=== PATIENT | female | born 1965 | race Caucasian/White ===

== ENCOUNTER 2022-04-28 13:47 | Emergency (ER) | payer MEDICARE, MEDICAID, SELFPAY ==
[2022-04-28 13:47] VITALS: BP 135/77; PULSE 59; RESP 22; TEMP 36.7; O2SAT 98; BMI 46.6
[2022-04-28 14:09] LABS: Bacteria 0 SEEN /hpf (None Seen); Mucous, Urine 0 SEEN /hpf (<or=2+); Red Blood Cells-Urine 0 SEEN /hpf (0-5); White Blood Cells 0 SEEN /hpf (0-5)
[2022-04-28 14:11] LABS: Absolute Lymphocyte Count 1.89 X10^3/uL (0.83-4.51); Absolute Neutrophil Count 3.9 X10^3/uL (2.0-7.7); Basophil# 0.02 X10^3/uL; Basophil% 0.3 % (0-1); Eosinophil# 0.07 X10^3/uL; Eosinophils% 1.1 % (0-5); Hematocrit 46.2 % (37-47); Hemoglobin 16.1 g/dL (12.0-15.0); Lymphocyte # 1.89 X10^3/ul (0.83-4.51); Lymphocyte % 29.6 % (19-41); Mean Corp Hgb Conc 34.8 g/dL (32-36); Mean Corpuscular Hgb 33.2 pg (27.0-32.0); Mean Corpuscular Volume 95.3 fL (81-99); Mean Platelet Vol. 11.3 fl (6.2-12.0); Monocyte# 0.46 X10^3/uL; Monocyte% 7.2 % (0-10); NRBC Flagged by Analyzer 0 % (0-5); Neutrophil % 61.2 % (47-70); Platelet Count 177 K/mm3 (150-450); RBC Distribution Width CV 13.5 % (11.6-14.6); RBC Distribution Width SD 47.5 fl (35.1-43.9); Red Blood Count 4.85 M/mm3 (4.2-5.4); White Blood Count 6.4 K/mm3 (4.4-11.0)
[2022-04-28 14:25] LABS: Color, Urine Yellow (Yellow); Glucose, Dipstick Normal (Normal); Ketone-Dipstick Negative (Negative); Leukocyte Esterase-Dipstick Negative /ul (Negative); Nitrite-Dipstick Negative (Negative); Occult Blood-Urine Negative /ul (Negative); Protein-Dipstick Negative (Negative); Specific Gravity, Urine 1.025 (1.002-1.030); Urine Bilirubin Dipstick Negative (Negative); Urine Clarity Sl. Cloudy (Clear); Urine Urobilinogen Normal (Normal)
[2022-04-28 14:32] LABS: ALB/GLOB Ratio 0.9 RATIO (0.9-2.4); AST(SGOT) 14 U/L (15-37); Alanine Aminotransfer ALT/SGPT 27 U/L (13-56); Albumin, Serum 3.6 g/dL (3.2-5.0); Alkaline Phosphatase 49 U/L (45-117); Anion Gap 8 (5-15); BUN 14 mg/dL (7-18); BUN/Creat Ratio 17.3 RATIO (10-20); Calcium,Total 9.1 mg/dL (8.5-10.1); Chloride 104 mmol/L (98-107); Creatinine, Serum 0.81 mg/dL (0.55-1.02); EST Glomerular Filtration Rate 78 mL/min (>60); Est Glom Filt Rate - Afr Amer 95 mL/min (>60); Estimated Creatinine Clearance 64.92 ml/min; Globulin 4.1 g/dL (2.2-4.2); Glucose 135 mg/dL (74-106); Potassium 3.9 mmol/L (3.5-5.1); Protein, Total 7.7 g/dL (6.4-8.2); Sodium Level 141 mmol/L (136-145)
[2022-04-28 14:39] LABS: Squamous Epithelial Cells - UA 0-5 SEEN /hpf (5-10)
--- NOTE | 2022-04-28 14:44 | CT_ITS ---
STUDY: CT ABDOMEN AND PELVIS WITH CONTRAST REASON FOR EXAM: Female, 57 years old. Right sided abdominal pain RADIATION DOSAGE (If Supplied By Facility): CTDIvol = ( 21.90 ) mGy, DLP = ( 1660.38 ) mGycm TECHNIQUE: Transaxial images were obtained from the dome of the diaphragm to the symphysis pubis without oral contrast. IV 100mL Isovue-370 was administered. Sagittal and coronal images were reconstructed. Individualized dose optimization techniques were used for this CT. COMPARISON: None. FINDINGS: 4.8 mm noncalcified nodule in the left lower lobe. Increased markings in the left lower lobe suggestive of scarring. 12 month follow-up is recommended. A dual-chamber pacemaker is seen. Normal liver. There are surgical clips in the gallbladder fossa consistent with a prior cholecystectomy. There are multiple benign calcified granulomata of the spleen. Normal pancreas. Normal bilateral adrenal glands. Normal right kidney. Normal left kidney. Normal visualized stomach. Normal small intestine. There are multiple colonic diverticula consistent with diverticulosis. The appendix is visualized and appears normal. There is scattered atherosclerotic calcification of the abdominal aorta, without a demonstrated aneurysm. Normal inferior vena cava. There is borderline retroperitoneal lymphadenopathy with enlarged nodes no greater than 10mm in the short axis diameter. Normal urinary bladder. A 1.7 cm calcified nodule is seen in the umbilicus. Normal osseous structures. CT/Abdomen/Pelvis W IV Cont ONLY IMPRESSION: Sigmoid diverticulosis. 4.8 mm noncalcified nodule in the left lower lobe. A 12 month follow-up examination is recommended. Electronically Signed: Gregory Figueroa MD at 15:26 EST ,
--- NOTE | 2022-04-28 14:45 | EDS_ITS ---
HPI HPI - GI History of Present Illness Chief Complaint: Abd Pain Narrative Narrative: 57-year-old female presenting with right upper quadrant abdominal pain and pain radiating to the right flank for the last several days. She states has not had a fever. She does states has had a cough for a month, is not sure if maybe she pulled something. 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 It is worse with movement she denies nausea or vomiting. She denies dysuria or hematuria. She denies fever or chills. Patient denies constipation or diarrhea. She states she has had 4 C-sections, 2 hernia repairs and cholecystectomy. She states she has no history of bowel blockages but does have IBS PFSH PFS Medical History Depression Hypothyroid IBS (irritable bowel syndrome) Insomnia Pacemaker Pre-diabetes Sleep apnea with use of continuous positive airway pressure (CPAP) Home Medications lidocaine 5 % topical patch (Lidoderm) 1 patch topical DAILY PRN pain (scale score 7-10) #15 ea 04/28/22 [Rx Last Taken Unknown] Allergy/AdvReac Type Severity Reaction Status Date / Time Sulfa (Sulfonamide Allergy Anaphylaxis Verified 04/28/22 14:46 Antibiotics) sulfamethoxazole Allergy Anaphylaxis Verified 04/28/22 14:46 [From Bactrim] trimethoprim [From Bactrim] Allergy Anaphylaxis Verified 04/28/22 14:46 Opioids - Morphine Analogues AdvReac Other Verified 04/28/22 14:46 Social History Smoking Status: Current every day smoker tobacco type: cigarettes ROS ROS ED Constitutional Constitutional ED: Denies chills or fever(s) ENT ENT ED: Denies rhinorrhea or sore throat Cardiovascular Cardiovascular: Denies palpitations or racing heartbeat Respiratory/Chest Respiratory/Chest: Reports cough; Denies dyspnea Gastrointestinal Gastrointestinal: Reports abdominal pain; Denies constipation, diarrhea, nausea or vomiting Genitourinary Genitourinary ED: Denies dysuria or hematuria Musculoskeletal Musculoskeletal: Reports back pain; Denies arthralgias Integumentary Denies abscess or Abrasions Neurologic Neurologic: Denies headache(s) or paresthesias Psychiatric Psychiatric: Denies anxiety or depression EXAM Physical Exam Const Vital Signs: 01/09/23 13:47 Temperature 98.1 F Temperature Source Temporal Pulse Rate 59 L Respiratory Rate 22 H Blood Pressure 135/77 H Blood Pressure Mean 96 Pulse Ox 98 Oxygen Delivery Method Room Air Positive well nourished and obese General Appearance ED: NAD; Negative for pallor Nutritional Appearance: obese HEENT Reports moist mucous membranes normocephalic and atraumatic Eyes PERRL and EOMs intact bilaterally Chest Wall Chest Narrative: Equal symmetric breath sounds and chest wall rise. Resp normal respiratory effort and clear to auscultation bilaterally Auscultation: Negative for rales, rhonchi or wheezes Cardio regular rhythm Rate: bradycardia GI Palpation: tender RUQ Back/Spine Back/Spine Narrative: Thoracic paraspinal muscular tenderness and tenderness in the right lower rib cage. Extremity full ROM Neuro CN's II-XII intact bilaterally Sensorium / Orientation: alert Psych mental status grossly normal and thought process normal Skin General Skin Exam: Negative for jaundice or pallor MDM MDM MDM Narrative Medical decision making narrative: Patient presenting with right flank pain as well as right upper abdominal pain. This has been ongoing for days. No fevers, chills, nausea, vomiting. She does not report any constipation or diarrhea. No urinary or vaginal complaints. She does states he is also been coughing for about a month. Her pain is located in the right flank and she is tender focally. She also has some pain in the right upper quadrant but is status post cholecystectomy distantly. Blood work was obtained and her CBC I do not identify any infectious etiology given that her white blood count is 6.4. Hemoglobin hematocrit are stable. Platelets are normal. Her renal function and electrolytes within normal limits. Her LFTs are normal as well. Her lipase is slightly elevated at 429 but this is not consistent with acute pancreatitis urinalysis negative for infection and occult blood. Due to her complaint of cough for over a month I did get a chest x-ray which on my interpretation does not show any acute cardiopulmonary process. The radiologist presents and agrees. I did obtain a CT of the abdomen pelvis and there is no acute intra-abdominal pathology noted. There is noted to be a left lower lobe pulmonary nodule which requires follow-up in the next year. No etiology found on the right side of her abdomen. The patient did refuse any pain medication except for Toradol because she does not like pain medication. I did give her a Lidoderm patch on the right flank. Patient counseled on negative work-up. I will give her some Lidoderm patches at home. She states she would prefer to alternate Tylenol and ibuprofen at home. I did offer her muscle relaxers but she states that she does not want take it during the day and she already takes tramadol at night at bedtime so she did not want to have a muscle relaxer. I did recommend alternating ice and heat. Return precautions were discussed. Impression: 1. Cough 2. Right flank pain 3. Abdominal pain 4. 4.8 mm pulmonary Lab Data Attestation: I reviewed the patient's lab results. Labs: Laboratory Results - last 24 hr 04/28/22 04/28/22 04/28/22 14:00 14:00 14:00 WBC 6.4 RBC 4.85 Hgb 16.1 H Hct 46.2 MCV 95.3 MCH 33.2 H MCHC 34.8 RDW Std Deviation 47.5 H RDW Coeff of Alexandrea 13.5 Plt Count 177 MPV 11.3 Immature Gran % (Auto) 0.600 Neut % (Auto) 61.2 Lymph % (Auto) 29.6 [place] % (Auto) 7.2 Eos % (Auto) 1.1 Baso % (Auto) 0.3 Absolute Neuts (auto) 3.9 Absolute Lymphs (auto) 1.89 Nucleated RBC % 0 Sodium 141 Potassium 3.9 Chloride 104 Carbon Dioxide 29.0 Anion Gap 8 BUN 14 Creatinine 0.81 Estim Creat Clear Calc 64.92 Est GFR (MDRD) Af Amer 95 Est GFR (MDRD) Non-Af 78 BUN/Creatinine Ratio 17.3 Glucose 135 H Calcium 9.1 Total Bilirubin 0.50 AST 14 L ALT 27 Alkaline Phosphatase 49 Total Protein 7.7 Albumin 3.6 Globulin 4.1 Albumin/Globulin Ratio 0.9 Lipase 429 H Urine Color Urine Clarity Urine pH Ur Specific [place] Urine Protein Urine Glucose (UA) Urine Ketones Urine Occult Blood Urine Nitrite Urine Bilirubin Urine Urobilinogen Ur Leukocyte Esterase Urine RBC Urine WBC Ur Squamous Epith Cells Urine Bacteria Urine Mucus 04/28/22 14:05 WBC RBC Hgb Hct MCV MCH MCHC RDW Std Deviation RDW Coeff of Alexandrea Plt Count MPV Immature Gran % (Auto) Neut % (Auto) Lymph % (Auto) [place] % (Auto) Eos % (Auto) Baso % (Auto) Absolute Neuts (auto) Absolute Lymphs (auto) Nucleated RBC % Sodium Potassium Chloride Carbon Dioxide Anion Gap BUN Creatinine Estim Creat Clear Calc Est GFR (MDRD) Af Amer Est GFR (MDRD) Non-Af BUN/Creatinine Ratio Glucose Calcium Total Bilirubin AST ALT Alkaline Phosphatase Total Protein Albumin Globulin Albumin/Globulin Ratio Lipase Urine Color Yellow Urine Clarity Sl. Cloudy Urine pH 5.0 Ur Specific [place] 1.025 Urine Protein Negative Urine Glucose (UA) Normal Urine Ketones Negative Urine Occult Blood Negative Urine Nitrite Negative Urine Bilirubin Negative Urine Urobilinogen Normal Ur Leukocyte Esterase Negative Urine RBC 0 SEEN Urine WBC 0 SEEN Ur Squamous Epith Cells 0-5 SEEN Urine Bacteria 0 SEEN Urine Mucus 0 SEEN Radiography Diagnostic Testing: Clinical Impression(s) from Imaging Studies Abdomen/Pelvis CT 04/28/22 14:44 IMPRESSION: Sigmoid diverticulosis. 4.8 mm noncalcified nodule in the left lower lobe. A 12 month follow-up examination is recommended. Electronically Signed: Gregory Figueroa MD at 15:26 EST Reading Location ID and State: [facility] / [place] , Service support , Chest X-Ray 04/28/22 15:05 IMPRESSION: Mild increased linear markings at the lung bases suggestive of bibasilar scarring. This is worse on the left side. Electronically Signed: Gregory Figueroa MD at 15:27 EST , Discharge Plan Triage Chief Complaint: Abd Pain ED Provider: Kevin Antunez Dx/Rx/DC Orders Instructions: ED Abdominal Pain Unkn Cause Fem, ED Flank Pain, Uncertain Cause, ED Pulmonary Nodule, Solitary Prescriptions: New lidocaine [Lidoderm] 5 % adhesive patch,medicated 1 patch topical DAILY PRN (Reason: pain (scale score 7-10)) Qty: 15 0RF Rx Instructions: leave on most painful area for up to 12 hrs Primary Care Provider: Jennie King Referrals: Jennie King, [Primary Care Provider] - Disposition Disposition: Home, Self Care
[2022-04-28] MEDS: Ketorolac 15 MG/ML Vial IV (14:48)
--- NOTE | 2022-04-28 15:05 | RAD_ITS ---
STUDY: X-RAY CHEST REASON FOR EXAM: Female, 57 years old. Cough TECHNIQUE: Single AP portable view of the chest. COMPARISON: None. FINDINGS: Mild increased markings at the lung bases more prominent on the right side suggestive of bibasilar scarring. There is no demonstrated pleural abnormality. A left-sided dual-chamber pacemaker is seen. Normal mediastinum and xavier. Normal visualized pulmonary arteries. Normal visualized aortic arch and descending thoracic aorta. Normal visualized thoracic spine. There is degenerative osteoarthritis of the bilateral shoulders. Tiny calcification overlying the greater tuberosity of the right humerus suggestive of possible calcific tendinitis. There is no demonstrated abnormality of the visualized soft tissue structures of the upper abdomen. RAD/Chest 1 View (Portable) IMPRESSION: Mild increased linear markings at the lung bases suggestive of bibasilar scarring. This is worse on the left side. Electronically Signed: Gregory Figueroa MD at 15:27 EST ,
[2022-04-28 15:12] LABS: Lipase 429 U/L (73-393)
[2022-04-28] MEDS: Lidocaine 5% Patch 1 PATCH TOPICAL (16:07)
== END 2022-04-28 16:08 | disposition home or self-care (01) ==
PROVIDERS: Emergency Provider Student in an Organized Health Care Education/Training Program; PCP Family Medicine; Visit Provider Student in an Organized Health Care Education/Training Program
DX: R05.9 Cough, unspecified (principal); R10.11 Right upper quadrant pain; F17.210 Nicotine dependence, cigarettes, uncomplicated; G47.30 Sleep apnea, unspecified; E66.9 Obesity, unspecified
CPT/HCPCS: 71045; 74177; 80053; 81001; 83690; 85025; 96374; 99284; Q9967; A4216

== ENCOUNTER → 2022-05-14 | Outpatient (CLI) | payer MEDICARE, SELFPAY ==
[2022-05-14 12:16] LABS: Hematocrit 48.1 % (37-47); Hemoglobin 15.7 g/dL (12.0-15.0); Mean Corp Hgb Conc 32.6 g/dL (32-36); Mean Corpuscular Hgb 30.9 pg (27.0-32.0); Mean Corpuscular Volume 94.7 fL (81-99); Mean Platelet Vol. 11.4 fl (6.2-12.0); Platelet Count 174 K/mm3 (150-450); RBC Distribution Width SD 45.6 fl (35.1-43.9); Red Blood Count 5.08 M/mm3 (4.2-5.4); White Blood Count 5.7 K/mm3 (4.4-11.0)
[2022-05-14 13:09] LABS: ALB/GLOB Ratio 0.9 RATIO (0.9-2.4); AST(SGOT) 19 U/L (15-37); Alanine Aminotransfer ALT/SGPT 30 U/L (13-56); Albumin, Serum 3.6 g/dL (3.2-5.0); Alkaline Phosphatase 44 U/L (45-117); Anion Gap 9 (5-15); BUN 12 mg/dL (7-18); BUN/Creat Ratio 15.6 RATIO (10-20); Calcium,Total 9.3 mg/dL (8.5-10.1); Chloride 103 mmol/L (98-107); Creatinine, Serum 0.77 mg/dL (0.55-1.02); EST Glomerular Filtration Rate 83 mL/min (>60); Est Glom Filt Rate - Afr Amer 100 mL/min (>60); Free T3 2.7 pg/mL (2.18-3.98); Globulin 4.2 g/dL (2.2-4.2); Glucose 107 mg/dL (74-106); Potassium 3.9 mmol/L (3.5-5.1); Protein, Total 7.8 g/dL (6.4-8.2); Sodium Level 140 mmol/L (136-145); T4 Free Direct 1.67 ng/dL (0.76-1.46); Thyroid Stim Hormone (TSH) 0.17 uIU/mL (0.358-3.74)
== END | disposition home or self-care (01) ==
LOC: MTLAB 11:06
PROVIDERS: PCP Nurse Practitioner Primary Care; Referring Provider Nurse Practitioner Primary Care; Visit Provider Nurse Practitioner Primary Care
DX: E03.4 Atrophy of thyroid (acquired) (principal); D69.6 Thrombocytopenia, unspecified; I10 Essential (primary) hypertension
CPT/HCPCS: 36415; 80053; 84439; 84443; 84481; 85027

== ENCOUNTER → 2022-07-07 | Outpatient (CLI) | payer MEDICARE, MEDICAID, SELFPAY ==
--- NOTE | 2022-07-07 13:24 | US_ITS ---
STUDY: ULTRASOUND OF THE FEMALE PELVIS - COMPLETE REASON FOR EXAM: Female, 57 years old. POSTMEN BLEEDING LMP: Postmenopausal TECHNIQUE: Transabdominal and Transvaginal TECHNICAL QUALITY: Adequate. COMPARISON: None. FINDINGS: The uterus is anteverted and is in a midline position. The uterus measures 10.1 x 5.4 x 5.0 cm. Normal uterine cervix. The endometrium measures 8.9 mm in thickness, and is hyperechoic. The endometrial complex is not well seen on provided images. There is no demonstrated myometrial mass. I.U.D. - The patient does not have an I.U.D. The right ovary is visualized. The right ovary measures 2.9 x 3.3 x 2.0 cm. There is no right ovarian cyst or ovarian mass. There is no visualized right adnexal mass or complex lesion. There is normal arterial and normal venous vascularity. The left ovary is not seen. There is no fluid in the cul-de-sac. Urinary bladder is unremarkable. US/Pelvic w/ Transvaginal IMPRESSION: 1. Endometrial complex thickening for a postmenopausal female, particularly in the setting of postmenopausal bleeding. Limited visualization of the endometrial complex due to patient body habitus. Consider additional evaluation with sonohysterography, tissue sampling and/or MRI. Electronically Signed: Malick Coombs (Brooks), at 15:20 EDT Reading Location ID and State: [address] [place] , Service support ,
== END | disposition home or self-care (01) ==
PROVIDERS: PCP Nurse Practitioner Primary Care; Referring Provider Nurse Practitioner Primary Care; Visit Provider Nurse Practitioner Primary Care
DX: N95.0 Postmenopausal bleeding (principal)
CPT/HCPCS: 76830; 76856

== ENCOUNTER 2022-10-08 14:00 | Inpatient (IN) | payer MEDICARE, MEDICAID, SELFPAY ==
[2022-10-08 14:01] VITALS: BP 130/81; PULSE 65; RESP 16; TEMP 36.4; O2SAT 96; BMI 46.2
[2022-10-08 14:14] VITALS: BP 131/72
[2022-10-08 15:27] LABS: Mucous, Urine 0 SEEN /hpf (<or=2+)
[2022-10-08 15:31] LABS: Absolute Neutrophil Count 4.9 X10^3/uL (2.0-7.7); Basophil# 0.03 X10^3/uL; Basophil% 0.4 % (0-1); Eosinophil# 0.06 X10^3/uL; Eosinophils% 0.9 % (0-5); Hematocrit 48.1 % (37-47); Hemoglobin 15.8 g/dL (12.0-15.0); Mean Corp Hgb Conc 32.8 g/dL (32-36); Mean Corpuscular Hgb 29.8 pg (27.0-32.0); Mean Corpuscular Volume 90.8 fL (81-99); Mean Platelet Vol. 11.5 fl (6.2-12.0); Monocyte# 0.48 X10^3/uL; NRBC Flagged by Analyzer 0 % (0-5); Neutrophil # 4.94 X10^3/uL (2.7-7.7); Neutrophil % 72.3 % (47-70); Platelet Count 173 K/mm3 (150-450); RBC Distribution Width CV 13.2 % (11.6-14.6); RBC Distribution Width SD 43.7 fl (35.1-43.9); White Blood Count 6.8 K/mm3 (4.4-11.0)
--- NOTE | 2022-10-08 15:31 | CT_ITS ---
STUDY: CT Abdomen And Pelvis W/ Contrast Injection 10/08/2022 4:36 PM REASON FOR EXAM: Female, 57 years old. Abdominal pain Epigastric pain Individualized dose optimization techniques were used for this CT. COMPARISON: 04.28.22. TECHNIQUE: CT Abdomen And Pelvis W/ Contrast Injection IV 100mL Isovue-370 FINDINGS: There are atherosclerotic calcifications of visualized coronary arteries. The visualized portions of the heart are within normal limits. Normal liver. There are surgical clips in the gallbladder fossa consistent with a prior cholecystectomy. Normal spleen. Normal pancreas. Normal bilateral adrenal glands. Stable epigastric omental soft tissue inflammatory stranding. No acute findings of the right kidney. No acute findings of the left kidney. Focal wall thickening of the antrum of stomach. This can suggest a gastritis. There are dilated loops of the small intestine with a non-distended colon consistent with a small bowel obstruction. There is liquid stool in the colon. This can suggest a gastroenteritis /diarrhea. Clinical correlation is recommended. There is non-visualization of the appendix. Anterior abdominal wall hernia mesh in place. There are calcifications of the abdominal aorta. This is consistent for atherosclerotic disease. There is NO abdominal aortic aneurysm. Vascular workup can be obtained based on clinical correlation. Normal inferior vena cava. Subcentimeter mesenteric lymph nodes. Urinary bladder wall has wall thickening. This can be related to a partially contractile state. However, a cystitis is not excluded. Urinalysis should be performed in an effort to exclude cystitis. There is absence of the uterus consistent with a prior hysterectomy. Stable periumbilical calcification. There are diffuse degenerative changes of the visualized lumbar spine. CT/Abdomen/Pelvis W IV Cont ONLY IMPRESSION: (NOT LISTED IN ORDER OF SIGNIFICANCE) There is a small bowel obstruction. The transition point is noted in the abdomen along the anterior abdominal wall. This may be related to adhesion formation.. Gastritis. Urinary bladder wall has wall thickening. This can be related to a partially contractile state. However, a cystitis is not excluded. Urinalysis should be performed in an effort to exclude cystitis. There is liquid stool in the colon. This can suggest a gastroenteritis /diarrhea. Clinical correlation is recommended. Other findings as above. Electronically Signed: Gordon Alvarado MD at 16:40 EDT ,
--- NOTE | 2022-10-08 15:32 | EDS_ITS ---
HPI HPI - GI History of Present Illness Chief Complaint: Abd Pain Narrative Narrative: 57-year-old female presenting with epigastric pain. This started just before coming into the ER. She states she was straining to have a bowel movement when she noted the pain in the epigastric region. The pain is very mild and is resolving. Patient states that she has not had a bowel movement in a couple of days. She is on Linzess and she is taking it. She took 2 Dulcolax yesterday. Patient reports that she recently had a hysterectomy this last month. She is not had a fever, chills. [facility] Medical History Depression Hypothyroid IBS (irritable bowel syndrome) Insomnia Pacemaker Pre-diabetes Sleep apnea with use of continuous positive airway pressure (CPAP) Home Medications budesonide-formoterol HFA 160 mcg-4.5 mcg/actuation aerosol inhaler (Symbicort) 160 puff inhalation DAILY 10/08/22 [History Last Taken Unknown] famotidine 40 mg tablet 40 mg PO DAILY 10/08/22 [History Last Taken Unknown] ibuprofen 600 mg tablet 600 mg PO PRN PRN Pain 10/08/22 [History Last Taken Unknown] levothyroxine 200 mcg tablet 200 mcg PO DAILY 10/08/22 [History Last Taken Unknown] linaclotide 290 mcg capsule (Linzess) 290 mcg PO DAILY 10/08/22 [History Last Taken Unknown] metformin 500 mg tablet,extended release 24 hr 500 mg PO DAILY 10/08/22 [History Last Taken Unknown] pantoprazole 40 mg tablet,delayed release 40 mg PO DAILY 10/08/22 [History Last Taken Unknown] pravastatin 40 mg tablet 40 mg PO DAILY 10/08/22 [History Last Taken Unknown] prednisone 10 mg tablet 10 mg PO PRN PRN other 10/08/22 [History Last Taken Unknown] sertraline 100 mg tablet 100 mg PO DAILY 10/08/22 [History Last Taken Unknown] spironolactone 25 mg tablet 25 mg PO DAILY 10/08/22 [History Last Taken Unknown] trazodone 100 mg tablet 100 mg PO DAILY 10/08/22 [History Last Taken Unknown] Allergy/AdvReac Type Severity Reaction Status Date / Time Sulfa (Sulfonamide Allergy Anaphylaxis Verified 10/08/22 14:02 Antibiotics) sulfamethoxazole Allergy Anaphylaxis Verified 10/08/22 14:02 [From Bactrim] trimethoprim [From Bactrim] Allergy Anaphylaxis Verified 10/08/22 14:02 Opioids - Morphine Analogues AdvReac Other Verified 10/08/22 14:02 Surgical History (Updated 10/08/22 @ 14:08 by Debra Baeza) H/O: hysterectomy Social History Smoking Status: Current every day smoker tobacco type: cigarettes EXAM Physical Exam Const Vital Signs: 10/08/22 14:01 10/08/22 14:14 Temperature 97.5 F L Temperature Source Temporal Pulse Rate 65 Respiratory Rate 16 Blood Pressure 130/81 H 131/72 H Blood Pressure Mean 97 91 Pulse Ox 96 Oxygen Delivery Method Room Air MDM MDM MDM Narrative Medical decision making narrative: Presenting with epigastric pain which started just prior to arrival. She states she was straining to defecate and that with this started to hurt. She does not want anything for pain because she does not help make her more constipated. She takes Linzess that she took a couple of Dulcolax hoping to have a bowel movement. She is concerned because she had a hysterectomy a month ago and she is still straining to have bowel movements. Differential includes small bowel obstruction, constipation, bowel perforation, postop infection, diverticulitis, pancreatitis, pyelonephritis, UTI, GERD. CBC to assess white blood cell count, hemoglobin, platelets. CMP to assess liver function, renal function, e lectrolytes. Lipase to assess for pancreatitis. Urinalysis to assess for UTI. Patient treated with Reglan to help her nausea which could potentially help her bowel movement as well. CBC shows a normal white blood cell count 6.8. Hemoglobin 15.8 and somewhat hemoconcentrated. Liver function, renal function, lipase all unremarkable. Urinalysis with no evidence of infection. We will obtain a CT of the abdomen pelvis with IV contrast. CT of the abdomen pelvis shows small bowel obstruction which may be due to adhesions. Discussed the case with Harley Bearden who recommended admission to medicine, n.p.o., IV fluids and antiemetics. Discussed this with Dr. Hernandez who will accept the patient. Impression: 1. Small bowel obstruction 2. abdominal pain Lab Data Attestation: I reviewed the patient's lab results. Labs: Laboratory Results - last 24 hr 10/08/22 10/08/22 10/08/22 15:04 15:04 15:15 WBC 6.8 RBC 5.30 Hgb 15.8 H Hct 48.1 H MCV 90.8 MCH 29.8 MCHC 32.8 RDW Std Deviation 43.7 RDW Coeff of Alexandrea 13.2 Plt Count 173 MPV 11.5 Immature Gran % (Auto) 0.400 Neut % (Auto) 72.3 H Lymph % (Auto) 19.0 [place] % (Auto) 7.0 Eos % (Auto) 0.9 Baso % (Auto) 0.4 Absolute Neuts (auto) 4.9 Absolute Lymphs (auto) 1.30 Nucleated RBC % 0 Sodium 138 Potassium 3.9 Chloride 106 Carbon Dioxide 29.0 Anion Gap 3 L BUN 10 Creatinine 0.75 Estim Creat Clear Calc 70.11 Est GFR (MDRD) Af Amer 102 Est GFR (MDRD) Non-Af 85 BUN/Creatinine Ratio 13.3 Glucose 122 H Calcium 9.3 Total Bilirubin 0.50 AST 18 ALT 30 Alkaline Phosphatase 60 Total Protein 7.9 Albumin 3.7 Globulin 4.2 Albumin/Globulin Ratio 0.9 Lipase 70 Urine Color Yellow Urine Clarity Sl. Cloudy Urine pH 5.0 Ur Specific [place] 1.025 Urine Protein 30 H Urine Glucose (UA) Normal Urine Ketones Negative Urine Occult Blood 50 H Urine Nitrite Negative Urine Bilirubin Negative Urine Urobilinogen Normal Ur Leukocyte Esterase 500 H Urine RBC 0-5 SEEN Urine WBC 10-25 SEEN Ur Squamous Epith Cells 0-5 SEEN Urine Bacteria 1+ Urine Mucus 0 SEEN Radiography Diagnostic Testing: Clinical Impression(s) from Imaging Studies Abdomen/Pelvis CT 10/08/22 15:31 IMPRESSION: (NOT LISTED IN ORDER OF SIGNIFICANCE) There is a small bowel obstruction. The transition point is noted in the abdomen along the anterior abdominal wall. This may be related to adhesion formation.. Gastritis. Urinary bladder wall has wall thickening. This can be related to a partially contractile state. However, a cystitis is not excluded. Urinalysis should be performed in an effort to exclude cystitis. There is liquid stool in the colon. This can suggest a gastroenteritis /diarrhea. Clinical correlation is recommended. Other findings as above. Electronically Signed: Gordon Alvarado MD at 16:40 EDT , Discharge Plan Triage Chief Complaint: Abd Pain ED Provider: Kevin Antunez Dx/Rx/DC Orders Prescriptions: No Action prednisone 10 mg tablet 10 mg PO PRN PRN (Reason: other) Label Comments: TAKE TABLET(S) BY MOUTH EVERY MORNING FOR 8 DAYS UNTIL GONE PER TAPER DAY 1 4 TABLETS DAY 2 3 & 1/2 TABLETS DAY 3 3 TABLETS DAY 4 2 pravastatin 40 mg tablet 40 mg PO DAILY famotidine 40 mg tablet 40 mg PO DAILY Label Comments: TAKE 1 TABLET BY MOUTH EVERY NIGHT AT BEDTIME sertraline 100 mg tablet 100 mg PO DAILY Label Comments: TAKE 1 TABLET BY MOUTH DAILY spironolactone 25 mg tablet 25 mg PO DAILY Label Comments: TAKE 1 TABLET BY MOUTH DAILY NEEDED FOR SWELLING trazodone 100 mg tablet 100 mg PO DAILY Label Comments: TAKE 1 (ONE) & ONE-HALF TO 2 (TWO) TABLETS BY MOUTH DAILY AT BEDTIME pantoprazole 40 mg tablet,delayed release (DR/EC) 40 mg PO DAILY levothyroxine 200 mcg tablet 200 mcg PO DAILY Label Comments: TAKE 1 TABLET BY MOUTH DAILY EVERY MORNING ibuprofen 600 mg tablet 600 mg PO PRN PRN (Reason: Pain) Label Comments: TAKE 1 TABLET BY MOUTH EVERY 6 HOURS NEEDED FOR PAIN, take WITH FOOD or milk metformin 500 mg tablet extended release 24 hr 500 mg PO DAILY Label Comments: TAKE 1 TABLET BY MOUTH DAILY budesonide-formoterol [Symbicort] 160-4.5 mcg/actuation HFA aerosol inhaler 160 puff INHALATION DAILY Label Comments: INHALE TWO PUFFS BY MOUTH TWICE DAILY. RINSE MOUTH AND THROAT AFTER USE Linzess 290 mcg capsule 290 mcg PO DAILY Label Comments: TAKE 1 CAPSULE EVERY DAY BY MOUTH FOR 90 DAYS Primary Care Provider: Shanda Hernandez NP Referrals: Shanda Hernandez NP, NET COORDINATOR-[facility] [Primary Care Provider] -
[2022-10-08 15:33] LABS: Color, Urine Yellow (Yellow); Glucose, Dipstick Normal (Normal); Ketone-Dipstick Negative (Negative); Leukocyte Esterase-Dipstick 500 /ul (Negative); Nitrite-Dipstick Negative (Negative); Occult Blood-Urine 50 /ul (Negative); Protein-Dipstick 30 mg/dl (Negative); Specific Gravity, Urine 1.025 (1.002-1.030); Urine Bilirubin Dipstick Negative (Negative); Urine Clarity Sl. Cloudy (Clear); Urine Urobilinogen Normal (Normal)
[2022-10-08 15:43] LABS: Bacteria 1+ /hpf (None Seen); Squamous Epithelial Cells - UA 0-5 SEEN /hpf (5-10); White Blood Cells 10-25 SEEN /hpf (0-5)
[2022-10-08 15:44] LABS: Red Blood Cells-Urine 0-5 SEEN /hpf (0-5)
[2022-10-08] MEDS: Metoclopramide 10 MG/2 ML Vial IV (15:46)
[2022-10-08] MEDS: 0.9% Normal Saline 1,000 ML 999 ML IV (15:46)
[2022-10-08 15:50] LABS: ALB/GLOB Ratio 0.9 RATIO (0.9-2.4); AST(SGOT) 18 U/L (15-37); Alanine Aminotransfer ALT/SGPT 30 U/L (13-56); Albumin, Serum 3.7 g/dL (3.2-5.0); Alkaline Phosphatase 60 U/L (45-117); Anion Gap 3 (5-15); BUN 10 mg/dL (7-18); BUN/Creat Ratio 13.3 RATIO (10-20); Calcium,Total 9.3 mg/dL (8.5-10.1); Chloride 106 mmol/L (98-107); Creatinine, Serum 0.75 mg/dL (0.55-1.02); EST Glomerular Filtration Rate 85 mL/min (>60); Est Glom Filt Rate - Afr Amer 102 mL/min (>60); Estimated Creatinine Clearance 70.11 ml/min; Globulin 4.2 g/dL (2.2-4.2); Glucose 122 mg/dL (74-106); Lipase 70 U/L (13-75); Potassium 3.9 mmol/L (3.5-5.1); Protein, Total 7.9 g/dL (6.4-8.2); Sodium Level 138 mmol/L (136-145)
[2022-10-08 17:33] VITALS: BP 124/64; PULSE 60; RESP 16; TEMP 36.6
[2022-10-08 17:55] VITALS: BMI 45.9
[2022-10-08 18:02] VITALS: BP 139/81; PULSE 78; RESP 18; TEMP 37.2; O2SAT 97
--- NOTE | 2022-10-08 18:48 | PCM.HP.STD ---
[facility] - General General Date of Admission: 10/08/22 Date of Service: 10/08/22 Chief Complaint: Abdominal pain and constipation HPI Narrative JANE DAVEY, is a 57 F with a history of morbid obesity, irritable bowel syndrome for which she is on Linzess, type 2 diabetes, ventral hernia with multiple surgeries with mesh and who also recently had a hysterectomy. Patient presents to the hospital with 3 days history of constipation and 1 day history of severe periumbilical abdominal pain. Patient states that when she arrived to the emergency department pain was extremely severe however currently it is much improved. Denies any nausea or vomiting or abdominal distention. CT of the abdomen pelvis shows small bowel obstruction with transition point adjacent to anterior-abdominal wall mesh. General surgery has been notified. Patient denies any fever or chills. [facility] Medical History (Updated 10/08/22 @ 18:[address] Kamila Hernandez MD) Depression Hypothyroid IBS (irritable bowel syndrome) Insomnia Pacemaker Pre-diabetes Sleep apnea with use of continuous positive airway pressure (CPAP) Home Medications budesonide-formoterol HFA 160 mcg-4.5 mcg/actuation aerosol inhaler (Symbicort) 160 puff inhalation DAILY 10/08/22 [History Last Taken Unknown] famotidine 40 mg tablet 40 mg PO DAILY 10/08/22 [History Last Taken Unknown] ibuprofen 600 mg tablet 600 mg PO PRN PRN Pain 10/08/22 [History Last Taken Unknown] levothyroxine 200 mcg tablet 200 mcg PO DAILY 10/08/22 [History Last Taken Unknown] linaclotide 290 mcg capsule (Linzess) 290 mcg PO DAILY 10/08/22 [History Last Taken Unknown] metformin 500 mg tablet,extended release 24 hr 500 mg PO DAILY 10/08/22 [History Last Taken Unknown] pantoprazole 40 mg tablet,delayed release 40 mg PO DAILY 10/08/22 [History Last Taken Unknown] pravastatin 40 mg tablet 40 mg PO DAILY 10/08/22 [History Last Taken Unknown] prednisone 10 mg tablet 10 mg PO PRN PRN other 10/08/22 [History Last Taken Unknown] sertraline 100 mg tablet 100 mg PO DAILY 10/08/22 [History Last Taken Unknown] spironolactone 25 mg tablet 25 mg PO DAILY 10/08/22 [History Last Taken Unknown] trazodone 100 mg tablet 100 mg PO DAILY 10/08/22 [History Last Taken Unknown] Allergy/AdvReac Type Severity Reaction Status Date / Time Sulfa (Sulfonamide Allergy Anaphylaxis Verified 10/08/22 14:02 Antibiotics) sulfamethoxazole Allergy Anaphylaxis Verified 10/08/22 14:02 [From Bactrim] trimethoprim [From Bactrim] Allergy Anaphylaxis Verified 10/08/22 14:02 Opioids - Morphine Analogues AdvReac Other Verified 10/08/22 14:02 Surgical History (Updated 10/08/22 @ 14:08 by Debra Baeza) H/O: hysterectomy Social History (Updated 10/08/22 @ 18:[address] 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 All other systems reviewed and essentially negative as above in the body of the history. Vital Signs Vital Signs Vital Signs: 10/08/22 14:01 10/08/22 14:14 10/08/22 17:33 Temperature 36.4 C L 36.6 C Temperature Source Temporal Temporal Pulse Rate 65 60 Respiratory Rate 16 16 Blood Pressure 130/81 H 131/72 H 124/64 H Blood Pressure Mean 97 91 84 Blood Pressure Source Blood Pressure Position Blood Pressure Location Pulse Ox 96 Oxygen Delivery Method Room Air 10/08/22 18:02 Temperature 37.2 C Temperature Source Oral Pulse Rate 78 Respiratory Rate 18 Blood Pressure 139/81 H Blood Pressure Mean 100 Blood Pressure Source Monitor Blood Pressure Position Semi-Fowlers Blood Pressure Location Right Arm Pulse Ox 97 Oxygen Delivery Method Room Air Weight Weight: 117.571 kg Body Mass Index (BMI) 45.9 Physical Exam Narrative General exam. Middle-aged lady appears older than stated age, morbidly obese, in some painful distress HEENT. Conjunctival injection, oral mucosa slightly dry, no cyanosis or jaundice. Neck. Neck is supple Heart. First and second heart sounds heard no murmurs. Lungs. Clear to auscultation but with prolonged expiratory phase Abdomen. Obese. Ventral scar. No visible peristalsis, bowel sounds hyperactive, tenderness in the periumbilical/lower epigastric region. Visible and distended and encouraged superficial veins. Extremities. No pedal edema [employer]. Conscious alert and oriented x3. Cranial 2-12 grossly intact. Results Lab / Micro Data Result Diagrams: 10/08/22 15:15 10/08/22 15:04 Labs: Laboratory Results - last 24 hr 10/08/22 15:04: Sodium 138, Potassium 3.9, Chloride 106, Carbon Dioxide 29.0, Anion Gap 3 L, BUN 10, Creatinine 0.75, Estim Creat Clear Calc 70.11, Est GFR (MDRD) Af Amer 102, Est GFR (MDRD) Non-Af 85, BUN/Creatinine Ratio 13.3, Glucose 122 H, Calcium 9.3, Total Bilirubin 0.50, AST 18, ALT 30, Alkaline Phosphatase 60, Total Protein 7.9, Albumin 3.7, Globulin 4.2, Albumin/Globulin Ratio 0.9, Lipase 70 10/08/22 15:04: Urine Color Yellow, Urine Clarity Sl. Cloudy, Urine pH 5.0, Ur Specific [place] 1.025, Urine Protein 30 H, Urine Glucose (UA) Normal, Urine Ketones Negative, Urine Occult Blood 50 H, Urine Nitrite Negative, Urine Bilirubin Negative, Urine Urobilinogen Normal, Ur Leukocyte Esterase 500 H, Urine RBC 0-5 SEEN, Urine WBC 10-25 SEEN, Ur Squamous Epith Cells 0-5 SEEN, Urine Bacteria 1+, Urine Mucus 0 SEEN 10/08/22 15:15: WBC 6.8, RBC 5.30, Hgb 15.8 H, Hct 48.1 H, MCV 90.8, MCH 29.8, MCHC 32.8, RDW Std Deviation 43.7, RDW Coeff of [place] 13.2, Plt Count 173, MPV 11.5, Immature Gran % (Auto) 0.400, Neut % (Auto) 72.3 H, Lymph % (Auto) 19.0, [place] % (Auto) 7.0, Eos % (Auto) 0.9, Baso % (Auto) 0.4, Absolute Neuts (auto) 4.9, Absolute Lymphs (auto) 1.30, Nucleated RBC % 0 Radiology Impression Abdomen/Pelvis CT 10/08/22 15:31 IMPRESSION: (NOT LISTED IN ORDER OF SIGNIFICANCE) There is a small bowel obstruction. The transition point is noted in the abdomen along the anterior abdominal wall. This may be related to adhesion formation.. Gastritis. Urinary bladder wall has wall thickening. This can be related to a partially contractile state. However, a cystitis is not excluded. Urinalysis should be performed in an effort to exclude cystitis. There is liquid stool in the colon. This can suggest a gastroenteritis /diarrhea. Clinical correlation is recommended. Other findings as above. Electronically Signed: Gordon Alvarado MD at 16:40 EDT , Assessment & Plan Assessment/Plan (1) Small bowel obstruction: PLAN: Plan Assessment and plan 1. Small bowel obstruction. Most likely secondary to adhesions. Consult general surgery. Keep patient NPO. Analgesics. Supportive care. IV fluids. 2. Morbid obesity. Lifestyle modifications as able. 3. Type 2 diabetes. Hold metformin. Insulin sliding scale. Charges/Coding Visit Charges Inpatient E&M: 89013 Init Hosp L3
[2022-10-08] MEDS: KCL 20MEQ in D5.45NS 20 MEQ/1,000 ML IV.SOLN. 100 MEQ IV (18:55)
[2022-10-08 19:01] LABS: Bedside Glucose 99 mg/dL (74-106)
[2022-10-08 19:34] VITALS: PULSE 64; RESP 16
[2022-10-08] MEDS: Budesonide Respules 0.5 MG/2 ML AMPUL.NEB. INHALATION (19:34)
[2022-10-08 22:27] VITALS: BP 120/77; PULSE 62; RESP 18; TEMP 37.1; O2SAT 96
[2022-10-08 22:49] LABS: Bedside Glucose 116 mg/dL (74-106)
[2022-10-09 04:03] VITALS: BP 117/73; PULSE 62; RESP 18; TEMP 37.1; O2SAT 91
[2022-10-09 04:56] VITALS: BP 115/76; PULSE 64; RESP 18; TEMP 37.1; O2SAT 92
[2022-10-09] MEDS: KCL 20MEQ in D5.45NS 20 MEQ/1,000 ML IV.SOLN. 100 MEQ IV (04:59)
[2022-10-09 05:22] LABS: Bedside Glucose 130 mg/dL (74-106)
[2022-10-09 06:22] LABS: Absolute Lymphocyte Count 1.13 X10^3/uL (0.83-4.51); Absolute Neutrophil Count 3.1 X10^3/uL (2.0-7.7); Basophil# 0.03 X10^3/uL; Basophil% 0.6 % (0-1); Eosinophil# 0.07 X10^3/uL; Eosinophils% 1.5 % (0-5); Hematocrit 45.3 % (37-47); Hemoglobin 14.5 g/dL (12.0-15.0); Lymphocyte # 1.13 X10^3/ul (0.83-4.51); Lymphocyte % 23.6 % (19-41); Mean Corpuscular Hgb 29.4 pg (27.0-32.0); Mean Corpuscular Volume 91.7 fL (81-99); Mean Platelet Vol. 11.2 fl (6.2-12.0); Monocyte# 0.44 X10^3/uL; Monocyte% 9.2 % (0-10); NRBC Flagged by Analyzer 0 % (0-5); Neutrophil # 3.09 X10^3/uL (2.7-7.7); Neutrophil % 64.5 % (47-70); Platelet Count 147 K/mm3 (150-450); RBC Distribution Width CV 13.1 % (11.6-14.6); RBC Distribution Width SD 44.4 fl (35.1-43.9); Red Blood Count 4.94 M/mm3 (4.2-5.4); White Blood Count 4.8 K/mm3 (4.4-11.0)
[2022-10-09 07:07] VITALS: PULSE 68; RESP 16
[2022-10-09 07:07] LABS: ALB/GLOB Ratio 0.9 RATIO (0.9-2.4); AST(SGOT) 21 U/L (15-37); Alanine Aminotransfer ALT/SGPT 29 U/L (13-56); Albumin, Serum 3.2 g/dL (3.2-5.0); Alkaline Phosphatase 53 U/L (45-117); Anion Gap 5 (5-15); BUN 7 mg/dL (7-18); BUN/Creat Ratio 12.5 RATIO (10-20); Calcium,Total 8.7 mg/dL (8.5-10.1); Chloride 111 mmol/L (98-107); Creatinine, Serum 0.56 mg/dL (0.55-1.02); EST Glomerular Filtration Rate 119 mL/min (>60); Est Glom Filt Rate - Afr Amer 145 mL/min (>60); Globulin 3.6 g/dL (2.2-4.2); Glucose 118 mg/dL (74-106); Potassium 3.9 mmol/L (3.5-5.1); Protein, Total 6.8 g/dL (6.4-8.2); Sodium Level 142 mmol/L (136-145)
[2022-10-09] MEDS: Budesonide Respules 0.5 MG/2 ML AMPUL.NEB. INHALATION (07:07)
--- NOTE | 2022-10-09 07:42 | EX.PCM.CON.S ---
Assessment & Plan Assessment/Plan (1) Small bowel obstruction: PLAN: The patient was admitted with abdominal pain last night. CT scan showed possible small bowel obstruction due to adhesions to the mesh. This morning the patient reports she has had several bowel movements and she is having no abdominal pain. I will try her on a diet. She would like to go home if possible today since she is feeling better. If she tolerates a diet she can be discharged home. Florin Naik MD Pager: [facility] [address] [place] [address], [address] [place] [address] Office: HPI Consult Data Date of Consult: 10/09/22 HPI Narrative HPI Narrative: JANE DAVEY, is a 57 F who presented with abdominal pain. Patient was having left upper quadrant abdominal pain yesterday. He says the that it was severe and did not go away. She denied nausea or vomiting. She said she was not having bowel movements. Patient reports this morning that she is not having any abdominal pain or nausea. She reports she had several bowel movements overnight. [facility] Medical History (Updated 10/08/22 @ 18:[address] Kamila Hernandez MD) Depression Hypothyroid IBS (irritable bowel syndrome) Insomnia Pacemaker Pre-diabetes Sleep apnea with use of continuous positive airway pressure (CPAP) Home Medications budesonide-formoterol HFA 160 mcg-4.5 mcg/actuation aerosol inhaler (Symbicort) 160 puff inhalation DAILY 10/08/22 [History Last Taken Unknown] famotidine 40 mg tablet 40 mg PO DAILY 10/08/22 [History Last Taken Unknown] ibuprofen 600 mg tablet 600 mg PO PRN PRN Pain 10/08/22 [History Last Taken Unknown] levothyroxine 200 mcg tablet 200 mcg PO DAILY 10/08/22 [History Last Taken Unknown] linaclotide 290 mcg capsule (Linzess) 290 mcg PO DAILY 10/08/22 [History Last Taken Unknown] metformin 500 mg tablet,extended release 24 hr 500 mg PO DAILY 10/08/22 [History Last Taken Unknown] pantoprazole 40 mg tablet,delayed release 40 mg PO DAILY 10/08/22 [History Last Taken Unknown] pravastatin 40 mg tablet 40 mg PO DAILY 10/08/22 [History Last Taken Unknown] prednisone 10 mg tablet 10 mg PO PRN PRN other 10/08/22 [History Last Taken Unknown] sertraline 100 mg tablet 100 mg PO DAILY 10/08/22 [History Last Taken Unknown] spironolactone 25 mg tablet 25 mg PO DAILY 10/08/22 [History Last Taken Unknown] trazodone 100 mg tablet 100 mg PO DAILY 10/08/22 [History Last Taken Unknown] Allergy/AdvReac Type Severity Reaction Status Date / Time Sulfa (Sulfonamide Allergy Anaphylaxis Verified 10/08/22 14:02 Antibiotics) sulfamethoxazole Allergy Anaphylaxis Verified 10/08/22 14:02 [From Bactrim] trimethoprim [From Bactrim] Allergy Anaphylaxis Verified 10/08/22 14:02 Opioids - Morphine Analogues AdvReac Other Verified 10/08/22 14:02 Surgical History (Updated 10/08/22 @ 14:08 by Debra Baeza) H/O: hysterectomy Social History (Updated 10/08/22 @ 18:[address] 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 Smoking Status: Current every day smoker tobacco type: cigarettes ROS Constitutional Constitutional: Denies anorexia, chills or fatigue Eyes Eyes: Denies blurry vision ENT HEENT: Denies abnormal hearing Cardiovascular Cardiovascular: Denies chest pain Respiratory/Chest Respiratory/Chest: Denies cough or dyspnea Gastrointestinal Gastrointestinal: Reports abdominal pain, constipation and nausea; Denies diarrhea or vomiting Musculoskeletal Musculoskeletal: Denies abnormal gait Integumentary Integumentary: Denies jaundice Neurologic Neurologic: Denies abnormal gait Psychiatric Psychiatric: Denies anxiety Endocrine Endocrinology: Denies heat intolerance Physical Exam Const alert and oriented x3 HEENT normocephalic Eyes PERRL Resp normal respiratory effort and normal air movement Cardio regular rate and regular rhythm GI soft to palpation, non-tender and non-distended Extremity normal to inspection Neuro CN's II-XII intact bilaterally Lab / Micro Data Result Diagrams: 10/09/22 06:03 10/09/22 06:03 Labs: Laboratory Results - last 24 hr 10/08/22 15:04: Sodium 138, Potassium 3.9, Chloride 106, Carbon Dioxide 29.0, Anion Gap 3 L, BUN 10, Creatinine 0.75, Estim Creat Clear Calc 70.11, Est GFR (MDRD) Af Amer 102, Est GFR (MDRD) Non-Af 85, BUN/Creatinine Ratio 13.3, Glucose 122 H, Calcium 9.3, Total Bilirubin 0.50, AST 18, ALT 30, Alkaline Phosphatase 60, Total Protein 7.9, Albumin 3.7, Globulin 4.2, Albumin/Globulin Ratio 0.9, Lipase 70 10/08/22 15:04: Urine Color Yellow, Urine Clarity Sl. Cloudy, Urine pH 5.0, Ur Specific [place] 1.025, Urine Protein 30 H, Urine Glucose (UA) Normal, Urine Ketones Negative, Urine Occult Blood 50 H, Urine Nitrite Negative, Urine Bilirubin Negative, Urine Urobilinogen Normal, Ur Leukocyte Esterase 500 H, Urine RBC 0-5 SEEN, Urine WBC 10-25 SEEN, Ur Squamous Epith Cells 0-5 SEEN, Urine Bacteria 1+, Urine Mucus 0 SEEN 10/08/22 15:15: WBC 6.8, RBC 5.30, Hgb 15.8 H, Hct 48.1 H, MCV 90.8, MCH 29.8, MCHC 32.8, RDW Std Deviation 43.7, RDW Coeff of [place] 13.2, Plt Count 173, MPV 11.5, Immature Gran % (Auto) 0.400, Neut % (Auto) 72.3 H, Lymph % (Auto) 19.0, [place] % (Auto) 7.0, Eos % (Auto) 0.9, Baso % (Auto) 0.4, Absolute Neuts (auto) 4.9, Absolute Lymphs (auto) 1.30, Nucleated RBC % 0 10/08/22 18:41: POC Glucose 99 10/08/22 22:29: POC Glucose 116 H 10/09/22 05:01: POC Glucose 130 H 10/09/22 06:03: WBC 4.8, RBC 4.94, Hgb 14.5, Hct 45.3, MCV 91.7, MCH 29.4, MCHC 32.0, RDW Std Deviation 44.4 H, RDW Coeff of [place] 13.1, Plt Count 147 L, MPV 11.2, Immature Gran % (Auto) 0.600, Neut % (Auto) 64.5, Lymph % (Auto) 23.6, [place] % (Auto) 9.2, Eos % (Auto) 1.5, Baso % (Auto) 0.6, Absolute Neuts (auto) 3.1, Absolute Lymphs (auto) 1.13, Nucleated RBC % 0 10/09/22 06:03: Sodium 142, Potassium 3.9, Chloride 111 H, Carbon Dioxide 26.0, Anion Gap 5, BUN 7, Creatinine 0.56, Estim Creat Clear Calc 93.90, Est GFR (MDRD) Af Amer 145, Est GFR (MDRD) Non-Af 119, BUN/Creatinine Ratio 12.5, Glucose 118 H, Calcium 8.7, Total Bilirubin 0.50, AST 21, ALT 29, Alkaline Phosphatase 53, Total Protein 6.8, Albumin 3.2, Globulin 3.6, Albumin/Globulin Ratio 0.9 Radiology Impression Abdomen/Pelvis CT 10/08/22 15:31 IMPRESSION: (NOT LISTED IN ORDER OF SIGNIFICANCE) There is a small bowel obstruction. The transition point is noted in the abdomen along the anterior abdominal wall. This may be related to adhesion formation.. Gastritis. Urinary bladder wall has wall thickening. This can be related to a partially contractile state. However, a cystitis is not excluded. Urinalysis should be performed in an effort to exclude cystitis. There is liquid stool in the colon. This can suggest a gastroenteritis /diarrhea. Clinical correlation is recommended. Other findings as above. Electronically Signed: Gordon Alvarado MD at 16:40 EDT ,
[2022-10-09 08:07] VITALS: BP 122/78; PULSE 68; RESP 18; TEMP 36.5; O2SAT 93
--- NOTE | 2022-10-09 08:15 | PCM.PN.HOSP ---
Reason for Visit Reason for Visit: Abdominal pain/constipation Subjective Subjective Mrs. Reed is a 57-year-old morbidly obese white female who presented to the emergency department at [facility] on 10/08/2022 complaining of abdominal pain and constipation. Patient has a history of irritable bowel syndrome for which she takes Linzess and multiple abdominal surgeries with mesh and previous hysterectomy. Upon presentation she had been having about 3 days of constipation and a 1 day history of severe periumbilical abdominal pain. When she arrived to the emergency department she reported the pain was extremely severe however it was much improved by the time of admission. She denied any nausea vomiting or abdominal distention. CT of the abdomen pelvis was performed and showed small bowel obstruction with transition point adjacent to the anterior abdominal wall mesh. This morning the patient has had several bowel movements through the night and no abdominal pain general surgery has evaluated the patient. General surgery evaluated the patient and with her improvement they feel that she can trial diet and go home later today as long as she remains improved and tolerates p.o. without any difficulty. Objective Data Objective Data Vital Signs: Vital Signs Temp Pulse Resp BP Pulse Ox O2 Del Method 97.7 F L 68 18 122/78 H 93 Room Air 10/09/22 08:07 10/09/22 08:07 10/09/22 08:07 10/09/22 08:07 10/09/22 08:07 10/09/22 08:07 Oxygen Delivery Method Room Air Weight: 117.571 kg Body Mass Index (BMI) 45.9 Intake & Output: Intake and Output for Last 24 Hours 10/07/22 10/08/22 10/09/22 23:59 23:59 23:59 Intake Total 1000 / 1000 1000 / 1000 Balance 1000 / 1000 1000 / 1000 Lab / Micro Data Result Diagrams: 10/09/22 06:03 10/09/22 06:03 Labs: Laboratory Results - last 24 hr 10/08/22 15:04: Sodium 138, Potassium 3.9, Chloride 106, Carbon Dioxide 29.0, Anion Gap 3 L, BUN 10, Creatinine 0.75, Estim Creat Clear Calc 70.11, Est GFR (MDRD) Af Amer 102, Est GFR (MDRD) Non-Af 85, BUN/Creatinine Ratio 13.3, Glucose 122 H, Calcium 9.3, Total Bilirubin 0.50, AST 18, ALT 30, Alkaline Phosphatase 60, Total Protein 7.9, Albumin 3.7, Globulin 4.2, Albumin/Globulin Ratio 0.9, Lipase 70 10/08/22 15:04: Urine Color Yellow, Urine Clarity Sl. Cloudy, Urine pH 5.0, Ur Specific [place] 1.025, Urine Protein 30 H, Urine Glucose (UA) Normal, Urine Ketones Negative, Urine Occult Blood 50 H, Urine Nitrite Negative, Urine Bilirubin Negative, Urine Urobilinogen Normal, Ur Leukocyte Esterase 500 H, Urine RBC 0-5 SEEN, Urine WBC 10-25 SEEN, Ur Squamous Epith Cells 0-5 SEEN, Urine Bacteria 1+, Urine Mucus 0 SEEN 10/08/22 15:15: WBC 6.8, RBC 5.30, Hgb 15.8 H, Hct 48.1 H, MCV 90.8, MCH 29.8, MCHC 32.8, RDW Std Deviation 43.7, RDW Coeff of [place] 13.2, Plt Count 173, MPV 11.5, Immature Gran % (Auto) 0.400, Neut % (Auto) 72.3 H, Lymph % (Auto) 19.0, [place] % (Auto) 7.0, Eos % (Auto) 0.9, Baso % (Auto) 0.4, Absolute Neuts (auto) 4.9, Absolute Lymphs (auto) 1.30, Nucleated RBC % 0 10/08/22 18:41: POC Glucose 99 10/08/22 22:29: POC Glucose 116 H 10/09/22 05:01: POC Glucose 130 H 10/09/22 06:03: WBC 4.8, RBC 4.94, Hgb 14.5, Hct 45.3, MCV 91.7, MCH 29.4, MCHC 32.0, RDW Std Deviation 44.4 H, RDW Coeff of [place] 13.1, Plt Count 147 L, MPV 11.2, Immature Gran % (Auto) 0.600, Neut % (Auto) 64.5, Lymph % (Auto) 23.6, [place] % (Auto) 9.2, Eos % (Auto) 1.5, Baso % (Auto) 0.6, Absolute Neuts (auto) 3.1, Absolute Lymphs (auto) 1.13, Nucleated RBC % 0 06/22/23 06:03: Sodium 142, Potassium 3.9, Chloride 111 H, Carbon Dioxide 26.0, Anion Gap 5, BUN 7, Creatinine 0.56, Estim Creat Clear Calc 93.90, Est GFR (MDRD) Af Amer 145, Est GFR (MDRD) Non-Af 119, BUN/Creatinine Ratio 12.5, Glucose 118 H, Calcium 8.7, Total Bilirubin 0.50, AST 21, ALT 29, Alkaline Phosphatase 53, Total Protein 6.8, Albumin 3.2, Globulin 3.6, Albumin/Globulin Ratio 0.9 Radiography Diagnostic Testing: Radiology Impression Abdomen/Pelvis CT 10/08/22 15:31 IMPRESSION: (NOT LISTED IN ORDER OF SIGNIFICANCE) There is a small bowel obstruction. The transition point is noted in the abdomen along the anterior abdominal wall. This may be related to adhesion formation.. Gastritis. Urinary bladder wall has wall thickening. This can be related to a partially contractile state. However, a cystitis is not excluded. Urinalysis should be performed in an effort to exclude cystitis. There is liquid stool in the colon. This can suggest a gastroenteritis /diarrhea. Clinical correlation is recommended. Other findings as above. Electronically Signed: Gordon Alvarado MD at 16:40 EDT ,
[2022-10-09] MEDS: Enoxaparin 40 MG/0.4 ML Syringe SC (09:59)
--- NOTE | 2022-10-09 11:13 | DS.PCM_ITS ---
Providers Date of Admission: 10/08/22 Date of Discharge: 10/09/22 Primary Care Physician: Shanda Hrenandez NP Consultations 10/08/22 17:15 Consult: General Surgery Routine Consulting Provider: Florin Naik Reason for Consult: SBO EMERGENT Consult: No MD Notified: Yes Date Notified: 10/08/22 Time Notified: 21:32 Method of Notification: Text Reason For Visit: SMALL BOWEL OBSTRUCTION Diagnosis Discharge Diagnosis (1) Small bowel obstruction: Status: Acute Code(s): K56.609 - Unspecified intestinal obstruction, unspecified as to partial versus complete obstruction Medications at Discharge Home Medications budesonide-formoterol HFA 160 mcg-4.5 mcg/actuation aerosol inhaler (Symbicort) 160 puff inhalation DAILY 10/08/22 famotidine 40 mg tablet 40 mg PO DAILY 10/08/22 ibuprofen 600 mg tablet 600 mg PO PRN PRN Pain 10/08/22 levothyroxine 200 mcg tablet 200 mcg PO DAILY 10/08/22 linaclotide 290 mcg capsule (Linzess) 290 mcg PO DAILY 10/08/22 metformin 500 mg tablet,extended release 24 hr 500 mg PO DAILY 10/08/22 pantoprazole 40 mg tablet,delayed release 40 mg PO DAILY 10/08/22 pravastatin 40 mg tablet 40 mg PO DAILY 10/08/22 prednisone 10 mg tablet 10 mg PO PRN PRN other 10/08/22 sertraline 100 mg tablet 100 mg PO DAILY 10/08/22 spironolactone 25 mg tablet 25 mg PO DAILY 10/08/22 trazodone 100 mg tablet 100 mg PO DAILY 10/08/22 Hospital Course Operations None Procedures - (CT abdomen and pelvis) Summary of Care Provided Minutes Spent on Discharge: 25 Hospital Course: Mrs. Reed is a 57-year-old morbidly obese white female who presented to the emergency department at [facility] on 10/08/2022 complaining of abdominal pain and constipation. Patient has a history of irritable bowel syndrome for which she takes Linzess and multiple abdominal surgeries with mesh and previous hysterectomy. Upon presentation, she had been having about 3 days of constipation and a 1 day history of severe periumbilical abdominal pain. When she arrived to the emergency department she reported the pain was extremely severe however it was much improved by the time of admission. She denied any nausea/vomiting or abdominal distention. CT of the abdomen pelvis was performed and showed small bowel obstruction with transition point adjacent to the anterior abdominal wall mesh. This morning it was noted that the patient had several bowel movements through the night and no abdominal pain. General surgery evaluated the patient and with her improvement they feel that she can trial diet and go home later today as long as she remains improved and tolerates p.o. without any difficulty. The patient ate a regular diet for breakfast and tolera ewa well with no worsening abdominal pain, nausea, or vomiting. I did discuss with the patient with her extensive history of abdominal surgery that she was increased risk for bowel obstructions recurrently she voiced understanding. She was anxious to go home and was able to be discharged home in stable condition on 10/09/2022. Discharge diagnoses: Small bowel obstruction-resolved IBS Ventral hernia Insomnia Obstructive sleep apnea DM-2 Hypothyroidism GERD History of pacemaker Hyperlipidemia Tobacco abuse Morbid obesity History of ventral hernia Physical Exam Const alert, oriented x3, no apparent distress, no limitations and well nourished; Negative for average body habitus Constitutional Narrative: Morbidly obese, middle-aged, white female, appears older than stated age, sitting up in a chair at the bedside watching television and on her phone, appears comfortable and nontoxic General Appearance: cooperative, comfortable, well kempt and well developed Orientation / Consciousness: awake, oriented to person, oriented to place and oriented to time Exam Limitations: no limitations Nutritional Appearance: morbidly obese HEENT normocephalic, head/scalp atraumatic, hearing grossly normal bilaterally and moist oral mucous membranes HEENT Narrative: Mallampati is 3, no thrush Resp normal respiratory effort, no retractions, no use of accessory muscles and No clear to auscultation bilaterally Resp Narrative: Diffusely diminished with few scattered end expiratory wheeze Auscultation: wheezes; Negative for rales or rhonchi Cardio regular rate, regular rhythm, S1 normal heart sound, S2 normal heart sound, no murmurs, no rub, no gallops and no clicks GI normal to inspection, nondistended, normoactive bowel sounds, soft to palpation and non-tender GI Narrative: Multiple old surgical incisions that are well-healed noted on anterior abdomen- predominantly midline Extremity no clubbing, cyanosis or edema Extremity Narrative: 2+ pedal pulses Neuro oriented x3, moves all extremities and no focal motor deficits Speech: speech normal Psych affect normal Psych Narrative: Pleasant, appropriately interactive Weight / BMI Weight Weight: 117.571 kg Body Mass Index (BMI) 45.9 ABG / Lab / Microbiology Data Result Diagrams: 10/09/22 06:03 10/09/22 06:03 Laboratory: Laboratory Results - last 24 hr 10/08/22 15:04: Sodium 138, Potassium 3.9, Chloride 106, Carbon Dioxide 29.0, Anion Gap 3 L, BUN 10, Creatinine 0.75, Estim Creat Clear Calc 70.11, Est GFR (MDRD) Af Amer 102, Est GFR (MDRD) Non-Af 85, BUN/Creatinine Ratio 13.3, Glucose 122 H, Calcium 9.3, Total Bilirubin 0.50, AST 18, ALT 30, Alkaline Phosphatase 60, Total Protein 7.9, Albumin 3.7, Globulin 4.2, Albumin/Globulin Ratio 0.9, Lipase 70 10/08/22 15:04: Urine Color Yellow, Urine Clarity Sl. Cloudy, Urine pH 5.0, Ur Specific [place] 1.025, Urine Protein 30 H, Urine Glucose (UA) Normal, Urine Ketones Negative, Urine Occult Blood 50 H, Urine Nitrite Negative, Urine Bilirubin Negative, Urine Urobilinogen Normal, Ur Leukocyte Esterase 500 H, Urine RBC 0-5 SEEN, Urine WBC 10-25 SEEN, Ur Squamous Epith Cells 0-5 SEEN, Urine Bacteria 1+, Urine Mucus 0 SEEN 10/08/22 15:15: WBC 6.8, RBC 5.30, Hgb 15.8 H, Hct 48.1 H, MCV 90.8, MCH 29.8, MCHC 32.8, RDW Std Deviation 43.7, RDW Coeff of Alexandrea 13.2, Plt Count 173, MPV 11.5, Immature Gran % (Auto) 0.400, Neut % (Auto) 72.3 H, Lymph % (Auto) 19.0, [place] % (Auto) 7.0, Eos % (Auto) 0.9, Baso % (Auto) 0.4, Absolute Neuts (auto) 4.9, Absolute Lymphs (auto) 1.30, Nucleated RBC % 0 10/08/22 18:41: POC Glucose 99 10/08/22 22:29: POC Glucose 116 H 10/09/22 05:01: POC Glucose 130 H 10/09/22 06:03: WBC 4.8, RBC 4.94, Hgb 14.5, Hct 45.3, MCV 91.7, MCH 29.4, MCHC 32.0, RDW Std Deviation 44.4 H, RDW Coeff of Alexandrea 13.1, Plt Count 147 L, MPV 11.2, Immature Gran % (Auto) 0.600, Neut % (Auto) 64.5, Lymph % (Auto) 23.6, [place] % (Auto) 9.2, Eos % (Auto) 1.5, Baso % (Auto) 0.6, Absolute Neuts (auto) 3.1, Absolute Lymphs (auto) 1.13, Nucleated RBC % 0 10/09/22 06:03: Sodium 142, Potassium 3.9, Chloride 111 H, Carbon Dioxide 26.0, Anion Gap 5, BUN 7, Creatinine 0.56, Estim Creat Clear Calc 93.90, Est GFR (MDRD) Af Amer 145, Est GFR (MDRD) Non-Af 119, BUN/Creatinine Ratio 12.5, Glucose 118 H, Calcium 8.7, Total Bilirubin 0.50, AST 21, ALT 29, Alkaline Phosphatase 53, Total Protein 6.8, Albumin 3.2, Globulin 3.6, Albumin/Globulin Ratio 0.9 Radiography Diagnostic Testing: Radiology Impression Abdomen/Pelvis CT 10/08/22 15:31 IMPRESSION: (NOT LISTED IN ORDER OF SIGNIFICANCE) There is a small bowel obstruction. The transition point is noted in the abdomen along the anterior abdominal wall. This may be related to adhesion formation.. Gastritis. Urinary bladder wall has wall thickening. This can be related to a partially contractile state. However, a cystitis is not excluded. Urinalysis should be performed in an effort to exclude cystitis. There is liquid stool in the colon. This can suggest a gastroenteritis /diarrhea. Clinical correlation is recommended. Other findings as above. Electronically Signed: Gordon Alvarado MD at 16:40 EDT , D/C Instructions Discharge Diet: Low fat / Low cholesterol and 1800 Calorie Control Diet Discharge Activity: Return to Normal Activity Meaningful Use Info Meaningful Use Diagnoses (Choose all that apply): None applicable Discharge Plan Admission Admit Date/Time: 10/08/22 17:17 Primary Reason for Your Visit: Abdominal pain Attending Provider: Esha Nava Primary Care Provider: Shanda Hernandez NP Consulting Providers: Florin Naik ; Kamila Hernandez Discharge Orders/Prescriptions Prescriptions: Continued prednisone 10 mg tablet 10 mg PO PRN PRN (Reason: other) Label Comments: TAKE TABLET(S) BY MOUTH EVERY MORNING FOR 8 DAYS UNTIL GONE PER TAPER DAY 1 4 TABLETS DAY 2 3 & 1/2 TABLETS DAY 3 3 TABLETS DAY 4 2 pravastatin 40 mg tablet 40 mg PO DAILY famotidine 40 mg tablet 40 mg PO DAILY Label Comments: TAKE 1 TABLET BY MOUTH EVERY NIGHT AT BEDTIME sertraline 100 mg tablet 100 mg PO DAILY Label Comments: TAKE 1 TABLET BY MOUTH DAILY spironolactone 25 mg tablet 25 mg PO DAILY Label Comments: TAKE 1 TABLET BY MOUTH DAILY NEEDED FOR SWELLING trazodone 100 mg tablet 100 mg PO DAILY Label Comments: TAKE 1 (ONE) & ONE-HALF TO 2 (TWO) TABLETS BY MOUTH DAILY AT BEDTIME pantoprazole 40 mg tablet,delayed release (DR/EC) 40 mg PO DAILY levothyroxine 200 mcg tablet 200 mcg PO DAILY Label Comments: TAKE 1 TABLET BY MOUTH DAILY EVERY MORNING ibuprofen 600 mg tablet 600 mg PO PRN PRN (Reason: Pain) Label Comments: TAKE 1 TABLET BY MOUTH EVERY 6 HOURS NEEDED FOR PAIN, take WITH FOOD or milk metformin 500 mg tablet extended release 24 hr 500 mg PO DAILY Label Comments: TAKE 1 TABLET BY MOUTH DAILY budesonide-formoterol [Symbicort] 160-4.5 mcg/actuation HFA aerosol inhaler 160 puff INHALATION DAILY Label Comments: INHALE TWO PUFFS BY MOUTH TWICE DAILY. RINSE MOUTH AND THROAT AFTER USE Linzess 290 mcg capsule 290 mcg PO DAILY Label Comments: TAKE 1 CAPSULE EVERY DAY BY MOUTH FOR 90 DAYS Referrals / Follow Up: Shanda Hernandez NP, BUSINESS PERFORMANCE ANALYST-C [Primary Care Provider] - Within 2 Weeks Disposition Disposition (needs filled in before D/C Order can be placed): Home, Self Care Charges/Coding Visit Charges Inpatient E&M: 53519 Disch Hosp
--- NOTE | 2022-10-09 11:35 | CASEMGMT ---
REYNALDO MA Discharge Planning Assessment: Face to Face with patient for initial transition planning/care coordination assessment.?REYNALDO MA introduced self and role at [facility], pt alert, sitting on edge of bed, voices understanding and is agreeable to participating in assessment.? Care providers, pharmacy,?and demographics verified. ? Admitting dx: SBO PCP: JAQUAN Hernandez Specialists: Morris ELECTRICAL ENGINEERING DESIGNER ONC Preferred Pharmacy: [facility] Insurance: [facility] Dual, [facility] Prescription Benefit:?yes Living Will/HPOA: yes, HPOA S.O. Jorge Living Arrangements: Pt lives with her significant other Jorge in a single story home with 2 steps to enter. Pt states she is independent with ADLs and IADLs. 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 Transportation: Pt drives and denies any concerns with transportation DME: grab bars, hand held shower, glucometer and supplies, CPAP with O2 bled in at 3l/min from [facility] SNF/HHC: none ? Plan: return home with the support of her S.O. Pt denies any discharge needs. Pt states she has an appointment with her PCP next Thursday and her [employer] PUNCHER surgeon on 10/17. Terrence Castro RN CM
--- NOTE | 2022-10-09 11:41 | PHA.DC.MR ---
Pharmacy Service has performed discharge medication reconciliation for this patient. The patient's discharge medication list was reviewed for discrepancies and discrepancies were resolved. Home Medications budesonide-formoterol HFA 160 mcg-4.5 mcg/actuation aerosol inhaler (Symbicort) 160 puff inhalation DAILY 10/08/22 famotidine 40 mg tablet 40 mg PO DAILY 10/08/22 ibuprofen 600 mg tablet 600 mg PO PRN PRN Pain 10/08/22 levothyroxine 200 mcg tablet 200 mcg PO DAILY 10/08/22 linaclotide 290 mcg capsule (Linzess) 290 mcg PO DAILY 10/08/22 metformin 500 mg tablet,extended release 24 hr 500 mg PO DAILY 10/08/22 pantoprazole 40 mg tablet,delayed release 40 mg PO DAILY 10/08/22 pravastatin 40 mg tablet 40 mg PO DAILY 10/08/22 prednisone 10 mg tablet 10 mg PO PRN PRN other 10/08/22 sertraline 100 mg tablet 100 mg PO DAILY 10/08/22 spironolactone 25 mg tablet 25 mg PO DAILY 10/08/22 trazodone 100 mg tablet 100 mg PO DAILY 10/08/22
[2022-10-09 12:15] VITALS: BP 134/60; PULSE 70; RESP 18; TEMP 36.9; O2SAT 94
== END 2022-10-09 12:12 | disposition home or self-care (01) | DRG 389 ==
LOC: ED 15:29 → MS3 10-09 06:51
PROVIDERS: Admitting Provider Internal Medicine; Emergency Provider Student in an Organized Health Care Education/Training Program; PCP Nurse Practitioner Primary Care; Visit Provider Internal Medicine
DX: K56.50 Intestinal adhesions [bands], unspecified as to partial versus complete obstruction (principal); Z68.42 Body mass index [BMI] 45.0-49.9, adult; E03.9 Hypothyroidism, unspecified; E11.9 Type 2 diabetes mellitus without complications; E66.01 Morbid (severe) obesity due to excess calories; F17.210 Nicotine dependence, cigarettes, uncomplicated; G47.33 Obstructive sleep apnea (adult) (pediatric); E78.5 Hyperlipidemia, unspecified; K58.1 Irritable bowel syndrome with constipation; K21.9 Gastro-esophageal reflux disease without esophagitis; G47.00 Insomnia, unspecified; Z95.0 Presence of cardiac pacemaker; Z79.84 Long term (current) use of oral hypoglycemic drugs; Z79.899 Other long term (current) drug therapy; Z87.19 Personal history of other diseases of the digestive system
CPT/HCPCS: 36415; 74177; 80053; 81001; 82962; 83690; 85025; 94640; 99284; J7030; Q9967; A4216

== ENCOUNTER → 2022-11-28 | Outpatient (CLI) | payer MEDICARE, MEDICAID, SELFPAY ==
[2022-11-28 15:54] LABS: Hemoglobin A1c 5.5 % (3.8-5.6)
[2022-11-28 16:08] LABS: Cholesterol 126 mg/dL (200); High Density Lipoprotein 27 mg/dL; T4 Free Direct 1.69 ng/dL (0.76-1.46); Thyroid Stim Hormone (TSH) 0.04 uIU/mL (0.358-3.74); Triglycerides 355 mg/dL; Very Low Density Lipoprotein 71 mg/dL (5-40)
== END | disposition home or self-care (01) ==
LOC: MTLAB 11:39
PROVIDERS: PCP Nurse Practitioner Primary Care; Visit Provider Nurse Practitioner Primary Care
DX: E03.4 Atrophy of thyroid (acquired) (principal); E11.65 Type 2 diabetes mellitus with hyperglycemia; E66.01 Morbid (severe) obesity due to excess calories; G47.33 Obstructive sleep apnea (adult) (pediatric)
CPT/HCPCS: 36415; 80061; 83036; 84439; 84443

== ENCOUNTER → 2023-05-06 | Outpatient (CLI) | payer MEDICARE, MEDICAID, SELFPAY | END | disposition home or self-care (01) | LOC: LAB 14:10 | PROVIDERS: PCP Nurse Practitioner Primary Care; Referring Provider Nurse Practitioner Family; Visit Provider Nurse Practitioner Family | DX: R35.0 Frequency of micturition (principal) | CPT/HCPCS: 87086 ==

== ENCOUNTER → 2023-10-26 | Outpatient (CLI) | payer MEDICARE, MEDICAID, SELFPAY ==
[2023-10-26 17:50] LABS: Hemoglobin 15.3 g/dL (12.0-15.0); Mean Corp Hgb Conc 32.6 g/dL (32-36); Mean Corpuscular Hgb 30.2 pg (27.0-32.0); Mean Corpuscular Volume 92.7 fL (81-99); Platelet Count 158 K/mm3 (150-450); RBC Distribution Width CV 13.3 % (11.6-14.6); RBC Distribution Width SD 45.1 fl (35.1-43.9); Red Blood Count 5.07 M/mm3 (4.2-5.4); White Blood Count 5.1 K/mm3 (4.4-11.0)
[2023-10-26 18:38] LABS: AST(SGOT) 30 U/L (15-37); Alanine Aminotransfer ALT/SGPT 32 U/L (13-56); Albumin, Serum 3.8 g/dL (3.2-5.0); Alkaline Phosphatase 47 U/L (45-117); Anion Gap 7 (5-15); BUN 10 mg/dL (7-18); BUN/Creat Ratio 12.6 RATIO (10-20); Calcium,Total 9.3 mg/dL (8.5-10.1); Chloride 103 mmol/L (98-107); EST Glomerular Filtration Rate 79 mL/min (>60); Est Glom Filt Rate - Afr Amer 96 mL/min (>60); Globulin 3.7 g/dL (2.2-4.2); Glucose 146 mg/dL (74-106); Potassium 3.6 mmol/L (3.5-5.1); Protein, Total 7.5 g/dL (6.4-8.2); Sodium Level 138 mmol/L (136-145)
== END | disposition home or self-care (01) ==
LOC: MTLAB 14:32
PROVIDERS: PCP Registered Nurse; Referring Provider Nurse Practitioner Family; Visit Provider Nurse Practitioner Family
DX: R10.32 Left lower quadrant pain (principal); R10.12 Left upper quadrant pain
CPT/HCPCS: 36415; 80053; 85027

== ENCOUNTER → 2023-11-23 | Outpatient (CLI) | payer MEDICARE, MEDICAID, SELFPAY ==
--- NOTE | 2023-11-23 14:41 | CT_ITS ---
STUDY: CT ABDOMEN AND PELVIS WITH CONTRAST REASON FOR EXAM: Female, 58 years old. PAIN OF LUQ AND LLQ OF ABD R/O DIVERTICULITUS RADIATION DOSAGE (If Supplied By Facility): CTDIvol = ( 17.07 ) mGy, DLP = ( 1414.04 ) mGycm TECHNIQUE: Transaxial images were obtained from the dome of the diaphragm to the symphysis pubis with oral contrast. Oral and amp;amp; IV Gastrografin and amp;amp; 100mL Isovue-300 was administered. Sagittal and coronal images were reconstructed. Individualized dose optimization techniques were used for this CT. COMPARISON: Comparison is made with prior study dated October 08, 2022. FINDINGS: Increased linear markings are seen in the anterior lateral aspect of the right lower lobe suggestive of scarring. A dual-chamber pacemaker is seen. Normal liver. There are surgical clips in the gallbladder fossa consistent with a prior cholecystectomy. There is a benign calcified granuloma of the spleen. Normal pancreas. Normal bilateral adrenal glands. Normal right kidney. Normal left kidney. There is a small hiatal hernia. Normal small intestine. Normal colon. There is non-visualization of the appendix. There is scattered atherosclerotic calcification of the abdominal aorta, without a demonstrated aneurysm. Normal inferior vena cava. There is a small retroperitoneal lymphadenopathy with enlarged nodes no greater than 10mm in the short axis diameter. Normal urinary bladder. There is absence of the uterus consistent with a prior hysterectomy. There is a 1.6 cm calcified nodule in the subcutaneous tissues just caudad to the umbilicus. There are degenerative changes of the visualized lumbar spine. CT/Abdomen/Pelvis WITH Contrast IMPRESSION: Findings suggestive of scarring in the anterior aspect of the right lower lobe. Status post cholecystectomy. Status post hysterectomy. Electronically Signed: Gregory Figueroa MD at 11:39 EDT ,
== END | disposition home or self-care (01) ==
LOC: CT 14:39
PROVIDERS: PCP Registered Nurse; Referring Provider Nurse Practitioner Family; Visit Provider Nurse Practitioner Family
DX: R10.32 Left lower quadrant pain (principal); R10.12 Left upper quadrant pain; K57.92 Diverticulitis of intestine, part unspecified, without perforation or abscess without bleeding
CPT/HCPCS: 74177; Q9967; A4216

== ENCOUNTER 2024-05-09 15:24 | Emergency (ER) | payer MEDICAID, MEDICARE, SELFPAY ==
[2024-05-09 15:25] VITALS: BP 105/86; PULSE 61; RESP 20; TEMP 36.3; O2SAT 92
--- NOTE | 2024-05-09 15:58 | ED.VIS.FEGU ---
HPI HPI - Female History of Present Illness Chief Complaint: Female C/O Informant: patient Narrative Narrative: 59-year-old female presenting to the emergency department with a chief complaint of abscesses of the pelvis. Patient states that she had a hysterectomy little over a year ago. She states that for about the past year she has developed multiple pustules and abscesses in her perineum and vaginal area. States they typically break open and drain and get better but leave her with a scar. She states that about 2 weeks ago she saw her cold water machine operator and was given some type of roll-on medication as well as doxycycline. She states she has not noticed a difference in the recurrence of them. She stated that she noticed some more today. She notes that the pelvis falcon. She states that she has had surgical I&D of an abscess in the past and was admitted into the hospital at [place] but does not know if she was diagnosed with Royal's but notes that there were cardiac complications with the procedure. Patient states that she is supposed to see gynecology again within the next 2 weeks. She notes that she has also had an abscess in her axilla in the past. [facility] Medical History Sleep apnea with use of continuous positive airway pressure (CPAP) Insomnia Pre-diabetes Depression Hypothyroid IBS (irritable bowel syndrome) Pacemaker Home Medications ?Medication ?Instructions ?Recorded ?Last Taken ?Type budesonide-formoterol HFA 160 160 puff inhalation DAILY 10/08/22 Unknown History mcg-4.5 mcg/actuation aerosol inhaler (Symbicort) famotidine 40 mg tablet 40 mg PO DAILY 10/08/22 Unknown History ibuprofen 600 mg tablet 600 mg PO PRN PRN Pain 10/08/22 Unknown History levothyroxine 200 mcg tablet 200 mcg PO DAILY 10/08/22 Unknown History linaclotide 290 mcg capsule 290 mcg PO DAILY 10/08/22 Unknown History (Linzess) metformin 500 mg tablet,extended 500 mg PO DAILY 10/08/22 Unknown History release 24 hr pantoprazole 40 mg tablet,delayed 40 mg PO DAILY 10/08/22 Unknown History release pravastatin 40 mg tablet 40 mg PO DAILY 10/08/22 Unknown History prednisone 10 mg tablet 10 mg PO PRN PRN other 10/08/22 Unknown History sertraline 100 mg tablet 100 mg PO DAILY 10/08/22 Unknown History spironolactone 25 mg tablet 25 mg PO DAILY 10/08/22 Unknown History trazodone 100 mg tablet 100 mg PO DAILY 10/08/22 Unknown History Allergy/AdvReac Type Severity Reaction Status Date / Time Sulfa (Sulfonamide Allergy Anaphylaxis Verified 10/08/22 14:02 Antibiotics) sulfamethoxazole (From Allergy Anaphylaxis Verified 10/08/22 14:02 Bactrim) trimethoprim (From Bactrim) Allergy Anaphylaxis Verified 10/08/22 14:02 Opioids - Morphine Analogues AdvReac Other Verified 10/08/22 14:02 Surgical History H/O: hysterectomy Social History 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 Smoking Status: Current every day smoker tobacco type: cigarettes ROS ROS ED Constitutional Constitutional ED: Denies chills, fever(s) or weight loss Eyes Eyes: Denies change in vision or diplopia ENT ENT ED: Denies ear pain, rhinorrhea or sore throat Cardiovascular Cardiovascular: Denies chest pain, orthopnea, palpitations or racing heartbeat Respiratory/Chest Respiratory/Chest: Denies cough, dyspnea or orthopnea Gastrointestinal Gastrointestinal: Denies abdominal pain, diarrhea, nausea or vomiting Genitourinary Genitourinary ED: Denies dysuria, hematuria or urinary frequency Musculoskeletal Musculoskeletal: Denies arthralgias or myalgias Integumentary Reports abscess and other Details: See history of present illness ; Denies rash Neurologic Neurologic: Denies headache(s) or weakness Psychiatric Psychiatric: Denies anxiety, depression, suicidal ideation or suicidal thoughts Endocrine Endocrinology: Denies polydipsia, polyphagia or polyuria Allergic/Immunologic Allergic/Immunologic ED: Denies mouth swelling, tongue swelling or urticaria EXAM Physical Exam Const Vital Signs: 05/09/24 15:25 Temperature 97.4 F L Temperature Source Temporal Pulse Rate 61 Respiratory Rate 20 H Blood Pressure 105/86 H Blood Pressure Mean 92 Pulse Ox 92 Oxygen Delivery Method Room Air Positive well nourished, well developed and obese General Appearance ED: well developed and NAD Nutritional Appearance: obese HEENT Reports normocephalic, head/scalp atraumatic and moist mucous membranes Eyes PERRL and EOMs intact bilaterally Neck no lymphadenopathy, supple and no JVD Resp normal respiratory effort and clear to auscultation bilaterally Cardio regular rate, regular rhythm and no murmurs GI normal to inspection, nondistended, normoactive bowel sounds and non-tender Palpation: soft Narrative: Pelvic examination was performed in the presence of female nurse no well. There are several small draining cutaneous abscesses. These are measuring about 3 to 4 mm round. There is 1 in the right cephalad vaginal introitus region that I was able to get a sample for culture. I do not appreciate any significant erythema or swelling. No evidence of Royal's. No evidence of cellulitis. Back/Spine no CVA tenderness and normal ROM Extremity normal to inspection General Extremety ED: Negative for edema General Extremity: Negative for edema Neuro oriented x3 and CN's II-XII intact bilaterally Sensorium / Orientation: alert Motor Exam: strength 5/5 throughout Psych mental status grossly normal Mood & Affect: Negative for depressed or tearful Skin no rashes or lesions noted and no wounds MDM MDM MDM Narrative Medical decision making narrative: Differential diagnosis includes but not limited to cutaneous abscess, Royal's gangrene cellulitis Bartholin cyst A sample of the drainage was sent for culture. She is already been on doxycycline and states she did not experience any change with it. She has an allergy to Bactrim. We can do a course of clindamycin. I will also write for some lidocaine ointment for comfort as she notes that it is painful. We can refer her to infectious disease and I would encourage her to follow-up with her cold water machine operator. I do not see an acute emergency that would necessitate admission at this point. History & Record Review Discussion w/independent historian: Patient Discharge Plan Triage Chief Complaint: Female C/O ED Provider: Andrew Barnes Dx/Rx/DC Orders Prescriptions: No Action prednisone 10 mg tablet 10 mg PO PRN PRN (Reason: other) Patient Comments: TAKE TABLET(S) BY MOUTH EVERY MORNING FOR 8 DAYS UNTIL GONE PER TAPER DAY 1 4 TABLETS DAY 2 3 & 1/2 TABLETS DAY 3 3 TABLETS DAY 4 2 pravastatin 40 mg tablet 40 mg PO DAILY famotidine 40 mg tablet 40 mg PO DAILY Patient Comments: TAKE 1 TABLET BY MOUTH EVERY NIGHT AT BEDTIME sertraline 100 mg tablet 100 mg PO DAILY Patient Comments: TAKE 1 TABLET BY MOUTH DAILY spironolactone 25 mg tablet 25 mg PO DAILY Patient Comments: TAKE 1 TABLET BY MOUTH DAILY NEEDED FOR SWELLING trazodone 100 mg tablet 100 mg PO DAILY Patient Comments: TAKE 1 (ONE) & ONE-HALF TO 2 (TWO) TABLETS BY MOUTH DAILY AT BEDTIME pantoprazole 40 mg tablet,delayed release (DR/EC) 40 mg PO DAILY levothyroxine 200 mcg tablet 200 mcg PO DAILY Patient Comments: TAKE 1 TABLET BY MOUTH DAILY EVERY MORNING ibuprofen 600 mg tablet 600 mg PO PRN PRN (Reason: Pain) Patient Comments: TAKE 1 TABLET BY MOUTH EVERY 6 HOURS NEEDED FOR PAIN, take WITH FOOD or milk metformin 500 mg tablet extended release 24 hr 500 mg PO DAILY Patient Comments: TAKE 1 TABLET BY MOUTH DAILY budesonide-formoterol [Symbicort] 160-4.5 mcg/actuation HFA aerosol inhaler 160 puff INHALATION DAILY Patient Comments: INHALE TWO PUFFS BY MOUTH TWICE DAILY. RINSE MOUTH AND THROAT AFTER USE Linzess 290 mcg capsule 290 mcg PO DAILY Patient Comments: TAKE 1 CAPSULE EVERY DAY BY MOUTH FOR 90 DAYS Primary Care Provider: Rima Fam NP Referrals: Rima Fam NP, CLEAN RICE GRADER AND REEL TENDER-C [Primary Care Provider] - Print Language: Tajik
== END 2024-05-09 16:25 | disposition home or self-care (01) ==
LOC: ED 16:25
PROVIDERS: Emergency Provider Emergency Medicine; PCP Registered Nurse; Visit Provider Emergency Medicine
DX: L02.818 Cutaneous abscess of other sites (principal); F17.210 Nicotine dependence, cigarettes, uncomplicated; E66.9 Obesity, unspecified
CPT/HCPCS: 87070; 87077; 87205; 99282

== ENCOUNTER → 2024-07-13 | Outpatient (CLI) | payer MEDICARE, MEDICAID, SELFPAY ==
[2024-07-13 08:23] LABS: Hematocrit 50.1 % (37-47); Hemoglobin 16.6 g/dL (12.0-15.0); Mean Corp Hgb Conc 33.1 g/dL (32-36); Mean Corpuscular Hgb 30.6 pg (27.0-32.0); Mean Corpuscular Volume 92.4 fL (81-99); Mean Platelet Vol. 11.2 fl (6.2-12.0); Platelet Count 149 K/mm3 (150-450); RBC Distribution Width CV 13.2 % (11.6-14.6); RBC Distribution Width SD 44.7 fl (35.1-43.9); Red Blood Count 5.42 M/mm3 (4.2-5.4); White Blood Count 5.2 K/mm3 (4.4-11.0)
[2024-07-13 09:10] LABS: Hemoglobin A1c 5.1 % (<=5.6)
[2024-07-13 09:35] LABS: ALB/GLOB Ratio 1.4 RATIO (0.9-2.4); AST(SGOT) 30 U/L (<=31); Alanine Aminotransfer ALT/SGPT 52 U/L (<=34); Albumin, Serum 4.3 g/dL (3.5-5.0); Alkaline Phosphatase 86 U/L (35-104); Anion Gap 11 (5-15); BUN 7 mg/dL (4-19); BUN/Creat Ratio 9.3 RATIO (10-20); Calcium,Total 6.8 mg/dL (7.6-11.0); Carbon Dioxide 26.8 mmol/L (21.0-32.0); Chloride 101 mmol/L (98-108); Cholesterol 128 mg/dL (<=200); Creatinine, Serum 0.73 mg/dL (0.70-1.20); EST Glomerular Filtration Rate 95 (>60); Globulin 3.2 g/dL (2.2-4.2); Glucose 101 mg/dL (70-99); High Density Lipoprotein 29 mg/dL; Low Density Lipoprotein Calc. 49 mg/dL; Potassium 4.7 mmol/L (3.3-5.1); Protein, Total 7.5 g/dL (5.9-8.4); Sodium Level 139 mmol/L (133-145); Thyroid Stim Hormone (TSH) 0.056 uIU/mL (0.300-4.200); Total Bilirubin 0.46 mg/dL (0.00-1.30); Triglycerides 249 mg/dL; Very Low Density Lipoprotein 50 mg/dL (5-40); Vitamin D,25 Hydroxy 37.7 ng/mL (30-100); cholesterol:hdl ratio screen 4.38
== END | disposition home or self-care (01) ==
PROVIDERS: PCP Registered Nurse; Referring Provider Registered Nurse; Visit Provider Registered Nurse
DX: Z00.00 Encounter for general adult medical examination without abnormal findings (principal); E11.9 Type 2 diabetes mellitus without complications; E03.4 Atrophy of thyroid (acquired)
CPT/HCPCS: 36415; 80053; 80061; 82306; 83036; 84439; 84443; 85027

== ENCOUNTER → 2024-09-14 | Outpatient (CLI) | payer MEDICARE, MEDICAID, SELFPAY ==
--- NOTE | 2024-09-14 15:01 | RAD_ITS ---
PROCEDURE: CHEST PA AND LATERAL 09/14/2024 REASON FOR EXAM: COUGH TECHNIQUE: Frontal and lateral views of the chest. COMPARISON: None FINDINGS: Hardware: Left-sided dual-chamber pacemaker is seen. Heart: Left-sided dual-chamber pacemaker is present. Mediastinum: The mediastinal contour is unremarkable. Lungs: Hyperinflation. Mild increased markings at the lung bases suggestive of scarring. Bones: Degenerative changes are identified within the thoracic spine. Calcific tendinitis of the right shoulder. RAD/Chest PA and Lateral IMPRESSION: Hyperinflation. Findings suggestive of bibasilar scarring. Reading Location: [facility]
== END | disposition home or self-care (01) ==
LOC: MTRAD 15:01
PROVIDERS: PCP Registered Nurse; Referring Provider Physician Assistant; Visit Provider Physician Assistant
DX: R05.9 Cough, unspecified (principal)
CPT/HCPCS: 71046

== ENCOUNTER → 2024-12-31 | Outpatient (CLI) | payer MEDICARE, MEDICAID, SELFPAY ==
--- OUTSIDE RECORDS SUMMARY | 2024-12-31 13:04 | XMS RPT_ITS | CCD ---
Author Organization [facility] Care Team Providers Care Painter Mirror Name Role Phone Olga Lidia Miner Unavailable Unavailable Olga Lidia Miner Unavailable Unavailable Sabino Netltes Primary Care Provider Shannon Vu Primary Care Provider [phone] Von Branham Emergency Provider [phone] Shannon Vu Attending Unavailable Dong Sheldon Attending Unavailable Pavsal, Shannon Aiken Primary Care Unavailable PavShannon huang Primary Care Unavailable Ubaldo Hidalgo Attending Unavailable Pavsal, Shanonn Aiken Primary Care Unavailable Von Branham Attending Unavailable Maria Del CarmenafVon ramirez Attending Unavailable Loraine Blair Attending Unavailable Mirella, Shannon Aiken Primary Care Unavailable Shannon Vu Attending Unavailable FRANKIE LEÓN Primary Care Physician David PARTIDA, STAMP REDEMPTION CLERK-C Frankie Primary Care Provider Dr. Kevin Antunez Emergency Provider [phone] Dr. Kamila Hernandez Admit Provider Dr. Kamila Hernandez Attending Provider Dr. Kamila Hernandez Other Provider Dr. Florin Naik Attending Provider Dr. Florin Naik Other Provider Dr. Esha Nava Other Provider Dr. Esha Nava Attending Provider Dr. Esha Nvaa Referring Provider LALITA INTERNET SALES REPRESENTATIVE-SERVICE STATION ATTENDANT, RIMA A Primary Care Physi xochitl LALITA INTERNET SALES REPRESENTATIVE-SERVICE STATION ATTENDANT, RIMA A Attending Un available LALITA INTERNET SALES REPRESENTATIVE-SERVICE STATION ATTENDANT, RIMA A Primary Care Un available LALITA INTERNET SALES REPRESENTATIVE-SERVICE STATION ATTENDANT, RIMA A Attending Un available LALITA INTERNET SALES REPRESENTATIVE-SERVICE STATION ATTENDANT, RIMA A Primary Care Un available BASIL DE LOS [place]ANT[place], RAMESH Attending Unavaila ble LALITA INTERNET SALES REPRESENTATIVE-SERVICE STATION ATTENDANT, RIMA A Primary Care Un available BASIL DE LOS SANTOS, RAMESH Attending Unavaila ble LALITA INTERNET SALES REPRESENTATIVE-SERVICE STATION ATTENDANT, RIMA A Primary Care Un available BASIL DE [place]ANT[place], RAMESH Attending Unavaila ble LALITA INTERNET SALES REPRESENTATIVE-SERVICE STATION ATTENDANT, RIMA A Primary Care Un available ZENIA INTERNET SALES REPRESENTATIVE - SERVICE STATION ATTENDANT, DELFINO Miller Attending U navailable LALITA INTERNET SALES REPRESENTATIVE-SERVICE STATION ATTENDANT, RIAM A Primary Care Un available ZENIA INTERNET SALES REPRESENTATIVE - SERVICE STATION ATTENDANT, DELFINO Miller Attending U navailable LALITA INTERNET SALES REPRESENTATIVE-SERVICE STATION ATTENDANT, RIMA A Primary Care Un available ELAINE HOGAN DO Attending Unavailable LALITA INTERNET SALES REPRESENTATIVE-SERVICE STATION ATTENDANT, RIMA A Primary Care Un available LALITA INTERNET SALES REPRESENTATIVE-SERVICE STATION ATTENDANT, RIMA A Attending Un available LALITA INTERNET SALES REPRESENTATIVE-SERVICE STATION ATTENDANT, RIMA A Primary Care Un available CANDICE DE LOS [place]ANTOS, DR AXEL Espinoza Attending Unavai lable LALITA INTERNET SALES REPRESENTATIVE-SERVICE STATION ATTENDANT, RIMA A Primary Care Un available Lalita STAMP REDEMPTION CLERK-C, Rima Primary Care Provider [phone] Dr. Andrew Barnes DO Attending Provider Dr. Andrew Barnes DO Emergency Provider Lalita STAMP REDEMPTION CLERK-C, Rima Attending Provider Lalita STAMP REDEMPTION CLERK-C, Rima Referring Provider Lalita STAMP REDEMPTION CLERK-C, Rima Primary Care Provider [phone] Axel Dan Attending Provider [phone] Axel Dan Referring Provider Delfion Knutson Attending Unavail able Delfino Knutson Referring Unavail able Lalita STAMP REDEMPTION CLERK, Rima Primary Care Unavailabl e Zenia, Delfino Wayne Attending Unavail able Delfino Knutson Referring Unavail able Lalita STAMP REDEMPTION CLERK, Lindsay Primary Care Unavailabl e Lalita STAMP REDEMPTION CLERK, Lindsay Primary Care Unavailabl e Madina COLBY, Axel Fields Attending Unavailable Lalita STAMP REDEMPTION CLERK, Lindsay Primary Care Unavailabl e Madina COLBY, Axel Fields Attending Unavailable Lalita STAMP REDEMPTION CLERK, Lindsay Referring Unavailabl e Lalita STAMP REDEMPTION CLERK, Lindsay Primary Care Unavailabl e Lalita STAMP REDEMPTION CLERK, Rima Attending Unavailabl e Lalita STAMP REDEMPTION CLERK, Rima Referring Unavailabl e Lalita STAMP REDEMPTION CLERK, [facility] Care Unavailabl e Madina COLBY, Axel Fields Attending Unavailable Madina COLBY, Axel Fields Referring Unavailable Andrew Barnes Attending Unavailable Lalita STAMP REDEMPTION CLERK, [facility] Care Unavailabl e Lalita STAMP REDEMPTION CLERK, Lindsay Primary Care Unavailabl e Lalita STAMP REDEMPTION CLERK, Rima Attending Unavailabl e ROMAR DO, DR TUTTLE Attending Unavailable LALITA INTERNET SALES REPRESENTATIVE-SERVICE STATION ATTENDANT, [place] Primary Care Un available RAMESH GRACIA MD Attending Unavaila ble LALITA INTERNET SALES REPRESENTATIVE-SERVICE STATION ATTENDANT, [place] Primary Care Un available ROMAR DO, DR TUTTLE Attending Unavailable LALITA INTERNET SALES REPRESENTATIVE-SERVICE STATION ATTENDANT, [place] Primary Care Un available JESSICA INTERNET SALES REPRESENTATIVE-SERVICE STATION ATTENDANT, ELOISA Attending Unavailab le LALITA INTERNET SALES REPRESENTATIVE-SERVICE STATION ATTENDANT, [place] Primary Care Un available CANDICE DE LOS SANTOS, DR AXEL Espinoza Attending Unavai lable LALITA INTERNET SALES REPRESENTATIVE-SERVICE STATION ATTENDANT, [place] Primary Care Un available SYLVIA INTERNET SALES REPRESENTATIVE-SERVICE STATION ATTENDANT, ARELY Nguyen Attending Unava ilable LALITA INTERNET SALES REPRESENTATIVE-SERVICE STATION ATTENDANT, [place] Primary Care Un available LALITA INTERNET SALES REPRESENTATIVE-SERVICE STATION ATTENDANT, [place] Primary Care Un available LALITA INTERNET SALES REPRESENTATIVE-SERVICE STATION ATTENDANT, RIMA Bee Attending Un available MAST INTERNET SALES REPRESENTATIVE-SERVICE STATION ATTENDANT, RAINE Attending Unavailabl e LALITA INTERNET SALES REPRESENTATIVE-SERVICE STATION ATTENDANT, RIMA A Primary Care Un available MAST INTERNET SALES REPRESENTATIVE-SERVICE STATION ATTENDANT, RAINE Attending Unavailabl e LALITA INTERNET SALES REPRESENTATIVE-SERVICE STATION ATTENDANT, RIMA A Primary Care Un available MAST INTERNET SALES REPRESENTATIVE-SERVICE STATION ATTENDANT, RAINE Attending Unavailabl e LALITA INTERNET SALES REPRESENTATIVE-SERVICE STATION ATTENDANT, RIMA A Primary Care Un available Allergies Allergy Classification Reported Allergen(s) Allergy Type Date of Onset Reaction(s) Facility (20 sources) HYDROmorphone; Translations: [hydromorphone] Drug Allergy 11-27-19 Headache (finding) [facility] (20 sources) Latex Allergy to Substance 11-27-19 Eruption of skin (disorder) [facility] (20 sources) Morphine; Translations: [morphine] Drug Allergy 11-27-19 Headache (finding) [facility] (20 sources) Sulfamethoxazole / Trimethoprim; Translations: [sulfamethoxazole-t rimethoprim] Drug Allergy 11-27-19 Anaphylaxis (disorder) [facility] Sulfonamides (Antibiotic); Translations: [Sulfa Antibiotics] Allergy to Substance 11-27-19 Anaphylaxis [facility] (1 source) HYDROmorphone Drug Allergy 11-27-19 [facility] (1 source) Latex Drug allergy (disorder) 11-27-19 [facility] (1 source) Morphine Drug Allergy 11-27-19 [facility] (1 source) Sulfamethoxazole Drug Allergy 11-27-19 [facility] (10 sources) Sulfamethoxazole Drug Allergy 04-28-19 Anaphylaxis [facility] (10 sources) Sulfonamides (Antibiotic) Allergy to substance 04-28-19 Anaphylaxis [facility] (10 sources) Trimethoprim Drug Allergy 04-28-19 23 Anaphylaxis [facility] (10 sources) Opioids - Morphine Analogues Propensity to adverse reactions 04-28-19 Other [facility] (20 sources) Pramipexole; Translations: [pramipexole] Drug Allergy Eruption of skin (disorder) [facility] (8 sources) Sulfonamides (Antibiotic); Translations: [sulfa drugs] Drug allergy Anaphylaxis (disorder) [facility] (20 sources) Anoro Ellipta; Translations: [umeclidinium-moody] Drug allergy Headache (finding) [facility] (16 sources) Sulfonamide; Translations: [sulfa drugs] Drug allergy Anaphylaxis (disorder) [facility] (7 sources) Clindamycin; Translations: [clindamycin] Drug Allergy Burning (qualifier value) [facility] (1 source) Sulfamethoxazole Drug Allergy 09-15-19 [facility] (1 source) Sulfonamides (Antibiotic) Drug allergy (disorder) 09-15-19 [facility] (1 source) Trimethoprim Drug Allergy 09-15-19 [facility] (1 source) Opioids - Morphine Analogues Drug allergy (disorder) 09-15-19 [facility] Medications Current Medications Medication Drug Class(es) Dates Sig (Normalized) Sig (Original) 0.5 ML tirzepatide 15 MG/ML Auto-Injector [Mounjaro] (1 source) Start: 01-20-2024 inject 1 dose by subcutaneous injection every week Mounjaro 7.5 mg/0.5 mL subcutaneous solution Dose : 7.5 mg =, Subcutaneous, qWeek, rotate injection sites, # 4 EA, 0 Refill(s), Pharmacy: [facility], 155.2, cm, 01/11/24 14:35:00 EDT, Height, kg, 01/11/24 14:35:00 EDT, Dosing Weight Start Date: 01/20/24 Status: Ordered 0.5 ML tirzepatide 20 MG/ML Auto-Injector [Mounjaro] (1 source) Start: 03-02-2024 End: 05-31-2024 inject 1 dose by subcutaneous injection every week Mounjaro 10 mg/0.5 mL subcutaneous solution Dose : 10 mg =, Subcutaneous, qWeek, rotate injection sites, # 4 EA, 2 Refill(s), Pharmacy: [facility], DMII (diabetes mellitus, type 2) Obesity, morbid, 156, cm, 03/02/24 14:50:00 EST, Height, kg, 03/02/24 14:50:00 EST, Dosing Weight Start Date: 03/02/24 Stop Date: 05/31/24 Status: Ordered 0.5 ML tirzepatide 25 MG/ML Auto-Injector [Mounjaro] (2 sources) Start: 05-04-2024 End: 08-02-2024 inject 1 dose by subcutaneous injection every week Mounjaro 12.5 mg/0.5 mL subcutaneous solution Dose : 12.5 mg =, Subcutaneous, qWeek, rotate injection sites, # 4 EA, 2 Refill(s), Pharmacy: [facility], 156, cm, 05/04/24 8:10:00 EST, Height, kg, 05/04/24 8:10:00 EST, Dosing Weight Start Date: 05/04/24 Stop Date: 08/02/24 Status: Ordered Quantity: 4.0 Unit: EA Repeat number: 3 albuterol 0.83 mg/ml inhalation solution (20 sources) beta2-Adrenergic Agonist Start: 06-17-2024 take 1 dose by inhalation every four hours as needed albuterol 2.5 mg/3 mL (0.083%) inhalation solution Dose : 2.5 mg = 3 mL, Inhalation, q4h, PRN for wheezing, # 60 EA, 0 Refill(s), Pharmacy: [facility], COPD exacerbation, 156, cm, 06/17/24 9:13:00 EST, Height, kg, 06/17/24 9:13:00 EST, Dosing Weight Start Date: 06/17/24 Status: Ordered Medication Dispense Status: Completed Quantity: 60.0 Unit: EA Total Allowed Fills: 1 Fills Dispensed: 0 Indications: Chronic obstructive pulmonary disease with (acute) exacerbation; Start: 02-16-2024 take 1 dose by inhal ation every four hours as needed albuterol 2.5 mg/3 mL (0.083%) inhalation solution Dose : 2.5 mg = 3 mL, Inhalation, q4h, PRN for wheezing, # 60 EA, 0 Refill(s), Pharmacy: [facility], COPD exacerbation, 155.2, cm, 02/12/24 10:17:00 EDT, Height, kg, 02/12/24 10:07:00 EDT, Dosing Weight Start Date: 02/16/24 Status: Ordered Start: 01-23-2023 take 1 dose by inhal ation every four hours as needed albuterol 2.5 mg/3 mL (0.083%) inhalation solution Dose : 2.5 mg = 3 mL, Inhalation, q4h, PRN for wheezing, # 60 EA, 0 Refill(s), Pharmacy: [facility], COPD exacerbation, 157.5, cm, 01/23/23 16:05:00 EDT, Height, kg, 01/23/23 16:05:00 EDT, Dosing Weight Start Date: 01/23/23 Status: Ordered Start: 09-02-2021 take 1 puff(s) by in halation every four to six hours as needed Albuterol [Ventolin Hfa 18 Gm] 2 PUFFS INH EVERY 4 TO 6 HOURS NEEDED PRN 1 September 02, 2021 Active Start: 01-26-2020 End: 11-26-2020 Albuterol Sulfate [Albuterol Sulfate Hfa] 108 MCG IN EVERY 4 TO 6 HOURS NEEDED PRN January 26, 2020 November 26, 2020 Discontinued Start: 01-09-2018 End: 02-21-2019 take 1 puff(s) by inhalation every four to six hours as needed Albuterol [Ventolin Hfa 18 Gm] 2 PUFFS INH EVERY 4 TO 6 HOURS NEEDED PRN 1 January 09, 2018 February 21, 2019 Discontinued Start: 04-05-2017 End: 02-21-2019 Albuterol [Ventolin] 2.5 MG AERO EVERY 4 TO 6 HOURS NEEDED PRN 1 April 05, 2017 February 21, 2019 Discontinued Start: 11-12-2016 End: 04-05-2017 take 1 mL by inhalation every four hours as needed Albuterol [Ventolin] 3 ML INH EVERY 4 HOURS PRN For Shortness Of Breath November 12, 2016 April 05, 2017 Discontinued Start: 05-28-2015 End: 11-12-2016 take 1 puff(s) by inhalation every four hours as needed Albuterol Sulfate [Proventil Hfa Inhaler] 2 PUFFS IN Q4H PRN May 28, 2015 November 12, 2016 Discontinued Start: 09-16-2014 End: 05-16-2015 take 1 puff(s) by inhalation every four hours Albuterol Sulfate [Proair Hfa] 2 PUFFS INH Q4H September 16, 2014 May 16, 2015 Discontinued Start: 09-08-2014 End: 09-16-2014 Albuterol Sulfate [Proair Hf a] 2 PUFFS INH DIRECTED September 08, 2014 September 16, 2014 Discontinued Albuterol (Eqv-ProAir HFA) 90 mcg/inh inhalation aerosol (20 sources) Start: 06-17-2024 End: 06-12-2025 take 1 dose by inhalation every six hours as needed for wheezing Albuterol (Eqv-ProAir HFA) 90 mcg/inh inhalation aerosol Dose = 2 puff(s), Inhalation, q6hr, PRN as needed for wheezing, # 18 gram(s), 3 Refill(s), Pharmacy: [facility], Advanced COPD, 156, cm, 06/17/24 9:13:00 EST, Height, kg, 06/17/24 9:13:00 EST, Dosing Weight Start Date: 06/17/24 Stop Date: 06/12/25 Status: Ordered Medication Dispense Status: Completed Quantity: 18.0 Unit: g Total Allowed Fills: 4 Fills Dispensed: 0 Indications: Chronic obstructive pulmonary disease, unspecified; Start: 06-17-2024 End: 06-12-2025 take 1 dose by inhalation every six hours as needed for wheezing Albuterol (Eqv-ProAir HFA) 90 mcg/inh inhalation aerosol Dose = 2 puff(s), Inhalation, q6hr, PRN as needed for wheezing, # 18 gram(s), 3 Refill(s), Pharmacy: [facility], Advanced COPD, 156, cm, 06/17/24 9:13:00 EST, Height, kg, 06/17/24 9:13:00 EST, Dosing Weight Start Date: 06/17/24 Stop Date: 06/12/25 Status: Ordered Quantity: 18.0 Unit: g Repeat number: 4 Indications: Chronic obstructive pulmonary disease, unspecified; Start: 06-17-2024 End: 06-12-2025 take 1 dose by inhalation every six hours as needed for wheezing Albuterol (Eqv-ProAir HFA) 90 mcg/inh inhalation aerosol Dose = 2 puff(s), Inhalation, q6hr, PRN as needed for wheezing, # 18 gram(s), 3 Refill(s), Pharmacy: [facility], Advanced COPD, 156, cm, 06/17/24 9:13:00 EST, Height, kg, 06/17/24 9:13:00 EST, Dosing Weight Start Date: 2/28/25 Stop Date: 06/12/25 Status: Ordered Quantity: 18.0 Unit: g Repeat number: 4 Indication: Chronic obstructive pulmonary disease, unspecified Start: 10-29-2022 End: 10-24-2023 take 1 dose by inhalation every six hours as needed for wheezing Albuterol (Eqv-ProAir HFA) 90 mcg/inh inhalation aerosol Dose = 2 puff(s), Inhalation, q6hr, PRN as needed for wheezing, # 18 gram(s), 3 Refill(s), Pharmacy: [facility], Advanced COPD, 157.5, cm, 10/29/22 16:31:00 EDT, Height, kg, 10/29/22 16:31:00 EDT, Dosing Weight Start Date: 10/29/22 Stop Date: 10/24/23 Status: Ordered Start: 02-21-2022 take 1 dose by inhal ation every six hours as needed for wheezing Albuterol (Eqv-ProAir HFA) 90 mcg/inh inhalation aerosol Dose = 2 puff(s), Inhalation, q6hr, PRN as needed for wheezing, # 6.7 gram(s), 2 Refill(s), Pharmacy: [facility], 160, cm, 02/21/22 13:12:00 EDT, Height Start Date: 02/21/22 Status: Ordered Start: 02-21-2022 take 1 dose by inhal ation every six hours Albuterol (Eqv-ProAir HFA) 90 mcg/inh inhalation aerosol Dose = 2 puff(s), Inhalation, q6hr, # 8 gram(s), 2 Refill(s), Pharmacy: [facility], 160, cm, 02/21/22 13:12:00 EDT, Height Start Date: 02/21/22 Status: Ordered amoxicillin 875 mg / clavulanate 125 mg oral tablet (5 sources) Penicillin-class Antibacterial Start: 09-14-2024 Amoxicillin-Pot Clavulanate 875-125 mg tablet Active 1 {tbl} PO TWICE A DAY September 14, 2024 12:00am Start: 08-17-2023 End: 08-27-2023 take 1 tablet by mouth every twelve hours amoxicillin-clavulanate 875 mg-125 mg or al tablet 1 tab(s), Oral, q12h, X 10 day(s), # 20 tab(s), 0 Refill(s), 08/27/23 3:25:00 PM EDT, Pharmacy: [facility], COPD exacerbation Productive cough, 156.6, cm, 08/17/23 14:46:00 EDT, Height, 126.4, kg, 08/17/23 14:46:00 EDT, Dosing Weight Start Date: 08/17/23 Stop Date: 08/27/23 Status: Ordered Start: 10-09-2017 End: 01-14-2018 take 875 mg by mouth every twelve hours Amoxicillin/Clavulanate [Augmentin] 875 MG PO EVERY 12 HOURS October 09, 2017 January 14, 2018 Discontinued aspirin 81 mg delayed release oral tablet (20 sources) Platelet Aggregation Inhibitor, Nonsteroidal Anti-inflammatory Drug Start: 05-27-2018 End: 11-27-2020 aspirin 81 mg oral delayed release tablet Dose : 81 mg = 1 tab(s), Oral, qAM, pt checking with surgeon to see if stop date for this med, # 30 tab(s), 0 Refill(s) Start Date: 06/15/19 Status: Ordered Medication Dispense Status: Completed Quantity: 30.0 Unit: tab(s) Total Allowed Fills: 1 Fills Dispensed: 0 Start: 05-28-2015 End: 08-16-2016 take 81 mg by mouth once daily Aspirin [Low Dose Aspir in *] 81 MG PO DAILY May 28, 2015 August 16, 2016 Discontinued Start: 08-22-2013 End: 03-30-2015 take 81 mg by mouth once daily Aspirin [Low Dose Aspir in *] 81 MG PO DAILY August 22, 2013 March 30, 2015 Discontinued benzonatate 200 mg oral capsule (5 sources) Non-narcotic Antitussive Start: 09-14-2024 take 1 capsule by mouth three times daily as needed for cough Benzonatate 200 mg capsule Active 200 mg PO THREE TIMES A DAY as needed for cough September 14, 2024 12:00am Start: 02-21-2022 benzonatate 20 0 mg oral capsule Dose : 200 mg = 1 cap(s), Oral, TID, PRN as needed for cough, # 30 cap(s), 1 Refill(s), Pharmacy: [facility], 160, cm, 02/21/22 13:12:00 EDT, Height, kg, 02/21/22 13:12:00 EDT, Dosing Weight Start Date: 02/21/22 Status: Ordered Start: 01-26-2020 End: 11-26-2020 take 100 mg by mouth three times daily Benzonatate [Tessalon] 100 MG PO THREE TIMES A DAY January 26, 2020 November 26, 2020 Discontinued budesonide 0.25 mg/ml inhalation suspension (4 sources) Corticosteroid Start: 08-28-2022 take 1 dose by inhalation once daily at bedtime budesonide 0.5 mg/2 mL inhalation suspension Dose : 0.5 mg = 2 mL, Inhalation, qHS, # 120 mL, 0 Refill(s) Start Date: 08/28/22 Status: Ordered Start: 09-09-2018 End: 02-21-2019 take 1 mL by inhalation twice daily Budesonide [Pulmicort Inh *] 2 ML INH TWICE A DAY September 09, 2018 February 21, 2019 Discontinued Budesonide-Formoterol (7 sources) Corticosteroid, beta2-Adrenergic Agonist Start: 10-08-2022 Budesonide-Formoterol (Symbicort) 160-4.5 mcg/actuation HFA aerosol inhaler Active 160 NMA INHALATION DAILY October 08, 2022 12:00am Start: 10-08-2022 take 1 puff(s) by in halation once daily Budesonide-Formoterol (Symbicort) 160-4.5 mcg/actuation HFA aerosol inhaler Active 160 PUFF INHALATION DAILY October 07, 2022 11:00pm Start: 10-08-2022 take 1 puff(s) by in halation once daily Budesonide-Formoterol (Symbicort) 160-4.5 mcg/actuation HFA aerosol inhaler Active 160 PUFF INHALATION DAILY October 08, 2022 12:00am cephalexin 500 mg oral capsule (1 source) Cephalosporin Antibacterial Start: 02-12-2024 End: 02-19-2024 cephalexin 500 mg oral capsule Dose : 500 mg = 1 cap(s), Oral, q12h, X 7 day(s), # 14 cap(s), 0 Refill(s), 02/19/24 10:41:00 AM EDT, Pharmacy: [facility], UTI (urinary tract infection), 155.2, cm, 02/12/24 10:17:00 EDT, Height, 117.4, kg, 02/12/24 10:07:00 EDT, Dosing Weight Start Date: 02/12/24 Stop Date: 02/19/24 Status: Ordered ciclopirox 80 mg/ml topical solution (6 sources) Start: 09-03-2023 ciclopirox 8% topical solution Apply to fungal toenails Once daily for 7 days, remove with rubbing alcohol and then reapply once daily for 7 days. Repeat weekly cycle. Start Date: 09/03/23 Status: Ordered ciprofloxacin 500 mg oral tablet (2 sources) Quinolone Antimicrobial Start: 11-06-2023 End: 11-11-2023 Cipro 500 mg oral tablet Dose : 500 mg = 1 tab(s), Oral, q12h, X 5 day(s), # 10 tab(s), 0 Refill(s), 11/11/23 11:25:00 AM EDT, Pharmacy: [facility], Dysuria Recurrent UTI (urinary tract infection), 155, cm, 11/06/23 10:10:00 EDT, Height, 126.4, kg, 11/06/23 10:10:00 EDT, Dosing Weight Start Date: 11/06/23 Stop Date: 11/11/23 Status: Ordered Start: 10-26-2023 End: 11-02-2023 Cipro 500 mg oral tablet Dos e : 500 mg = 1 tab(s), Oral, q12h, X 7 day(s), # 14 tab(s), 0 Refill(s), 11/02/23 11:48:00 AM EDT, Pharmacy: [facility], Diverticulitis, 155, cm, 10/26/23 10:43:00 EDT, Height, 125.6, kg, 10/26/23 10:43:00 EDT, Dosing Weight Start Date: 10/26/23 Stop Date: 11/02/23 Status: Ordered Clobetasol (1 source) Corticosteroid Start: 11-06-2023 End: 12-04-2023 clobetasol 0.05% topical cream Apply 1 marleny, Topical, BID, X 14 day(s), # 15 gram(s), 1 Refill(s), Pharmacy: [facility], Cream, 155, cm, 11/06/23 10:10:00 EDT, Height, 126.4, kg, 11/06/23 10:10:00 EDT, Dosing Weight Start Date: 11/06/23 Stop Date: 12/04/23 Status: Ordered clotrimazole 10 mg/ml topical cream (8 sources) Azole Antifungal Start: 03-02-2024 clotrimazole 1% topical cream Apply 1 appl, Topical, BID, # 100 gram(s), 2 Refill(s), Pharmacy: [facility], Cream, 156, cm, 03/02/24 14:50:00 EST, Height, 116.5, kg, 03/02/24 14:50:00 EST, Dosing Weight Start Date: 03/02/24 Status: Ordered Start: 02-16-2024 clotrimazole 1 % topical cream Apply 1 appl, Topical, BID, # 100 gram(s), 2 Refill(s), Pharmacy: [facility], Cream, 155.2, cm, 02/12/24 10:17:00 EDT, Height, 117.4, kg, 02/12/24 10:07:00 EDT, Dosing Weight Start Date: 02/16/24 Status: Ordered Start: 05-04-2023 clotrimazole 1 % topical cream Apply 1 appl, Topical, BID, # 100 gram(s), 2 Refill(s), Pharmacy: [facility], Cream, 157.5, cm, 05/04/23 13:37:00 EST, Height, 123.1, kg, 05/04/23 13:37:00 EST, Dosing Weight Start Date: 05/04/23 Status: Ordered diclofenac sodium 75 mg delayed release oral tablet (4 sources) Nonsteroidal Anti-inflammatory Drug Start: 06-17-2024 End: 07-01-2024 diclofenac sodium 75 mg oral delayed release tablet Dose : 75 mg = 1 tab(s), Oral, BID, # 28 tab(s), 0 Refill(s), Pharmacy: [facility], 156, cm, 06/17/24 9:13:00 EST, Height, kg, 06/17/24 9:13:00 EST, Dosing Weight Start Date: 06/17/24 Stop Date: 07/01/24 Status: Ordered Quantity: 28.0 Unit: tab(s) Repeat number: 1 Start: 02-02-2015 End: 03-30-2015 take 75 mg by mouth twice daily Diclofenac Sodium [Diclofenac Sodium Dr] 75 MG PO TWICE A DAY February 02, 2015 March 30, 2015 Discontinued DME MISCellaneous (20 sources) Start: 08-24-2023 DME MISCellane ous See Instructions, Please provide Acapella pickle breathing device for COPD with hypoxia. ., # 1 EA, 0 Refill(s), COPD with hypoxia, 125.4 Start Date: 08/24/23 Status: Ordered Medication Dispense Status: Completed Quantity: 1.0 Unit: EA Total Allowed Fills: 1 Fills Dispensed: 0 Indications: Chronic obstructive pulmonary disease, unspecified; Start: 08-24-2023 DME MISCellane ous See Instructions, Please provide Acapella pickle breathing device for COPD with hypoxia. ., # 1 EA, 0 Refill(s), COPD with hypoxia, 125.4 Start Date: 08/24/23 Status: Ordered Quantity: 1.0 Unit: EA Repeat number: 1 Indications: Chronic obstructive pulmonary disease, unspecified; Start: 08-24-2023 DME MISCellane ous See Instructions, Please provide Acapella pickle breathing device for COPD with hypoxia. ., # 1 EA, 0 Refill(s), COPD with hypoxia, 125.4 Start Date: 08/24/23 Status: Ordered Quantity: 1.0 Unit: EA Repeat number: 1 Indication: Chronic obstructive pulmonary disease, unspecified Start: 08-24-2023 DME MISCellane ous See Instructions, Please provide Acapella pickle breathing device for COPD with hypoxia. ., # 1 EA, 0 Refill(s), COPD with hypoxia, 125.4 Start Date: 08/24/23 Status: Ordered Start: 04-01-2022 DME MISCellane ous See Instructions, Dispense one automatic BP cuff. Monitor bp 2x per day. Bring numbers to next visit., # 1 EA, 0 Refill(s), Hypertension, 117.7 Start Date: 04/01/22 Status: Ordered Medication Dispense Status: Completed Quantity: 1.0 Unit: EA Total Allowed Fills: 1 Fills Dispensed: 0 Indications: Essential (primary) hypertension; Start: 04-01-2022 DME MISCellane ous See Instructions, Dispense one automatic BP cuff. Monitor bp 2x per day. Bring numbers to next visit., # 1 EA, 0 Refill(s), Hypertension, 117.7 Start Date: 04/01/22 Status: Ordered Quantity: 1.0 Unit: EA Repeat number: 1 Indications: Essential (primary) hypertension; Start: 04-01-2022 DME MISCellane ous See Instructions, Dispense one automatic BP cuff. Monitor bp 2x per day. Bring numbers to next visit., # 1 EA, 0 Refill(s), Hypertension, 117.7 Start Date: 04/01/22 Status: Ordered Quantity: 1.0 Unit: EA Repeat number: 1 Indication: Essential (primary) hypertension Start: 04-01-2022 DME MISCellane ous See Instructions, Dispense one automatic BP cuff. Monitor bp 2x per day. Bring numbers to next visit., # 1 EA, 0 Refill(s), Hypertension, 117.7 Start Date: 04/01/22 Status: Ordered doxycycline hyclate 100 mg oral capsule (11 sources) Tetracycline-class Drug Start: 07-31-2022 End: 09-29-2022 doxycycline hyclate 100 mg oral capsule Dose : 100 mg = 1 cap(s), Oral, qDay, # 30 cap(s), 1 Refill(s), Pharmacy: [facility], 158, cm, 07/31/22 9:10:00 EDT, Height, 120 Start Date: 07/31/22 Stop Date: 09/29/22 Status: Ordered Start: 04-05-2017 End: 05-27-2018 take 100 mg by mouth twice daily Doxycycline 100 MG PO TWICE A DAY January 09, 2018 Discontinued Start: 05-15-2016 End: 08-16-2016 take 1 tablet by mouth twice daily Doxycycline [Vibramycin] 1 TAB PO TWICE A DAY May 15, 2016 August 16, 2016 Discontinued Start: 03-30-2015 End: 04-28-2015 take 100 mg by mouth twice daily Doxycycline [Vibramycin] 100 MG PO TWICE A DAY March 30, 2015 April 28, 2015 Discontinued famotidine 40 mg oral tablet (20 sources) Histamine-2 Receptor Antagonist Start: 08-12-2024 End: 12-10-2024 famotidine 40 mg oral tablet Dose : 40 mg = 1 tab(s), Oral, qHS, # 30 tab(s), 3 Refill(s), Pharmacy: [facility], 156, cm, 07/06/24 13:39:00 EDT, Height, kg, 07/06/24 13:39:00 EDT, Dosing Weight Start Date: 08/12/24 Stop Date: 12/10/24 Status: Ordered Medication Dispense Status: Completed Quantity: 30.0 Unit: tab(s) Total Allowed Fills: 4 Fills Dispensed: 0 Start: 10-08-2022 End: 07-17-2024 take 1 tablet by mouth once daily Famotidine 40 mg tablet Active 40 mg PO DAILY October 08, 2022 12:00am Start: 09-09-2022 famotidine 40 mg oral tablet Dose : 40 mg = 1 tab(s), Oral, qHS, one time refill in lieu of PCP, # 30 tab(s), 0 Refill(s), Pharmacy: [facility], 157.5, cm, 09/02/22 20:03:00 EDT, Height, kg, 09/02/22 20:03:00 EDT, Dosing Weight Start Date: 09/09/22 Status: Ordered Start: 02-21-2022 famotidine 40 mg oral tablet Dose : 40 mg = 1 tab(s), Oral, qHS, # 30 tab(s), 5 Refill(s), Pharmacy: [facility], 160, cm, 02/21/22 13:12:00 EDT, Height Start Date: 02/21/22 Status: Ordered Start: 11-27-2020 take 40 mg by mouth once daily Famotidine 40 MG PO DAILY November 27, 2020 Active Start: 02-21-2019 End: 11-27-2020 take 20 mg by mouth twice daily Famotidine 20 MG PO TW ICE A DAY February 21, 2019 November 27, 2020 Discontinued ibuprofen 600 mg oral tablet (20 sources) Nonsteroidal Anti-inflammatory Drug Start: 10-19-2024 ibuprofen 600 mg oral tablet Dose : 600 mg = 1 tab(s), Oral, q6h, PRN as needed for pain, Take with food or milk., # 40 tab(s), 1 Refill(s), Pharmacy: [facility], 156, cm, 07/06/24 13:39:00 EDT, Height, kg, 07/06/24 13:39:00 EDT, Dosing Weight Start Date: 10/19/24 Status: Ordered Medication Dispense Status: Completed Quantity: 40.0 Unit: tab(s) Total Allowed Fills: 2 Fills Dispensed: 0 Start: 09-03-2022 Ibuprofen 600 mg tablet Active 600 mg PO NEEDED as needed for Pain October 08, 2022 12:00am Start: 06-24-2021 take 800 mg by mouth every eight hours as needed for pain Ibuprofen [Motrin] 800 MG PO Q8H PRN For Pain June 24, 2021 Active Start: 08-01-2014 End: 09-12-2014 take 800 mg by mouth three times daily Ibuprofen [Motrin] 800 MG PO THREE TIMES A DAY August 01, 2014 September 12, 2014 Discontinued levothyroxine sodium 0.025 mg oral tablet (20 sources) l-Thyroxine Start: 07-20-2024 take 1 tablet by mouth once daily levothyroxine 25 mcg (0.025 mg) oral tablet Dose : 25 mcg = 1 tab(s), Oral, qDay, Take with 200 mg for a total of 225 mcg daily. Decreased dose, # 90 tab(s), 0 Refill(s), Pharmacy: [facility], 156, cm, 07/06/24 13:39:00 EDT, Height, kg, 07/06/24 13:39:00 EDT, Dosing Weight Start Date: 07/20/24 Status: Ordered Medication Dispense Status: Completed Quantity: 90.0 Unit: tab(s) Total Allowed Fills: 1 Fills Dispensed: 0 Start: 07-20-2024 End: 08-19-2024 take 1 tablet by mouth once daily levothyroxine 200 mcg (0.2 mg) oral tablet Dose : 200 mcg = 1 tab(s), Oral, qAM, take with a 25 mcg tab for total of 225 mcg daily, # 90 tab(s), 0 Refill(s), Pharmacy: [facility], 156, cm, 07/06/24 13:39:00 EDT, Height, kg, 07/06/24 13:39:00 EDT, Dosing Weight Start Date: 07/20/24 Stop Date: 08/19/24 Status: Ordered Medication Dispense Status: Completed Quantity: 90.0 Unit: tab(s) Total Allowed Fills: 1 Fills Dispensed: 0 Start: 06-17-2024 End: 07-17-2024 take 1 tablet by mouth once daily levothyroxine 200 mcg (0.2 mg) oral tablet Dose : 200 mcg = 1 tab(s), Oral, qAM, take with a 50 mcg tab for total of 250 mcg daily, # 30 tab(s), 0 Refill(s), Pharmacy: [facility], 156, cm, 06/17/24 9:13:00 EST, Height, kg, 06/17/24 9:13:00 EST, Dosing Weight Start Date: 06/17/24 Stop Date: 07/17/24 Status: Ordered Quantity: 30.0 Unit: tab(s) Repeat number: 1 Start: 06-17-2024 End: 07-17-2024 take 1 tablet by mouth once daily levothyroxine 50 mcg (0.05 mg) oral tablet Dose : 50 mcg = 1 tab(s), Oral, qDay, take with a 200 mcg tab for total of 250 mcg daily, # 30 tab(s), 0 Refill(s), Pharmacy: [facility], 156, cm, 06/17/24 9:13:00 EST, Height, kg, 06/17/24 9:13:00 EST, Dosing Weight Start Date: 06/17/24 Stop Date: 07/17/24 Status: Ordered Quantity: 30.0 Unit: tab(s) Repeat number: 1 Start: 12-18-2023 End: 05-31-2024 take 1 tablet by mouth once daily levothyroxine 200 mcg (0.2 mg) oral tablet Dose : 200 mcg = 1 tab(s), Oral, qAM, take with a 50 mcg tab for total of 250 mcg daily, # 90 tab(s), 0 Refill(s), Pharmacy: [facility], 156, cm, 03/02/24 14:50:00 EST, Height, kg, 03/02/24 14:50:00 EST, Dosing Weight Start Date: 03/02/24 Stop Date: 05/31/24 Status: Ordered Start: 12-18-2023 End: 05-31-2024 take 1 tablet by mouth once daily levothyroxine 50 mcg (0.05 mg) oral tablet Dose : 50 mcg = 1 tab(s), Oral, qDay, take with a 200 mcg tab for total of 250 mcg daily, # 90 tab(s), 0 Refill(s), Pharmacy: [facility], 156, cm, 03/02/24 14:50:00 EST, Height, kg, 03/02/24 14:50:00 EST, Dosing Weight Start Date: 03/02/24 Stop Date: 05/31/24 Status: Ordered Start: 05-08-2023 End: 12-12-2023 take 1 tablet by mouth once daily levothyroxine 200 mcg (0.2 mg) oral tablet Dose : 200 mcg = 1 tab(s), Oral, qAM, take with a 50 mcg tab for total of 250 mcg daily, # 90 tab(s), 1 Refill(s), Pharmacy: [facility], 156.5, cm, 06/15/23 15:49:00 EST, Height, kg, 06/15/23 15:49:00 EST, Dosing Weight Start Date: 06/15/23 Stop Date: 12/12/23 Status: Ordered Start: 02-09-2023 End: 12-12-2023 take 1 tablet by mouth once daily levothyroxine 50 mcg (0.05 mg) oral tablet Dose : 50 mcg = 1 tab(s), Oral, qDay, take with a 200 mcg tab for total of 250 mcg daily, # 90 tab(s), 1 Refill(s), Pharmacy: [facility], 156.5, cm, 06/15/23 15:49:00 EST, Height, kg, 06/15/23 15:49:00 EST, Dosing Weight Start Date: 06/15/23 Stop Date: 12/12/23 Status: Ordered Start: 12-05-2022 End: 02-03-2023 levothyroxine 50 mcg (0.05 m g) oral tablet Dose : 50 mcg = 1 tab(s), Oral, qDay, # 60 tab(s), 0 Refill(s), Pharmacy: [facility], 160, cm, 12/03/22 15:23:00 EDT, Height, kg, 12/03/22 15:23:00 EDT, Dosing Weight Start Date: 12/05/22 Stop Date: 02/03/23 Status: Ordered Start: 10-29-2022 End: 04-27-2023 take 1 tablet by mouth once daily levothyroxine 200 mcg (0.2 mg) oral tablet Dose : 200 mcg = 1 tab(s), Oral, qAM, take with a 75 mcg tab for total of 275mcg daily, # 90 tab(s), 1 Refill(s), Pharmacy: [facility], 157.5, cm, 10/29/22 16:31:00 EDT, Height, kg, 10/29/22 16:31:00 EDT, Dosing Weight Start Date: 10/29/22 Stop Date: 04/27/23 Status: Ordered Start: 10-29-2022 End: 04-27-2023 take 1 tablet by mouth once daily levothyroxine 75 mcg (0.075 mg) oral tablet Dose : 75 mcg = 1 tab(s), Oral, qAM, take with 200mcg tab for total of 275mcg daily, # 90 tab(s), 1 Refill(s), Pharmacy: [facility], 157.5, cm, 10/29/22 16:31:00 EDT, Height, kg, 10/29/22 16:31:00 EDT, Dosing Weight Start Date: 10/29/22 Stop Date: 04/27/23 Status: Ordered Start: 10-08-2022 take 1 tablet by adelina th once daily Levothyroxine 200 mcg tablet Active 200 ug PO DAILY October 08, 2022 12:00am Start: 09-09-2022 End: 10-09-2022 levothyroxine 200 mcg (0.2 m g) oral tablet Dose : 200 mcg = 1 tab(s), Oral, qAM, take with a 75 mcg tab for total of 275mcg daily one time refill in lieu of PCP, # 30 tab(s), 0 Refill(s), Pharmacy: [facility], 157.5, cm, 09/02/22 20:03:00 EDT, Height, kg, 09/02/22 20:03:00 E... Start Date: 09/09/22 Stop Date: 10/09/22 Status: Ordered Start: 09-09-2022 End: 10-09-2022 levothyroxine 75 mcg (0.075 mg) oral tablet Dose : 75 mcg = 1 tab(s), Oral, qAM, take with 200mcg tab for total of 275mcg daily one time refill in lieu of PCP, # 30 tab(s), 0 Refill(s), Pharmacy: [facility], 157.5, cm, 09/02/22 20:03:00 EDT, Height, kg, 09/02/22 20:03:00 EDT,... Start Date: 09/09/22 Stop Date: 10/09/22 Status: Ordered Start: 05-19-2022 End: 08-17-2022 take 1 tablet by mouth once daily levothyroxine 200 mcg (0.2 mg) oral tablet Dose : 200 mcg = 1 tab(s), Oral, qAM, take with a 75 mcg tab for total of 275mcg daily, # 30 tab(s), 2 Refill(s), Pharmacy: [facility], 157.7, cm, 05/19/22 8:50:00 EST, Height Start Date: 05/19/22 Stop Date: 08/17/22 Status: Ordered Start: 05-19-2022 End: 08-17-2022 take 1 tablet by mouth once daily levothyroxine 75 mcg (0.075 mg) oral tablet Dose : 75 mcg = 1 tab(s), Oral, qAM, take with 200mcg tab for total of 275mcg daily, # 30 tab(s), 2 Refill(s), Pharmacy: [facility], 157.7, cm, 05/19/22 8:50:00 EST, Height Start Date: 05/19/22 Stop Date: 08/17/22 Status: Ordered Start: 02-21-2019 take 250 ug by mouth once daily Levothyroxine Sodium 250 MCG PO DAILY February 21, 2019 Active Start: 11-12-2016 End: 02-19-2017 Levothyroxine Sodium 225 MCG PO November 12, 2016 February 19, 2017 Discontinued Start: 05-28-2015 End: 02-21-2019 take 150 ug by mouth twice daily Levothyroxine Sodium [Synthroid] 150 MCG PO TWICE A DAY May 28, 2015 February 21, 2019 Discontinued Start: 09-16-2014 End: 09-16-2014 take 150 mg by mouth once daily Levothyroxine Sodium [Synthroid] 150 MG PO DAILY 60 September 16, 2014 September 16, 2014 Discontinued Start: 09-16-2014 End: 02-02-2015 take 150 ug by mouth once daily Levothyroxine Sodium [Synthroid] 150 MCG PO DAILY 60 September 16, 2014 February 02, 2015 Discontinued Start: 08-01-2014 End: 08-23-2014 take 250 ug by mouth once daily Levothyroxine Sodium [Synthroid] 250 MCG PO DAILY August 01, 2014 August 23, 2014 Discontinued lidocaine 0.05 mg/mg medicated patch (3 sources) Antiarrhythmic, Amide Local Anesthetic Start: 04-28-2022 apply 1 dose topically once daily Lidocaine (Lidoderm) 5 % adhesive patch,medicated Active 1 PATCH TOPICAL DAILY April 28, 2022 4:52pm leave on most painful area for up to 12 hrs linaclotide 0.29 mg oral capsule (18 sources) Guanylate Cyclase-C Agonist Start: 10-08-2022 take 1 capsule by mouth once daily Linaclotide (Linzess) 290 mcg capsule Active 290 ug PO DAILY October 08, 2022 12:00am Start: 06-15-2019 Linzess 290 mc g oral capsule Dose : 290 mcg = 1 cap(s), Oral, qAM, # 30 cap(s), 0 Refill(s) Start Date: 06/15/19 Status: Ordered Start: 11-12-2016 take 290 ug by mouth once daily Linaclotide [Linzess] 290 MCG PO DAILY November 12, 2016 Active Start: 05-28-2015 End: 11-12-2016 Linaclotide [Linzess] 145 MC G PO EVERY 48 HOURS May 28, 2015 November 12, 2016 Discontinued Start: 09-14-2014 End: 05-18-2015 Linaclotide [Linzess] 290 MC G PO Sun/Tue/Thur/Sat September 14, 2014 May 18, 2015 Discontinued lubiprostone 0.008 mg oral capsule (2 sources) Chloride Channel Activator Start: 03-30-2023 End: 06-28-2023 lubiprostone 8 mcg oral capsule Dose : 16 mcg = 2 cap(s), Oral, BID, giving 1/2 dose d/t elevated liver enzymes., # 120 cap(s), 2 Refill(s), Pharmacy: [facility], Chronic constipation, 157.5, cm, 03/30/23 16:09:00 EST, Height, kg, 03/30/23 16:09:00 EST, Dosing Weight Start Date: 03/30/23 Stop Date: 06/28/23 Status: Ordered metFORMIN hydrochloride 500 mg oral tablet (17 sources) Biguanide Start: 10-29-2022 End: 10-24-2023 MetFORMIN (Eqv-Glucophage XR) 500 mg oral tablet, EXTENDED RELEASE Dose : 500 mg = 1 tab(s), Oral, qAM, # 90 tab(s), 3 Refill(s), Pharmacy: [facility], 157.5, cm, 10/29/22 16:31:00 EDT, Height, kg, 10/29/22 16:31:00 EDT, Dosing Weight Start Date: 10/29/22 Stop Date: 10/24/23 Status: Ordered Start: 10-08-2022 take 1 tablet by adelina once daily Metformin 500 mg tablet extended release 24 hr Active 500 mg PO DAILY October 08, 2022 12:00am Start: 02-21-2022 MetFORMIN (Eqv -Glucophage XR) 500 mg oral tablet, EXTENDED RELEASE Dose : 500 mg = 1 tab(s), Oral, qAM, # 30 tab(s), 5 Refill(s), Pharmacy: [facility], 160, cm, 02/21/22 13:12:00 EDT, Height, kg, 02/21/22 13:12:00 EDT, Dosing Weight Start Date: 02/21/22 Status: Ordered Start: 02-21-2019 take 500 mg by mouth once ivelisse y Metformin Hcl [Metformin Hcl Er] 500 MG PO DAILY February 21, 2019 Active methylPREDNISolone 4 mg oral tablet (4 sources) Corticosteroid Start: 09-14-2024 take 1 tablet by mouth once Methylprednisolone (Medrol (Slim)) 4 mg tablets,dose pack Active 0 PO per package directions September 14, 2024 12:00am PO PER PKG DIR metroNIDAZOLE 500 mg oral tablet (3 sources) Nitroimidazole Antimicrobial Start: 10-26-2023 End: 11-02-2023 metroNIDAZOLE 500 mg oral tablet Dose : 500 mg = 1 tab(s), Oral, q8hr, X 7 day(s), # 21 tab(s), 0 Refill(s), 11/02/23 11:48:00 AM EDT, Pharmacy: [facility], Diverticulitis, 155, cm, 10/26/23 10:43:00 EDT, Height, 125.6, kg, 10/26/23 10:43:00 EDT, Dosing Weight Start Date: 10/26/23 Stop Date: 11/02/23 Status: Ordered Start: 08-14-2022 End: 08-19-2022 metroNIDAZOLE 500 mg oral ta blet Dose : 500 mg = 1 tab(s), Oral, q12h, # 10 tab(s), 0 Refill(s), Pharmacy: [facility], 160, cm, 08/14/22 13:37:00 EDT, Height, 116.7 Start Date: 08/14/22 Stop Date: 08/19/22 Status: Ordered Start: 07-04-2022 End: 07-11-2022 metroNIDAZOLE 500 mg oral ta blet Dose : 500 mg = 1 tab(s), Oral, q12h, do not drink alcohol, X 7 day(s), # 14 tab(s), 0 Refill(s), 07/11/22 14:02:00 EDT, Pharmacy: [facility], 157.7, cm, 07/02/22 9:03:00 EDT, Height, 118.5 Start Date: 07/04/22 Stop Date: 07/11/22 Status: Ordered Multivitamin preparation (20 sources) Start: 04-01-2022 take 1 tablet by mouth once daily in the morning Multivitamin Dose = 1 tab(s), Oral, qAM, 0 Refill(s) Start Date: 04/01/22 Status: Ordered Medication Dispense Status: Completed Total Allowed Fills: 1 Fills Dispensed: 0 Start: 04-01-2022 take 1 tablet by adelina th once daily in the morning Multivitamin Dose = 1 tab(s), Oral, qAM, 0 Refill(s) Start Date: 04/01/22 Status: Ordered Repeat number: 1 Start: 04-01-2022 take 1 tablet by adelina th once daily in the morning Multivitamin Dose = 1 tab(s), Oral, qAM, 0 Refill(s) Start Date: 04/01/22 Status: Ordered Start: 04-01-2022 take 1 tablet by adelina th once daily Multivitamin Dose = 1 tab(s), Oral, Daily, 0 Refill(s) Start Date: 04/01/22 Status: Ordered Start: 11-26-2020 take 1 capsule by mo uth once daily Multivitamin [Multivitamin *] 1 CAP PO DAILY November 26, 2020 Active Start: 11-26-2020 take 1 capsule by mo uth once daily Multivitamin 1 CAP PO DAILY November 26, 2020 Active Start: 09-09-2018 End: 06-05-2019 take 1 capsule by mouth once daily Multivitamin [Multivitamin *] 1 CAP PO DAILY September 09, 2018 June 04, 2019 Discontinued Start: 09-09-2018 End: 06-05-2019 take 1 capsule by mouth once daily Multivitamin 1 CAP PO DAILY September 09, 2018 Discontinued mupirocin 0.02 mg/mg topical ointment (1 source) RNA Synthetase Inhibitor Antibacterial Start: 08-28-2022 mupirocin 2% topical ointment Apply 1 marleny, Topical, BID, Bilateral intranasal application twice daily x 5 days pre-surgery., Apply to: nostril, each, # 22 gram(s), 0 Refill(s), Pharmacy: [facility], Ointment, 157.45, cm, 08/28/22 8:55:00 EDT, Height, 121.5 Start Date: 08/28/22 Status: Ordered nystatin 166142 unt/ml topical cream (5 sources) Polyene Antifungal Start: 05-04-2024 apply 1 dose topically twice daily nystatin 100,000 units/g topical cream Apply 1 marleny, Topical, BID, # 30 gram(s), 1 Refill(s), Pharmacy: [facility], Cream, 156, cm, 05/04/24 8:10:00 EST, Height, 112.2, kg, 05/04/24 8:10:00 EST, Dosing Weight Start Date: 05/04/24 Status: Ordered Medication Dispense Status: Completed Quantity: 30.0 Unit: g Total Allowed Fills: 2 Fills Dispensed: 0 Indications: Tinea corporis; pantoprazole 40 mg delayed release oral tablet (20 sources) Proton Pump Inhibitor Start: 07-20-2024 pantoprazole 40 mg oral enteric coated tablet Dose : 40 mg = 1 tab(s), Oral, qAM, # 90 tab(s), 3 Refill(s), Pharmacy: [facility], 156, cm, 07/06/24 13:39:00 EDT, Height, kg, 07/06/24 13:39:00 EDT, Dosing Weight Start Date: 07/20/24 Status: Ordered Medication Dispense Status: Completed Quantity: 90.0 Unit: tab(s) Total Allowed Fills: 4 Fills Dispensed: 0 Start: 10-08-2022 End: 07-17-2024 take 1 tablet by mouth once daily Pantoprazole 40 mg tablet,delayed release (DR/EC) Active 40 mg PO DAILY October 08, 2022 12:00am Start: 02-21-2022 pantoprazole 4 0 mg oral enteric coated tablet Dose : 40 mg = 1 tab(s), Oral, qAM, # 30 tab(s), 5 Refill(s), Pharmacy: [facility], 160, cm, 02/21/22 13:12:00 EDT, Height Start Date: 02/21/22 Status: Ordered Start: 11-27-2020 take 40 mg by mouth once daily Pantoprazole [Protonix *] 40 MG PO DAILY November 27, 2020 Active Start: 05-27-2018 End: 02-22-2019 take 40 mg by mouth twice daily Pantoprazole Sodium [Protonix] 40 MG PO TWICE A DAY May 27, 2018 February 22, 2019 Discontinued Start: 05-28-2015 End: 11-12-2016 take 40 mg by mouth at bedtime Pantoprazole [Protonix *] 40 MG PO AT BEDTIME May 28, 2015 November 12, 2016 Discontinued plecanatide 3 mg oral tablet (17 sources) Start: 09-07-2024 End: 12-06-2024 Trulance 3 mg oral tablet Do se : 3 mg = 1 tab(s), Oral, qDay, # 30 tab(s), 2 Refill(s), Pharmacy: [facility], Chronic constipation, 156, cm, 07/06/24 13:39:00 EDT, Height, kg, 07/06/24 13:39:00 EDT, Dosing Weight Start Date: 09/07/24 Stop Date: 12/06/24 Status: Ordered Medication Dispense Status: Completed Quantity: 30.0 Unit: tab(s) Total Allowed Fills: 3 Fills Dispensed: 0 Indications: Other constipation; Start: 06-17-2024 End: 07-17-2024 Trulance 3 mg oral tablet Do se : 3 mg = 1 tab(s), Oral, qDay, # 30 tab(s), 0 Refill(s), Pharmacy: [facility], Chronic constipation, 156, cm, 06/17/24 9:13:00 EST, Height, kg, 06/17/24 9:13:00 EST, Dosing Weight Start Date: 06/17/24 Stop Date: 07/17/24 Status: Ordered Quantity: 30.0 Unit: tab(s) Repeat number: 1 Indication: Other constipation Start: 02-16-2024 End: 05-16-2024 Trulance 3 mg oral tablet Do se : 3 mg = 1 tab(s), Oral, qDay, # 30 tab(s), 2 Refill(s), Pharmacy: [facility], Chronic constipation, 155.2, cm, 02/12/24 10:17:00 EDT, Height, kg, 02/12/24 10:07:00 EDT, Dosing Weight Start Date: 02/16/24 Stop Date: 1/27/25 Status: Ordered Start: 06-15-2023 End: 11-22-2023 Trulance 3 mg oral tablet Do se : 3 mg = 1 tab(s), Oral, qDay, # 30 tab(s), 2 Refill(s), Pharmacy: [facility], Chronic constipation, 156.5, cm, 08/24/23 15:16:00 EDT, Height, kg, 08/24/23 15:16:00 EDT, Dosing Weight Start Date: 08/24/23 Stop Date: 11/22/23 Status: Ordered Start: 02-09-2023 End: 05-10-2023 Trulance 3 mg oral tablet Do se : 3 mg = 1 tab(s), Oral, qDay, # 30 tab(s), 2 Refill(s), Pharmacy: [facility], Chronic constipation, 157.5, cm, 01/23/23 16:05:00 EDT, Height, kg, 01/23/23 16:05:00 EDT, Dosing Weight Start Date: 02/09/23 Stop Date: 05/10/23 Status: Ordered Start: 10-29-2022 End: 01-27-2023 Trulance 3 mg oral tablet Do se : 3 mg = 1 tab(s), Oral, qDay, # 30 tab(s), 2 Refill(s), Pharmacy: [facility], Chronic constipation, 157.5, cm, 10/29/22 16:31:00 EDT, Height Start Date: 10/29/22 Stop Date: 01/27/23 Status: Ordered polyethylene glycol 3350 with electrolytes oral powder for reconstitution (4 sources) Start: 12-03-2022 polyethylene glycol 3350 with electrolytes oral powder for reconstitution See Instructions, As directed by provider at [facility]., # 1 EA, 0 Refill(s), Pharmacy: [facility], Colon cancer screening, 160, cm, 12/03/22 15:23:00 EDT, Height, kg, 12/03/22 15:23:00 EDT, Dosing Weight Start Date: 12/03/22 Status: Ordered pravastatin sodium 40 mg oral tablet (20 sources) HMG-CoA Reductase Inhibitor Start: 10-08-2022 End: 04-29-2025 take 1 tablet by mouth once daily at bedtime pravastatin 40 mg oral tablet 1 tab(s), Oral, qHS, # 90 tab(s), 3 Refill(s), Pharmacy: [facility], 156, cm, 05/04/24 8:10:00 EST, Height, kg, 05/04/24 8:10:00 EST, Dosing Weight Start Date: 05/04/24 Stop Date: 04/29/25 Status: Ordered Medication Dispense Status: Completed Quantity: 90.0 Unit: tab(s) Total Allowed Fills: 4 Fills Dispensed: 0 Start: 02-21-2022 take 1 tablet by adelina th once daily at bedtime pravastatin 40 mg oral tablet 1 tab(s), Oral, qHS, # 30 tab(s), 5 Refill(s), Pharmacy: [facility], 160, cm, 02/21/22 13:12:00 EDT, Height, kg, 02/21/22 13:12:00 EDT, Dosing Weight Start Date: 02/21/22 Status: Ordered Start: 09-16-2014 take 40 mg by mouth at bedtime Pravastatin Sodium [Pravachol] 40 MG PO AT BEDTIME September 16, 2014 Active predniSONE 20 mg oral tablet (20 sources) Start: 09-03-2023 Deltasone 20mg tab (TAPER) Dose : 20 mg = 1 tab(s), Oral, BID, # 20 tab(s), 0 Refill(s) Start Date: 09/03/23 Status: Ordered Start: 08-17-2023 End: 08-22-2023 prednisone 20mg tab (TAPER) Dose : 40 mg = 2 tab(s), Oral, qDay, X 5 day(s), # 10 tab(s), 0 Refill(s), 08/22/23 3:24:00 PM EDT, Pharmacy: [facility], COPD exacerbation Productive cough, 156.6, cm, 08/17/23 14:46:00 EDT, Height, kg, 08/17/23 14:46:00 EDT, Dosing Weight Start Date: 08/17/23 Stop Date: 08/22/23 Status: Ordered Start: 10-08-2022 Prednisone 10 mg tablet Active 10 mg PO NEEDED as needed for other October 08, 2022 12:00am Start: 09-02-2021 Prednisone 10 MG PO DIRECTED September 02, 2021 Active Please take 6 tablets daily days 1-2, then take 5 tablets daily days 3-4, then take 4 tablets daily days 5-6, then take 3 tablets daily days 7-8, then taken 2 tablets daily days 9-10, then take 1 tablet daily days 11-12. Start: 08-20-2018 End: 09-09-2018 take 40 mg by mouth once daily Prednisone 40 MG PO CHHAYA LY August 20, 2018 September 09, 2018 Discontinued Start: 06-01-2018 End: 06-05-2018 take 3 tablets by mouth once daily Prednisone 3 TAB PO DAILY June 01, 2018 June 05, 2018 Discontinued Start: 10-09-2017 End: 01-14-2018 Prednisone 0 TAB PO DIREC ZOHAIB 18 October 09, 2017 January 14, 2018 Discontinued Start: 04-05-2017 End: 01-18-2018 Prednisone 10 MG PO DIREC ZOHAIB 42 January 09, 2018 Discontinued Please take 6 tablets daily days 1-2, then take 5 tablets daily days 3-4, then take 4 tablets daily days 5-6, then take 3 tablets daily days 7-8, then take 2 tablets daily days 9-10, then take 1 tablet daily days 11-12. Start: 11-14-2016 End: 02-18-2017 Prednisone 0 MG PO DIRECT ED November 14, 2016 February 18, 2017 Discontinued Start: 05-15-2016 End: 08-16-2016 take 20 mg by mouth twice daily Prednisone 20 MG PO TW ICE A DAY May 15, 2016 August 16, 2016 Discontinued Start: 06-12-2015 End: 05-15-2016 Prednisone 0 MG PO DIRECT ED June 12, 2015 May 15, 2016 Discontinued Start: 03-30-2015 End: 04-28-2015 take 3 tablets by mouth once daily Prednisone 60 MG PO DAILY March 30, 2015 April 28, 2015 Discontinued 3 tablets (60 mg) PO daily for 5 days. Start: 09-16-2014 End: 02-02-2015 Prednisone 0 MG PO DIRECT ED September 16, 2014 February 02, 2015 Discontinued Probiotic Formula (Bacillus Coagulans) oral capsule (3 sources) Start: 10-17-2022 take 1 capsule by mouth once daily Probiotic Formula (Bacillus Coagulans) oral capsule Dose = 1 cap(s), Oral, qDay, # 30 cap(s), 11 Refill(s), Pharmacy: [facility], 157.5, cm, 10/17/22 9:17:00 EDT, Height Start Date: 10/17/22 Status: Ordered sertraline 100 mg oral tablet (20 sources) Serotonin Reuptake Inhibitor Start: 10-08-2022 End: 04-29-2025 take 1 tablet by mouth once daily at bedtime sertraline 100 mg oral tablet 1 tab(s), Oral, qHS, # 90 tab(s), 3 Refill(s), Pharmacy: [facility], 156, cm, 05/04/24 8:10:00 EST, Height, kg, 05/04/24 8:10:00 EST, Dosing Weight Start Date: 05/04/24 Stop Date: 04/29/25 Status: Ordered Medication Dispense Status: Completed Quantity: 90.0 Unit: tab(s) Total Allowed Fills: 4 Fills Dispensed: 0 Start: 02-21-2022 take 1 tablet by adelina once daily at bedtime sertraline 100 mg oral tablet 1 tab(s), Oral, qHS, # 30 tab(s), 5 Refill(s), Pharmacy: [facility], 160, cm, 02/21/22 13:12:00 EDT, Height, kg, 02/21/22 13:12:00 EDT, Dosing Weight Start Date: 02/21/22 Status: Ordered Start: 09-09-2018 take 100 mg by mouth once ivelisse y Sertraline [Zoloft] 100 MG PO DAILY September 09, 2018 Active Start: 04-05-2017 End: 09-09-2018 take 100 mg by mouth once daily Sertraline [Zoloft] 10 0 MG PO DAILY April 05, 2017 September 09, 2018 Discontinued tamsulosin hydrochloride 0.4 mg oral capsule (2 sources) alpha-Adrenergic Bhupinder Start: 06-17-2024 End: 06-27-2024 Flomax 0.4 mg oral capsule Dose : 0.4 mg = 1 cap(s), Oral, qDay, # 10 cap(s), 0 Refill(s), Pharmacy: [facility], 156, cm, 06/17/24 9:13:00 EST, Height, kg, 06/17/24 9:13:00 EST, Dosing Weight Start Date: 06/17/24 Stop Date: 06/27/24 Status: Ordered Quantity: 10.0 Unit: cap(s) Repeat number: 1 tirzepatide 15 mg/0.5 mL subcutaneous solution (3 sources) Start: 11-14-2024 inject 1 dose by subcutaneous injection every week tirzepatide 15 mg/0.5 mL subcutaneous solution Dose : 15 mg =, Subcutaneous, qWeek, rotate injection sites, # 2 mL, 0 Refill(s), Pharmacy: [facility], 156, cm, 11/02/24 14:43:00 EDT, Height, kg, 11/02/24 14:43:00 EDT, Dosing Weight Start Date: 11/14/24 Status: Ordered Medication Dispense Status: Completed Quantity: 2.0 Unit: mL Total Allowed Fills: 1 Fills Dispensed: 0 Start: 11-14-2024 inject 1 dose by sub cutaneous injection every week tirzepatide 15 mg/0.5 mL subcutaneous solution Dose : 15 mg =, Subcutaneous, qWeek, rotate injection sites, # 2 mL, 0 Refill(s), Pharmacy: [facility], 156, cm, 11/02/24 14:43:00 EDT, Height, kg, 11/02/24 14:43:00 EDT, Dosing Weight Start Date: 11/14/24 Status: Ordered Quantity: 2.0 Unit: mL Repeat number: 1 traZODone hydrochloride 100 mg oral tablet (20 sources) Serotonin Reuptake Inhibitor Start: 10-08-2022 End: 04-29-2025 take 1-0.5 tablets by mouth once daily at bedtime traZODone 100 mg oral tablet 1 & 1/2 TO 2 TABLETS, Oral, qHS, # 180 tab(s), 3 Refill(s), Pharmacy: [facility], 156, cm, 05/04/24 8:10:00 EST, Height, kg, 05/04/24 8:10:00 EST, Dosing Weight Start Date: 05/04/24 Stop Date: 04/29/25 Status: Ordered Medication Dispense Status: Completed Quantity: 180.0 Unit: tab(s) Total Allowed Fills: 4 Fills Dispensed: 0 Start: 02-21-2022 take 1-0.5 tablets b y mouth once daily at bedtime traZODone 100 mg oral tablet 1 & 1/2 TO 2 TABLETS, Oral, qHS, # 60 tab(s), 5 Refill(s), Pharmacy: [facility], 160, cm, 02/21/22 13:12:00 EDT, Height, kg, 02/21/22 13:12:00 EDT, Dosing Weight Start Date: 02/21/22 Status: Ordered Start: 11-27-2020 take 150-200 mg by m outh at bedtime Trazodone Hcl [Desyrel] 150 - 200 MG PO AT BEDTIME November 27, 2020 Active Start: 11-27-2020 take 150-200 mg by m outh at bedtime Trazodone Hcl 150 - 200 MG PO AT BEDTIME November 27, 2020 Active Start: 09-09-2018 End: 11-26-2020 take 100-200 mg by mouth at bedtime Trazodone Hcl [Desyrel] 100 - 200 MG PO AT BEDTIME September 09, 2018 November 26, 2020 Discontinued Start: 02-18-2017 End: 09-09-2018 take 150 mg by mouth once daily Trazodone [Desyrel *] 150 MG PO DAILY February 18, 2017 September 09, 2018 Discontinued Completed/Discontinued Medications Medication Drug Class(es) Dates Sig (Normalized) Sig (Original) acetaminophen 300 mg / codeine phosphate 30 mg oral tablet (2 sources) Opioid Agonist Start: 07-10-2021 take 1 tablet by mouth four times daily as needed Acetaminophen W/ Codeine [Acetaminophen/Code ine #3 300-30 Mg] 1 TAB PO FOUR TIMES A DAY NEEDED PRN July 10, 2021 Active acetaminophen 325 mg / oxyCODONE hydrochloride 5 mg oral tablet (6 sources) Opioid Agonist Start: 07-30-2019 End: 11-26-2020 take 5-325 mg by mouth every six hours as needed Oxycodone W/ Apap 5-325 Mg [Percocet 5 Mg/325 Mg Ud] 1 TAB PO EVERY 6 HOURS NEEDED PRN For Pain July 30, 2019 November 26, 2020 Discontinued Start: 06-12-2015 End: 05-15-2016 take 5-325 mg by mouth every four hours as needed Oxycodone W/ Apap 5-325 Mg [Percocet 5 Mg/325 Mg Ud] 1 - 2 TAB PO EVERY 4 HOURS NEEDED PRN 40 June 12, 2015 May 15, 2016 Discontinued Start: 03-30-2015 End: 04-28-2015 take 5-325 mg by mouth every four to six hours as needed Oxycodone W/ Acetaminophen [Percocet 5-325 Mg] 1 TAB PO EVERY 4 TO 6 HOURS NEEDED PRN 14 March 30, 2015 April 28, 2015 Discontinued aluminum hydroxide 80 mg / magnesium trisilicate 14.2 mg chewable tablet (4 sources) Start: 06-04-2019 End: 11-26-2020 Aluminum Hydrox/Magnesium Ca r [Gaviscon *] June 04, 2019 November 26, 2020 Discontinued Start: 09-09-2018 End: 02-21-2019 take 2 tablets by mouth four times daily as needed Aluminum Hydrox/Magnesium Car [Gaviscon *] 2 TAB PO FOUR TIMES A DAY NEEDED PRN September 09, 2018 February 21, 2019 Discontinued azithromycin 250 mg oral tablet (6 sources) Macrolide Antimicrobial Start: 01-26-2020 End: 11-26-2020 Azithromycin [Z-Slim] 1 PACK PO DIRECTED January 26, 2020 November 26, 2020 Discontinued TAKE DIRECTED ON PACKAGE. Start: 06-01-2018 End: 09-09-2018 take 250 mg by mouth once daily Azithromycin [Zithromax] 250 MG PO DAILY 4 June 01, 2018 September 09, 2018 Discontinued Start: 11-14-2016 End: 02-18-2017 take 250 mg by mouth once daily Azithromycin [Zithromax] 250 MG PO DAILY 5 November 14, 2016 February 18, 2017 Discontinued baclofen 10 mg oral tablet (2 sources) gamma-Aminobutyric Acid-ergic Agonist Start: 06-04-2019 End: 11-26-2020 Baclofen June 04, 2019 November 26, 2020 Discontinued betamethasone 0.5 mg/ml / clotrimazole 10 mg/ml topical cream (2 sources) Azole Antifungal, Corticosteroid Start: 11-27-2020 Clotrimazole/Betam ethasone [Lotrisone Cream] 1 APPLICATON T DAILY November 27, 2020 Active 24 hr buPROPion hydrochloride 150 mg extended release oral tablet (2 sources) Aminoketone Start: 11-12-2016 End: 02-19-2017 take 150 mg by mouth once daily Bupropion Hcl [Bupropion Hydrochloride E] 150 MG PO DAILY November 12, 2016 February 19, 2017 Discontinued busPIRone hydrochloride 10 mg oral tablet (2 sources) Start: 11-27-2020 End: 06-24-2021 take 10 mg by mouth twice daily Buspirone [Buspar] 10 MG PO TWICE A DAY November 27, 2020 June 24, 2021 Discontinued Chf/Swelling Med Starts Withs (2 sources) Start: 06-01-2018 End: 09-09-2018 Chf/Swelling Med Starts Withs June 01, 2018 September 09, 2018 Discontinued Start: 06-01-2018 End: 09-09-2018 Chf/Swelling Med Starts Wit hs June 01, 2018 Discontinued citalopram 10 mg oral tablet (2 sources) Serotonin Reuptake Inhibitor Start: 08-01-2014 End: 11-12-2016 take 30 mg by mouth at bedtime Citalopram [Celexa] 30 MG PO AT BEDTIME August 01, 2014 November 12, 2016 Discontinued Clindamycin (20 sources) Lincosamide Antibacterial Start: 06-17-2024 End: 07-17-2024 Clindamycin (Eqv-Cleocin T) 1% topical gel Dose = 1 marleny, Topical, BID, prn, # 30 gram(s), 0 Refill(s), Pharmacy: [facility], 156, cm, 06/17/24 9:13:00 EST, Height, kg, 06/17/24 9:13:00 EST, Dosing Weight Start Date: 06/17/24 Stop Date: 07/17/24 Status: Ordered Medication Dispense Status: Completed Quantity: 30.0 Unit: g Total Allowed Fills: 1 Fills Dispensed: 0 Start: 06-17-2024 End: 07-17-2024 Clindamycin (Eqv-Cleocin T) 1% topical gel Dose = 1 marleny, Topical, BID, prn, # 30 gram(s), 0 Refill(s), Pharmacy: [facility], 156, cm, 06/17/24 9:13:00 EST, Height, kg, 06/17/24 9:13:00 EST, Dosing Weight Start Date: 06/17/24 Stop Date: 07/17/24 Status: Ordered Quantity: 30.0 Unit: g Repeat number: 1 Start: 05-09-2024 Clindamycin Ph osphate 1 % gel, once daily Active 1 NMA TOPICAL DAILY 75 May 09, 2024 1:00am Start: 05-09-2024 End: 09-14-2024 take 1 capsule by mouth every six hours Clindamycin Hcl (Cleocin Hcl) 300 mg capsule Discontinued 300 mg PO EVERY 6 HOURS May 09, 2024 1:00am September 14, 2024 2:54pm Start: 07-17-2022 End: 03-24-2024 clindamycin 1% topical solut ion Apply 1 marleny, Topical, BID, PRN Skin irritation, # 30 mL, 3 Refill(s), Pharmacy: [facility], 157.5, cm, 03/30/23 16:09:00 EST, Height, 119.9, kg, 03/30/23 16:09:00 EST, Dosing Weight Start Date: 03/30/23 Stop Date: 03/24/24 Status: Ordered Start: 11-26-2020 End: 11-27-2020 take 300 mg by mouth four times daily Clindamycin Hcl [Cleocin] 300 MG PO FOUR TIMES A DAY 80 November 26, 2020 November 27, 2020 Discontinued Start: 11-15-2018 End: 02-21-2019 take 1 capsule by mouth every six hours Clindamycin Hcl 1 CAP PO Q6H November 15, 2018 February 21, 2019 Discontinued cyclobenzaprine hydrochloride 10 mg oral tablet (6 sources) Muscle Relaxant Start: 11-12-2016 End: 05-27-2018 take 10 mg by mouth twice daily Cyclobenzaprine [Flexeril] 10 MG PO TWICE A DAY November 12, 2016 May 27, 2018 Discontinued Start: 04-11-2016 End: 11-12-2016 take 10 mg by mouth three times daily Cyclobenzaprine [Flexeril] 10 MG PO THREE TIMES A DAY April 11, 2016 November 12, 2016 Discontinued Start: 08-22-2013 End: 09-12-2014 take 5 mg by mouth at bedtime as needed for pain Cyclobenzaprine Hcl [Flexeril] 5 MG PO AT BEDTIME NEEDED PRN For SCIATIC NERVE PAIN August 22, 2013 September 12, 2014 Discontinued dexlansoprazole 30 mg delayed release oral capsule (4 sources) Proton Pump Inhibitor Start: 09-09-2018 End: 09-09-2018 take 30 mg by mouth once daily Dexlansoprazole [Dexilant] 30 MG PO DAILY September 09, 2018 September 09, 2018 Discontinued Start: 09-09-2018 End: 02-21-2019 take 60 mg by mouth once daily Dexlansoprazole [Dexilant] 60 MG PO DAILY September 09, 2018 February 21, 2019 Discontinued dicyclomine hydrochloride 10 mg oral capsule (3 sources) Anticholinergic Start: 09-02-2022 End: 09-09-2022 dicyclomine 10 mg oral capsule Dose : 10 mg = 1 cap(s), Oral, QID, PRN abdominal discomfort, 0 Refill(s) Start Date: 09/02/22 Stop Date: 09/09/22 Status: Ordered Start: 05-04-2019 End: 11-26-2020 take 20 mg by mouth every four to six hours as needed for pain Dicyclomine [Bentyl] 20 MG PO EVERY 4-6 HOURS PRN For Abdominal Pain May 04, 2019 November 26, 2020 Discontinued docusate sodium 100 mg oral capsule (9 sources) Start: 09-03-2022 End: 11-02-2022 Colace 100 mg oral capsule D ose : 100 mg = 1 cap(s), Oral, BID, PRN as needed for constipation, # 60 cap(s), 1 Refill(s), Pharmacy: [facility], 157.5, cm, 09/02/22 20:03:00 EDT, Height Start Date: 09/03/22 Stop Date: 11/02/22 Status: Ordered Start: 03-30-2015 End: 04-28-2015 take 100 mg by mouth once daily Docusate Sodium [Colac e] 100 MG PO DAILY March 30, 2015 April 28, 2015 Discontinued Start: 09-16-2014 End: 02-02-2015 take 100 mg by mouth twice daily as needed for constipation Docusate Sodium [Colace] 100 MG PO TWICE A DAY PRN For Constipation September 16, 2014 February 02, 2015 Discontinued esomeprazole 40 mg delayed release oral capsule (2 sources) Proton Pump Inhibitor Start: 11-26-2020 take 40 mg by mouth once daily Esomeprazole Magnesium [Nexium] 40 MG PO DAILY November 26, 2020 Active estradiol 0.1 mg/ml vaginal cream (2 sources) Estrogen Start: 06-16-2024 End: 10-19-2025 Estrace Vaginal 0.1 mg/g vaginal cream 2 gram(s), Vaginal, qDay, nighty for 4 weeks then twice weekly, # 1 EA, 4 Refill(s), Pharmacy: [facility], 156, cm, 06/16/24 11:04:00 EST, Height, kg, 06/16/24 11:04:00 EST, Dosing Weight Start Date: 06/16/24 Stop Date: 10/19/25 Status: Ordered Quantity: 1.0 Unit: EA Repeat number: 5 gabapentin 300 mg oral capsule (2 sources) Anti-epileptic Agent Start: 09-12-2014 End: 05-15-2016 take 300 mg by mouth three times daily Gabapentin 300 MG PO THREE TIMES A DAY September 12, 2014 May 15, 2016 Discontinued levoFLOXacin 750 mg oral tablet (4 sources) Quinolone Antimicrobial Start: 08-20-2018 End: 08-25-2018 take 750 mg by mouth once daily Levofloxacin [Levaquin] 750 MG PO DAILY August 20, 2018 August 25, 2018 Discontinued Start: 06-12-2015 End: 05-15-2016 take 500 mg by mouth once daily Levofloxacin [Levaquin] 500 MG PO DAILY June 12, 2015 May 15, 2016 Discontinued LORazepam 0.5 mg oral tablet (2 sources) Benzodiazepine Start: 02-21-2019 End: 02-22-2019 take 0.5 mg by mouth twice daily Lorazepam [Ativan] 0.5 MG PO TWICE A DAY February 21, 2019 February 22, 2019 Discontinued meloxicam 7.5 mg oral tablet (2 sources) Nonsteroidal Anti-inflammatory Drug Start: 11-12-2016 End: 04-05-2017 take 7.5 mg by mouth once daily Meloxicam 7.5 MG PO DAILY November 12, 2016 April 05, 2017 Discontinued MiscMED Miscellaneous Medication (20 sources) Start: 04-01-2022 MiscMED Miscellaneous Medication See Instructions, On 3 L of oxygen through CPAP, 0 Refill(s), 120 Start Date: 04/01/22 Status: Ordered Medication Dispense Status: Completed Total Allowed Fills: 1 Fills Dispensed: 0 Start: 04-01-2022 MiscMED Miscel laneous Medication See Instructions, On 3 L of oxygen through CPAP, 0 Refill(s), 120 Start Date: 04/01/22 Status: Ordered Repeat number: 1 Start: 04-01-2022 MiscMED Miscel laneous Medication See Instructions, On 3 L of oxygen through CPAP, 0 Refill(s), 120 Start Date: 04/01/22 Status: Ordered naproxen 500 mg oral tablet (2 sources) Nonsteroidal Anti-inflammatory Drug Start: 04-11-2016 End: 05-15-2016 take 500 mg by mouth twice daily Naproxen [Naprosyn] 500 MG PO TWICE A DAY April 11, 2016 May 15, 2016 Discontinued 24 hr nicotine 0.875 mg/hr transdermal system (4 sources) Cholinergic Nicotinic Agonist Start: 06-12-2015 End: 05-15-2016 Nicotine [Nicoderm *] 21 MG TD DAILY June 12, 2015 May 15, 2016 Discontinued Start: 09-16-2014 End: 02-02-2015 Nicotine [Nicoderm *] 14 MG TD DAILY September 16, 2014 February 02, 2015 Discontinued omeprazole 40 mg delayed release oral capsule (4 sources) Proton Pump Inhibitor Start: 01-14-2018 End: 05-27-2018 take 40 mg by mouth once daily Omeprazole 40 MG PO DAILY January 14, 2018 May 27, 2018 Discontinued Start: 08-22-2013 End: 05-16-2015 take 40 mg by mouth once daily Omeprazole [Prilosec] 4 0 MG PO DAILY August 22, 2013 May 16, 2015 Discontinued ondansetron 4 mg disintegrating oral tablet (2 sources) Serotonin-3 Receptor Antagonist Start: 02-23-2019 End: 06-05-2019 take 4 mg by mouth every six hours as needed for nausea and vomiting Ondansetron [Zofran Odt] 4 MG PO Q6H PRN For Nausea And Vomiting February 23, 2019 June 04, 2019 Discontinued Psyllium (2 sources) Start: 05-28-2015 End: 05-15-2016 Psyllium [Metamucil [facility] Fib] 1 TBSP PO DAILY May 28, 2015 May 15, 2016 Discontinued Start: 05-28-2015 End: 05-15-2016 Psyllium 1 TBSP PO DAILY May Discontinued raNITIdine 150 mg oral tablet (2 sources) Histamine-2 Receptor Antagonist Start: 11-12-2016 End: 01-14-2018 take 150 mg by mouth twice daily Ranitidine Hcl [Ranitidine Maximum Streng] 150 MG PO TWICE A DAY November 12, 2016 January 14, 2018 Discontinued sennosides, retirement 8.6 mg oral tablet (2 sources) Start: 05-28-2015 End: 05-15-2016 take 2 capsules by mouth twice daily Sennosides [Senna-Tabs] 2 CAP PO TWICE A DAY May 28, 2015 May 15, 2016 Discontinued Start: 05-28-2015 End: 05-15-2016 take 2 capsules by mouth twice daily Sennosides 2 CAP PO TWICE A DAY May 28, 2015 Discontinued spironolactone 25 mg oral tablet (20 sources) Aldosterone Antagonist Start: 10-08-2022 End: 10-31-2024 spironolactone 25 mg oral tablet Dose : 25 mg = 1 tab(s), Oral, qDay, PRN Swelling, TAKE 1 TABLET BY MOUTH DAILY NEEDED FOR SWELLING, # 90 tab(s), 1 Refill(s), Pharmacy: [facility], 156, cm, 05/04/24 8:10:00 EST, Height, kg, 05/04/24 8:10:00 EST, Dosing Weight Start Date: 05/04/24 Stop Date: 10/31/24 Status: Ordered Medication Dispense Status: Completed Quantity: 90.0 Unit: tab(s) Total Allowed Fills: 2 Fills Dispensed: 0 Start: 05-19-2022 spironolactone 100 mg oral tablet Dose : 100 mg = 1 tab(s), Oral, qAM, Take one tablet by mouth once nightly after eating Start Date: 05/19/22 Status: Ordered Start: 09-09-2018 End: 11-26-2020 take 25 mg by mouth once daily as needed Spironolactone 25 MG PO DAILY PRN For Swelling November 27, 2020 Active Start: 08-01-2014 End: 03-30-2015 take 25 mg by mouth once daily Spironolactone [Aldacto ne] 25 MG PO DAILY August 01, 2014 March 30, 2015 Discontinued 60 actuat tiotropium 0.0025 mg/actuat inhalation spray (20 sources) Anticholinergic Start: 10-29-2022 End: 06-09-2024 take 2 puff(s) by inhalation once daily in the morning Spiriva Respimat 60 ACT 2.5 mcg/inh inhalation aerosol 2 puff(s), Inhalation, qAM, # 3 EA, 3 Refill(s), Pharmacy: [facility], 156.5, cm, 06/15/23 15:49:00 EST, Height, kg, 06/15/23 15:49:00 EST, Dosing Weight Start Date: 06/15/23 Stop Date: 06/09/24 Status: Ordered Medication Dispense Status: Completed Quantity: 3.0 Unit: EA Total Allowed Fills: 4 Fills Dispensed: 0 Start: 02-21-2022 take 2 puff(s) by in halation once daily in the morning Spiriva Respimat 60 ACT 2.5 mcg/inh inhalation aerosol 2 puff(s), Inhalation, qAM, # 1 EA, 5 Refill(s), Pharmacy: [facility], 160, cm, 02/21/22 13:12:00 EDT, Height Start Date: 02/21/22 Status: Ordered Start: 02-21-2019 End: 11-26-2020 take 1.25 ug by inhalation once daily as needed Tiotropium [place] Monohydrate [Spiriva Respimat] 1.25 MCG INH DAILY PRN February 21, 2019 November 26, 2020 Discontinued Start: 09-09-2018 End: 02-21-2019 take 1 puff(s) by inhalation once daily Tiotropium [place] Monohydrate [Spiriva Respimat] 2 PUFF INH DAILY September 09, 2018 February 21, 2019 Discontinued Start: 04-05-2017 End: 09-09-2018 Tiotropium [place] Monohydra te [Spiriva Respimat] 1.25 MCG IN NEEDED PRN April 05, 2017 September 09, 2018 Discontinued Start: 02-18-2017 End: 04-05-2017 take 1 puff(s) by inhalation once daily Tiotropium [place] Monohydrate [Spiriva Respimat] 2 PUFF INH DAILY February 18, 2017 April 05, 2017 Discontinued traMADol hydrochloride 50 mg oral tablet (6 sources) Opioid Agonist Start: 05-28-2015 End: 11-12-2016 take 50 mg by mouth three times daily Tramadol 50 MG PO THREE TIMES A DAY November 12, 2016 Discontinued Start: 09-16-2014 End: 05-18-2015 Tramadol [Ultram *] 50 MG PO EVERY SIX [id number] PRN For Pain September 16, 2014 May 18, 2015 Discontinued triamcinolone acetonide 0.001 mg/mg topical ointment (2 sources) Corticosteroid Start: 11-08-2013 End: 09-08-2014 Triamcinolone Acetonide 0.1% [Kenalog 0.1% Ointment *] 0.1 % EX TWICE A DAY November 08, 2013 September 08, 2014 Discontinued 24 hr venlafaxine 150 mg extended release oral capsule (2 sources) Serotonin and Norepinephrine Reuptake Inhibitor Start: 02-18-2017 End: 04-05-2017 take 150 mg by mouth once daily Venlafaxine Hcl [Venlafaxine Hcl Er] 150 MG PO DAILY February 18, 2017 April 05, 2017 Discontinued Problems Active Problems Problem Classification Problem Date Documented Da te Episodic/Chronic Abdominal hernia (3 sources) Hernia of anterior abdominal wall; Translations: [Ventral hernia without obstruction or gangrene] Episodic Abdominal pain (20 sources) Abdominal pain; Translations: [Epigastric pain] Onset: 4 03-30-2023 Episodic Acute bronchitis (1 source) Acute bronchitis Episodic Anal and rectal conditions (1 source) Perirectal abscess; Translations: [Rectal abscess] Episodic Anxiety disorders (20 sources) Anxiety; Translations: [Anxiety disorder, unspecified] 02-21-2022 Chronic Calculus of urinary tract (1 source) Renal colic; Translations: [Unspecified renal colic] Episodic Cardiac dysrhythmias (20 sources) Bradycardia; Translations: [Bradycardia, unspecified] 06-13-2019 Episodic Chronic obstructive pulmonary disease and bronchiectasis (16 sources) Chronic obstructive lung disease; Translations: [Acute exacerbation of chronic bronchitis] 08-24-2023 Chronic Conduction disorders (20 sources) Cardiac pacemaker in situ 05-13-2021 Chronic Coronary atherosclerosis and other heart disease (16 sources) Atypical angina 06-12-2020 Chronic Deficiency and other anemia (1 source) Acquired hemolytic anemia, unspecified; Translations: [Acquired hemolytic anemia, unspecified] Onset: Chronic Diabetes mellitus with complications (20 sources) Type 2 diabetes mellitus with hyperglycemia; Translations: [Hyperglycemia due to type 2 diabetes mellitus] Onset: 2 07-02-2021 Chronic Diabetes mellitus without complication (11 sources) Diabetes mellitus 05-19-2022 Chronic Diabetes mellitus without complication (13 sources) Prediabetes 09-03-2023 Episodic Disorders of lipid metabolism (20 sources) Hyperlipidemia 12-10-2020 Chronic Diverticulosis and diverticulitis (11 sources) Diverticulitis 10-26-2023 Chronic Esophageal disorders (20 sources) Gastroesophageal reflux disease 06-13-2019 Chronic Fracture of upper limb (1 source) Closed fracture of humerus; Translations: [Displaced comminuted fracture of shaft of humerus, left arm, initial encounter for closed fracture] Episodic Genitourinary symptoms and ill-defined conditions (9 sources) Urinary incontinence 12-02-2023 Chronic Headache; including migraine (12 sources) Headache; Translations: [Headache] 10-01-2023 Episodic Inflammatory diseases of female pelvic organs (1 source) Abscess of labia; Translations: [Abscess of vulva] Episodic Intestinal obstruction without hernia (9 sources) Small bowel obstruction; Translations: [Unspecified intestinal obstruction, unspecified as to partial versus complete obstruction] 10-08-2022 Episodic Malaise and fatigue (1 source) Asthenia; Translations: [Weakness] Episodic Menopausal disorders (15 sources) Postmenopausal bleeding; Translations: [Atrophic vaginitis] 07-17-2022 Chronic Mood disorders (20 sources) Depressive disorder 06-14-2019 Chronic Nonspecific chest pain (3 sources) Atypical chest pain; Translations: [Other chest pain] Episodic Open wounds of extremities (1 source) Laceration of hand; Translations: [Laceration without foreign body of unspecified hand, initial encounter] Episodic Open wounds of head; neck; and trunk (1 source) Tear of skin; Translations: [Open wound(s) (multiple) of unspecified site(s), without mention of complication] Episodic Osteoarthritis (20 sources) Osteoarthritis 06-14-2019 Chronic Other aftercare (1 source) Patient encounter status; Translations: [Encounter for palliative care] Episodic Other circulatory disease (20 sources) History of transient ischemic attack 08-26-2021 Episodic Other connective tissue disease (1 source) Musculoskeletal finding; Translations: [Unspecified symptoms and signs involving the musculoskeletal system] Episodic Other female genital disorders (16 sources) Vaginal lesion 07-02-2022 Episodic Other gastrointestinal disorders (1 source) Irritable bowel syndrome Chronic Other gastrointestinal disorders (1 source) History of irritable bowel syndrome; Translations: [Personal history of other diseases of the digestive system] Episodic Other gastrointestinal disorders (19 sources) Chronic constipation 10-29-2022 Episodic Other hematologic conditions (20 sources) Hyperglobulinemia 08-26-2021 Episodic Other inflammatory condition of skin (20 sources) Lupus erythematosus 06-14-2019 Chronic Other inflammatory condition of skin (20 sources) Psoriasis 06-14-2019 Chronic Other inflammatory condition of skin (15 sources) Intertrigo 05-04-2023 Episodic Other inflammatory condition of skin (2 sources) Pruritus of vagina 11-06-2023 Episodic Other injuries and conditions due to external causes (1 source) Abrasion and/or friction burn of skin; Translations: [Other injury of unspecified body region, initial encounter] Episodic Other liver diseases (16 sources) Elevated liver enzymes level 03-30-2023 Episodic Other liver diseases (1 source) High lipase level in serum 11-23-2024 Episodic Other lower respiratory disease (1 source) History of chronic obstructive airway disease; Translations: [Personal history of other diseases of the respiratory system] Episodic Other lower respiratory disease (1 source) Dyspnea; Translations: [Shortness of breath] Episodic Other lower respiratory disease (1 source) Cough; Translations: [Cough] Episodic Other lower respiratory disease (1 source) Wheezing; Translations: [Wheezing] Episodic Other lower respiratory disease (1 source) Hypoxia; Translations: [Hypoxemia] Episodic Other lower respiratory disease (11 sources) Nodule of lung 10-26-2023 Episodic Other nervous system disorders (20 sources) Neuropathy 06-13-2019 Chronic Other nutritional; endocrine; and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 Anaphylaxis sulfamethoxazole (From Bactrim) Allergy (Verified 09/14/24 14:54) Anaphylaxis trimethoprim (From Bactrim) Allergy (Verified 09/14/24 14:54) Anaphylaxis Opioids - Morphine Analogues Adverse Reaction (Verified 09/14/24 14:54) Other Is last menstrual period known: No Post menopausal: Yes Patient : No Have you fallen in the past year?: No Nurse's Note: ST, cough, congest, ear pain x 4 days. hx COPD, uses O2 prn. continues to smoke, concerned cough will turn into pneumonia. 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 No c/o fever, chills, [place]AY[place], myalgias, fatigue, nausea, and diarrhea. Patient notes no complaints of chest pain or shortness of breath or dyspnea on exertion. Several close contacts recently dx???d w/ similar URI complaints. No vilf-koo-hjpkygh taken to assist. Tobacco smoker. No other associated symptoms and no other alleviating/aggravating factors. PMH: COPD on O2 nasal cannula ROS Const Constitutional: No other (As above) Exam Const General: cooperative, healthy appearing and no acute distress Orientation: alert, awake and oriented x3 HENMT Head: normal to inspection Ears: hearing grossly normal bilaterally, external ears normal, TM's normal bilaterally and EAC's normal Nose: external nose normal, nares normal, septum normal and clear nasal discharge Face and sinus: normal facial exam, sinuses nontender and face symmetric Mouth: oral mucosae normal, lip normal, tongue normal and oropharynx normal Throat: posterior oropharynx normal, tonsils normal, uvula midline and no postnasal drainage Eyes General: appearance normal, both eyes and all related structures Neck Neck: normal visual inspection, full ROM, no lymphadenopathy, no meningeal signs and supple Neck mass: No Thyroid: thyroid normal Lymphatic: no lymphadenopathy noted Chest Chest palpation inspection: normal inspection of the chest Resp Effort Inspection: normal respiratory effort, able to speak in complete sentences and cough Quality of cough: wet (nonproductive in office today) Auscultation: Bilateral: Clear to Auscultation w/ scant wheezing and rhonchi throughout - partially clearing with cough Cardio Palpation: normal PMI Rate: tachycardic Rhythm: regular rhythm Heart Sounds: S1 normal, S2 normal, no gallops, no murmurs and no rubs Pulses: radial pulses present Skin General: no rashes or lesions noted Neuro General: patient alert, patient awake and patient oriented x3 Cognition: normal cognition Speech: speech normal Psych Appearance: grossly normal Mental Status: mental status grossly normal Mood: congruent mood Affect: normal affect Speech and Movement: speech and movement normal Attitude: cooperative Diagnoses Contact with or exposure to other viral diseases Z20.828 COPD with acute bronchitis J44.0 Assessment and Plan Assessment and Plan (1) Contact with or exposure to other viral diseases: Status: Acute (2) COPD w/ acute bronchitis: Status: Acute Plan: PA and lateral chest x-ray reveals no acute cardiopulmonary pathology per my review, with radiologist interpretation concurring. See POC results. Medrol and Au (more content not included)... Normal [facility] Anion gap in Serum or Plasma Ordered By: Rima Celis on 07-13-2024 Anion gap [Moles/Vol] 11 mmol/L 5-15 [facility] BUN/creatinine ratioOrdered By: Rima Celis on 07-13-2024 Urea nitrogen/Creatinine [Mass ratio] 9.3 mg/mg Low 10-20 [facility] Bilirubin, totalOrdered By: Rima Celis on 07-13-2024 Bilirubin [Mass/Vol] 0.46 mg/dL 0.00-1.30 [facility] CBC-Complete Blood Cnt No Di ffon 07-13-2024 Erythrocyte distribution width (RBC) [Ratio] 13.2 % Normal 11.6-14.6 [facility] Comment on above: Performed By: #### L 500.4050, L506.1001, L501.9985, L500.4100, L501.9520, L100.0500, L506.0400 #### [facility] [address] [place], [address] Hematocrit (Bld) [Volume fraction] 50.1 % High 37-47 [facility] Comment on above: Performed By: #### L 500.4050, L506.1001, L501.9985, L500.4100, L501.9520, L100.0500, L506.0400 #### [facility] [address] [place], [address] Hemoglobin (Bld) [Mass/Vol] 16.6 g/dL High 12.0-15.0 [facility] Comment on above: Performed By: #### L 500.4050, L506.1001, L501.9985, L500.4100, L501.9520, L100.0500, L506.0400 #### [facility] [address] [place], [address] MCH (RBC) [Entitic mass] 30.6 pg Normal 27.0-32.0 [facility] Comment on above: Performed By: #### L 500.4050, L506.1001, L501.9985, L500.4100, L501.9520, L100.0500, L506.0400 #### [facility] [address] [place], [address] MCHC (RBC) [Mass/Vol] 33.1 g/dL Normal 32-36 [facility] Comment on above: Performed By: #### L 500.4050, L506.1001, L501.9985, L500.4100, L501.9520, L100.0500, L506.0400 #### [facility] [address] [place], [address] MCV (RBC) [Entitic vol] 92.4 fL Normal 81-99 [facility] Comment on above: Performed By: #### L 500.4050, L506.1001, L501.9985, L500.4100, L501.9520, L100.0500, L506.0400 #### [facility] [address] [place], [address] Platelet mean volume (Bld) [Entitic vol] 11.2 fL Normal 6.2-12.0 [facility] Comment on above: Performed By: #### L 500.4050, L506.1001, L501.9985, L500.4100, L501.9520, L100.0500, L506.0400 #### [facility] [address] [place], [address] Platelets (Bld) [#/Vol] 149 10*3/uL Low 150-450 [facility] Comment on above: Performed By: #### L 500.4050, L506.1001, L501.9985, L500.4100, L501.9520, L100.0500, L506.0400 #### [facility] [address] [place], [address] RBC (Bld) [#/Vol] 5.42 10*6/uL High 4.2-5.4 [facility] Comment on above: Performed By: #### L 500.4050, L506.1001, L501.9985, L500.4100, L501.9520, L100.0500, L506.0400 #### [facility] [address] [place], [address] RDW SD 44.7 fl High 35.1-43.9 [facility] Comment on above: Performed By: #### L 500.4050, L506.1001, L501.9985, L500.4100, L501.9520, L100.0500, L506.0400 #### [facility] [address] [place], [address] WBC (Bld) [#/Vol] 5.2 10*3/uL Normal 4.4-11.0 [facility] Comment on above: Performed By: #### L 500.4050, L506.1001, L501.9985, L500.4100, L501.9520, L100.0500, L506.0400 #### [facility] [address] [place], [address] Calculated very low density lipoprotein (VLDL) cholesterol measurementOrdered By: Rima Celis on 07-13-2024 Calculated very low density lipoprotein (VLDL) cholesterol measurement 50 mg/dL High 5-40 [facility] VLDL Cholesterol 50 mg/dL High 5-40 [facility] Carbon dioxide, total [Moles /volume] in Central venous bloodOrdered By: Rima Celis on 07-13-2024 CO2 [Moles/Vol] 26.8 mmol/L 21.0-32.0 [facility] Chloride assayOrdered By: Krishna Celis on 07-13-2024 Chloride [Moles/Vol] 101 mmol/L 98-108 [facility] Comprehensive Metabolic Prof ilon 07-13-2024 Albumin [Mass/Vol] 4.3 g/dL Normal 3.5-5.0 [facility] Comment on above: Performed By: #### L 500.4050, L100.0500 #### [facility] [address] [place], [address] Albumin/Globulin [Mass ratio] 1.4 {ratio} Normal 0.9-2.4 [facility] Comment on above: Performed By: #### L 500.4050, L100.0500 #### [facility] [address] [place], [address] ALK PHOS 86 U/L Normal 35-104 [facility] Comment on above: Performed By: #### L 500.4050, L100.0500 #### [facility] [address] [place], [address] ALT [Catalytic activity/Vol] 52 U/L High <=34 [facility] Comment on above: Performed By: #### L 500.4050, L100.0500 #### [facility] [address] [place], [address] AST [Catalytic activity/Vol] 30 U/L Normal <=31 [facility] Comment on above: Performed By: #### L 500.4050, L100.0500 #### [facility] [address] [place], [address] Bilirubin [Mass/Vol] 0.46 mg/dL Normal 0.00-1.30 [facility] Comment on above: Performed By: #### L 500.4050, L100.0500 #### [facility] [address] [place], [address] BUN/CRE 9.3 RATIO Low 10-20 [facility] Comment on above: Performed By: #### L 500.4050, L100.0500 #### [facility] [address] [place], [address] Calcium [Mass/Vol] 6.8 mg/dL Low 7.6-11.0 [facility] Comment on above: Performed By: #### L 500.4050, L100.0500 #### [facility] [address] [place], [address] Chloride [Moles/Vol] 101 mmol/L Normal 98-108 [facility] Comment on above: Performed By: #### L 500.4050, L100.0500 #### [facility] [address] [place], [address] CO2 [Moles/Vol] 26.8 mmol/L Normal 21.0-32.0 [facility] Comment on above: Performed By: #### L 500.4050, L100.0500 #### [facility] [address] [place], [address] Creatinine [Mass/Vol] 0.73 mg/dL Normal 0.70-1.20 [facility] Comment on above: Performed By: #### L 500.4050, L100.0500 #### [facility] [address] [place], [address] GAP 11 Normal 5-15 [facility] Comment on above: Performed By: #### L 500.4050, L100.0500 #### [facility] [address] [place], [address] GFR/1.73 sq M.predicted among non-blacks MDRD (S/P/Bld) [Vol rate/Area] 95 mL/min/{1.73_m2} Normal >60 [facility] Comment on above: Result Comment: mL/m in/1.73m2 CKD-EPI Creatinine Equation (2020) Performed By: #### L 500.4050, L100.0500 #### [facility] [address] [place], [address] Globulin (S) [Mass/Vol] 3.2 g/dL Normal 2.2-4.2 [facility] Comment on above: Performed By: #### L 500.4050, L100.0500 #### [facility] [address] [place], [address] Glucose [Mass/Vol] 101 mg/dL High 70-99 [facility] Comment on above: Performed By: #### L 500.4050, L100.0500 #### [facility] [address] [place], [address] Potassium [Moles/Vol] 4.7 mmol/L Normal 3.3-5.1 [facility] Comment on above: Performed By: #### L 500.4050, L100.0500 #### [facility] [address] [place], [address] Sodium [Moles/Vol] 139 mmol/L Normal 133-145 [facility] Comment on above: Performed By: #### L 500.4050, L100.0500 #### [facility] [address] [place], [address] T PROT 7.5 g/dL Normal 5.9-8.4 [facility] Comment on above: Performed By: #### L 500.4050, L100.0500 #### [facility] [address] [place], [place], [address] Urea nitrogen [Mass/Vol] 7 mg/dL Normal 4-19 [facility] Comment on above: Performed By: #### L 500.4050, L100.0500 #### [facility] [address] [place], [place], [id number] Erythrocyte distribution wid th ratioOrdered By: Rima Celis on 07-13-2024 Erythrocyte distribution width (RBC) [Ratio] 13.2 % 11.6-14.6 [facility] Erythrocyte distribution wid th standard deviationOrdered By: Rima Celis on 07-13-2024 Erythrocyte distribution width (RBC) [Entitic vol] 44.7 fL High 35.1-43.9 [facility] Erythrocyte distribution width (RBC) [Ratio] 44.7 fl High 35.1-43.9 [facility] GFR/1.73 sq M.predicted ansley g non-blacks MDRD (S/P/Bld) [Vol rate/Area]Ordered By: Rima Celis on 07-13-2024 Estimated GFR (MDRD) Non-Af Amer 95 >60 [facility] Comment on above: mL/min/1.73m2 CKD-EP I Creatinine Equation (2020) Glomerular filtration rate ( GFR) estimation/1.73 sq m using serum, plasma, or whole bOrdered By: Rima Celis on 07-13-2024 GFR/1.73 sq M.predicted among non-blacks MDRD (S/P/Bld) [Vol rate/Area] 95 mL/min/{1.73_m2} >60 [facility] Comment on above: mL/min/1.73m2 CKD-EP I Creatinine Equation (2020) Hematocrit Auto (Bld) [Volum e fraction]Ordered By: Rima Celis on 07-13-2024 Hematocrit (Bld) [Volume fraction] 50.1 % High 37-47 [facility] Hemoglobin A1con 07-13-2024 HbA1c (Bld) [Mass fraction] 5.1 % Low <=5.6 [facility] Comment on above: Performed By: #### L 500.4050, L506.1001, L501.9985, L500.4100, L501.9520, L100.0500, L506.0400 #### [facility] [address] [place], [place], [address] Hemoglobin A1c percentageOrd ered By: Rima Celis on 07-13-2024 HbA1c (Bld) [Mass fraction] 5.1 % Low >5.7 [facility] Hemoglobin measurementOrdere d By: Rima Celis on 07-13-2024 Hemoglobin (Bld) [Mass/Vol] 16.6 g/dL High 12.0-15.0 [facility] L506.1001on 07-13-2024 Vitamin D 25-OH 37.7 ng/mL Normal 30-100 [facility] Comment on above: Result Comment: Padmini min D Status Deficiency: <20 ng/mL (50nmol/L) Insufficiency: 20-30 ng/mL (50-75 nmol/L) Sufficiency: 30-100 ng/mL (75-250 nmol/L) Toxicity: >100 ng/mL (>250 nmol/L) Performed By: #### L 500.4050, L100.0500 #### [facility] [address] [place], [address] LDL calc ser/plasOrdered By: Rima Celis on 07-13-2024 Cholesterol in LDL [Mass/Vol] 49 mg/dL [facility] Comment on above: Zkiknxcboa=001-887 m g/dL & Higher Gubg=809 mg/dL or greater LDL Cholesterol, Calculated 49 mg/dL [facility] Comment on above: Vnntftpmbb=164-484 m g/dL & Higher Guwb=681 mg/dL or greater Laboratory - Chemistry and C hemistry - challengeOrdered By: Rima Celis on 07-13-2024 AST [Catalytic activity/Vol] 30 U/L <32 [facility] Lipid Profileon 07-13-2024 CHOL:HDL 4.38 Normal [facility] Comment on above: Performed By: #### L 500.4050, L100.0500 #### [facility] [address] [place], [address] Cholesterol [Mass/Vol] 128 mg/dL Normal <=200 [facility] Comment on above: Result Comment: Chol esterol level, Desirable <200 mg/dL Borderline high cholesterol 200-239 mg/dL High cholesterol >=240 mg/dL Recommendations of the NCEP Adult Treatment Panel for the following risk-cutoff thresholds for the [place] population. Performed By: #### L 500.4050, L100.0500 #### [facility] [address] [place], [address] Cholesterol in HDL [Mass/Vol] 29 mg/dL Low [facility] Comment on above: Result Comment: Martha onal Cholesterol Education Program (NCEP) guidelines: <40 mg/dL: Low HDL-cholesterol (major risk factor for CHD) >= 60 mg/dL: High HDL-cholesterol (negative risk factor for CHD) HDL-cholesterol is affected by a number of factors, e.g. smoking, exercise, hormones, sex and age. Performed By: #### L 500.4050, L100.0500 #### [facility] [address] [place], [address] Cholesterol in LDL [Mass/Vol] 49 mg/dL Normal [facility] Comment on above: Result Comment: Bord lzugtk=952-140 mg/dL Higher Epqi=638 mg/dL or greater Performed By: #### L 500.4050, L100.0500 #### [facility] [address] [place], [address] Cholesterol in VLDL [Mass/Vol] 50 mg/dL High 5-40 [facility] Comment on above: Performed By: #### L 500.4050, L100.0500 #### [facility] [address] [place], [address] Triglyceride [Mass/Vol] 249 mg/dL High [facility] Comment on above: Result Comment: The drugs N-Acetylcysteine and Metamizole may falsely depress this assay. Normal range: <150 mg/dL Borderline High: 150-199 mg/dL High: 200-499 mg/dL Very High: >500 mg/dL Performed By: #### L 500.4050, L100.0500 #### [facility] [address] [place], [address] MCV (mean corpuscular volume ) determinationOrdered By: Rima Celis on 07-13-2024 MCV (RBC) [Entitic vol] 92.4 fL 81-99 [facility] Mean corpuscular hemoglobin (MCH) determinationOrdered By: Rima Celis on 07-13-2024 MCH (RBC) [Entitic mass] 30.6 pg 27.0-32.0 [facility] Mean corpuscular hemoglobin concentration (MCHC) determinationOrdered By: Rima Celis on 07-13-2024 MCHC (RBC) [Mass/Vol] 33.1 g/dL 32-36 [facility] Mean platelet volume determi nationOrdered By: Rima Celis on 07-13-2024 Platelet mean volume (Bld) [Entitic vol] 11.2 fL 6.2-12.0 [facility] Platelet countOrdered By: Krishna Celis on 07-13-2024 Platelets (Bld) [#/Vol] 149 10*3/uL Low 150-450 [facility] Potassium (Unsp spec) [Mass/ Vol]Ordered By: Rima Celis on 07-13-2024 Potassium [Moles/Vol] 4.7 mmol/L 3.3-5.1 [facility] Potassium measurement (mass/ volume)Ordered By: Rima Celis on 07-13-2024 Potassium (Unsp spec) [Mass/Vol] 4.7 mmol/L 3.3-5.1 [facility] RBC Auto (Bld) [#/Vol]Ordere d By: Rima Celis on 07-13-2024 RBC (Bld) [#/Vol] 5.42 10*6/uL High 4.2-5.4 [facility] Screening total cholesterol/ high density lipoprotein (HDL) cholesterol ratioOrdered By: Rima Celis on 07-13-2024 Cholesterol.total/Cora sterol in HDL [Mass ratio] 4.38 {ratio} [facility] Serum creatinine measurement (mass/volume)Ordered By: Rima Celis on 07-13-2024 Creatinine [Mass/Vol] 0.73 mg/dL 0.70-1.20 [facility] Serum globulin measurementOr dered By: Rima Celis on 07-13-2024 Globulin (S) [Mass/Vol] 3.2 g/dL 2.2-4.2 [facility] Serum glucose measurement (m ass/volume)Ordered By: Rima Celis on 07-13-2024 Glucose [Mass/Vol] 101 mg/dL High 70-99 [facility] Serum or plasma alanine restrepo otransferase (ALT) measurementOrdered By: Rima Celis on 07-13-2024 ALT [Catalytic activity/Vol] 52 U/L High <35 [facility] Serum or plasma albumin donna urement (mass/volume)Ordered By: Rima Celis on 07-13-2024 Albumin [Mass/Vol] 4.3 g/dL 3.5-5.0 [facility] Serum or plasma albumin/glob ulin mass ratioOrdered By: Rima Celis on 07-13-2024 Albumin/Globulin [Mass ratio] 1.4 {ratio} 0.9-2.4 [facility] Serum or plasma alkaline kartik sphatase measurementOrdered By: Rima Celis on 07-13-2024 ALP [Catalytic activity/Vol] 86 U/L 35-104 [facility] Serum or plasma calcium donna urement (mass/volume)Ordered By: Rima Celis on 07-13-2024 Calcium [Mass/Vol] 6.8 mg/dL Low 7.6-11.0 [facility] Serum or plasma cholesterol in HDL measurement (mass/volume)Ordered By: Rima Celis on 07-13-2024 Cholesterol in HDL [Mass/Vol] 29 mg/dL Low >40 [facility] Comment on above: National Cholesterol Education Program (NCEP) guidelines:<40 mg/dL: Low HDL-cholesterol (major risk factor for CHD)>= 60 mg/dL: High HDL-cholesterol (negative risk factor for CHD)HDL-cholesterol is affected by a number of factors, e.g. smoking, exercise, hormones, sex and age. Serum or plasma cholesterol measurement (mass/volume)Ordered By: Rima Celis on 07-13-2024 Cholesterol [Mass/Vol] 128 mg/dL <201 [facility] Comment on above: Cholesterol level, D esirable <200 mg/dLBorderline high cholesterol 200-239 mg/dLHigh cholesterol >=240 mg/dLRecommendations of the NCEP Adult Treatment Panel for the following risk-cutoff thresholds for the [place] population. Serum or plasma urea nitroge n measurement (mass/volume)Ordered By: Rima Celis on 07-13-2024 Urea nitrogen [Mass/Vol] 7 mg/dL 4-19 [facility] Sodium levelOrdered By: Gail Celis on 07-13-2024 Sodium [Moles/Vol] 139 mmol/L 133-145 [facility] T4 Free Directon 07-13-2024 T4 FREE DIRECT 2.10 ng/dL High 0.76-1.46 [facility] Comment on above: Performed By: #### L 500.4050, L100.0500 #### [facility] [address] [place], [place] [address] [place], [place], [address] T4 freeOrdered By: Rima Celis on 07-13-2024 Free T4 [Mass/Vol] 2.10 ng/dL High 0.76-1.46 [facility] TSH DL <= 0.005 mIU/L QnOrde red By: Rima Celis on 07-13-2024 Thyroid Stimulating Hormone (TSH) 0.056 uIU/mL Low 0.300-4.200 [facility] TSH Qn 0.056 uIU/mL Low 0.300-4.200 [facility] Thyroid Stim Hormone (TSH)on 07-13-2024 TSH 0.056 uIU/mL Low 0.300-4.200 [facility] Comment on above: Performed By: #### L 500.4050, L100.0500 #### [facility] [place] [address] [place], [address] Total proteinOrdered By: Felicita Celis on 07-13-2024 Protein [Mass/Vol] 7.5 g/dL 5.9-8.4 [facility] Triglycerides measurementOrd ered By: Rima Celis on 07-13-2024 Triglyceride [Mass/Vol] 249 mg/dL High <199 [facility] Comment on above: The drugs N-Acetylcy steine and Metamizole may falsely depress this assay. Normal range: <150 mg/dLBorderline High: 150-199 mg/dLHigh: 200-499 mg/dLVery High: >500 mg/dL Vitamin D, 25-hydroxyOrdered By: Rima Celis on 07-13-2024 Vitamin D 25-Hydroxy 37.7 ng/mL 30-100 [facility] Comment on above: Vitamin D StatusDefi ciency: <20 ng/mL (50nmol/L)Insufficiency: 20-30 ng/mL (50-75 nmol/L)Sufficiency: 30-100 ng/mL (75-250 nmol/L)Toxicity: >100 ng/mL (>250 nmol/L) White blood cell (WBC) count Ordered By: Rima Celis on 07-13-2024 WBC (Bld) [#/Vol] 5.2 10*3/uL 4.4-11.0 [facility] US RENALon 06-29-2024 US RENAL ORIGINAL EXAMINATION: ULTRASOUND OF THE KIDNEYS 06/29/2024 8:31 am COMPARISON: 06/17/2024 HISTORY: ORDERING SYSTEM PROVIDED HISTORY: Reason for Exam: right flank pain; increased urination; RO stone FINDINGS: Bladder wall is thickened up to 4.5 mm. Bladder volume of 148.7 mL, postvoid bladder volume of 11.9 mL. The right kidney is orthotopic in location with normal renal corticomedullary differentiation and size measuring 12.9 cm. There are no hydronephrosis calculi or masses. Incidentally noted diffusely increased echogenicity of the hepatic parenchyma. The left kidney measures 12.7 cm with normal renal corticomedullary differentiation, no hydronephrosis, masses or calculi. IMPRESSION: 1. Normal renal ultrasound. 2. Borderline bladder wall thickening up to 4.5 mm, correlate with urinalysis. 3. Incidentally noted diffusely increased echogenicity of the hepatic parenchyma which may be related to hepatic steatosis versus hepatocellular disease. Interpreted by: Dari Sandoval Preliminary Report By: Dari Sandoval Electronically signed By Dari Sandoval Dictated Date: 06/29/2024 11:45:05 AM Prelim Date: 06/29/2024 11:47:10 AM Sign Date: 06/29/2024 11:47:10 AM Ordering Provider: RAINE Garza [facility] US RENALon 06-18-2024 US RENAL ORIGINAL EXAMINATION: ULTRASOUND OF THE KIDNEYS 06/17/2024 4:52 pm COMPARISON: None. HISTORY: ORDERING SYSTEM PROVIDED HISTORY: Reason for Exam: R/O stone All images are recorded and archived. FINDINGS: Right and left kidneys measure 12.2 x 4.3 x 6.6 cm, and 11.8 x 5.9 x 6.6 cm respectively. Appropriate renal cortical thickness and echotexture observed. No hydronephrosis or intrarenal stones. No focal lesions. Urinary bladder contains 351 mL of urine and is smooth in contour. No bladder mass or stone is present. Postvoid residual volume is 15 mL. IMPRESSION: Unremarkable ultrasound of the kidneys. Interpreted by: Bob Haas DO Preliminary Report By: Bob Haas DO Electronically signed By Bob Haas DO Dictated Date: 06/18/2024 8:20:38 AM Prelim Date: 06/18/2024 8:22:07 AM Sign Date: 06/18/2024 8:22:07 AM Ordering Provider: RAINE Garza [facility] No Panel Informationon 06-17 Culture Urine 10,000 - 50,000 cfu/ ml Mixed growth consistent with normal urogenital kimo. [facility] Work Phone: CT THORAX SCREENING W/O CONT RASTon 06-15-2024 CT THORAX SCREENING W/O CONTRAST ORIGINAL EXAMINATION: LOW DOSE SCREENING CT OF THE CHEST WITHOUT CONTRAST06/13/2024 4:41 pm TECHNIQUE: Low dose lung cancer screening CT of the chest was performed without the administration of intravenous contrast. Multiplanar reformatted images are provided for review. Automated exposure control, iterative reconstruction, and/or weight based adjustment of the mA/kV was utilized to reduce the radiation dose to as low as reasonably achievable. COMPARISON: CTA chest 08/17/2023, CT lung screening 11/19/2022. HISTORY: ORDERING SYSTEM PROVIDED HISTORY: Reason for Exam: Lung Cancer Screening 78 pack year hx. Current smoker. COPD. FINDINGS: The heart is normal in size. Pacer leads are noted within the right atrium and right ventricle. Minimal atherosclerosis seen of the coronary arteries and aorta. The great vessels appear normal in caliber. No lymphadenopathy is visible on this unenhanced exam. No suspicious findings seen in the visualized portion of the abdomen. The abdomen is not evaluated in detail. Trachea and mainstem bronchi are patent. There is mild bilateral bronchial wall thickening. Mild emphysema with scattered bilateral pleural and parenchymal scarring. There are mild scattered bilateral ground-glass opacities. There is a stable 7 mm left lower lobe pulmonary nodule (series 4, image 79). There is a new 7 mm lingular nodule (series 4, image 60). There is a new 4 mm right lower lobe pulmonary nodule (series 4, image 58). There is a new 5 mm right upper lobe pulmonary nodule (series 4, image 40) No aggressive osseous lesions visible. Degenerative changes seen in the spine. IMPRESSION: Few new bilateral pulmonary nodules measuring up to 7 mm within the lingula. Recommend low-dose CT follow-up in 3 months. Mild bilateral bronchial wall thickening and scattered ground-glass opacities is likely infectious/inflammatory in etiology. Minimal coronary artery calcifications. Information below is for Lung nodule tracking purposes: Nodule: S4 Other Findings: P-CAC Change: Change Recall : 3m fu Recall Type: LDCT LungRads: 4As Interpreted by: Andrew Gray Preliminary Report By: Andrew Gray Electronically signed By Andrew Gray Dictated Date: 06/15/2024 10:36:35 AM Prelim Date: 06/15/2024 10:54:04 AM Sign Date: 06/15/2024 10:54:04 AM Ordering Provider: RIMA CELIS [facility] .GFRon 05-20-2024 GFR Non- 75 ml/min/1.73sqm Normal [facility] Comment on above: Result Comment: GFR Population mean for , Non- Americans Ages 20-29 = 116 mL/min/1.73 sq.m. Ages 30-39 = 107 mL/min/1.73 sq.m. Ages 40-49 = 99 mL/min/1.73 sq.m. Ages 50-59 = 93 mL/min/1.73 sq.m. Ages 60-69 = 85 mL/min/1.73 sq.m. Ages 70+ = 75 mL/min/1.73 sq.m. Chronic Kidney Disease: Less than 60 mL/min/1.73 square meters End Stage Renal Disease: Less than 15 mL/min/1.73 square meters Performed By: #### G , CMP #### [address] [address] GFR 91 ml/min/1.73sqm Normal [facility] Comment on above: Result Comment: GFR Population mean for , Non- Americans Ages 20-29 = 116 mL/min/1.73 sq.m. Ages 30-39 = 107 mL/min/1.73 sq.m. Ages 40-49 = 99 mL/min/1.73 sq.m. Ages 50-59 = 93 mL/min/1.73 sq.m. Ages 60-69 = 85 mL/min/1.73 sq.m. Ages 70+ = 75 mL/min/1.73 sq.m. Chronic Kidney Disease: Less than 60 mL/min/1.73 square meters End Stage Renal Disease: Less than 15 mL/min/1.73 square meters Performed By: #### G FR, CMP #### [address] [address] CMPon 05-20-2024 Albumin Level 3.9 G/dL Normal 3.5-5.0 [facility] Comment on above: Performed By: #### G FR, CMP #### [address] [address] Albumin/Globulin [Mass ratio] 1.1 {ratio} Normal 1.1-2.5 [facility] Comment on above: Performed By: #### G FR, CMP #### [address] [address] ALP [Catalytic activity/Vol] 64 U/L Normal 40-135 [facility] Comment on above: Performed By: #### G FR, CMP #### [address] [address] ALT [Catalytic activity/Vol] 44 U/L Normal 14-59 [facility] Comment on above: Performed By: #### G FR, CMP #### [address] [address] AST [Catalytic activity/Vol] 27 U/L Normal 10-40 [facility] Comment on above: Performed By: #### G , CMP #### [address] [address] Bili Total 0.5 mg/dL Normal 0.2-1.0 [facility] Comment on above: Result Comment: Use of this assay is not recommended for patients undergoing treatment with eltrombopag due to the potential for falsely elevated results. Performed By: #### G , CMP #### [address] [address] BUN/Creatinine Ratio 11 ratio Normal 7-27 [facility] Comment on above: Performed By: #### G FR, CMP #### [address] [address] Calcium [Mass/Vol] 9.2 mg/dL Normal 8.4-10.2 [facility] Comment on above: Performed By: #### G FR, CMP #### [address] [address] Chloride [Moles/Vol] 103 mmol/L Normal 98-107 [facility] Comment on above: Performed By: #### G FR, CMP #### [address] [address] CO2 [Moles/Vol] 31 mmol/L High 22-29 [facility] Comment on above: Performed By: #### G FR, CMP #### [address] [address] Creatinine [Mass/Vol] 0.79 mg/dL Normal 0.55-1.02 [facility] Comment on above: Result Comment: Test ing performed on Siemens Dimension EXL analyzer using a modified kinetic Kasey technique. Performed By: #### G FR, CMP #### [address] [address] Electrolyte Balance 7.0 mEq/L Normal 4.0-15.0 [facility] Comment on above: Performed By: #### G FR, CMP #### [address] [address] Globulin 3.7 G/dL Normal [facility] Comment on above: Performed By: #### G FR, CMP #### [address] [address] Glucose [Mass/Vol] 94 mg/dL Normal 70-105 [facility] Comment on above: Performed By: #### G FR, CMP #### [address] [address] Potassium [Moles/Vol] 4.2 mmol/L Normal 3.5-5.1 [facility] Comment on above: Performed By: #### G FR, CMP #### [address] [address] Sodium [Moles/Vol] 141 mmol/L Normal 136-145 [facility] Comment on above: Performed By: #### G FR, CMP #### [address] [address] Total Protein 7.6 G/dL Normal 6.4-8.2 [facility] Comment on above: Performed By: #### G FR, CMP #### [address] [address] Urea nitrogen [Mass/Vol] 9 mg/dL Normal 7-18 [facility] Comment on above: Performed By: #### G FR, CMP #### [address] [place], [place] [address] LABORATORYOrdered By: SYSTEM SYSTEM on 05-20-2024 Albumin BCP dye [Mass/Vol] 3.9 G/dL Normal 3.5 - 5.0 G/dL AO ADM SS Albumin/Globulin [Mass ratio] 1.1 {ratio} Normal 1.1 - 2.5 ratio AO ADM SS ALP [Catalytic activity/Vol] 64 U/L Normal 40 - 135 U/L AO ADM SS ALT With P-5'-P [Catalytic activity/Vol] 44 U/L Normal 14 - 59 U/L AO ADM SS AST With P-5'-P [Catalytic activity/Vol] 27 U/L Normal 10 - 40 U/L AO ADM SS Bilirubin [Mass/Vol] 0.5 mg/dL Normal 0.2 - 1 .0 mg/dL AO ADM SS Comment on above: Interpretive Data: U se of this assay is not recommended for patients undergoing treatment with eltrombopag due to the potential for falsely elevated results. Calcium [Mass/Vol] 9.2 mg/dL Normal 8.4 - 10. 2 mg/dL AO ADM SS Chloride [Moles/Vol] 103 mmol/L Normal 98 - 10 7 mmol/L AO ADM SS CO2 [Moles/Vol] 31 mmol/L High 22 - 29 mmol/L AO ADM SS Creatinine [Mass/Vol] 0.79 mg/dL Normal 0.55 - 1.02 mg/dL AO ADM SS Comment on above: Interpretive Data: T esting performed on Siemens Dimension EXL analyzer using a modified kinetic Kasey technique. Electrolyte Balance 7.0 mEq/L Normal 4.0 - 15 .0 mEq/L AO ADM SS GFR/1.73 sq M.predicted among blacks MDRD (S/P/Bld) [Vol rate/Area] 91 ml/min/1.73sqm Invalid Interpretation Code AO Chemistry S Comment on above: Interpretive Data: GFR Population mean for , Non- Americans Ages 20-29 = 116 mL/min/1.73 sq.m. Ages 30-39 = 107 mL/min/1.73 sq.m. Ages 40-49 = 99 mL/min/1.73 sq.m. Ages 50-59 = 93 mL/min/1.73 sq.m. Ages 60-69 = 85 mL/min/1.73 sq.m. Ages 70+ = 75 mL/min/1.73 sq.m. Chronic Kidney Disease: Less than 60 mL/min/1.73 square meters End Stage Renal Disease: Less than 15 mL/min/1.73 square meters GFR/1.73 sq M.predicted among non-blacks MDRD (S/P/Bld) [Vol rate/Area] 75 ml/min/1.73sqm Invalid Interpretation Code AO Chemistry S Comment on above: Interpretive Data: GFR Population mean for , Non- Americans Ages 20-29 = 116 mL/min/1.73 sq.m. Ages 30-39 = 107 mL/min/1.73 sq.m. Ages 40-49 = 99 mL/min/1.73 sq.m. Ages 50-59 = 93 mL/min/1.73 sq.m. Ages 60-69 = 85 mL/min/1.73 sq.m. Ages 70+ = 75 mL/min/1.73 sq.m. Chronic Kidney Disease: Less than 60 mL/min/1.73 square meters End Stage Renal Disease: Less than 15 mL/min/1.73 square meters Globulin 3.7 G/dL Invalid Interpretation Code AO ADM SS Glucose [Mass/Vol] 94 mg/dL Normal 70 - 105 mg/dL AO ADM SS Potassium [Moles/Vol] 4.2 mmol/L Normal 3.5 - 5.1 mmol/L AO ADM SS Protein [Mass/Vol] 7.6 G/dL Normal 6.4 - 8.2 G/dL AO ADM SS Sodium [Moles/Vol] 141 mmol/L Normal 136 - 145 mmol/L AO ADM SS Urea nitrogen [Mass/Vol] 9 mg/dL Normal 7 - 18 mg/dL AO ADM SS Urea nitrogen/Creatinine [Mass ratio] 11 ratio Normal 7 - 27 ratio AO ADM SS Wound Cultureon 05-13-2024 WC #1 PASTURELLA AEROGENES. Organism is too fastidious for routine susceptibility studies. #2 Organism is too fastidious for routine susceptibility studies. #3 Gram positive jose suggestive of a diphtheroid. Susceptibility not normally performed on this organism #4 Possible skin contamination, further Identification and sensitivity will be performed only by physician's request. Wound Culture Wound Culture Wound Culture Wound Culture Wound Culture Pasturella species Amount Growth Rare Globicatella sanguinis Globicatella sanguinis GPR Amount Growth 3+ Gram positive jose Amount Growth Rare Normal [facility] Comment on above: Performed By: #### M 100.3000, M100.1999 #### [facility] [address] [place], [address] Gram Stainon 05-10-2024 GS Gram Stain 1+ Gram positive cocci 1+ Red Blood Cells 1+ White Blood Cells No Epithelial cells Normal [facility] Comment on above: Performed By: #### M 100.3000, M100.1999 #### [facility] [address] [place], [address] Emergency Department Summary on 05-09-2024 Emergency Department Summary [facility] Medical Records Department [address] [place] [address] Emergency Department Summary 05/09/24 MR#: [id number] Acct: [id number] Name: JANE REED Rep #: [id number] : 1965 59 From: Andrew Barnes DO PCP: KAHLIL RosarioC Status:DEP ER Location: ED HPI HPI - Female History of Present Illness Chief Complaint: Female C/O Informant: patient Narrative Narrative: 59-year-old female presenting to the emergency department with a chief complaint of abscesses of the pelvis. Patient states that she had a hysterectomy little over a year ago. She states that for about the past year she has developed multiple pustules and abscesses in her perineum and vaginal area. States they typically break open and drain and get better but leave her with a scar. 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 She states she has not noticed a difference in the recurrence of them. She stated that she noticed some more today. She notes that the pelvis falcon. She states that she has had surgical I D of an abscess in the past and was admitted into the hospital at [place] but does not know if she was diagnosed with Royal's but notes that there were cardiac complications with the procedure. Patient states that she is supposed to see gynecology again within the next 2 weeks. She notes that she has also had an abscess in her axilla in the past. [facility] Medical History Sleep apnea with use of continuous positive airway pressure (CPAP) Insomnia Pre-diabetes Depression Hypothyroid IBS (irritable bowel syndrome) Pacemaker Home Medications ???Medication ???Instructions ???Recorded ???Last Taken ???Type budesonide-formoterol HFA 160 160 puff inhalation DAILY 10/08/22 Unknown History mcg-4.5 mcg/actuation aerosol inhaler (Symbicort) famotidine 40 mg tablet 40 mg PO DAILY 10/08/22 Unknown History ibuprofen 600 mg tablet 600 mg PO PRN PRN Pain 10/08/22 Unknown History levothyroxine 200 mcg tablet 200 mcg PO DAILY 10/08/22 Unknown History linaclotide 290 mcg capsule 290 mcg PO DAILY 10/08/22 Unknown History (Linzess) metformin 500 mg tablet,extended 500 mg PO DAILY 10/08/22 Unknown History release 24 hr pantoprazole 40 mg tablet,delayed 40 mg PO DAILY 10/08/22 Unknown History release pravastatin 40 mg tablet 40 mg PO DAILY 10/08/22 Unknown History prednisone 10 mg tablet 10 mg PO PRN PRN other 10/08/22 Unknown History sertraline 100 mg tablet 100 mg PO DAILY 10/08/22 Unknown History spironolactone 25 mg tablet 25 mg PO DAILY 10/08/22 Unknown History trazodone 100 mg tablet 100 mg PO DAILY 10/08/22 Unknown History Allergy/AdvReac Type Severity Reaction Status Date / Time Sulfa (Sulfonamide Allergy Anaphylaxis Verified 10/08/22 14:02 Antibiotics) sulfamethoxazole (From Allergy Anaphylaxis Verified 10/08/22 14:02 Bactrim) trimethoprim (From Bactrim) Allergy Anaphylaxis Verified 10/08/22 14:02 Opioids - Morphine Analogues AdvReac Other Verified 10/08/22 14:02 Surgical History H/O: hysterectomy Social History 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 Smoking Status: Current every day smoker tobacco type: cigarettes ROS ROS ED Constitutional Constitutional ED: Denies chills, fever(s) or weight loss Eyes Eyes: Denies change in vision or diplopia ENT ENT ED: Denies ear pain, rhinorrhea or sore throat Cardiovascular Cardiovascular: Denies chest pain, orthopnea, palpitations or racing heartbeat Respiratory/Chest Respiratory/Chest: Denies cough, dyspnea or orthopnea Gastrointestinal Gastrointestinal: Denies abdominal pain, diarrhea, nausea or vomiting Genitourinary Genitourinary ED: Denies dysuria, hematuria or urinary frequency Musculoskeletal Musculoskeletal: Denies arthralgias or myalgias Integumentary Reports abscess and other Details: See history of present illness ; Denies rash Neurologic Neurologic: Denies headache(s) or weakness Psychiatric Psychiatric: Denies anxiety, depression, suicidal ideation or suicidal thoughts Endocrine Endocrinology: Denies polydipsia, polyphagia or polyuria Allergic/Immunologic Allergic/Immunologic ED: Denies mouth swelling, tongue swelling or urticaria EXAM Physical Exam Const Vital Signs: 05/09/24 15:25 Temperature 97.4 F L Temperature Source Temporal Pulse Rate 61 Respiratory Rate 20 H Blood Pressure 105/86 H Blood Pressure Mean 92 Pulse Ox 92 Oxygen Delivery Method Room Air Positive well nourished, well developed and obese General Appearance ED: well developed a (more content not included)... Normal [facility] Gram stainOrdered By: Andrew Barnes on 05-09-2024 Microscopic observation Gram stain Nom (Unsp spec) [facility] Routine wound cultureOrdered By: Andrew Barnes on 05-09-2024 Wound Culture Pasturella species Abnormal [facility] Wound Culture Globicatella sanguinis Abnormal [facility] Wound Culture Positive Abnormal [facility] Wound Culture Negative Abnormal [facility] NM MYOCARDIAL SPECT STRESS/R ESTon 03-04-2024 NM MYOCARDIAL SPECT STRESS/REST ORIGINAL NM MYOCARDIAL SPECT STRESS/REST CLINICAL STATEMENT: chest pain TECHNIQUE: Lexiscan dose:0.4 mg Radiopharmaceutical (stress): Tc-99m Sestamibi Dose: mCi Radiopharmaceutical (rest): Tc-99m Sestamibi Dose: mCi SPECT acquisition and processing Reconstruction and reorientation of SPECT images into short axis, vertical and horizontal long axis planes Quantitative LVEF assessment COMPARISON:01/21/21 Rest only study REPORT:After accounting for diaphragmatic attenuation, no fixed or reversible defect. Normal wall motion and wall thickening. TID ratio 1.2. EDV 102 ml. EF 67% IMPRESSION: 1. No ischemia or scar. 2. Diaphragmatic attenuation artifact. 3. Normal systolic function. EF 67%. Interpreted By: Chanel Galo MD Preliminary Report By: Chanel Galo MD Electronically Signed By: Chanel Galo MD Dictated Date: 03/04/2024 12:41:14 PM Prelim Date: 03/04/2024 12:41:14 PM Sign Date: 03/04/2024 12:43:36 PM Ordering Provider:Axel Garza [facility] No Panel Informationon 02-11 Culture Urine <10,000 cfu/ml. No Significant growth. Sensitivity not indicated. [facility] Work Phone: Abdomen/Pelvis WITH Contrast on 11-23-2023 Abdomen/Pelvis WITH Contrast [facility] Imaging Services [address] [place] [address] Abdomen/Pelvis WITH Contrast MR#: [id number] Acct: [id number] Name: JANE REED Rep #: [id number] : 1965 F 58 From: Gregory llanos MD PCP: JOHN Rosario Status: REG CLI Study: Abdomen/Pelvis WITH Contrast Date of Exam: 09/10 Exam# [id number] Ordering Dr: Delfino Knutson STAMP REDEMPTION CLERK STAMP REDEMPTION CLERK-C [id number] STUDY: CT ABDOMEN AND PELVIS WITH CONTRAST REASON FOR EXAM: Female, 58 years old. PAIN OF LUQ AND LLQ OF ABD R/O DIVERTICULITUS RADIATION DOSAGE (If Supplied By Facility): CTDIvol = ( 17.07 ) mGy, DLP = ( 1414.04 ) mGycm TECHNIQUE: Transaxial images were obtained from the dome of the diaphragm to the symphysis pubis with oral contrast. Oral and amp;amp; IV Gastrografin and amp;amp; 100mL Isovue-300 was administered. Sagittal and coronal images were reconstructed. Individualized dose optimization techniques were used for this CT. COMPARISON: Comparison is made with prior study dated October 08, 2022. FINDINGS: Increased linear markings are seen in the anterior lateral aspect of the right lower lobe suggestive of scarring. A dual-chamber pacemaker is seen. Normal liver. There are surgical clips in the gallbladder fossa consistent with a prior cholecystectomy. There is a benign calcified granuloma of the spleen. Normal pancreas. Normal bilateral adrenal glands. Normal right kidney. Normal left kidney. There is a small hiatal hernia. Normal small intestine. Normal colon. There is non-visualization of the appendix. There is scattered atherosclerotic calcification of the abdominal aorta, without a demonstrated aneurysm. Normal inferior vena cava. There is a small retroperitoneal lymphadenopathy with enlarged nodes no greater than 10mm in the short axis diameter. Normal urinary bladder. There is absence of the uterus consistent with a prior hysterectomy. There is a 1.6 cm calcified nodule in the subcutaneous tissues just caudad to the umbilicus. There are degenerative changes of the visualized lumbar spine. CT/Abdomen/Pelvis WITH Contrast IMPRESSION: Findings suggestive of scarring in the anterior aspect of the right lower lobe. Status post cholecystectomy. Status post hysterectomy. Electronically Signed: Gregory Figueroa MD at 11:39 EDT , CC: JOHN Celis; JOHN Knutson Pc Technician: Signed Normal [facility] LEVOFLOXACIN:SUSC:PT:ISOLATE :ORDQN:MICon 11-06-2023 levoFLOXacin VALENTÍN [Susc] 10,000 - 50,000 cfu/ml Escherichia coli [facility] Work Phone: levoFLOXacin VALENTÍN [Susc]on Escherichia coli Escherichia coli [facility] Work Phone: AMOXICILLIN+CLAVULANATE:SUSC :PT:ISOLATE:ORDQN:MICon 10-26-2023 Amoxicillin+Clavulanate VALENTÍN [Susc] 10,000 - 50,000 cfu/ml Klebsiella pneumoniae [facility] Work Phone: Amoxicillin+Clavulanate VALENTÍN [Susc]on 10-26-2023 Klebsiella pneumoniae Klebsiella pneumoniae [facility] Work Phone: CBC-Complete Blood Cnt No Di ffon 10-26-2023 Erythrocyte distribution width (RBC) [Ratio] 13.3 % Normal 11.6-14.6 [facility] Comment on above: Performed By: #### L 500.4050, L100.0500 #### [facility] [address] [place], [address] Hematocrit (Bld) [Volume fraction] 47.0 % Normal 37-47 [facility] Comment on above: Performed By: #### L 500.4050, L100.0500 #### [facility] [address] [place], [address] Hemoglobin (Bld) [Mass/Vol] 15.3 g/dL High 12.0-15.0 [facility] Comment on above: Performed By: #### L 500.4050, L100.0500 #### [facility] [address] [place], [address] MCH (RBC) [Entitic mass] 30.2 pg Normal 27.0-32.0 [facility] Comment on above: Performed By: #### L 500.4050, L100.0500 #### [facility] [address] [place], [address] MCHC (RBC) [Mass/Vol] 32.6 g/dL Normal 32-36 [facility] Comment on above: Performed By: #### L 500.4050, L100.0500 #### [facility] [address] [place], [address] MCV (RBC) [Entitic vol] 92.7 fL Normal 81-99 [facility] Comment on above: Performed By: #### L 500.4050, L100.0500 #### [facility] [address] [place], [address] Platelet mean volume (Bld) [Entitic vol] 12.0 fL Normal 6.2-12.0 [facility] Comment on above: Performed By: #### L 500.4050, L100.0500 #### [facility] [address] [place], [address] Platelets (Bld) [#/Vol] 158 10*3/uL Normal 150-450 [facility] Comment on above: Performed By: #### L 500.4050, L100.0500 #### [facility] [address] [place], [address] RBC (Bld) [#/Vol] 5.07 10*6/uL Normal 4.2-5.4 [facility] Comment on above: Performed By: #### L 500.4050, L100.0500 #### [facility] [address] [place], [address] RDW SD 45.1 fl High 35.1-43.9 [facility] Comment on above: Performed By: #### L 500.4050, L100.0500 #### [facility] [address] [place], [address] WBC (Bld) [#/Vol] 5.1 10*3/uL Normal 4.4-11.0 [facility] Comment on above: Performed By: #### L 500.4050, L100.0500 #### [facility] [address] [place], [address] Comprehensive Metabolic Prof ilon 10-26-2023 Albumin [Mass/Vol] 3.8 g/dL Normal 3.2-5.0 [facility] Comment on above: Performed By: #### L 500.4050, L100.0500 #### [facility] [address] [place], [address] Albumin/Globulin [Mass ratio] 1.0 {ratio} Normal 0.9-2.4 [facility] Comment on above: Performed By: #### L 500.4050, L100.0500 #### [facility] [address] [place], [address] ALK P 47 U/L Normal 45-117 [facility] Comment on above: Performed By: #### L 500.4050, L100.0500 #### [facility] [address] [place], [address] ALT [Catalytic activity/Vol] 32 U/L Normal 13-56 [facility] Comment on above: Performed By: #### L 500.4050, L100.0500 #### [facility] [address] [place], [address] AST [Catalytic activity/Vol] 30 U/L Normal 15-37 [facility] Comment on above: Performed By: #### L 500.4050, L100.0500 #### [facility] [address] [place], [address] Bilirubin [Mass/Vol] 0.40 mg/dL Normal 0.20-1.00 [facility] Comment on above: Result Comment: For patients on eltrombopag therapy, use of Dimension [place] TBIL is not recommended. Performed By: #### L 500.4050, L100.0500 #### [facility] [address] [place], [address] BUN/CRE 12.6 RATIO Normal 10-20 [facility] Comment on above: Performed By: #### L 500.4050, L100.0500 #### [facility] [address] [place], [address] CA,Total 9.3 mg/dL Normal 8.5-10.1 [facility] Comment on above: Performed By: #### L 500.4050, L100.0500 #### [facility] [address] [place], [address] Chloride [Moles/Vol] 103 mmol/L Normal 98-107 [facility] Comment on above: Performed By: #### L 500.4050, L100.0500 #### [facility] [address] [place], [address] CO2 [Moles/Vol] 28.0 mmol/L Normal 21.0-32.0 [facility] Comment on above: Performed By: #### L 500.4050, L100.0500 #### [facility] [address] [place], [address] Creatinine [Mass/Vol] 0.80 mg/dL Normal 0.55-1.02 [facility] Comment on above: Result Comment: The validity of the calculated GFR GFRAA in patients over 70 years has not been determined. Clinical correlation is essential. Performed By: #### L 500.4050, L100.0500 #### [facility] [address] [place], [address] EST GFR - AA 96 mL/min Normal >60 [facility] Comment on above: Result Comment: Afri can Moldovan GFR Calc Performed By: #### L 500.4050, L100.0500 #### [facility] [address] [place], [address] GAP 7 Normal 5-15 [facility] Comment on above: Performed By: #### L 500.4050, L100.0500 #### [facility] [address] [place], [address] GFR/1.73 sq M.predicted among non-blacks MDRD (S/P/Bld) [Vol rate/Area] 79 mL/min/{1.73_m2} Normal >60 [facility] Comment on above: Result Comment: Non- GFR Calc Performed By: #### L 500.4050, L100.0500 #### [facility] [address] [place], [address] Globulin (S) [Mass/Vol] 3.7 g/dL Normal 2.2-4.2 [facility] Comment on above: Performed By: #### L 500.4050, L100.0500 #### [facility] [address] [place], [address] Glucose [Mass/Vol] 146 mg/dL High 74-106 [facility] Comment on above: Result Comment: Fast ing Glucose result greater than or equal to 126 mg/dL suggests DIABETES MELLITUS per A.D.A. criteria. Performed By: #### L 500.4050, L100.0500 #### [facility] [address] [place], [address] Potassium [Moles/Vol] 3.6 mmol/L Normal 3.5-5.1 [facility] Comment on above: Performed By: #### L 500.4050, L100.0500 #### [facility] [address] [place], [address] Sodium [Moles/Vol] 138 mmol/L Normal 136-145 [facility] Comment on above: Performed By: #### L 500.4050, L100.0500 #### [facility] [address] [place], [address] T PROT 7.5 g/dL Normal 6.4-8.2 [facility] Comment on above: Performed By: #### L 500.4050, L100.0500 #### [facility] [address] [place], [address] Urea nitrogen [Mass/Vol] 10 mg/dL Normal 7-18 [facility] Comment on above: Performed By: #### L 500.4050, L100.0500 #### [facility] [address] [place], [address] SALCTon 09-21-2023 Cortisol Saliva 0.043 UG/DL Normal [facility] ([place]) Comment on above: Result Comment: This test was developed and its performance characteristics determined by [employer]. It has not been cleared or approved by the Food and Drug Administration. Reference Range: Children and Adults: 8:00a.m.: 0.025 - 0.600 Noon: <0.010 - 0.330 4:00p.m.: 0.010 - 0.200 Bedtime (9:00p.m.-Midnight): <0.010 - 0.090 Performed At: [facility] [address] [place], [place] [id number] Leonor Cortes MD Ph:[phone] Performed By: #### 5 [id number] ####[address] [place] [address] SALCTon 09-11-2023 Cortisol Saliva Not performed Normal [facility] ([place]) Comment on above: Result Comment: Test not performed. Insufficient specimen to perform or complete analysis. CONTACTED HALIMA Cortes AT YOUR FACILITY ON 09-10-2023 Performed At: [facility] [address] [place], [place] [id number] Leonor Cortes MD Ph:[phone] Performed By: #### 5 [id number] ####[address] [place], [place] [address] .GFRon 09-07-2023 GFR 90 ml/min/1.73sqm Normal [facility] ([place]) Comment on above: Result Comment: GFR Population mean for , Non- Americans Ages 20-29 = 116 mL/min/1.73 sq.m. Ages 30-39 = 107 mL/min/1.73 sq.m. Ages 40-49 = 99 mL/min/1.73 sq.m. Ages 50-59 = 93 mL/min/1.73 sq.m. Ages 60-69 = 85 mL/min/1.73 sq.m. Ages 70+ = 75 mL/min/1.73 sq.m. Chronic Kidney Disease: Less than 60 mL/min/1.73 square meters End Stage Renal Disease: Less than 15 mL/min/1.73 square meters Performed By: #### C MP, A1C, GFR, FT3, VIDH, TSH, FT4, LIPID #### [address] [address] #### INSCHUCK, [facility] #### [address] [address] GFR Non- 74 ml/min/1.73sqm Normal [facility] ([place]) Comment on above: Result Comment: GFR Population mean for , Non- Americans Ages 20-29 = 116 mL/min/1.73 sq.m. Ages 30-39 = 107 mL/min/1.73 sq.m. Ages 40-49 = 99 mL/min/1.73 sq.m. Ages 50-59 = 93 mL/min/1.73 sq.m. Ages 60-69 = 85 mL/min/1.73 sq.m. Ages 70+ = 75 mL/min/1.73 sq.m. Chronic Kidney Disease: Less than 60 mL/min/1.73 square meters End Stage Renal Disease: Less than 15 mL/min/1.73 square meters Performed By: #### C MP, A1C, GFR, FT3, VIDH, TSH, FT4, LIPID #### [address] [address] #### INSLN, MCR #### [address] [address] A1Con 09-07-2023 HbA1c (Bld) [Mass fraction] 5.8 % Normal 4.3-6.4 [facility] ([place]) Comment on above: Performed By: #### C MP, A1C, GFR, FT3, VIDH, TSH, FT4, LIPID #### [address] [address] #### INSLN, MCRSO #### [address] [address] CMPon 09-07-2023 Albumin Level 4.0 G/dL Normal 3.5-5.0 [facility] ([place]) Comment on above: Performed By: #### C MP, A1C, GFR, FT3, VIDH, TSH, FT4, LIPID #### [address] [address] #### INSLN, MCRSO #### [address] [address] Albumin/Globulin [Mass ratio] 1.1 {ratio} Normal 1.1-2.5 [facility] ([place] Comment on above: Performed By: #### C MP, A1C, GFR, FT3, VIDH, TSH, FT4, LIPID #### [address] [address] #### INSLN, MCRSO #### [address] [address] ALP [Catalytic activity/Vol] 51 U/L Normal 40-135 [facility] ([place] Comment on above: Performed By: #### C MP, A1C, GFR, FT3, VIDH, TSH, FT4, LIPID #### [address] [address] #### IN[facility], MCRSO #### [address] [address] ALT [Catalytic activity/Vol] 38 U/L Normal 14-59 [facility] ([place] Comment on above: Performed By: #### C MP, A1C, GFR, FT3, VIDH, TSH, FT4, LIPID #### [address] [address] #### IN[facility]N, MCRSO #### [address] [address] AST [Catalytic activity/Vol] 18 U/L Normal 10-40 [facility] ([place] Comment on above: Performed By: #### C MP, A1C, GFR, FT3, VIDH, TSH, FT4, LIPID #### [address] [address] #### INSLN, MCRSO #### [address] [address] Bili Total 0.7 mg/dL Normal 0.2-1.0 [facility] ([place]) Comment on above: Result Comment: Use of this assay is not recommended for patients undergoing treatment with eltrombopag due to the potential for falsely elevated results. Performed By: #### C MP, A1C, GFR, FT3, VIDH, TSH, FT4, LIPID #### [place] [address] #### INSLN, MCRSO #### [place] [id number] BUN/Creatinine Ratio 18 ratio Normal 7-27 [facility] ([place]) Comment on above: Performed By: #### C MP, A1C, GFR, FT3, VIDH, TSH, FT4, LIPID #### [place] [address] #### INSLN, MCRSO #### [address] [address] Calcium [Mass/Vol] 9.3 mg/dL Normal 8.4-10.2 [facility] ([place] Comment on above: Performed By: #### C MP, A1C, GFR, FT3, VIDH, TSH, FT4, LIPID #### [address] [address] #### INSLN, MCRSO #### [address] [address] Chloride [Moles/Vol] 99 mmol/L Normal 98-107 [facility] ([place]) Comment on above: Performed By: #### C MP, A1C, GFR, FT3, VIDH, TSH, FT4, LIPID #### [place] [address] #### INSLN, MCRSO #### [address] [address] CO2 [Moles/Vol] 28 mmol/L Normal 22-29 [facility] ([place] Comment on above: Performed By: #### C MP, A1C, GFR, FT3, VIDH, TSH, FT4, LIPID #### [place] [address] #### INSLN, MCRSO #### [place] [address] Creatinine [Mass/Vol] 0.80 mg/dL Normal 0.55-1.02 [facility] ([place]) Comment on above: Performed By: #### C MP, A1C, GFR, FT3, VIDH, TSH, FT4, LIPID #### [place] [address] #### INSLN, MCRSO #### [place] [address] Electrolyte Balance 12.0 mEq/L Normal 4.0-15.0 [facility] ([place] Comment on above: Performed By: #### C MP, A1C, GFR, FT3, VIDH, TSH, FT4, LIPID #### [place] [address] #### INSLN, MCRSO #### [place] [address] Globulin 3.8 G/dL Normal [facility] ([place] Comment on above: Performed By: #### C MP, A1C, GFR, FT3, VIDH, TSH, FT4, LIPID #### [place] [address] #### INSLN, MCRSO #### [place] [address] Glucose [Mass/Vol] 125 mg/dL High 70-105 [facility] ([place]) Comment on above: Performed By: #### C MP, A1C, GFR, FT3, VIDH, TSH, FT4, LIPID #### [address] [address] #### INSLN, MCRSO #### [address] [address] Potassium [Moles/Vol] 4.5 mmol/L Normal 3.5-5.1 [facility] ([place]) Comment on above: Performed By: #### C MP, A1C, GFR, FT3, VIDH, TSH, FT4, LIPID #### [place] [address] #### INSLN, MCRSO #### [address] [address] Sodium [Moles/Vol] 139 mmol/L Normal 136-145 [facility] ([place] Comment on above: Performed By: #### C MP, A1C, GFR, FT3, VIDH, TSH, FT4, LIPID #### [place] [address] #### INSLN, MCRSO #### [address] [address] Total Protein 7.8 G/dL Normal 6.4-8.2 [facility] ([place] Comment on above: Performed By: #### C MP, A1C, GFR, FT3, VIDH, TSH, FT4, LIPID #### [place] [address] #### [facility]SLN, MCRSO #### [address] [address] Urea nitrogen [Mass/Vol] 14 mg/dL Normal 7-18 [facility] ([place] Comment on above: Performed By: #### C MP, A1C, GFR, FT3, VIDH, TSH, FT4, LIPID #### [place] [address] #### INSLN, MCRSO #### [address] [address] FT3on 09-07-2023 Free T3 [Mass/Vol] 2.17 pg/mL Low 2.30-4.00 [facility] ([place] Comment on above: Performed By: #### C MP, A1C, GFR, FT3, VIDH, TSH, FT4, LIPID #### [address] [address] #### INSLN, MCRSO #### [address] [address] FT4on 09-07-2023 Free T4 [Mass/Vol] 1.26 ng/dL Normal 0.76-1.46 [facility] ([place] Comment on above: Performed By: #### C MP, A1C, GFR, FT3, VIDH, TSH, FT4, LIPID #### [address] [address] #### INSLN, MCRSO #### [address] [address] INSLNon 09-07-2023 Insulin 18.95 munit/L Normal 2.60-37.60 [facility] ([place] Comment on above: Performed By: #### C MP, A1C, GFR, FT3, VIDH, TSH, FT4, LIPID ####[address] [address]#### INSLN, MCRSO ####[address] [address] LABORATORYOrdered By: Linn Maciel on 09-07-2023 Albumin DL <= 20 mg/L (U) [Mass/Vol] 216 mcg/dL Invalid Interpretation Code AO ADM SS Albumin/Creatinine DL <= 20 mg/L (U) [Mass ratio] Unable to calc Invalid Interpretation Code 0 - 30 AO Chemistry S Creatinine (U) [Mass/Vol] mg/dL Low 28.0 - 117.0 mg/dL AO ADM SS Cholesterol [Mass/Vol] 181 mg/dL Normal 0 - 2 00 mg/dL AO ADM SS Comment on above: Interpretive Data: C holesterol Reference Interval: Less than 200 Desirable 200-239 Borderline high risk 240 and above High risk Cholesterol in HDL [Mass/Vol] 45 mg/dL Normal 40 - 60 mg/dL AO ADM SS Cholesterol in LDL [Mass/Vol] 87 mg/dL Normal 0 - 130 mg/dL AO ADM SS Triglyceride [Mass/Vol] 244 mg/dL High 0 - 150 mg/dL AO ADM SS Comment on above: Interpretive Data: T riglyceride Reference Interval: Less than 150 Normal 150-199 Borderline high risk 200-499 High risk 500 or higher Very high risk LABORATORYOrdered By: SYSTEM SYSTEM on 09-07-2023 25-hydroxyvitamin D3 [Mass/Vol] 42.6 ng/mL Invalid Interpretation Code AO ADM SS Comment on above: Interpretive Data: I nterpretive Values Based on Total 25(OH) Vitamin D: Deficient <20 ng/mL Insufficient 20 - <30 ng/mL Sufficient 30-100 ng/mL Albumin BCP dye [Mass/Vol] 4.0 G/dL Normal 3.5 - 5.0 G/dL AO ADM SS Albumin/Globulin [Mass ratio] 1.1 {ratio} Normal 1.1 - 2.5 ratio AO ADM SS ALP [Catalytic activity/Vol] 51 U/L Normal 40 - 135 U/L AO ADM SS ALT With P-5'-P [Catalytic activity/Vol] 38 U/L Normal 14 - 59 U/L AO ADM SS AST With P-5'-P [Catalytic activity/Vol] 18 U/L Normal 10 - 40 U/L AO ADM SS Bilirubin [Mass/Vol] 0.7 mg/dL Normal 0.2 - 1 .0 mg/dL AO ADM SS Comment on above: Interpretive Data: U se of this assay is not recommended for patients undergoing treatment with eltrombopag due to the potential for falsely elevated results. Calcium [Mass/Vol] 9.3 mg/dL Normal 8.4 - 10. 2 mg/dL AO ADM SS Chloride [Moles/Vol] 99 mmol/L Normal 98 - 10 7 mmol/L AO ADM SS CO2 [Moles/Vol] 28 mmol/L Normal 22 - 29 mmol/L AO ADM SS Creatinine [Mass/Vol] 0.80 mg/dL Normal 0.55 - 1.02 mg/dL AO ADM SS Electrolyte Balance 12.0 mEq/L Normal 4.0 - 15 .0 mEq/L AO ADM SS Free T3 [Mass/Vol] 2.17 pg/mL Low 2.30 - 4. 00 pg/mL AO ADM SS Free T4 [Mass/Vol] 1.26 ng/dL Normal 0.76 - 1. 46 ng/dL AO ADM SS GFR/1.73 sq M.predicted among blacks MDRD (S/P/Bld) [Vol rate/Area] 90 ml/min/1.73sqm Invalid Interpretation Code AO Chemistry S Comment on above: Interpretive Data: GFR Population mean for , Non- Americans Ages 20-29 = 116 mL/min/1.73 sq.m. Ages 30-39 = 107 mL/min/1.73 sq.m. Ages 40-49 = 99 mL/min/1.73 sq.m. Ages 50-59 = 93 mL/min/1.73 sq.m. Ages 60-69 = 85 mL/min/1.73 sq.m. Ages 70+ = 75 mL/min/1.73 sq.m. Chronic Kidney Disease: Less than 60 mL/min/1.73 square meters End Stage Renal Disease: Less than 15 mL/min/1.73 square meters GFR/1.73 sq M.predicted among non-blacks MDRD (S/P/Bld) [Vol rate/Area] 74 ml/min/1.73sqm Invalid Interpretation Code AO Chemistry S Comment on above: Interpretive Data: GFR Population mean for , Non- Americans Ages 20-29 = 116 mL/min/1.73 sq.m. Ages 30-39 = 107 mL/min/1.73 sq.m. Ages 40-49 = 99 mL/min/1.73 sq.m. Ages 50-59 = 93 mL/min/1.73 sq.m. Ages 60-69 = 85 mL/min/1.73 sq.m. Ages 70+ = 75 mL/min/1.73 sq.m. Chronic Kidney Disease: Less than 60 mL/min/1.73 square meters End Stage Renal Disease: Less than 15 mL/min/1.73 square meters Globulin 3.8 G/dL Invalid Interpretation Code AO ADM SS Glucose [Mass/Vol] 125 mg/dL High 70 - 105 mg/dL AO ADM SS HbA1c (Bld) [Mass fraction] 5.8 % Normal 4.3 - 6.4 % AO ADM SS Insulin Qn 18.95 munit/L Normal 2.60 - 37.60 mU/L AH ADM SS Potassium [Moles/Vol] 4.5 mmol/L Normal 3.5 - 5.1 mmol/L AO ADM SS Protein [Mass/Vol] 7.8 G/dL Normal 6.4 - 8.2 G/dL AO ADM SS Sodium [Moles/Vol] 139 mmol/L Normal 136 - 145 mmol/L AO ADM SS TPO Ab IA Qn 370 unit/mL High 0 - 60 unit/mL AH ADM SS Comment on above: Interpretive Data: * *Note - New Reference Range in effect 19 TSH Qn 1.33 m[IU]/L Normal 0.36 - 3.74 mcIU/mL AO ADM SS Urea nitrogen [Mass/Vol] 14 mg/dL Normal 7 - 18 mg/dL AO ADM SS Urea nitrogen/Creatinine [Mass ratio] 18 ratio Normal 7 - 27 ratio AO ADM SS LIPIDon 09-07-2023 Cholesterol [Mass/Vol] 181 mg/dL Normal 0-200 [facility] ([place]) Comment on above: Result Comment: Chol esterol Reference Interval: Less than 200 Desirable 200-239 Borderline high risk 240 and above High risk Performed By: #### C MP, A1C, GFR, FT3, VIDH, TSH, FT4, LIPID #### [address] [address] #### INSLN, MCRSO #### [address] [address] Cholesterol in HDL [Mass/Vol] 45 mg/dL Normal 40-60 [facility] ([place]) Comment on above: Performed By: #### C MP, A1C, GFR, FT3, VIDH, TSH, FT4, LIPID #### [address] [address] #### INSLN, MCRSO #### [address] [address] Cholesterol in LDL [Mass/Vol] 87 mg/dL Normal 0-130 [facility] ([place] Comment on above: Performed By: #### C MP, A1C, GFR, FT3, VIDH, TSH, FT4, LIPID #### [address] [address] #### INSLN, MCRSO #### [address] [address] Triglyceride [Mass/Vol] 244 mg/dL High 0-[address] [facility] ([place]) Comment on above: Result Comment: Trig lyceride Reference Interval: Less than 150 Normal 150-199 Borderline high risk 200-499 High risk 500 or higher Very high risk Performed By: #### C MP, A1C, GFR, FT3, VIDH, TSH, FT4, LIPID #### [address] [address] #### INSCHUCK, MCRSO #### [address] [address] MALBRon 09-07-2023 U Creatinine <13.0 Low 28.0-117.0 [facility] ([place]) Comment on above: Performed By: #### M ALBR ####[address] [address] U Microalb 216 mcg/dL Normal [facility] ([place] Comment on above: Performed By: #### M ALBR ####[address] [place], [place] [address] U Ratio Alb/Cre Unable to calc Normal 0-30 [facility] ([place] Comment on above: Performed By: #### M ALBR ####[address] [place], [place] [address] TSHon 09-07-2023 TSH Qn 1.33 m[IU]/L Normal 0.36-3.74 [facility] ([place]) Comment on above: Performed By: #### C MP, A1C, GFR, FT3, VIDH, TSH, FT4, LIPID #### [address] [address] #### INSLN, MCRSO #### [address] [address] VIDHon 09-07-2023 Vit. D 25-Hydroxy 42.6 ng/mL Normal [facility] ([place] Comment on above: Result Comment: Inte rpretive Values Based on Total 25(OH) Vitamin D: Deficient <20 ng/mL Insufficient 20 - <30 ng/mL Sufficient 30-100 ng/mL Performed By: #### C MP, A1C, GFR, FT3, VIDH, TSH, FT4, LIPID #### [address] [place], [place] [address] #### INSLN, MCRSO #### [facility] [address] [place] [address] aTPOon 09-07-2023 anti-Thyroid Peroxidase 370 units/ml High 0-60 [facility] ([place]) Comment on above: Result Comment: No te - New Reference Range in effect 19 Performed By: #### C MP, A1C, GFR, FT3, VIDH, TSH, FT4, LIPID ####[address] [place], [place] [address]#### INSLN, [facility] ####[facility] [place] [address] ANGIOGRAPHY CHEST W/CONTR Hazel 08-17-2023 CT ANGIOGRAPHY CHEST W/CONTRAST ORIGINAL EXAMINATION: CTA OF THE CHEST08/17/2023 4:56 pm CTA CHEST WITH CONTRAST TECHNIQUE: CTA of the chest was performed after the administration of intravenous contrast. Multiplanar reformatted images are provided for review. MIP images are provided for review. Automated exposure control, iterative reconstruction, and/or weight based adjustment of the mA/kV was utilized to reduce the radiation dose to as low as reasonably achievable. 3-D reformats were obtained on a separate workstation. COMPARISON: CT thorax, November 19, 2022 HISTORY: ORDERING SYSTEM PROVIDED HISTORY: Reason for Exam: hypoxia, severe shortness of breath. FINDINGS: Thoracic inlet structures are unremarkable in appearance. No pathologically enlarged hilar or mediastinal lymph nodes. The great vessels, heart and pericardium are unremarkable in size and appearance. Bilateral lower lobe atelectasis. No focal infiltrate. 7 mm nodule left lower lobe image 46. No pleural effusion or pneumothorax. The incidentally included portions of the upper abdomen are within normal limits. The CT angiogram portion of the examination shows adequate contrast enhancement of the pulmonary arteries. The main and segmental pulmonary arteries are of normal size. No intraluminal filling defects are seen through the level of the segmental pulmonary arteries and opacified subsegmental pulmonary arteries. IMPRESSION: 1. No evidence of pulmonary embolus. 2. Left solid pulmonary nodule measuring 7 mm. Per Fleischner Society Guidelines, recommend a non-contrast Chest CT at 6-12 months. If patient is high risk for malignancy, consider an additional non-contrast Chest CT at 18-24 months. If patient is low risk for malignancy, non-contrast Chest CT at 18-24 months is optional. These guidelines do not apply to immunocompromised patients and patients with cancer. Follow up in patients with significant comorbidities as clinically warranted. For lung cancer screening, adhere to Lung-RADS guidelines. Reference: Radiology. 2017; 284(1):228-43. . Interpreted by: Lalo Castelan MD Preliminary Report By: Lalo Castelan MD Electronically signed By Lalo Castelan MD Dictated Date: 08/17/2023 5:01:40 PM Prelim Date: 08/17/2023 5:11:36 PM Sign Date: 08/17/2023 5:11:36 PM Ordering Provider: RIMA CELIS Normal [facility] ([place]) Culture, urineOrdered By: BRIDGET BLANTON on 05-06-2023 Bacteria identified Cx Nom (U) Culture exhibits no growth. [facility] .Auto Diffon 04-01-2023 Basophil, Absolute 0.0 10 3/mcL Normal 0.0-0.2 [facility] ([place]) Comment on above: Performed By: #### C BC, A1C, CMP, ADIFF, ANEU, GFR ####[address] [place], [place] [address] Basophils/100 WBC (Bld) 0.7 % Normal 0.0-2.[address] [facility] ([place]) Comment on above: Performed By: #### C BC, A1C, CMP, ADIFF, ANEU, GFR ####[address] [place], [place] [address] Eosinophil, Absolute 0.1 10 3/mcL Normal 0.0-0.4 [facility] ([place]) Comment on above: Performed By: #### C BC, A1C, CMP, ADIFF, ANEU, GFR ####[address] [place], [place] [address] Eosinophils/100 WBC (Bld) 1.1 % Normal 0.0-7.0 [facility] ([place] Comment on above: Performed By: #### C BC, A1C, CMP, ADIFF, ANEU, GFR ####[address] [place], [place] [address] Lymphocyte, Absolute 1.4 10 3/mcL Normal 0.8-3.9 [facility] ([place]) Comment on above: Performed By: #### C BC, A1C, CMP, ADIFF, ANEU, GFR ####[address] [place], [place] [address] Lymphocytes/100 WBC (Bld) 24.3 % Normal 10.0-50.0 [facility] ([place] Comment on above: Performed By: #### C BC, A1C, CMP, ADIFF, ANEU, GFR ####[address] [place], [place] [address] Monocyte, Absolute 0.4 10 3/mcL Normal 0.2-1.0 [facility] ([place]) Comment on above: Performed By: #### C BC, A1C, CMP, ADIFF, ANEU, GFR ####[address] [place], [place] [address] Monocytes/100 WBC (Bld) 7.3 % Normal 1.7-13.[address] [facility] ([place]) Comment on above: Performed By: #### C BC, A1C, CMP, ADIFF, ANEU, GFR ####[address] [place], [place] [address] Neutrophils/100 WBC (Bld) 66.6 % Normal 37.0-80.0 [facility] ([place] Comment on above: Performed By: #### C BC, A1C, CMP, ADIFF, ANEU, GFR ####[address] [place], [place] [address] .GFRon 04-01-2023 GFR Non- 72 ml/min/1.73sqm Normal [facility] ([place]) Comment on above: Result Comment: GFR Population mean for , Non- Americans Ages 20-29 = 116 mL/min/1.73 sq.m. Ages 30-39 = 107 mL/min/1.73 sq.m. Ages 40-49 = 99 mL/min/1.73 sq.m. Ages 50-59 = 93 mL/min/1.73 sq.m. Ages 60-69 = 85 mL/min/1.73 sq.m. Ages 70+ = 75 mL/min/1.73 sq.m. Chronic Kidney Disease: Less than 60 mL/min/1.73 square meters End Stage Renal Disease: Less than 15 mL/min/1.73 square meters Performed By: #### C BC, A1C, CMP, ADIFF, ANEU, GFR ####[address] [place], [place] [address] GFR 87 ml/min/1.73sqm Normal [facility] ([place]) Comment on above: Result Comment: GFR Population mean for , Non- Americans Ages 20-29 = 116 mL/min/1.73 sq.m. Ages 30-39 = 107 mL/min/1.73 sq.m. Ages 40-49 = 99 mL/min/1.73 sq.m. Ages 50-59 = 93 mL/min/1.73 sq.m. Ages 60-69 = 85 mL/min/1.73 sq.m. Ages 70+ = 75 mL/min/1.73 sq.m. Chronic Kidney Disease: Less than 60 mL/min/1.73 square meters End Stage Renal Disease: Less than 15 mL/min/1.73 square meters Performed By: #### C BC, A1C, CMP, ADIFF, ANEU, GFR ####[address] [place], [place] [address] .NEUABSon 04-01-2023 Neutrophil, Absolute 3.9 10 3/mcL Normal 2.9-6.2 [facility] ([place]) Comment on above: Performed By: #### C BC, A1C, CMP, ADIFF, ANEU, GFR ####[address] [place], [place] [address] A1Con 04-01-2023 HbA1c (Bld) [Mass fraction] 5.6 % Normal 4.3-6.4 [facility] ([place]) Comment on above: Performed By: #### C BC, A1C, CMP, ADIFF, ANEU, GFR ####[facility] [place] [id number] CBCon 04-01-2023 Erythrocyte distribution width (RBC) [Ratio] 13.9 % Normal 11.5-14.5 [facility] ([place]) Comment on above: Performed By: #### C BC, A1C, CMP, ADIFF, ANEU, GFR ####[address] [place], [place] [address] Hematocrit (Bld) [Volume fraction] 45.7 % Normal 37.0-47.0 [facility] ([place]) Comment on above: Performed By: #### C BC, A1C, CMP, ADIFF, ANEU, GFR ####[address] [place], [place] [address] Hgb 15.6 G/dL Normal 12.0-16.0 [facility] ([place] Comment on above: Performed By: #### C BC, A1C, CMP, ADIFF, ANEU, GFR ####[address] [place], [place] [address] MCH (RBC) [Entitic mass] 30.6 pg Normal 27.0-31.2 [facility] ([place] Comment on above: Performed By: #### C BC, A1C, CMP, ADIFF, ANEU, GFR ####[address] [place], [place] [address] MCHC 34.1 G/dL Normal 33.0-37.0 [facility] ([place] Comment on above: Performed By: #### C BC, A1C, CMP, ADIFF, ANEU, GFR ####[address] [place], [place] [address] MCV (RBC) [Entitic vol] 89.6 fL Normal 80.0-94.[address] [facility] ([place]) Comment on above: Performed By: #### C BC, A1C, CMP, ADIFF, ANEU, GFR ####[address] [place], [place] [address] Platelet 167 10 3/mcL Normal 130-400 [facility] ([place]) Comment on above: Performed By: #### C BC, A1C, CMP, ADIFF, ANEU, GFR ####[address] [place], [place] [address] Platelet mean volume (Bld) [Entitic vol] 9.5 fL Normal 7.4-10.4 [facility] ([place] Comment on above: Performed By: #### C BC, A1C, CMP, ADIFF, ANEU, GFR ####[address] [place], [place] [address] RBC 5.10 10 6/mcL Normal 4.20-5.40 [facility] ([place] Comment on above: Performed By: #### C BC, A1C, CMP, ADIFF, ANEU, GFR ####[address] [place], [place] [address] WBC 5.8 10 3/mcL Normal 4.6-10.8 [facility] ([place] Comment on above: Performed By: #### C BC, A1C, CMP, ADIFF, ANEU, GFR ####[address] [place], [place] [address] CMPon 04-01-2023 Albumin Level 3.6 G/dL Normal 3.5-5.0 [facility] ([place] Comment on above: Performed By: #### C MP, A1C, GFR, FT3, VIDH, TSH, FT4, LIPID #### [address] [address] #### INSLN, MCRSO #### [address] [address] Albumin/Globulin [Mass ratio] 1.0 {ratio} Low 1.1-2.5 [facility] ([place] Comment on above: Performed By: #### C MP, A1C, GFR, FT3, VIDH, TSH, FT4, LIPID #### [address] [address] #### INSLN, MCRSO #### [address] [address] ALP [Catalytic activity/Vol] 64 U/L Normal 40-135 [facility] ([place] Comment on above: Performed By: #### C MP, A1C, GFR, FT3, VIDH, TSH, FT4, LIPID #### [address] [address] #### INSLN, MCRSO #### [address] [address] ALT [Catalytic activity/Vol] 31 U/L Normal 14-59 [facility] ([place] Comment on above: Performed By: #### C MP, A1C, GFR, FT3, VIDH, TSH, FT4, LIPID #### [place] [address] #### INSLN, MCRSO #### [address] [address] AST [Catalytic activity/Vol] 27 U/L Normal 10-40 [facility] ([place] Comment on above: Performed By: #### C MP, A1C, GFR, FT3, VIDH, TSH, FT4, LIPID #### [place] [address] #### INSLN, MCRSO #### [address] [address] Bili Total 0.4 mg/dL Normal 0.2-1.0 [facility] ([place]) Comment on above: Result Comment: Use of this assay is not recommended for patients undergoing treatment with eltrombopag due to the potential for falsely elevated results. Performed By: #### C MP, A1C, GFR, FT3, VIDH, TSH, FT4, LIPID #### [place] [address] #### INSLN, MCRSO #### [address] [address] BUN/Creatinine Ratio 12 ratio Normal 7-27 [facility] ([place]) Comment on above: Performed By: #### C MP, A1C, GFR, FT3, VIDH, TSH, FT4, LIPID #### [place] [address] #### INSLN, MCRSO #### [address] [address] Calcium [Mass/Vol] 8.6 mg/dL Normal 8.4-10.2 [facility] ([place]) Comment on above: Performed By: #### C MP, A1C, GFR, FT3, VIDH, TSH, FT4, LIPID #### [address] [address] #### INSLN, MCRSO #### [address] [address] Chloride [Moles/Vol] 103 mmol/L Normal 98-107 [facility] ([place]) Comment on above: Performed By: #### C MP, A1C, GFR, FT3, VIDH, TSH, FT4, LIPID #### [address] [address] #### INSLN, MCRSO #### [address] [address] CO2 [Moles/Vol] 32 mmol/L High 22-29 [facility] ([place] Comment on above: Performed By: #### C MP, A1C, GFR, FT3, VIDH, TSH, FT4, LIPID #### [address] [address] #### INSLN, MCRSO #### [address] [address] Electrolyte Balance 6.0 mEq/L Normal 4.0-15.0 [facility] ([place] Comment on above: Performed By: #### C MP, A1C, GFR, FT3, VIDH, TSH, FT4, LIPID #### [address] [address] #### INSLN, MCRSO #### [address] [address] Globulin 3.7 G/dL Normal [facility] ([place]) Comment on above: Performed By: #### C MP, A1C, GFR, FT3, VIDH, TSH, FT4, LIPID #### [address] [address] #### INSLN, MCRSO #### [address] [address] Glucose [Mass/Vol] 138 mg/dL High 70-105 [facility] ([place]) Comment on above: Performed By: #### C MP, A1C, GFR, FT3, VIDH, TSH, FT4, LIPID #### [address] [address] #### INSLN, MCRSO #### [address] [address] Potassium [Moles/Vol] 4.1 mmol/L Normal 3.5-5.1 [facility] ([place]) Comment on above: Performed By: #### C MP, A1C, GFR, FT3, VIDH, TSH, FT4, LIPID #### [place] [address] #### INSLN, MCRSO #### [address] [address] Sodium [Moles/Vol] 141 mmol/L Normal 136-145 [facility] ([place]) Comment on above: Performed By: #### C MP, A1C, GFR, FT3, VIDH, TSH, FT4, LIPID #### [place] [address] #### INSLN, MCRSO #### [address] [address] Total Protein 7.3 G/dL Normal 6.4-8.2 [facility] ([place] Comment on above: Performed By: #### C MP, A1C, GFR, FT3, VIDH, TSH, FT4, LIPID #### [place] [address] #### INSLN, MCRSO #### [address] [address] Urea nitrogen [Mass/Vol] 10 mg/dL Normal 7-18 [facility] ([place] Comment on above: Performed By: #### C MP, A1C, GFR, FT3, VIDH, TSH, FT4, LIPID #### [place] [address] #### INSLN, MCRSO #### [place] [id number] [place] [address] Creatinine [Mass/Vol] 0.82 mg/dL Normal 0.55-1.02 [facility] ([place]) Comment on above: Performed By: #### C MP, A1C, GFR, FT3, VIDH, TSH, FT4, LIPID #### [place] [id number] [place], [place] [address] #### INSLN, MCRSO #### [address] [address] [address] ABDOMEN/PELVIS W/CONTRAST on 04-01-2023 CT ABDOMEN/PELVIS W/CONTRAST ORIGINAL EXAMINATION: CT OF THE ABDOMEN AND PELVIS WITH UCDPJSSH28/13/2023 3:40 pm TECHNIQUE: CT of the abdomen and pelvis was performed with the administration of intravenous contrast. Multiplanar reformatted images are provided for review. Automated exposure control, iterative reconstruction, and/or weight based adjustment of the mA/kV was utilized to reduce the radiation dose to as low as reasonably achievable. COMPARISON: Abdomen pelvis CT 11/30/2020 HISTORY: ORDERING SYSTEM PROVIDED HISTORY: Reason for Exam: abdominal pain, small bowel obst 09/2022 FINDINGS: There has been prior cholecystectomy. The liver, kidneys, adrenals, and pancreas are unremarkable. Punctate splenic calcified granulomas are noted. There is no abdominal aortic aneurysm. There are no enlarged lymph nodes. Prior ventral hernia repair is noted. There is no bowel obstruction or evidence of wall thickening. There is no free air or free fluid. The uterus is absent. The urinary bladder is unremarkable. There is no adnexal mass. There is no acute bony abnormality. The lung bases are unremarkable. There is a stable small sliding hiatal hernia. IMPRESSION: No acute abnormality. Interpreted by: Sachin Brownlee Preliminary Report By: Sachin Brownlee Electronically signed By Sachin Brownlee Dictated Date: 04/01/2023 5:01:01 PM Prelim Date: 04/01/2023 5:06:22 PM Sign Date: 04/01/2023 5:06:22 PM Ordering Provider: RIMA Garza [facility] ([place]) LABORATORYOrdered By: SYSTEM SYSTEM on 04-01-2023 Albumin BCP dye [Mass/Vol] 3.6 G/dL Normal 3.5 - 5.0 G/dL AO ADM SS Albumin/Globulin [Mass ratio] 1.0 {ratio} Low 1.1 - 2.5 ratio AO ADM SS ALP [Catalytic activity/Vol] 64 U/L Normal 40 - 135 U/L AO ADM SS ALT With P-5'-P [Catalytic activity/Vol] 31 U/L Normal 14 - 59 U/L AO ADM SS AST With P-5'-P [Catalytic activity/Vol] 27 U/L Normal 10 - 40 U/L AO ADM SS Basophil, Absolute 0.0 103/mcL Normal 0.0 - 0.2 10^3/mcL AO Workflow SS Basophils/100 WBC (Bld) 0.7 % Normal 0.0 - 2.5 % AO Workflow SS Bilirubin [Mass/Vol] 0.4 mg/dL Normal 0.2 - 1 .0 mg/dL AO ADM SS Comment on above: Interpretive Data: U se of this assay is not recommended for patients undergoing treatment with eltrombopag due to the potential for falsely elevated results. Calcium [Mass/Vol] 8.6 mg/dL Normal 8.4 - 10. 2 mg/dL AO ADM SS Chloride [Moles/Vol] 103 mmol/L Normal 98 - 10 7 mmol/L AO ADM SS CO2 [Moles/Vol] 32 mmol/L High 22 - 29 mmol/L AO ADM SS Creatinine [Mass/Vol] 0.82 mg/dL Normal 0.55 - 1.02 mg/dL AO ADM SS Electrolyte Balance 6.0 mEq/L Normal 4.0 - 15 .0 mEq/L AO ADM SS Eosinophil, Absolute 0.1 103/mcL Normal 0.0 - 0 .4 10^3/mcL AO Workflow SS Eosinophils/100 WBC (Bld) 1.1 % Normal 0.0 - 7.0 % AO Workflow SS Erythrocyte distribution width (RBC) [Ratio] 13.9 % Normal 11.5 - 14.5 % AO Workflow SS GFR/1.73 sq M.predicted among blacks MDRD (S/P/Bld) [Vol rate/Area] 87 ml/min/1.73sqm Invalid Interpretation Code AO Chemistry S Comment on above: Interpretive Data: GFR Population mean for , Non- Americans Ages 20-29 = 116 mL/min/1.73 sq.m. Ages 30-39 = 107 mL/min/1.73 sq.m. Ages 40-49 = 99 mL/min/1.73 sq.m. Ages 50-59 = 93 mL/min/1.73 sq.m. Ages 60-69 = 85 mL/min/1.73 sq.m. Ages 70+ = 75 mL/min/1.73 sq.m. Chronic Kidney Disease: Less than 60 mL/min/1.73 square meters End Stage Renal Disease: Less than 15 mL/min/1.73 square meters GFR/1.73 sq M.predicted among non-blacks MDRD (S/P/Bld) [Vol rate/Area] 72 ml/min/1.73sqm Invalid Interpretation Code AO Chemistry S Comment on above: Interpretive Data: GFR Population mean for , Non- Americans Ages 20-29 = 116 mL/min/1.73 sq.m. Ages 30-39 = 107 mL/min/1.73 sq.m. Ages 40-49 = 99 mL/min/1.73 sq.m. Ages 50-59 = 93 mL/min/1.73 sq.m. Ages 60-69 = 85 mL/min/1.73 sq.m. Ages 70+ = 75 mL/min/1.73 sq.m. Chronic Kidney Disease: Less than 60 mL/min/1.73 square meters End Stage Renal Disease: Less than 15 mL/min/1.73 square meters Globulin 3.7 G/dL Invalid Interpretation Code AO ADM SS Glucose [Mass/Vol] 138 mg/dL High 70 - 105 mg/dL AO ADM SS HbA1c (Bld) [Mass fraction] 5.6 % Normal 4.3 - 6.4 % AO ADM SS Hematocrit (Bld) [Volume fraction] 45.7 % Normal 37.0 - 47.0 % AO Workflow SS Hemoglobin (Bld) [Mass/Vol] 15.6 G/dL Normal 12.0 - 16.0 G/dL AO Workflow SS Lymphocyte, Absolute 1.4 103/mcL Normal 0.8 - 3 .9 10^3/mcL AO Workflow SS Lymphocytes/100 WBC (Bld) 24.3 % Normal 10.0 - 50.0 % AO Workflow SS MCH (RBC) [Entitic mass] 30.6 pg Normal 27.0 - 31.2 pg AO Workflow SS MCHC 34.1 G/dL Normal 33.0 - 37.0 G/dL AO Workflow SS MCV (RBC) [Entitic vol] 89.6 fL Normal 80.0 - 94.0 fL AO Workflow SS Monocyte, Absolute 0.4 103/mcL Normal 0.2 - 1.0 10^3/mcL AO Workflow SS Monocytes/100 WBC (Bld) 7.3 % Normal 1.7 - 13.0 % AO Workflow SS Neutrophil, Absolute 3.9 103/mcL Normal 2.9 - 6 .2 10^3/mcL AO Workflow SS Neutrophils/100 WBC (Bld) 66.6 % Normal 37.0 - 80.0 % AO Workflow SS Platelet mean volume (Bld) [Entitic vol] 9.5 fL Normal 7.4 - 10.4 fL AO Workflow SS Platelets (Bld) [#/Vol] 167 103/mcL Normal 130 - 400 10^3/mcL AO Workflow SS Potassium [Moles/Vol] 4.1 mmol/L Normal 3.5 - 5.1 mmol/L AO ADM SS Protein [Mass/Vol] 7.3 G/dL Normal 6.4 - 8.2 G/dL AO ADM SS RBC (Bld) [#/Vol] 5.10 106/mcL Normal 4.20 - 5.4 0 10^6/mcL AO Workflow SS Sodium [Moles/Vol] 141 mmol/L Normal 136 - 145 mmol/L AO ADM SS Urea nitrogen [Mass/Vol] 10 mg/dL Normal 7 - 18 mg/dL AO ADM SS Urea nitrogen/Creatinine [Mass ratio] 12 ratio Normal 7 - 27 ratio AO ADM SS WBC (Bld) [#/Vol] 5.8 103/mcL Normal 4.6 - 10.8 10^3/mcL AO Workflow SS LABORATORYOrdered By: Amalia Torres on 12-17-2022 Glucose [Mass/Vol] 118 mg/dL Invalid Interpretation Code 70 - 110 mg/dL [facility] Work Phone: Basophil percentageOrdered B y: JAQUAN Segovia on 11-28-2022 Cholesterol [Mass/Vol] 126 mg/dL <200 [facility] Comment on above: <200 mg/dL Desirable 200-240 mg/dL Borderline >240 mg/dL High Risk Triglyceride [Mass/Vol] 355 mg/dL <199 [facility] Comment on above: The drugs N-Acetylcy steine and Metamizole may falsely depress this assay.Serum Triglycerides Reference Interval Normal <150 mg/dL Borderline high 150 - 199 mg/dL High 200 - 499 mg/dL Very High > or = 500 mg/dL Laboratory - Chemistry and C hemistry - challengeOrdered By: JAQUAN Segovia on 11-28-2022 Free T4 [Mass/Vol] 1.69 ng/dL 0.76-1.46 [facility] No Panel InformationOrdered By: JAQUAN Segovia on 11-28-2022 Thyroid Stimulating Hormone (TSH) 0.04 uIU/mL 0.358-3.74 [facility] Serum or plasma cholesterol in HDL measurement (mass/volume)Ordered By: JAQUAN Segovia on 11-28-2022 Cholesterol in HDL [Mass/Vol] 27 mg/dL >40 [facility] Comment on above: The drugs N-Acetylcy steine and Metamizole may falsely depress this assay. Reference Range HDL <40 mg/dL Low HDL Cholesterol HDL >or= 60 mg/dL High HDL Cholesterol Serum or plasma cholesterol in VLDL measurement (mass/volume)Ordered By: JAQUAN Segovia on 11-28-2022 Cholesterol in VLDL [Mass/Vol] 71 mg/dL 5-40 [facility] Serum or plasma low density lipoprotein (LDL) cholesterol measurement (mass/volume)Ordered By: JAQUAN Segovia on 11-28-2022 Cholesterol in LDL [Mass/Vol] 28 mg/dL 0-130 [facility] Whole blood hemoglobin A1c/t otal hemoglobin ratio (mass fraction)Ordered By: JAQUAN Segovia on 11-28-2022 HbA1c (Bld) [Mass fraction] 5.5 % 3.8-5.6 [facility] Comment on above: Normal < 5.7 % Predi abetic 5.7 - 6.4 % Diabetic >or= 6.5 % Please note range changes. Absolute lymphocyte countOrd ered By: Dr. Hernandez on 10-09-2022 Lymphocytes Auto (Unsp spec) [#/Vol] 1.13 10*3/uL 0.83-4.51 [facility] Basophil percentageOrdered B y: Dr. Hernandez on 10-09-2022 Basophils/100 WBC (Bld) 0.6 % 0-1 [facility] Bilirubin [Mass/Vol] 0.50 mg/dL 0.20-1.00 [facility] Comment on above: For patients on eltr ombopag therapy, use of Dimension [place] TBIL is not recommended. Chloride [Moles/Vol] 111 mmol/L 98-107 [facility] Eosinophils/100 WBC (Bld) 1.5 % 0-5 [facility] Glucose [Mass/Vol] 118 mg/dL 74-106 [facility] Comment on above: Fasting Glucose resu lt from 100 to 125 mg/dL suggests IMPAIRED HOMEOSTASIS per A.D.A. criteria. Neutrophils (Bld) [#/Vol] 3.1 10*3/uL 2.0-7.7 [facility] Neutrophils/100 WBC (Bld) 64.5 % 47-70 [facility] Potassium [Moles/Vol] 3.9 mmol/L 3.5-5.1 [facility] Protein [Mass/Vol] 6.8 g/dL 6.4-8.2 [facility] Sodium [Moles/Vol] 142 mmol/L 136-145 [facility] WBC (Bld) [#/Vol] 4.8 10*3/uL 4.4-11.0 [facility] Blood erythrocytes count (nu mber/volume)Ordered By: Dr. Hernandez on 10-09-2022 RBC (Bld) [#/Vol] 4.94 10*6/uL 4.2-5.4 [facility] Blood hemoglobin measurement (mass/volume)Ordered By: Dr. Hernandez on 10-09-2022 Hemoglobin (Bld) [Mass/Vol] 14.5 g/dL 12.0-15.0 [facility] Blood lymphocytes/100 leukoc ytesOrdered By: Dr. Hernandez on 10-09-2022 Lymphocytes/100 WBC (Bld) 23.6 % 19-41 [facility] Blood monocytes/100 leukocyt esOrdered By: Dr. Hernandez on 10-09-2022 Monocytes/100 WBC (Bld) 9.2 % 0-10 [facility] Blood platelet mean volumeOr dered By: Dr. Hernandez on 10-09-2022 Platelet mean volume (Bld) [Entitic vol] 11.2 fL 6.2-12.0 [facility] Determination of erythrocyte mean corpuscular volume (MCV)Ordered By: Dr. Hernandez on 10-09-2022 MCV (RBC) [Entitic vol] 91.7 fL 81-99 [facility] Glucose Glucometer (BldC) [M ass/Vol]Ordered By: Dr. Hernandez on 10-09-2022 Glucose [Mass/Vol] 130 mg/dL 74-106 [facility] Comment on above: MANAGEMENT OF PATIEN T CARE PER NURSING PROTOCOL Hematocrit Auto (Bld) [Volum e fraction]Ordered By: Dr. Hernandez on 10-09-2022 Hematocrit (Bld) [Volume fraction] 45.3 % 37-47 [facility] Laboratory - Chemistry and C hemistry - challengeOrdered By: Dr. Hernandez on 10-09-2022 ALP [Catalytic activity/Vol] 53 U/L 45-117 [facility] ALT [Catalytic activity/Vol] 29 U/L 13-56 [facility] CO2 [Moles/Vol] 26.0 mmol/L 21.0-32.0 [facility] Globulin (S) [Mass/Vol] 3.6 g/dL 2.2-4.2 [facility] Urea nitrogen/Creatinine [Mass ratio] 12.5 mg/mg 10-20 [facility] Laboratory - Hematology and Cell countsOrdered By: Dr. Hernandez on 10-09-2022 Erythrocyte distribution width (RBC) [Entitic vol] 44.4 fL 35.1-43.9 [facility] Erythrocyte distribution width (RBC) [Ratio] 13.1 % 11.6-14.6 [facility] Immature granulocytes/100 WBC (Bld) 0.600 % 0.0-0.9 [facility] Comment on above: IG% - Immature Granu locytes (promyelocytes, myelocytes and metamyelocytes) > 1% indicates that a LEFT SHIFT is Present. MCH (RBC) [Entitic mass] 29.4 pg 27.0-32.0 [facility] Nucleated RBC/100 WBC (Bld) [Ratio] 0 % 0[facility]5 [facility] [Mass/Vol]Or dered By: Dr. Hernandez on 10-09-2022 MCHC (RBC) [Mass/Vol] 32.0 g/dL 32-36 [facility] No Panel InformationOrdered By: Dr. Hernandez on 10-09-2022 Estimated Creatinine Clearance Calc 93.90 ml/min [facility] Estimated GFR (MDRD) Amer 145 mL/min >60 [facility] Comment on above: GFR Calc Estimated GFR (MDRD) Non-Af Amer 119 mL/min >60 [facility] Comment on above: Non- GFR Calc Platelets bldOrdered By: Dr. Hernandez on 10-09-2022 Platelets (Bld) [#/Vol] 147 10*3/uL 150-450 [facility] Serum or plasma albumin donna urement (mass/volume)Ordered By: Dr. Hernandez on 10-09-2022 Albumin [Mass/Vol] 3.2 g/dL 3.2-5.0 [facility] Serum or plasma albumin/glob ulin mass ratioOrdered By: Dr. Hernandez on 10-09-2022 Albumin/Globulin [Mass ratio] 0.9 {ratio} 0.9-2.4 [facility] Serum or plasma calcium donna urement (mass/volume)Ordered By: Dr. Hernandez on 10-09-2022 Calcium [Mass/Vol] 8.7 mg/dL 8.5-10.1 [facility] Serum or plasma creatinine m easurement (mass/volume)Ordered By: Dr. Hernandez on 10-09-2022 Creatinine [Mass/Vol] 0.56 mg/dL 0.55-1.02 [facility] Comment on above: The validity of the calculated GFR & GFRAA in patients over 70 years has not been determined. Clinical correlation is essential. Serum or plasma urea nitroge n measurement (mass/volume)Ordered By: Dr. Hernandez on 10-09-2022 Urea nitrogen [Mass/Vol] 7 mg/dL 7-18 [facility] Thin prep Papanicolaou smear with manual screeningOrdered By: Dr. Hernandez on 10-09-2022 Thin prep Papanicolaou smear with manual screening 21 U/L 15-37 [facility] Thin prep Papanicolaou smear with manual screening 5 5-15 [facility] Absolute lymphocyte countOrd ered By: Dr. Antunez on 10-08-2022 Lymphocytes Auto (Unsp spec) [#/Vol] 1.30 10*3/uL 0.83-4.51 [facility] Basophil percentageOrdered B y: Dr. Antunez on 10-08-2022 Basophils/100 WBC (Bld) 0.4 % 0-1 [facility] Eosinophils/100 WBC (Bld) 0.9 % 0-5 [facility] Neutrophils (Bld) [#/Vol] 4.9 10*3/uL 2.0-7.7 [facility] Neutrophils/100 WBC (Bld) 72.3 % 47-70 [facility] WBC (Bld) [#/Vol] 6.8 10*3/uL 4.4-11.0 [facility] Basophil percentage 10-25 SEEN /hpf 0-5 [facility] Bilirubin [Mass/Vol] 0.50 mg/dL 0.20-1.00 [facility] Comment on above: For patients on eltr ombopag therapy, use of Dimension [place] TBIL is not recommended. Chloride [Moles/Vol] 106 mmol/L 98-107 [facility] Glucose [Mass/Vol] 122 mg/dL 74-106 [facility] Comment on above: Fasting Glucose resu lt from 100 to 125 mg/dL suggests IMPAIRED HOMEOSTASIS per A.D.A. criteria. Potassium [Moles/Vol] 3.9 mmol/L 3.5-5.1 [facility] Protein [Mass/Vol] 7.9 g/dL 6.4-8.2 [facility] Sodium [Moles/Vol] 138 mmol/L 136-145 [facility] Bilirubin Test strip Ql (U)O rdered By: Dr. Antunez on 10-08-2022 Bilirubin Ql (U) Negative Negative [facility] Blood erythrocytes count (nu mber/volume)Ordered By: Dr. Antunez on 10-08-2022 RBC (Bld) [#/Vol] 5.30 10*6/uL 4.2-5.4 [facility] Blood hemoglobin measurement (mass/volume)Ordered By: Dr. Antunez on 10-08-2022 Hemoglobin (Bld) [Mass/Vol] 15.8 g/dL 12.0-15.0 [facility] Blood lymphocytes/100 leukoc ytesOrdered By: Dr. Antunez on 10-08-2022 Lymphocytes/100 WBC (Bld) 19.0 % 19-41 [facility] Blood monocytes/100 leukocyt esOrdered By: Dr. Antunez on 10-08-2022 Monocytes/100 WBC (Bld) 7.0 % 0-10 [facility] Blood platelet mean volumeOr dered By: Dr. Antunez on 10-08-2022 Platelet mean volume (Bld) [Entitic vol] 11.5 fL 6.2-12.0 [facility] Determination of erythrocyte mean corpuscular volume (MCV)Ordered By: Dr. Antunez on 10-08-2022 MCV (RBC) [Entitic vol] 90.8 fL 81-99 [facility] Hematocrit Auto (Bld) [Volum e fraction]Ordered By: Dr. Antunez on 10-08-2022 Hematocrit (Bld) [Volume fraction] 48.1 % 37-47 [facility] Ketones Test strip Ql (U)Ord ered By: Dr. Antunez on 10-08-2022 Ketones Ql (U) Negative Negative [facility] Laboratory - Chemistry and C hemistry - challengeOrdered By: Dr. Antunez on 10-08-2022 ALP [Catalytic activity/Vol] 60 U/L 45-117 [facility] ALT [Catalytic activity/Vol] 30 U/L 13-56 [facility] CO2 [Moles/Vol] 29.0 mmol/L 21.0-32.0 [facility] Globulin (S) [Mass/Vol] 4.2 g/dL 2.2-4.2 [facility] Lipase [Catalytic activity/Vol] 70 U/L 13-75 [facility] Comment on above: Please note:LIPASE r evised reference range effective 22. New Lipase methodology. Expected to produce lower values than the previous assay method. NEW Reference Range: 13 - 75 U/L Urea nitrogen/Creatinine [Mass ratio] 13.3 mg/mg 10-20 [facility] - Hematology and Cell countsOrdered By: Dr. Antunez on 10-08-2022 Erythrocyte distribution width (RBC) [Entitic vol] 43.7 fL 35.1-43.9 [facility] Erythrocyte distribution width (RBC) [Ratio] 13.2 % 11.6-14.6 [facility] Immature granulocytes/100 WBC (Bld) 0.400 % 0.0-0.9 [facility] Comment on above: IG% - Immature Granu locytes (promyelocytes, myelocytes and metamyelocytes) > 1% indicates that a LEFT SHIFT is Present. MCH (RBC) [Entitic mass] 29.8 pg 27.0-32.0 [facility] Nucleated RBC/100 WBC (Bld) [Ratio] 0 % 0-5 [facility] MCHC Auto (RBC) [Mass/Vol]Or dered By: Dr. Antunez on 10-08-2022 MCHC (RBC) [Mass/Vol] 32.8 g/dL 32-36 [facility] Mucus LM Ql (Urine sed)Order ed By: Dr. Antunez on 10-08-2022 Mucus Ql (Urine sed) 0 SEEN /hpf [facility] Nitrite Test strip Ql (U)Ord ered By: Dr. Antunez on 10-08-2022 Nitrite Ql (U) Negative Negative [facility] No Panel InformationOrdered By: Dr. Antunez on 10-08-2022 Estimated Creatinine Clearance Calc 70.11 ml/min [facility] Estimated GFR (MDRD) Amer 102 mL/min >60 [facility] Comment on above: GFR Calc Estimated GFR (MDRD) Non-Af Amer 85 mL/min >60 [facility] Comment on above: Non- GFR Calc Platelets bldOrdered By: Dr. Antunez on 10-08-2022 Platelets (Bld) [#/Vol] 173 10*3/uL 150-450 [facility] Protein Test strip Ql (U)Ord ered By: Dr. Antunez on 10-08-2022 Protein Ql (U) 30 mg/dl Negative [facility] Serum or plasma albumin donna urement (mass/volume)Ordered By: Dr. Antunez on 10-08-2022 Albumin [Mass/Vol] 3.7 g/dL 3.2-5.0 [facility] Serum or plasma albumin/glob ulin mass ratioOrdered By: Dr. Antunez on 10-08-2022 Albumin/Globulin [Mass ratio] 0.9 {ratio} 0.9-2.4 [facility] Serum or plasma calcium donna urement (mass/volume)Ordered By: Dr. Antunez on 10-08-2022 Calcium [Mass/Vol] 9.3 mg/dL 8.5-10.1 [facility] Serum or plasma creatinine m easurement (mass/volume)Ordered By: Dr. Antunez on 10-08-2022 Creatinine [Mass/Vol] 0.75 mg/dL 0.55-1.02 [facility] Comment on above: The validity of the calculated GFR & GFRAA in patients over 70 years has not been determined. Clinical correlation is essential. Serum or plasma urea nitroge n measurement (mass/volume)Ordered By: Dr. Antunez on 10-08-2022 Urea nitrogen [Mass/Vol] 10 mg/dL 7-18 [facility] Squamous epithelial cells de tection in urine sediment by light microscopyOrdered By: Dr. Antunez on 10-08-2022 Epithelial cells.squamous LM Ql (Urine sed) 0-5 SEEN /hpf 5-10 [facility] Thin prep Papanicolaou smear with manual screeningOrdered By: Dr. Antunez on 10-08-2022 Thin prep Papanicolaou smear with manual screening 18 U/L 15-37 [facility] Thin prep Papanicolaou smear with manual screening 3 5-15 [facility] Urine blood detectionOrdered By: Dr. Antunez on 10-08-2022 RBC Ql (U) 50 /ul Negative [facility] RBC Ql (U) 0-5 SEEN /hpf 0-5 [facility] Urine clarityOrdered By: Dr. Antunez on 10-08-2022 Clarity (U) Sl. Cloudy Clear [facility] Urine color determinationOrd ered By: Dr. Antunez on 10-08-2022 Color (U) Yellow Yellow [facility] Urine glucose detectionOrder ed By: Dr. Antunez on 10-08-2022 Glucose Ql (U) Normal mg/dl Normal [facility] Urine leukocyte esterase det ection by dipstickOrdered By: Dr. Antunez on 10-08-2022 Leukocyte esterase Test strip Ql (U) 500 /ul Negative [facility] Urine pHOrdered By: Dr. Mal arechiga on 10-08-2022 pH (U) 5.0 [pH] 5.0 - 8.0 [facility] Urine sediment bacteria coun t by microscopy (number/high power field)Ordered By: Dr. Antunez on 10-08-2022 Bacteria LM.HPF (Urine sed) [#/Area] 1 /[HPF] None Seen [facility] Urine specific gravity measu rementOrdered By: Dr. Antunez on 10-08-2022 Specific gravity (U) [Rel density] 1.025 1.002-1.030 [facility] Urobilinogen Auto test strip Ql (U)Ordered By: Dr. Antunez on 10-08-2022 Urobilinogen Ql (U) Normal mg/dl Normal [facility] LABORATORYOrdered By: SYSTEM SYSTEM on 08-28-2022 Albumin BCP dye [Mass/Vol] 3.9 G/dL Invalid Interpretation Code 3.2 - 4.8 G/dL ADM SS Albumin/Globulin [Mass ratio] 1.2 {ratio} Invalid Interpretation Code 0.9 - 1.6 ratio ADM SS ALP [Catalytic activity/Vol] 49 U/L Invalid Interpretation Code 38 - 126 U/L ADM SS ALT No additional P-5'-P [Catalytic activity/Vol] 21 U/L Invalid Interpretation Code 10 - 49 U/L ADM SS AST [Catalytic activity/Vol] 21 U/L Invalid Interpretation Code 8 - 34 U/L ADM SS Basophils (Bld) [#/Vol] 0.0 103/mcL Invalid Interpretation Code 0.0 - 0.3 10^3/mcL Workflow SS Basophils/100 WBC (Bld) 0.4 % Invalid Interpretation Code 0.0 - 2.5 % Workflow SS Bilirubin [Mass/Vol] 0.60 mg/dL Invalid Interpretation Code 0.20 - 1.20 mg/dL ADM SS Calcium [Mass/Vol] 9.8 mg/dL Invalid Interpretation Code 8.7 - 10.4 mg/dL ADM SS Chloride [Moles/Vol] 103 mmol/L Invalid Interpretation Code 98 - 110 mEq/L ADM SS CO2 [Moles/Vol] 33 mmol/L Invalid Interpretation Code 22 - 32 mEq/L ADM SS Creatinine [Mass/Vol] 0.70 mg/dL Invalid Interpretation Code 0.50 - 1.20 mg/dL ADM SS Electrolyte Balance 4.0 mEq/L Invalid Interpretation Code 4.0 - 15.0 mEq/L ADM SS Eosinophils (Bld) [#/Vol] 0.1 103/mcL Invalid Interpretation Code 0.0 - 0.7 10^3/mcL AH Workflow SS Eosinophils/100 WBC (Bld) 0.9 % Invalid Interpretation Code 0.0 - 6.0 % Workflow SS Erythrocyte distribution width (RBC) [Ratio] 13.7 % Invalid Interpretation Code 11.5 - 15.5 % Workflow SS GFR/1.73 sq M.predicted among blacks MDRD (S/P/Bld) [Vol rate/Area] ml/min/1.73sqm Invalid Interpretation Code Chemistry S GFR/1.73 sq M.predicted among non-blacks MDRD (S/P/Bld) [Vol rate/Area] ml/min/1.73sqm Invalid Interpretation Code Chemistry S Globulin 3.3 G/dL Invalid Interpretation Code 1.5 - 3.8 G/dL ADM SS Glucose [Mass/Vol] 113 mg/dL Invalid Interpretation Code 70 - 110 mg/dL ADM SS Hematocrit (Bld) [Volume fraction] 45.6 % Invalid Interpretation Code 34.0 - 46.0 % Workflow SS Hemoglobin (Bld) [Mass/Vol] 15.5 G/dL Invalid Interpretation Code 12.0 - 16.0 G/dL Workflow SS Lymphocytes (Bld) [#/Vol] 1.2 103/mcL Invalid Interpretation Code 0.9 - 4.3 10^3/mcL Workflow SS Lymphocytes/100 WBC (Bld) 19.7 % Invalid Interpretation Code 20.0 - 40.0 % Workflow SS MCH (RBC) [Entitic mass] 30.7 pg Invalid Interpretation Code 27.0 - 33.0 pg Workflow SS MCHC 33.9 G/dL Invalid Interpretation Code 32.0 - 36.0 G/dL Workflow SS MCV (RBC) [Entitic vol] 90.6 fL Invalid Interpretation Code 80.0 - 99.0 fL Workflow SS Monocytes (Bld) [#/Vol] 0.5 103/mcL Invalid Interpretation Code 0.1 - 1.4 10^3/mcL Workflow SS Monocytes/100 WBC (Bld) 8.1 % Invalid Interpretation Code 2.0 - 13.0 % AH Workflow SS Neutrophils (Bld) [#/Vol] 4.2 103/mcL Invalid Interpretation Code 2.3 - 8.1 10^3/mcL AH Workflow SS Neutrophils/100 WBC (Bld) 70.9 % Invalid Interpretation Code 50.0 - 75.0 % AH Workflow SS Platelet mean volume (Bld) [Entitic vol] 9.7 fL Invalid Interpretation Code 6.6 - 10.5 fL Workflow SS Platelets (Bld) [#/Vol] 147 103/mcL Invalid Interpretation Code 150 - 450 10^3/mcL AH Workflow SS Potassium [Moles/Vol] 4.5 mmol/L Invalid Interpretation Code 3.5 - 5.0 mEq/L ADM SS Protein [Mass/Vol] 7.2 G/dL Invalid Interpretation Code 5.7 - 8.2 G/dL ADM SS RBC (Bld) [#/Vol] 5.04 106/mcL Invalid Interpretation Code 4.10 - 5.30 10^6/mcL Workflow SS Sodium [Moles/Vol] 140 mmol/L Invalid Interpretation Code 136 - 145 mEq/L ADM SS Urea nitrogen [Mass/Vol] 11.0 mg/dL Invalid Interpretation Code 8.0 - 22.0 mg/dL ADM SS Urea nitrogen/Creatinine [Mass ratio] 15.7 ratio Invalid Interpretation Code 10.0 - 22.0 ratio ADM SS WBC (Bld) [#/Vol] 5.9 103/mcL Invalid Interpretation Code 4.5 - 10.8 10^3/mcL Workflow SS LABORATORYOrdered By: Vani Chavez on 07-02-2022 C. trachomatis DNA KATELYN+probe Ql (Unsp spec) Negative 4 (07/02/22 9:50 AM) Invalid Interpretation Code Negative Auto [facility] Comment on above: Result Comment: Teague sport tube received with two swabs. Review collection procedure. Inappropriate collection may cause aberrant results. C. trachomatis DNA KAETLYN+probe Ql (Unsp spec) C. trachomatis DNA not detected. Specimen is presumptive negative forC. trachomatis.A negative result does not preclude C. trachomatis infection becauseresults depend on adequate specimen collection, absence of inhibitors,and sufficient DNA to be detected. Invalid Interpretation Code See CT Interp N Auto Viro/Sero SS N. gonorrhoeae DNA KATELYN+probe Ql (Unsp spec) Negative 3 (07/02/22 9:50 AM) Invalid Interpretation Code Negative AH Auto Viro/Sero SS Comment on above: Result Comment: Teague sport tube received with two swabs. Review collection procedure. Inappropriate collection may cause aberrant results. N. gonorrhoeae DNA KATELYN+probe Ql (Unsp spec) N. gonorrhoeae DNA not detected. Specimen is presumptive negative forN. gonorrhoeae. A negative result does not preclude Neisseria gonorrhoeaeinfection because results depend on adequate specimen collection, absenceof inhibitors, and sufficient DNA to be detected. Invalid Interpretation Code See NG Interp N AH Auto Viro/Sero SS LABORATORYOrdered By: KJ LO CONTRIBUTOR_SYSTEM on 07-02-2022 HSV 1 Subtype by PCR Not detected Invalid Interpretation Code AO [facility] Comment on above: Result Comment: No v isible tissue observed in sample submitted. An aliquot of the media submitted was extracted for testing. HSV 2 Subtype by PCR Not detected Invalid Interpretation Code [facility] Comment on above: Result Comment: No v isible tissue observed in sample submitted. An aliquot of the media submitted was extracted for testing. INTERPRETIVE INFORMATION: HSV-1 and HSV-2 Subtype by PCR A negative result does not rule out the presence of PCR inhibitors in the patient specimen or test-specific nucleic acid in concentrations below the level of detection by this test. This test was developed and its performance characteristics determined by [email or web address]. It has not been cleared or approved by the [place] Food and Drug Administration. This test was performed in a CLIA certified laboratory and is intended for clinical purposes. Performed by [email or web address], [address] [place] [id number] [email or web address], Aleksandr Ross MD, PHD, Lab. Director HSV Source Tissue Invalid Interpretation Code AO [facility] - Specimen inform ationOrdered By: Vani Chavez on 07-02-2022 Specimen source Nom (Unsp spec) Cervix (07/02/22 9:50 AM) Invalid Interpretation Code Auto Viro/Sero SS No Panel InformationOrdered By: Guadalupe Pollock on 07-02-2022 Affirm Pathogens DNA Direct Probe Gardnerella vaginalis DNA Probe Positive Trichomonas vaginalis DNA Probe Negative Kati species DNA Probe Negative [facility] Basophil percentageOrdered B y: JAQUAN Segovia on 05-14-2022 Bilirubin [Mass/Vol] 0.40 mg/dL 0.20-1.00 [facility] Comment on above: For patients on eltr ombopag therapy, use of Dimension [place] TBIL is not recommended. Chloride [Moles/Vol] 103 mmol/L 98-107 [facility] Glucose [Mass/Vol] 107 mg/dL 74-106 [facility] Comment on above: Fasting Glucose resu lt from 100 to 125 mg/dL suggests IMPAIRED HOMEOSTASIS per A.D.A. criteria. Potassium [Moles/Vol] 3.9 mmol/L 3.5-5.1 [facility] Protein [Mass/Vol] 7.8 g/dL 6.4-8.2 [facility] Sodium [Moles/Vol] 140 mmol/L 136-145 [facility] WBC (Bld) [#/Vol] 5.7 10*3/uL 4.4-11.0 [facility] Blood erythrocytes count (nu mber/volume)Ordered By: JAQUAN Segovia on 05-14-2022 RBC (Bld) [#/Vol] 5.08 10*6/uL 4.2-5.4 [facility] Blood hemoglobin measurement (mass/volume)Ordered By: JAQUAN Segovia on 05-14-2022 Hemoglobin (Bld) [Mass/Vol] 15.7 g/dL 12.0-15.0 [facility] Blood platelet mean volumeOr dered By: JAQUAN Segovia on 05-14-2022 Platelet mean volume (Bld) [Entitic vol] 11.4 fL 6.2-12.0 [facility] Determination of erythrocyte mean corpuscular volume (MCV)Ordered By: JAQUAN Segovia on 05-14-2022 MCV (RBC) [Entitic vol] 94.7 fL 81-99 [facility] Hematocrit Auto (Bld) [Volum e fraction]Ordered By: JAQUAN Segovia on 05-14-2022 Hematocrit (Bld) [Volume fraction] 48.1 % 37-47 [facility] Laboratory - Chemistry and C hemistry - challengeOrdered By: JAQUAN Segovia on 05-14-2022 ALP [Catalytic activity/Vol] 44 U/L 45-117 [facility] ALT [Catalytic activity/Vol] 30 U/L 13-56 [facility] CO2 [Moles/Vol] 28.0 mmol/L 21.0-32.0 [facility] Free T4 [Mass/Vol] 1.67 ng/dL 0.76-1.46 [facility] Globulin (S) [Mass/Vol] 4.2 g/dL 2.2-4.2 [facility] Urea nitrogen/Creatinine [Mass ratio] 15.6 mg/mg 10-20 [facility] Laboratory - Hematology and Cell countsOrdered By: JAQUAN Segovia on 05-14-2022 Erythrocyte distribution width (RBC) [Entitic vol] 45.6 fL 35.1-43.9 [facility] Erythrocyte distribution width (RBC) [Ratio] 13.0 % 11.6-14.6 [facility] MCH (RBC) [Entitic mass] 30.9 pg 27.0-32.0 [facility] MCHC Auto (RBC) [Mass/Vol]Or dered By: JAQUAN Segovia on 05-14-2022 MCHC (RBC) [Mass/Vol] 32.6 g/dL 32-36 [facility] No Panel InformationOrdered By: JAQUAN Segovia on 05-14-2022 Estimated GFR (MDRD) Amer 100 mL/min >60 [facility] Comment on above: GFR Calc Estimated GFR (MDRD) Non-Af Amer 83 mL/min >60 [facility] Comment on above: Non- GFR Calc Free Triiodothyronine (T3) pg/dL 2.7 pg/mL 2.18-3.98 [facility] Thyroid Stimulating Hormone (TSH) 0.17 uIU/mL 0.358-3.74 [facility] Platelets bldOrdered By: JAQUAN Segovia on 05-14-2022 Platelets (Bld) [#/Vol] 174 10*3/uL 150-450 [facility] Serum or plasma albumin donna urement (mass/volume)Ordered By: JAQUAN Segovia on 05-14-2022 Albumin [Mass/Vol] 3.6 g/dL 3.2-5.0 [facility] Serum or plasma albumin/glob ulin mass ratioOrdered By: JAQUAN Segovia on 05-14-2022 Albumin/Globulin [Mass ratio] 0.9 {ratio} 0.9-2.4 [facility] Serum or plasma calcium donna urement (mass/volume)Ordered By: JAQUAN Segovia on 05-14-2022 Calcium [Mass/Vol] 9.3 mg/dL 8.5-10.1 [facility] Serum or plasma creatinine m easurement (mass/volume)Ordered By: JAQUAN Segovia on 05-14-2022 Creatinine [Mass/Vol] 0.77 mg/dL 0.55-1.02 [facility] Comment on above: The validity of the calculated GFR & GFRAA in patients over 70 years has not been determined. Clinical correlation is essential. Serum or plasma urea nitroge n measurement (mass/volume)Ordered By: JAQUAN Segovia on 05-14-2022 Urea nitrogen [Mass/Vol] 12 mg/dL 7-18 [facility] Thin prep Papanicolaou smear with manual screeningOrdered By: JAQUAN Segovia on 05-14-2022 Thin prep Papanicolaou smear with manual screening 19 U/L 15-37 [facility] Thin prep Papanicolaou smear with manual screening 9 5-15 [facility] Absolute lymphocyte countOrd ered By: ED PROVIDER on 04-28-2022 Lymphocytes Auto (Unsp spec) [#/Vol] 1.89 10*3/uL 0.83-4.51 [facility] Basophil percentageOrdered B y: ED PROVIDER on 04-28-2022 Basophil percentage 0 SEEN /hpf 0-5 [facility] Basophils/100 WBC (Bld) 0.3 % 0-1 [facility] Bilirubin [Mass/Vol] 0.50 mg/dL 0.20-1.00 [facility] Comment on above: For patients on eltr ombopag therapy, use of Dimension [place] TBIL is not recommended. Chloride [Moles/Vol] 104 mmol/L 98-107 [facility] Eosinophils/100 WBC (Bld) 1.1 % 0-5 [facility] Glucose [Mass/Vol] 135 mg/dL 74-106 [facility] Comment on above: Fasting Glucose resu lt greater than or equal to 126 mg/dL suggests DIABETES MELLITUS per A.D.A. criteria. Neutrophils (Bld) [#/Vol] 3.9 10*3/uL 2.0-7.7 [facility] Neutrophils/100 WBC (Bld) 61.2 % 47-70 [facility] Potassium [Moles/Vol] 3.9 mmol/L 3.5-5.1 [facility] Protein [Mass/Vol] 7.7 g/dL 6.4-8.2 [facility] Sodium [Moles/Vol] 141 mmol/L 136-145 [facility] WBC (Bld) [#/Vol] 6.4 10*3/uL 4.4-11.0 [facility] Bilirubin Test strip Ql (U)O rdered By: ED PROVIDER on 04-28-2022 Bilirubin Ql (U) Negative Negative [facility] Blood erythrocytes count (nu mber/volume)Ordered By: ED PROVIDER on 04-28-2022 RBC (Bld) [#/Vol] 4.85 10*6/uL 4.2-5.4 [facility] Blood hemoglobin measurement (mass/volume)Ordered By: ED PROVIDER on 04-28-2022 Hemoglobin (Bld) [Mass/Vol] 16.1 g/dL 12.0-15.0 [facility] Blood lymphocytes/100 leukoc ytesOrdered By: ED PROVIDER on 04-28-2022 Lymphocytes/100 WBC (Bld) 29.6 % 19-41 [facility] Blood monocytes/100 leukocyt esOrdered By: ED PROVIDER on 04-28-2022 Monocytes/100 WBC (Bld) 7.2 % 0-10 [facility] Blood platelet mean volumeOr dered By: ED PROVIDER on 04-28-2022 Platelet mean volume (Bld) [Entitic vol] 11.3 fL 6.2-12.0 [facility] Determination of erythrocyte mean corpuscular volume (MCV)Ordered By: ED PROVIDER on 04-28-2022 MCV (RBC) [Entitic vol] 95.3 fL 81-99 [facility] Hematocrit Auto (Bld) [Volum e fraction]Ordered By: ED PROVIDER on 04-28-2022 Hematocrit (Bld) [Volume fraction] 46.2 % 37-47 [facility] Ketones Test strip Ql (U)Ord ered By: ED PROVIDER on 04-28-2022 Ketones Ql (U) Negative Negative [facility] Laboratory - Chemistry and C hemistry - challengeOrdered By: ED PROVIDER on 04-28-2022 ALP [Catalytic activity/Vol] 49 U/L 45-117 [facility] ALT [Catalytic activity/Vol] 27 U/L 13-56 [facility] CO2 [Moles/Vol] 29.0 mmol/L 21.0-32.0 [facility] Globulin (S) [Mass/Vol] 4.1 g/dL 2.2-4.2 [facility] Urea nitrogen/Creatinine [Mass ratio] 17.3 mg/mg 10-20 [facility] Laboratory - Chemistry and C hemistry - challengeOrdered By: Dr. Antunez on 04-28-2022 Lipase [Catalytic activity/Vol] 429 U/L 73-393 [facility] Laboratory - Hematology and Cell countsOrdered By: ED PROVIDER on 04-28-2022 Erythrocyte distribution width (RBC) [Entitic vol] 47.5 fL 35.1-43.9 [facility] Erythrocyte distribution width (RBC) [Ratio] 13.5 % 11.6-14.6 [facility] Immature granulocytes/100 WBC (Bld) 0.600 % 0.0-0.9 [facility] Comment on above: IG% - Immature Granu locytes (promyelocytes, myelocytes and metamyelocytes) > 1% indicates that a LEFT SHIFT is Present. MCH (RBC) [Entitic mass] 33.2 pg 27.0-32.0 [facility] Nucleated RBC/100 WBC (Bld) [Ratio] 0 % 0-5 [facility] MCHC Auto (RBC) [Mass/Vol]Or dered By: ED PROVIDER on 04-28-2022 MCHC (RBC) [Mass/Vol] 34.8 g/dL 32-36 [facility] Mucus LM Ql (Urine sed)Order ed By: ED PROVIDER on 04-28-2022 Mucus Ql (Urine sed) 0 SEEN /hpf [facility] Nitrite Test strip Ql (U)Ord ered By: ED PROVIDER on 04-28-2022 Nitrite Ql (U) Negative Negative [facility] No Panel InformationOrdered By: ED PROVIDER on 04-28-2022 Estimated Creatinine Clearance Calc 64.92 ml/min [facility] Estimated GFR (MDRD) Amer 95 mL/min >60 [facility] Comment on above: GFR Calc Estimated GFR (MDRD) Non-Af Amer 78 mL/min >60 [facility] Comment on above: Non- GFR Calc Platelets bldOrdered By: ED PROVIDER on 04-28-2022 Platelets (Bld) [#/Vol] 177 10*3/uL 150-450 [facility] Protein Test strip Ql (U)Ord ered By: ED PROVIDER on 04-28-2022 Protein Ql (U) Negative Negative [facility] Serum or plasma albumin donna urement (mass/volume)Ordered By: ED PROVIDER on 04-28-2022 Albumin [Mass/Vol] 3.6 g/dL 3.2-5.0 [facility] Serum or plasma albumin/glob ulin mass ratioOrdered By: ED PROVIDER on 04-28-2022 Albumin/Globulin [Mass ratio] 0.9 {ratio} 0.9-2.4 [facility] Serum or plasma calcium donna urement (mass/volume)Ordered By: ED PROVIDER on 04-28-2022 Calcium [Mass/Vol] 9.1 mg/dL 8.5-10.1 [facility] Serum or plasma creatinine m easurement (mass/volume)Ordered By: ED PROVIDER on 04-28-2022 Creatinine [Mass/Vol] 0.81 mg/dL 0.55-1.02 [facility] Comment on above: The validity of the calculated GFR & GFRAA in patients over 70 years has not been determined. Clinical correlation is essential. Serum or plasma urea nitroge n measurement (mass/volume)Ordered By: ED PROVIDER on 04-28-2022 Urea nitrogen [Mass/Vol] 14 mg/dL 7-18 [facility] Squamous epithelial cells de tection in urine sediment by light microscopyOrdered By: ED PROVIDER on 04-28-2022 Epithelial cells.squamous LM Ql (Urine sed) 0-5 SEEN /hpf 5-10 [facility] Thin prep Papanicolaou smear with manual screeningOrdered By: ED PROVIDER on 04-28-2022 Thin prep Papanicolaou smear with manual screening 14 U/L 15-37 [facility] Thin prep Papanicolaou smear with manual screening 8 5-15 [facility] Urine blood detectionOrdered By: ED PROVIDER on 04-28-2022 RBC Ql (U) Negative Negative [facility] RBC Ql (U) 0 SEEN /hpf 0-5 [facility] Urine clarityOrdered By: ED PROVIDER on 04-28-2022 Clarity (U) Sl. Cloudy Clear [facility] Urine color determinationOrd ered By: ED PROVIDER on 04-28-2022 Color (U) Yellow Yellow [facility] Urine glucose detectionOrder ed By: ED PROVIDER on 04-28-2022 Glucose Ql (U) Normal mg/dl Normal [facility] Urine leukocyte esterase det ection by dipstickOrdered By: ED PROVIDER on 04-28-2022 Leukocyte esterase Test strip Ql (U) Negative Negative [facility] Urine pHOrdered By: ED PROVI ИВАН on 04-28-2022 pH (U) 5.0 [pH] 5.0 - 8.0 [facility] Urine sediment bacteria coun t by microscopy (number/high power field)Ordered By: ED PROVIDER on 04-28-2022 Bacteria LM.HPF (Urine sed) [#/Area] 0 /[HPF] None Seen [facility] Urine specific gravity measu rementOrdered By: ED PROVIDER on 04-28-2022 Specific gravity (U) [Rel density] 1.025 1.002-1.030 [facility] Urobilinogen Auto test strip Ql (U)Ordered By: ED PROVIDER on 04-28-2022 Urobilinogen Ql (U) Normal mg/dl Normal [facility] CBC with AUTO DIFFon 022 BAS0 % 0.90 % Normal 0-2 [facility] Comment on above: Performed By: #### C BC, DIFF (MANUAL) #### [facility] [address] [place] [address] Basophils (Bld) [#/Vol] 0.1 10*3/uL Normal 0-0.1 [facility] Comment on above: Performed By: #### C BC, DIFF (MANUAL) #### [address] [place] [address] Eosinophils (Bld) [#/Vol] 0.1 10*3/uL Normal 0.0-1.80 [facility] Comment on above: Performed By: #### C BC, DIFF (MANUAL) #### [address] [place] [address] Eosinophils/100 WBC (Bld) 1.0 % Normal 0-8 [facility] Comment on above: Performed By: #### C BC, DIFF (MANUAL) #### [address] [place] [address] GRAN # 4.0 K/uL Normal 2.2-9.1 [facility] Comment on above: Performed By: #### C BC, DIFF (MANUAL) #### [address] [place] [address] GRAN % 63.0 % Normal 42-80 [facility] Comment on above: Performed By: #### C BC, DIFF (MANUAL) #### [address] [place] [address] Hematocrit (Bld) [Volume fraction] 47.8 % High 37.0-47.0 [facility] Comment on above: Performed By: #### C BC, DIFF (MANUAL) #### [address] [place] [address] Hemoglobin (Bld) [Mass/Vol] 16.1 g/dL High 12.0-16.0 [facility] Comment on above: Performed By: #### C BC, DIFF (MANUAL) #### [address] [place] [address] Lymphocytes (Bld) [#/Vol] 1.9 10*3/uL Normal 1.0-4.0 [facility] Comment on above: Performed By: #### C BC, DIFF (MANUAL) #### [address] [place] [address] Lymphocytes/100 WBC (Bld) 29.6 % Normal 16-48 [facility] Comment on above: Performed By: #### C BC, DIFF (MANUAL) #### [address] [place] [address] MCV (RBC) [Entitic vol] 91.2 fL Normal 80-97 A [facility] Comment on above: Performed By: #### C BC, DIFF (MANUAL) #### [facility] [address] [place] [address] MEAN CORPUSCULAR HGB 30.8 pg Normal 26.0-32.0 [facility] Comment on above: Performed By: #### C BC, DIFF (MANUAL) #### [facility] [address] [place] [address] MEAN CORPUSCULAR HGB CONC 33.8 g/dL Normal 31.0-36.0 [facility] Comment on above: Performed By: #### C BC, DIFF (MANUAL) #### [address] [place] [address] MONO DISTRIB WIDTH Not performed Normal 0-20 [facility] Comment on above: Performed By: #### C BC, DIFF (MANUAL) #### [address] [place] [address] Monocytes (Bld) [#/Vol] 0.3 10*3/uL Normal 0.1-1.7 [facility] Comment on above: Performed By: #### C BC, DIFF (MANUAL) #### [address] [address] Monocytes/100 WBC (Bld) 5.5 % Normal 3-9 [facility] Comment on above: Performed By: #### C BC, DIFF (MANUAL) #### [address] [place] [address] Platelet mean volume (Bld) [Entitic vol] 10.6 fL High 6.6-10.5 [facility] Comment on above: Performed By: #### C BC, DIFF (MANUAL) #### [address] [place] [address] Platelets (Bld) [#/Vol] 124 10*3/uL Low 140-450 [facility] Comment on above: Performed By: #### C BC, DIFF (MANUAL) #### [address] [place] [address] RBC (Bld) [#/Vol] 5.24 10*6/uL Normal 4.20-5.50 [facility] Comment on above: Performed By: #### C BC, DIFF (MANUAL) #### [facility] [address] [place] [address] RED CELL DISTRI WIDTH 14.6 % Normal 11.0-15.5 [facility] Comment on above: Performed By: #### C BC, DIFF (MANUAL) #### [facility] [address] [place] [address] WBC (Bld) [#/Vol] 6.3 10*3/uL Normal 4.0-11.0 [facility] Comment on above: Performed By: #### C BC, DIFF (MANUAL) #### [facility] [address] [place] [address] COMPREHENSIVE METABOLIC PANE Dave 02-21-2022 Albumin [Mass/Vol] 3.9 g/dL Normal 3.4-5.0 [facility] Comment on above: Performed By: #### T DICK VALENZUELA, FT4 #### [address] [address] Albumin/Globulin [Mass ratio] 1.0 {ratio} Low 1.1-1.8 [facility] Comment on above: Performed By: #### T DICK VALENZUELA, FT4 #### [facility] [address] [place] [address] ALP [Catalytic activity/Vol] 42 U/L Low 45-117 [facility] Comment on above: Performed By: #### T DICK VALENZUELA, FT4 #### [facility] [address] [place] [address] ALT [Catalytic activity/Vol] 29 U/L Normal 12-78 [facility] Comment on above: Performed By: #### T DICK VALENZUELA, FT4 #### [facility] [address] [place] [address] Anion gap [Moles/Vol] 8.1 mmol/L Low 11-23 [facility] Comment on above: Performed By: #### T DICK VALENZUELA, FT4 #### [facility] [address] [facility] [address] AST [Catalytic activity/Vol] 25 U/L Normal 15-37 [facility] Comment on above: Performed By: #### T DICK VALENZUELA, FT4 #### [place] [facility] [address] [place] [address] Bilirubin [Mass/Vol] 0.5 mg/dL Normal 0.2-1.0 [facility] Comment on above: Performed By: #### T DICK VALENZUELA, FT4 #### [facility] [address] [place] [address] Calcium [Mass/Vol] 9.0 mg/dL Normal 8.5-10.1 [facility] Comment on above: Performed By: #### T DICK VALENZUELA, FT4 #### [facility] [address] [place] [address] Chloride [Moles/Vol] 102 mmol/L Normal 98-107 [facility] Comment on above: Performed By: #### T DICK VALENZUELA, FT4 #### [facility] [address] [place] [address] CO2 [Moles/Vol] 30.0 mmol/L Normal 21-32 [facility] Comment on above: Performed By: #### T DICK VALENZUELA, FT4 #### [address] [place] [address] Creatinine [Mass/Vol] 0.90 mg/dL Normal 0.55-1.02 [facility] Comment on above: Performed By: #### T DICK VALENZUELA, FT4 #### [facility] [address] [place] [address] GFR > 60.0 [facility] Comment on above: Performed By: #### T DICK VALENZUELA, FT4 #### [address] [place] [address] GFR AM > 60.0 [facility] Comment on above: Result Comment: THE NORMAL LEVEL OF GFR VARIES ACCORDING TO AGE, SEX, AND BODY SIZE. A GFR LEVEL OF LESS THAN 60 ML/MIN REPRESENTS LOSS OF THE ADULT LEVEL OF NORMAL KIDNEY FUNCTION. Performed By: #### T DICK VALENZUELA, FT4 #### [facility] [address] [place] [address] Globulin (S) [Mass/Vol] 4.0 g/dL Normal 2.5-4.6 [facility] Comment on above: Performed By: #### T NICOLAS MN, FT4 #### [address] [place] [address] Glucose [Mass/Vol] 86 mg/dL Normal 70-100 [facility] Comment on above: Performed By: #### T DICK VALENZUELA, FT4 #### [facility] [address] [place] [address] Potassium [Moles/Vol] 3.9 mmol/L Normal 3.5-5.1 [facility] Comment on above: Performed By: #### T DICK VALENZUELA, FT4 #### [facility] [address] [place] [address] Protein [Mass/Vol] 7.9 g/dL Normal 6.0-8.3 [facility] Comment on above: Performed By: #### T DICK VALENZUELA, FT4 #### [facility] [address] [place] [address] Sodium [Moles/Vol] 137 mmol/L Normal 136-145 [facility] Comment on above: Performed By: #### T DICK VALENZUELA, FT4 #### [address] [place] [address] Urea nitrogen [Mass/Vol] 7.0 mg/dL Normal 7-18 [facility] Comment on above: Performed By: #### T DICK VALENZUELA, FT4 #### [address] [place] [address] DIFFERENTIALon 02-21-2022 IMMATURE GRANS NONE SEEN Normal [facility] Comment on above: Performed By: #### C BC, DIFF (MANUAL) #### [address] [place] [address] PLATELET ESTIMATE SLIGHT DECREASE Normal [facility] Comment on above: Performed By: #### C BC, DIFF (MANUAL) #### [facility] [address] [place] [address] Basophils/100 WBC (Bld) 2 % Normal 0-2 [facility] Comment on above: Performed By: #### C BC, DIFF (MANUAL) #### [facility] [address] [place] [address] Lymphocytes/100 WBC (Bld) 29 % Normal 16-48 [facility] Comment on above: Performed By: #### C BC, DIFF (MANUAL) #### [facility] [address] [place] [address] Monocytes/100 WBC (Bld) 7 % Normal 3-9 [facility] Comment on above: Performed By: #### C BC, DIFF (MANUAL) #### [address] [address] [place] [address] Neutrophils/100 WBC (Bld) 62 % Normal 42-80 [facility] Comment on above: Performed By: #### C BC, DIFF (MANUAL) #### [facility] [address] [place] [address] RBC morphology finding Nom (Bld) ESSENTIALLY NORMAL Normal [facility] Comment on above: Performed By: #### C BC, DIFF (MANUAL) #### [facility] [address] [place] [address] TOTAL CELLS COUNTED 100 #CELLS Normal [facility] Comment on above: Performed By: #### C BC, DIFF (MANUAL) #### [facility] [address] [place] [address] GLYCOHEMOGLOBIN (A1C)on EST AVG GLUCOSE 114 [facility] Comment on above: Performed By: #### G LY ####[address] [address] HbA1c (Bld) [Mass fraction] 5.6 % [facility] Comment on above: Result Comment: Inte rpretation of Hgb A1C results: <5.7% Normal 5.7% - 6.4% Prediabetes >6.4% Diabetes SAMPLES FROM PATIENTS WITH HEMOLYTIC ANEMIAS OR THE PRESENCE OF UNSTABLE HEMOGLOBINS LIKE HbSS OR HbSC WILL EXHIBIT DECREASED GLYCATED HGB DUE TO THE SHORTENED LIFE SPAN OF THE RED CELLS.RESULTS ARE NOT RELIABLE IN PATIENTS WITH CHRONIC BLOOD LOSS. Performed By: #### G LY ####[address] [address] T3 FREEon 02-21-2022 Free T3 [Mass/Vol] 0.8 pg/mL Low 2.18-3.98 [facility] Comment on above: Performed By: #### F T3 ####[facility] [place] [address] THYROID STIM HORMONEon 02-21 THYROID STIM HORMONE 64.300 uIU/mL High 0.358-3.74 [facility] Comment on above: Performed By: #### T SH, MN, FT4 #### [facility] [address] [place] [address] THYROXINE (T4) FREEon 2021 THYROXINE (T4) FREE 0.3 ng/dL Low 0.76-1.46 [facility] Comment on above: Performed By: #### T SH, MN, FT4 #### [place] [facility] [address] [place] [address] CBC with AUTO DIFFon 05-16-2 022 BAS0 % 0.30 % Normal 0-2 [facility] Comment on above: Performed By: #### D IFF (MANUAL), CBC ####[address] [place] [address] Basophils (Bld) [#/Vol] 0.0 10*3/uL Normal 0-0.1 [facility] Comment on above: Performed By: #### D IFF (MANUAL), CBC ####[address] [place] [address] Eosinophils (Bld) [#/Vol] 0.0 10*3/uL Normal 0.0-1.80 [facility] Comment on above: Performed By: #### D IFF (MANUAL), CBC ####[address] [place] [address] Eosinophils/100 WBC (Bld) 0.1 % Normal 0-8 [facility] Comment on above: Performed By: #### D IFF (MANUAL), CBC ####[address] [place] [address] GRAN # 11.5 K/uL High 2.2-9.1 [facility] Comment on above: Performed By: #### D IFF (MANUAL), CBC ####[address] [place] [address] GRAN % 84.6 % High 42-80 [facility] Comment on above: Performed By: #### D IFF (MANUAL), CBC ####[address] [place] [address] Hematocrit (Bld) [Volume fraction] 54.9 % High 37.0-47.0 [facility] Comment on above: Performed By: #### D IFF (MANUAL), CBC ####[address] [place] [address] Hemoglobin (Bld) [Mass/Vol] 18.9 g/dL High 12.0-16.0 [facility] Comment on above: Performed By: #### D IFF (MANUAL), CBC ####[address] [place] [address] Lymphocytes (Bld) [#/Vol] 1.4 10*3/uL Normal 1.0-4.0 [facility] Comment on above: Performed By: #### D IFF (MANUAL), CBC ####[facility] [facility] [place] [address] Lymphocytes/100 WBC (Bld) 10.5 % Low 16-48 [facility] Comment on above: Performed By: #### D IFF (MANUAL), CBC ####[facility] [facility] [place] [address] MCV (RBC) [Entitic vol] 90.5 fL Normal 80-97 [facility] Comment on above: Performed By: #### D IFF (MANUAL), CBC ####[address] [place] [address] MEAN CORPUSCULAR HGB 31.1 pg Normal 26.0-32.0 [facility] Comment on above: Performed By: #### D IFF (MANUAL), CBC ####[address] [place] [address] MEAN CORPUSCULAR HGB CONC 34.4 g/dL Normal 31.0-36.0 [facility] Comment on above: Performed By: #### D IFF (MANUAL), CBC ####[address] [place] [address] Monocytes (Bld) [#/Vol] 0.6 10*3/uL Normal 0.1-1.7 [facility] Comment on above: Performed By: #### D IFF (MANUAL), CBC ####[facility] [facility] [place] [address] Monocytes/100 WBC (Bld) 4.5 % Normal 3-9 [facility] Comment on above: Performed By: #### D IFF (MANUAL), CBC ####[facility] [facility] [place] [address] Platelet mean volume (Bld) [Entitic vol] 9.8 fL Normal 6.6-10.5 [facility] Comment on above: Performed By: #### D IFF (MANUAL), CBC ####[address] [place] [address] Platelets (Bld) [#/Vol] 212 10*3/uL Normal 140-450 [facility] Comment on above: Performed By: #### D IFF (MANUAL), CBC ####[place] [address] [facility] [place] [address] RBC (Bld) [#/Vol] 6.06 10*6/uL High 4.20-5.50 [facility] Comment on above: Performed By: #### D IFF (MANUAL), CBC ####[place] [address] [facility] [place] [address] RED CELL DISTRI WIDTH 14.0 % Normal 11.0-15.5 [facility] Comment on above: Performed By: #### D IFF (MANUAL), CBC ####[place] [address] [facility] [place] [address] WBC (Bld) [#/Vol] 13.6 10*3/uL High 4.0-11.0 [facility] Comment on above: Performed By: #### D IFF (MANUAL), CBC ####[place] [address] [place] [address] CHEST-2 VIEWon 09-02-2021 CHEST-2 VIEW JANE REED Female [id number] Ordering physician: Von Branham LOC:ER [id number] Attending physician: 1965 56 DO S: 09/02/21 Acc#: [id number] Exam/Proc: CHEST-2 VIEW Dept: RADIOLOGY EXAMINATION: TWO XRAY VIEWS OF THE CHEST 09/02/2021 2:38 pm COMPARISON: 06/24/2021 HISTORY: ORDERING SYSTEM PROVIDED HISTORY: TECHNOLOGIST PROVIDED HISTORY: Reason for Exam: cough FINDINGS: The lungs are without acute focal process. There is no effusion or pneumothorax. The cardiomediastinal silhouette is without acute process. The osseous structures are without acute process. IMPRESSION: No acute process. Electronically signed By Bob Haas DO 09/02/2021 2:40:01 PM [facility] Workstation ID : [id number] REPORT SIGNATURE ON FILE Electronically Signed Date/Time: 09/02/21 1440 Dictated Date/time: 09/02/21 1439 CC: Normal [facility] COMPREHENSIVE METABOLIC PANE Dave 09-02-2021 Albumin [Mass/Vol] 3.7 g/dL Normal 3.4-5.0 [facility] Comment on above: Performed By: #### M N, TRO ####[address] [place] [address] Albumin/Globulin [Mass ratio] 0.9 {ratio} Low 1.1-1.8 [facility] Comment on above: Performed By: #### M N, TRO ####[facility] [facility] [place] [address] ALP [Catalytic activity/Vol] 54 U/L Normal 45-117 [facility] Comment on above: Performed By: #### M N, TRO ####[facility] [facility] [place] [address] ALT [Catalytic activity/Vol] 28 U/L Normal 12-78 [facility] Comment on above: Performed By: #### M N, TRO ####[facility] [facility] [place] [address] Anion gap [Moles/Vol] 10.0 mmol/L Low 11-23 [facility] Comment on above: Performed By: #### M N, TRO ####[facility] [facility] [place] [address] AST [Catalytic activity/Vol] 22 U/L Normal 15-37 [facility] Comment on above: Performed By: #### M N, TRO ####[facility] [facility] [place] [address] Bilirubin [Mass/Vol] 0.3 mg/dL Normal 0.2-1.0 [facility] Comment on above: Performed By: #### M N, TRO ####[facility] [facility] [place] [address] Calcium [Mass/Vol] 9.1 mg/dL Normal 8.5-10.1 [facility] Comment on above: Performed By: #### M N, TRO ####[facility] [facility] [place] [address] Chloride [Moles/Vol] 102 mmol/L Normal 98-107 [facility] Comment on above: Performed By: #### M N, TRO ####[facility] [facility] [place] [address] CO2 [Moles/Vol] 27.0 mmol/L Normal 21-32 [facility] Comment on above: Performed By: #### M N, TRO ####[facility] [facility] [place] [address] Creatinine [Mass/Vol] 0.80 mg/dL Normal 0.55-1.02 [facility] Comment on above: Performed By: #### M N, TRO ####[address] [place] [address] GFR > 60.0 [facility] Comment on above: Performed By: #### M N, TRO ####[facility] [facility] [place] [address] GFR AM > 60.0 [facility] Comment on above: Result Comment: THE NORMAL LEVEL OF GFR VARIES ACCORDING TO AGE, SEX, AND BODY SIZE. A GFR LEVEL OF LESS THAN 60 ML/MIN REPRESENTS LOSS OF THE ADULT LEVEL OF NORMAL KIDNEY FUNCTION. Performed By: #### M N, TRO ####[address] [place] [address] Globulin (S) [Mass/Vol] 4.2 g/dL Normal 2.5-4.6 [facility] Comment on above: Performed By: #### M N, TRO ####[address] [place] [address] Glucose [Mass/Vol] 138 mg/dL High 70-100 [facility] Comment on above: Performed By: #### M N, TRO ####[address] [place] [address] Potassium [Moles/Vol] 4.4 mmol/L Normal 3.5-5.1 [facility] Comment on above: Performed By: #### M N, TRO ####[place] [address] [facility] [place] [address] Protein [Mass/Vol] 7.9 g/dL Normal 6.0-8.3 [facility] Comment on above: Performed By: #### M N, TRO ####[address] [place] [address] Sodium [Moles/Vol] 134 mmol/L Low 136-145 [facility] Comment on above: Performed By: #### M N, TRO ####[place] [address] [facility] [place] [address] Urea nitrogen [Mass/Vol] 12.0 mg/dL Normal 7-18 [facility] Comment on above: Performed By: #### M N, TRO ####[place] [address] [facility] [place] [address] DIFFERENTIALon 09-02-2021 Band form neutrophils/100 WBC (Bld) 1 % Normal 0-10 [facility] Comment on above: Performed By: #### D IFF (MANUAL), CBC ####[place] [address] [facility] [place] [address] IMMATURE GRANS NONE SEEN Normal [facility] Comment on above: Performed By: #### D IFF (MANUAL), CBC ####[place] [address] [facility] [place] [address] Lymphocytes/100 WBC (Bld) 4 % Low 16-48 [facility] Comment on above: Performed By: #### D IFF (MANUAL), CBC ####[place] [address] [facility] [place] [address] Monocytes/100 WBC (Bld) 6 % Normal 3-9 [facility] Comment on above: Performed By: #### D IFF (MANUAL), CBC ####[place] [address] [facility] [place] [address] Neutrophils/100 WBC (Bld) 89 % High 42-80 [facility] Comment on above: Performed By: #### D IFF (MANUAL), CBC ####[place] [address] [facility] [place] [address] PLATELET ESTIMATE NORMAL Normal [facility] Comment on above: Performed By: #### D IFF (MANUAL), CBC ####[place] [address] [facility] [place] [address] RBC morphology finding Nom (Bld) ESSENTIALLY NORMAL Normal [facility] Comment on above: Performed By: #### D IFF (MANUAL), CBC ####[place] [address] [facility] [place] [address] TOTAL CELLS COUNTED 100 #CELLS Normal [facility] Comment on above: Performed By: #### D IFF (MANUAL), CBC ####[place] [address] [place] [address] ED.PDOCon 09-02-2021 ED.PDOC JANE REED Female [id number] Attending provider: HOME SUAREZ [id number] Von Branham 1965 56 DOS: 09/02/21 Hx/Exam - History of Present Illness Chief Complaint: SOB (SHORTNESS OF BREATH) Location: chest Symptom Duration: 2-3 days Symptom Duration: Day(s) Onset of Symptoms: gradual Intensity: mild-moderate Quality: wheezing, SOB Episode Frequency: 1 episode Episode Duration: Days Radiations: as above Patient/Family Denies: chest pain, headache, neck pain, back pain, F/C/R - Review of Systems All Other Systems: Pertinent Positives in HPI, All Other Systems Negative Constitutional: Denies: Fever, Chills, Sweats Eyes: Denies: Pain, Blurred Vision ENT: Denies: Ear Pain, Ear Discharge, Nose Pain, Nose Discharge, Nose Congestion, Mouth Pain, Mouth Swelling, Throat Pain, Throat Swelling Respiratory: Cough, Wheezing. Denies: Dry, Shortness of Breath, Hemoptysis, SOB with Excertion, Pleuritic Pain, Sputum Cardiovascular: Denies: Chest Pain, Palpitations, Orthopnea, Paroxysmal Noc. Dyspnea, Edema, Light Headedness Gastrointestinal: Denies: Nausea, Vomiting, Abdominal Pain, Diarrhea Musculoskeletal: Denies: Neck Pain, Back Pain, Body Aches Skin: Denies: Rash Neurological: Denies: Headache, Weakness, Numbness, Incoordination, Change in Speech, Confusion, Seizures Psychiatric: Denies: Anxiety, Depression, Suicidal Ideation - Past Medical History ED PMH: Yes Angina (ATYPICAL), Yes Anxiety, Yes Arthritis (generalized), Yes COPD (SEES [facility] FOR TREATMENT), Yes TIA (2014--NO RESIDUAL EFFECTS), Yes Depression, Yes GERD, Yes Hypothyroidism, Yes IBS, Yes PE (rt lung 2000) - Past Surgical History Surgical History: Yes Cholecystectomy, Yes (X 4), Yes Hernia Repair (X 4) - Social History Smoking Status: Current every day smoker Hx Alcohol Use: No Hx Drug Use: None Living Conditions: Family - Family History Family/Social History Related to Chief Complaint: Denies - Physical Exam General Appearance: awake, alert, no apparent distress Eyes: PERRL, EOMI Head, Ears, Nose, and Throat: TMs normal, pharynx normal, mucous membranes moist, atraumatic, mastoid non-tender Neck: supple, non-tender, no stridor, no bony tenderness, full ROM, no meningeal signs, no cervical lymphadenopathy Respiratory: lungs clear, no wheezes/rhonchi/rales, no respiratory distress Cardiovascular: regular rate, rhythm, no murmur, no gallop Abdomen/GI: non tender, soft, non-distended, normal bowel sounds, no organomegaly, no pulsatile mass, no peritoneal signs Back: no CVA tenderness, no vertebral tenderness, normal ROM, non tender Extremity: normal range of motion, non-tender, normal inspection, no pedal edema, no calf tenderness Pulses: Radial: 2+, Posterior Tibial: 2+, Dorsalis Pedis: 2+ Neurologic: no motor/sensory deficits, normal strength, normal sensation, speech clear/fluent Psychiatric: oriented x3, calm Skin Exam: warm/dry, other (no rash) Lymphatic: no adenopathy - Source of History Source of History: Nursing Notes/Vital Signs/Triage Reviewed and Agree Note(s) - Physician Notes Additional Notes, See Orders for Details: 09/02/21 16:12 56-year-old female presents from home for evaluation of Symptoms of cough and wheezing over the past several days. Patient has been started on antibiotic and a steroid for her primary care doctor however she has gotten lower on her steroid dose now and had felt some more wheezing this morning. Patient does have albuterol at home and also has a oxygen concentrator and wears CPAP at night. Denies headache or neck pain; no signs of meningismus. Denies abdominal pain or vomiting. Denies any tearing chest to back pain. Pt denies any known contacts with COVID 19 and pt denies F/C/R. cxr shows: No acute process; I d/w pt all imaging results. HEART score is 3. WBC 13.6 however pt has been on steroids recently. Patient had gotten up and out of bed using 2 L nasal cannula oxygen her saturation was 94% on this. Patient has a home oxygen concentrator at home to use as needed. She typically uses this at night mostly but she has used it intermittently through the day. Patient dates she would much prefer to use this oxygen concentrator at home as needed as she does not wish to stay in the hospital. I discussed with the patient and offered her admission to the hospital for further management, however using shared decision making with patient she elects to go home. I d/w pt close return precautions. PT denies any dizziness or lightheadedness when up and ambulatory. Repeat HR 72 radial bedside; no LE edema or calf pain. Radial pulses 2+ equal B/L UE. I d/w pt close monitor of her glucose at home which she says usually runs recently in 140-150's range. Discussed with patient, comfortable with plan, close follow up and return precautions. This note is completed with assistance of t (more content not included)... Normal [facility] Laboratory studies (set)on 0 09-02-2021 Albumin [Mass/Vol] 3.7 g/dL 3.4-5.0 [facility] Work Phone: Albumin/Globulin [Mass ratio] 0.9 {ratio} Low 1.1-1.8 [facility] Work Phone: ALP [Catalytic activity/Vol] 54 U/L 45-117 [facility] Work Phone: ALT [Catalytic activity/Vol] 28 U/L 12-78 [facility] Work Phone: Anion gap [Moles/Vol] 10.0 mmol/L Low 11-23 [facility] Work Phone: AST [Catalytic activity/Vol] 22 U/L 15-37 [facility] Work Phone: Band form neutrophils/100 WBC (Bld) 1 % 0-10 [facility] Work Phone: Basophils (Bld) [#/Vol] 0.0 10*3/uL 0-0.1 [facility] Work Phone: Basophils/100 WBC (Bld) 0.30 % 0-2 [facility] Work Phone: Bilirubin [Mass/Vol] 0.3 mg/dL 0.2-1.0 [facility] Work Phone: Calcium [Mass/Vol] 9.1 mg/dL 8.5-10.1 [facility] Work Phone: Chloride [Moles/Vol] 102 mmol/L 98-107 Roberto ance [facility] Work Phone: CO2 [Moles/Vol] 27.0 mmol/L 21-32 [facility] Work Phone: Creatinine [Mass/Vol] 0.80 mg/dL 0.55-1.02 All iance [facility] Work Phone: Differential Total Cells Counted 100 #CELLS [facility] Work Phone: Eosinophils (Bld) [#/Vol] 0.0 10*3/uL 0.0-1.80 [facility] Work Phone: Eosinophils/100 WBC (Bld) 0.1 % 0-8 [facility] Work Phone: Erythrocyte distribution width (RBC) [Ratio] 14.0 % 11.0-15.5 [facility] Work Phone: Estimated GFR () [facility] Work Phone: Comment on above: THE NORMAL LEVEL OF GFR VARIES ACCORDING TO AGE, SEX, AND BODY SIZE. A GFR LEVEL OF LESS THAN 60 ML/MIN REPRESENTS LOSS OF THE ADULT LEVEL OF NORMAL KIDNEY FUNCTION. GFR/1.73 sq M.predicted among non-blacks MDRD (S/P/Bld) [Vol rate/Area] [facility] Work Phone: Globulin (S) [Mass/Vol] 4.2 g/dL 2.5-4.6 A lliance [facility] Work Phone: Glucose [Mass/Vol] 138 mg/dL High 70-100 [facility] Work Phone: Granulocytes (Bld) [#/Vol] 11.5 10*3/uL High 2.2-9.1 [facility] Work Phone: Granulocytes/100 WBC (Bld) 84.6 % High 42-80 [facility] Work Phone: Hematocrit (Bld) [Volume fraction] 54.9 % High 37.0-47.0 [facility] Phone: Comment on above: Delta: 48.1 on 07/10 Hemoglobin (Bld) [Mass/Vol] 18.9 g/dL High 12.0-16.0 [facility] Work Phone: [phone] Comment on above: Delta: 16.2 on 07/10 Immature Granulocytes All [facility] Work Phone: Lymphocytes Auto (Unsp spec) [#/Vol] 4 % Low 16-48 [facility] Work Phone: [phone] Lymphocytes Auto (Unsp spec) [#/Vol] 1.4 10*3/uL 1.0-4.0 [facility] Work Phone: Lymphocytes/100 WBC (Bld) 10.5 % Low 16-48 [facility] Work Phone: MCH (RBC) [Entitic mass] 31.1 pg 26.0-32.0 [facility] Work Phone: [phone] MCHC (RBC) [Mass/Vol] 34.4 g/dL 31.0-36.0 All [facility] Work Phone: [phone] MCV (RBC) [Entitic vol] 90.5 fL 80-97 [facility] Work Phone: Monocytes (Bld) [#/Vol] 0.6 10*3/uL 0.1-1.7 [facility] Work Phone: Monocytes/100 WBC (Bld) 6 % 3-9 [facility] Work Phone: [phone] Monocytes/100 WBC (Bld) 4.5 % 3-9 [facility] Work Phone: [phone] Platelet mean volume (Bld) [Entitic vol] 9.8 fL 6.6-10.5 [facility] Work Phone: [phone] Platelets (Bld) [#/Vol] 212 10*3/uL 140-450 [facility] Work Phone: Platelets LM Ql (Bld) All [facility] Work Phone: Potassium [Moles/Vol] 4.4 mmol/L 3.5-5.1 [facility] Work Phone: Protein [Mass/Vol] 7.9 g/dL 6.0-8.3 [facility] Work Phone: RBC (Bld) [#/Vol] 6.06 10*6/uL High 4.20-5.50 [facility] Work Phone: RBC morphology finding Nom (Bld) [facility] Work Phone: Segmented neutrophils/100 WBC (Bld) 89 % High 42-80 [facility] Work Phone: Sodium [Moles/Vol] 134 mmol/L Low 136-145 [facility] Work Phone: Troponin 3.0 pg/mL 0-53.7 [facility] Work Phone: Comment on above: Troponin Reference R zainab: Male: 0-78.5 pg/mL (ng/L) Female: 0-53.7 pg/mL (ng/L) Note: The new high sensitivity Troponin units are in pg/mL (ng/L) Urea nitrogen [Mass/Vol] 12.0 mg/dL 7-18 [facility] Work Phone: WBC (Bld) [#/Vol] 13.6 10*3/uL High 4.0-11.0 [facility] Work Phone: TROPONINon 09-02-2021 TROPONIN 3.0 pg/mL Normal 0-53.7 [facility] Comment on above: Result Comment: Trop onin Reference Range: Male: 0-78.5 pg/mL (ng/L) Female: 0-53.7 pg/mL (ng/L) Note: The new high sensitivity Troponin units are in pg/mL (ng/L) Performed By: #### M N, TRO ####[address] [address] ANGIO CHESTon 07-10-2021 ANGIO CHEST JANE REED Female [id number] Ordering physician: Ubaldo Hidalgo LOC:ER [id number] Attending physician: [phone] DO S: 07/10/21 Acc#: [id number] Exam/Proc: ANGIO CHEST Dept: COMPUTED TOMOGRAPHY EXAMINATION: CTA OF THE CHEST07/10/2021 7:36 pm CTA CHEST WITH CONTRAST EXAM DESCRIPTION: TECHNIQUE: CTA of the chest was performed after the administration of intravenous contrast. Multiplanar reformatted images are provided for review. MIP images are provided for review. Dose modulation, iterative reconstruction, and/or weight based adjustment of the mA/kV was utilized to reduce the radiation dose to as low as reasonably achievable. COMPARISON: CT chest, August 22, 2000 HISTORY: ORDERING SYSTEM PROVIDED HISTORY: TECHNOLOGIST PROVIDED HISTORY: Reason for Exam: fall chest wall pain, hx of pe, r/o pulm contusion FINDINGS: Thoracic inlet structures are unremarkable in appearance. No pathologically enlarged hilar or mediastinal lymph nodes. The great vessels, heart and pericardium are unremarkable in size and appearance. Moderate centrilobular emphysematous changes. Atelectasis bilateral lower lobes. No pleural effusion or pneumothorax. The incidentally included portions of the upper abdomen are within normal limits. The CT angiogram portion of the examination shows limited contrast enhancement of the pulmonary arteries. The main and segmental pulmonary arteries are of normal size. No intraluminal filling defects are seen through the level of the proximal segmental pulmonary arteries. IMPRESSION: 1. Limited examination without evidence of pulmonary embolus to the level of the proximal segmental pulmonary arteries. 2. Moderate centrilobular emphysematous changes. Electronically signed By Lalo Castelan MD 07/10/2021 9:46:09 PM EST Workstation ID : [id number] REPORT SIGNATURE ON FILE Electronically Signed Date/Time: 07/10/212145 Dictated Date/time: 07/10/212137 CC: Normal [facility] CBC with AUTO DIFFon 022 BAS0 % 0.50 % Normal 0-2 [facility] Comment on above: Performed By: #### C BC #### [facility] [address] [place] [address] Basophils (Bld) [#/Vol] 0.0 10*3/uL Normal 0-0.1 [facility] Comment on above: Performed By: #### C BC #### [facility] [address] [place] [address] Eosinophils (Bld) [#/Vol] 0.1 10*3/uL Normal 0.0-1.80 [facility] Comment on above: Performed By: #### C BC #### [facility] [address] [place] [address] Eosinophils/100 WBC (Bld) 1.3 % Normal 0-8 [facility] Comment on above: Performed By: #### C BC #### [address] [place] [address] GRAN # 4.6 K/uL Normal 2.2-9.1 [facility] Comment on above: Performed By: #### C BC #### [address] [place] [address] GRAN % 64.3 % Normal 42-80 [facility] Comment on above: Performed By: #### C BC #### [address] [place] [address] Hematocrit (Bld) [Volume fraction] 48.1 % High 37.0-47.0 [facility] Comment on above: Performed By: #### C BC #### [facility] [address] [place] [address] Hemoglobin (Bld) [Mass/Vol] 16.2 g/dL High 12.0-16.0 [facility] Comment on above: Performed By: #### C BC #### [address] [place] [address] Lymphocytes (Bld) [#/Vol] 1.8 10*3/uL Normal 1.0-4.0 [facility] Comment on above: Performed By: #### C BC #### [facility] [address] [place] [address] Lymphocytes/100 WBC (Bld) 25.4 % Normal 16-48 [facility] Comment on above: Performed By: #### C BC #### [address] [place] [address] MCV (RBC) [Entitic vol] 90.8 fL Normal 80-97 [facility] Comment on above: Performed By: #### C BC #### [facility] [address] [place] [address] MEAN CORPUSCULAR HGB 30.7 pg Normal 26.0-32.0 [facility] Comment on above: Performed By: #### C BC #### [facility] [address] [place] [address] MEAN CORPUSCULAR HGB CONC 33.8 g/dL Normal 31.0-36.0 [facility] Comment on above: Performed By: #### C BC #### [facility] [address] [place] [address] Monocytes (Bld) [#/Vol] 0.6 10*3/uL Normal 0.1-1.7 [facility] Comment on above: Performed By: #### C BC #### [facility] [address] [place] [address] Monocytes/100 WBC (Bld) 8.5 % Normal 3-9 [facility] Comment on above: Performed By: #### C BC #### [facility] [address] [place] [address] Platelet mean volume (Bld) [Entitic vol] 9.6 fL Normal 6.6-10.5 [facility] Comment on above: Performed By: #### C BC #### [facility] [address] [place] [address] Platelets (Bld) [#/Vol] 181 10*3/uL Normal 140-450 [facility] Comment on above: Performed By: #### C BC #### [facility] [address] [place] [address] RBC (Bld) [#/Vol] 5.29 10*6/uL Normal 4.20-5.50 [facility] Comment on above: Performed By: #### C BC #### [facility] [address] [place] [address] RED CELL DISTRI WIDTH 14.7 % Normal 11.0-15.5 [facility] Comment on above: Performed By: #### C BC #### [facility] [address] [place] [address] WBC (Bld) [#/Vol] 7.1 10*3/uL Normal 4.0-11.0 [facility] Comment on above: Performed By: #### C BC #### [facility] [address] [place] [address] COMPREHENSIVE METABOLIC PANE Dave 07-10-2021 Albumin [Mass/Vol] 3.2 g/dL Low 3.4-5.0 [facility] Comment on above: Performed By: #### T ANDREW CPK, [place] ####[facility] [facility] [place] [address] Albumin/Globulin [Mass ratio] 0.7 {ratio} Low 1.1-1.8 [facility] Comment on above: Performed By: #### T HERNANDEZ MORALESK, [place] ####[facility] [facility] [place] [address] ALP [Catalytic activity/Vol] 50 U/L Normal 45-117 [facility] Comment on above: Performed By: #### Aubrey MORALES CPK, [place] ####[address] [place] [address] ALT [Catalytic activity/Vol] 33 U/L Normal 12-78 [facility] Comment on above: Performed By: #### T ANDREW CPK, [place] ####[facility] [facility] [place] [address] Anion gap [Moles/Vol] 9.4 mmol/L Low 11-23 [facility] Comment on above: Performed By: #### T HERNANDEZ MORALESK, [place] ####[address] [place] [address] AST [Catalytic activity/Vol] 53 U/L High 15-37 [facility] Comment on above: Result Comment: Spec imen Slightly Hemolyzed Performed By: #### T ANDREW CPK, [place] ####[facility] [place] [address] Bilirubin [Mass/Vol] 0.4 mg/dL Normal 0.2-1.0 [facility] Comment on above: Performed By: #### T ANDREW CPK, [place] ####[facility] [facility] [place] [address] Calcium [Mass/Vol] 8.5 mg/dL Normal 8.5-10.1 [facility] Comment on above: Performed By: #### T ANDREW CPK, [place] ####[place] [address] [place] [address] Chloride [Moles/Vol] 106 mmol/L Normal 98-107 [facility] Comment on above: Performed By: #### MORE DANIELSON [place] ####[place] [address] [place] [address] CO2 [Moles/Vol] 25.0 mmol/L Normal 21-32 [facility] Comment on above: Performed By: #### MORE DANIELSON, [place] ####[place] [address] [place] [address] Creatinine [Mass/Vol] 0.70 mg/dL Normal 0.55-1.02 [facility] Comment on above: Performed By: #### MORE DANIELSON [place] ####[place] [address] [place] [address] GFR > 60.0 [facility] Comment on above: Performed By: #### MORE DANIELSON [place] ####[place] [address] [place] [address] GFR AM > 60.0 [facility] Comment on above: Result Comment: THE NORMAL LEVEL OF GFR VARIES ACCORDING TO AGE, SEX, AND BODY SIZE. A GFR LEVEL OF LESS THAN 60 ML/MIN REPRESENTS LOSS OF THE ADULT LEVEL OF NORMAL KIDNEY FUNCTION. Performed By: #### MORE DANIELSON [place] ####[place] [address] [place] [address] Globulin (S) [Mass/Vol] 4.6 g/dL Normal 2.5-4.6 [facility] Comment on above: Performed By: #### MORE [place]EL[place], [place] ####[place] [address] [place] [address] Glucose [Mass/Vol] 103 mg/dL High 70-100 [facility] Comment on above: Performed By: #### MORE [place]EL[place], [place] ####[place] [address] [place] [address] Potassium [Moles/Vol] 4.8 mmol/L Normal 3.5-5.1 [facility] Comment on above: Result Comment: Spec imen Slightly Hemolyzed Performed By: #### MORE [place]EL[place], [place] ####[place] [address] [place] [address] Protein [Mass/Vol] 7.8 g/dL Normal 6.0-8.3 [facility] Comment on above: Performed By: #### T RO CPK, [place] ####[facility] [place] [address] Sodium [Moles/Vol] 136 mmol/L Normal 136-145 [facility] Comment on above: Performed By: #### T RO, CPK, [place] ####[facility] [place] [address] Urea nitrogen [Mass/Vol] 8.0 mg/dL Normal 7-18 [facility] Comment on above: Performed By: #### T RO CPK, [place] ####[facility] [place] [address] CPKon 07-10-2021 CPK 186 U/L Normal 26-192 [facility] Comment on above: Result Comment: Spec imen Slightly Hemolyzed Performed By: #### T RO CPK, [place] ####[facility] [place] [address] ED.PDOCon 07-10-2021 ED.PDOC JANE REED Female [id number] Attending provider: [facility] ER [id number] Ubaldo Hidalgo 1965 56 DOS: 07/10/21 Hx/Exam - History of Present Illness Location: r anterior Symptom Duration: 2 Symptom Duration: Week(s) Onset of Symptoms: acute Intensity: moderate-severe Quality: chest wall pain Episode Frequency: constant Episode Duration: Days - Review of Systems All Other Systems: Pertinent Positives in HPI, All Other Systems Negative - Past Medical History ED PMH: Yes Angina (ATYPICAL), Yes Anxiety, Yes Arthritis (generalized), Yes COPD ([facility]HLIAS JERALD MART[facility]NEZ FOR TREATMENT), Yes TIA (2014--NO RESIDUAL EFFECTS), Yes Depression, Yes GERD, Yes Hypothyroidism, Yes IBS, Yes PE (rt lung 2000) - Past Surgical History Surgical History: Yes Cholecystectomy, Yes (X 4), Yes Hernia Repair (X 4) - Social History Smoking Status: Current every day smoker Hx Alcohol Use: No Hx Drug Use: None Living Conditions: Family - Family History Family/Social History Related to Chief Complaint: Noncontributory - Physical Exam General Appearance: awake, alert, no apparent distress Eyes: PERRL, EOMI, conjunctivae clear, no discharge, no scleral icterus Head, Ears, Nose, and Throat: TMs normal, pharynx normal, EAC normal, mucous membranes moist, nares clear, mastoid non-tender Neck: supple, non-tender, no stridor, no masses, no bony tenderness, full ROM Respiratory: lungs clear, no wheezes/rhonchi/rales, no respiratory distress, no accessory muscle use, chest wall tender Cardiovascular: regular rate, rhythm, no murmur Abdomen/GI: non tender, soft, non-distended, normal bowel sounds, no organomegaly, no pulsatile mass, no peritoneal signs Back: no CVA tenderness, no vertebral tenderness, normal ROM, non tender Extremity: normal range of motion, non-tender, normal inspection, no pedal edema, no calf tenderness Neurologic: no motor/sensory deficits, normal gait, normal strength, normal sensation, speech clear/fluent, hand bender II-XII intact Psychiatric: oriented x3, calm, normal affect Skin Exam: warm/dry, normal color - Source of History Source of History: Nursing Notes/Vital Signs/Triage Reviewed and Agree Source of History: Old Medical Records Reviewed - History of Present Illness Chief Complaint: RIB PAIN Additional Comments: 2 weeks ago she tripped and fall fell face first hitting her chest at the against some cement. She was seen here on the date of the incident and had x-rays done which did not show anything acute. She has been following along with her primary care physician she was placed on a muscle relaxant and still is not any better she still feels the pain in the anterior portion of her chest. She was advised to come back to the emergency department for reevaluation. The pain does get worse with palpation and specific movements. (Ubaldo Hidalgo) Note(s) - Physician Notes Additional Notes, See Orders for Details: 07/10/21 21:49 This visit was performed by both a physician and an APC. I personally evaluated and examined the patient. I performed all aspects of the MDM as documented. 07/10/21 21:50 07/10/21 07/10/21 20:18 20:18 WBC 7.1 RBC 5.29 Hgb 16.2 H D Hct 48.1 H D MCV 90.8 MCH 30.7 MCHC 33.8 RDW 14.7 Plt Count 181 MPV 9.6 Gran % (Auto) 64.3 Lymph % (Auto) 25.4 Cook % (Auto) 8.5 Eos % (Auto) 1.3 Baso % (Auto) 0.50 Lymph # (Auto) 1.8 Cook # (Auto) 0.6 Eos # (Auto) 0.1 Baso # (Auto) 0.0 Absolute Gran (auto) 4.6 Sodium 136 Potassium 4.8 Chloride 106 Carbon Dioxide 25.0 Anion Gap 9.4 L BUN 8.0 Creatinine 0.70 Est GFR ( Amer) > 60.0 Est GFR (Non-Af Amer) > 60.0 Glucose 103 H Calcium 8.5 Total Bilirubin 0.4 AST 53 H ALT 33 Alkaline Phosphatase 50 Creatine Kinase 186 Troponin 3.1 Total Protein 7.8 Albumin 3.2 L Globulin 4.6 Albumin/Globulin Ratio 0.7 L 07/10/21 21:51 CT angio chest FINDINGS: Thoracic inlet structures are unremarkable in appearance. No pathologically enlarged hilar or mediastinal lymph nodes. The great vessels, heart and pericardium are unremarkable in size and appearance. Moderate centrilobular emphysematous changes. Atelectasis bilateral lower lobes. No pleural effusion or pneumothorax. The incidentally included portions of the upper abdomen are within normal limits. The CT angiogram portion of the examination shows limited contrast enhancement of the pulmonary arteries. The main and segmental pulmonary arteries are of normal size. No intraluminal filling defects are seen through the level of the proximal segmental pulmonary arteries. IMPRESSION: 1. Limited examination without evidence of pulmonary embolus to the level of the proximal segmental pulmonary arteries. 2. Moderate centrilobular emphysematous changes. 07/10/21 22:22 I went over results of patient's work-up with her at the bedside. She states she still having pain despite (more content not included)... Normal [facility] Laboratory studies (set)on 0 07-10-2021 CK [Catalytic activity/Vol] 186 U/L 26-192 [facility] Work Phone: Comment on above: Specimen Slightly He molyzed TROPONINon 07-10-2021 TROPONIN 3.1 pg/mL Normal 0-53.7 [facility] Comment on above: Result Comment: Trop onin Reference Range: Male: 0-78.5 pg/mL (ng/L) Female: 0-53.7 pg/mL (ng/L) Note: The new high sensitivity Troponin units are in pg/mL (ng/L) Performed By: #### T ANDREW, HERNANDEZK, [place] ####[address] [address] CHEST-2 VIEWon 06-24-2021 CHEST-2 VIEW JANE REED Female [id number] Ordering physician: Dong Sheldon LOC:ER [id number] Attending physician: 1965 56 DO S: 06/24/21 Acc#: [id number] Exam/Proc: CHEST-2 VIEW Dept: RADIOLOGY EXAMINATION: TWO XRAY VIEWS OF THE CHEST 06/24/2021 8:52 pm COMPARISON: None. HISTORY: ORDERING SYSTEM PROVIDED HISTORY: TECHNOLOGIST PROVIDED HISTORY: Reason for Exam: sternal pain IMPRESSION: Visualized osseous structures appear to be intact. Left-sided cardiac pacer device. Cardiomediastinal silhouette is normal. Hazy airspace disease at the lung bases, left greater than right. No pneumothorax. No focal consolidation. Findings likely represent atelectasis although a developing infectious or inflammatory process at the left lung base is not excluded. Electronically signed By Milton Basurto MD 06/24/2021 8:55:18 PM [facility] Workstation ID : [id number] REPORT SIGNATURE ON FILE Electronically Signed Date/Time: 06/24/212054 Dictated Date/time: 06/24/212053 CC: Normal [facility] ED.PDOCon 06-24-2021 ED.PDOC JANE REED Female [id number] Attending provider: [facility] ER [id number] Dong Sheldon 1965 56 DOS: 06/24/21 Hx/Exam - History of Present Illness Chief Complaint: FALL Location: Slipped and fell yesterday Symptom Duration: 1 day Symptom Duration: Hour(s) Episode Frequency: 1 episode Symptoms Worse with: Patient tripped and fell falling forward striking knees and chest Assoc Sxs/Pertinent Hx: No head or neck injury complains of breast and chest pain Patient/Family Denies: No abdominal pain no wrist pain mild knee pain, No LOC - Review of Systems All Other Systems: Pertinent Positives in HPI, All Other Systems Negative Constitutional: Denies: Fever Respiratory: Denies: Cough, Shortness of Breath Cardiovascular: Chest Pain Gastrointestinal: Denies: Nausea, Vomiting, Abdominal Pain Musculoskeletal: Denies: Back Pain Skin: Denies: Rash Neurological: Denies: Headache - Past Medical History ED PMH: Yes Angina (ATYPICAL), Yes Anxiety, Yes Arthritis (generalized), No Cancer, Yes COPD (SEES JERALD JONESY FOR TREATMENT), Yes TIA (2014--NO RESIDUAL EFFECTS), Yes Depression, Yes GERD, No GI Bleed, Yes Hypothyroidism, Yes IBS, Yes PE (rt lung 2000) - Past Surgical History Surgical History: Yes Cholecystectomy, Yes (X 4), Yes Hernia Repair (X 4) - Social History Smoking Status: Current every day smoker Hx Alcohol Use: No Living Conditions: Alone - Physical Exam General Appearance: awake, alert, no apparent distress Eyes: conjunctivae clear Head, Ears, Nose, and Throat: mucous membranes moist Neck: non-tender, full ROM Respiratory: chest wall tender, other (Mild sternal tenderness and tenderness in the breast tissue with bruising to the right and left breast mildly) Cardiovascular: regular rate, rhythm Abdomen/GI: non tender, soft, no peritoneal signs Back: normal ROM Extremity: normal range of motion Psychiatric: calm Skin Exam: warm/dry - Source of History Source of History: Nursing Notes/Vital Signs/Triage Reviewed and Agree Note(s) - Physician Notes Additional Notes, See Orders for Details: 06/24/21 21:09 Patient has normal vital signs normal chest x-ray and has tenderness to the to the breast tissue with bruising likely this is a chest wall contusion will be treated with anti-inflammatory pain medicines at home EKG - EKG EKG Interpretation: Not Applicable Discharge Screen - Discharge Discharge Problem: Chest wall contusion Disposition: HOME/SELF CARE Additional Instructions: Use pain medication as needed Condition: Good Prescriptions: Ibuprofen [Motrin] 800 mg PO Q8H PRN #20 tab PRN Reason: Pain Prescription Printed Dictated By: Dong Sheldon, DO Dictated Date/Time:06/24/212025 Electronically Signed Date/Time: 06/24/212109 [facility] Laboratory studies (set)on 05-21-2020 Appearance (U) [facility] Work Phone: Bilirubin Ql (U) [facility] Work Phone: Color (U) [facility] Work Phone: Glucose Ql (U) [facility] Work Phone: Hemoglobin Ql (U) [facility] Work Phone: Ketones Ql (U) [facility] Work Phone: Leukocyte esterase Test strip Ql (U) [facility] Work Phone: Nitrite Ql (U) [facility] Work Phone: pH (U) 5.0 [pH] 5.0-9.0 [facility] Work Phone: Protein Ql (U) [facility] Work Phone: Specific gravity (U) [Rel density] 1.025 1.003-1.035 [facility] Work Phone: Urobilinogen Ql (U) 0.2 E.U./dL <=1.0 [facility] Work Phone: URINALYSIS W/ C S IF INDICAT EDon 03-20-2021 Appearance (U) Clear Normal [facility] Comment on above: Order Comment: CLEAN CATCH Performed By: #### U AC #### [facility] [address] [place] [address] Color (U) Yellow [facility] Comment on above: Order Comment: CLEAN CATCH Performed By: #### U AC #### [facility] [address] [place] [address] Hemoglobin Ql (U) Negative Normal [facility] Comment on above: Order Comment: CLEAN CATCH Performed By: #### U AC #### [facility] [address] [place] [address] pH (U) 5.0 [pH] Normal 5.0-9.0 [facility] Comment on above: Order Comment: CLEAN CATCH Performed By: #### U AC #### [facility] [address] [place] [address] URINE BILIRUBIN - DIPSTICK Negative Normal NEGATIVE [facility] Comment on above: Order Comment: CLEAN CATCH Performed By: #### U AC #### [facility] [address] [place] [address] URINE GLUCOSE - DIPSTICK Negative Normal NEGATIVE [facility] Comment on above: Order Comment: CLEAN CATCH Performed By: #### U AC #### [address] [place] [address] URINE KETONE Negative Normal NEGATIVE [facility] Comment on above: Order Comment: CLEAN CATCH Performed By: #### U AC #### [address] [place] [address] URINE LEUK ESTERASE Negative Normal NEGATIVE [facility] Comment on above: Order Comment: CLEAN CATCH Performed By: #### U AC #### [address] [place] [address] URINE NITRITE - DIPSTICK Negative Normal NEGATIVE [facility] Comment on above: Order Comment: CLEAN CATCH Performed By: #### U AC #### [address] [place] [address] URINE PROTEIN - DIPSTICK Negative Normal NEGATIVE [facility] Comment on above: Order Comment: CLEAN CATCH Performed By: #### U AC #### [address] [place] [address] URINE SPEC GRAVITY, DIPSTICK 1.025 Normal 1.003-1.035 [facility] Comment on above: Order Comment: CLEAN CATCH Performed By: #### U AC #### [address] [place] [address] URINE UROBILINOGEN - DIPSTICK 0.2 E.U./dL Normal <=1.0 [facility] Comment on above: Order Comment: CLEAN CATCH Performed By: #### U AC #### [address] [address] Microbiology studies (set)on 12-02-2020 Alpha Strep Not [facility]: Anaerobic Negative Bacilli [facility] Work Phone: Bacteroides Species [facility] Work Phone: Escherichia Coli [facility] Work Phone: Laboratory studies (set)on 0 11-29-2020 Tarik Test [facility] Work Phone: Base excess Calc (BldV) [Moles/Vol] 0.1 mmol/L [facility] Work Phone: Blood Gas Flow-by Allian [facility] Work Phone: Blood Gas HCO3 25.6 mmol/L 20.0-26.0 [facility] Work Phone: Blood Gas pH 7.377 7.35-7.45 [facility] Work Phone: Blood Gas Puncture Site [facility] Work Phone: Blood Gas Respiration Rate 12 [facility] Work Phone: Blood Gas Specimen Source [facility] Work Phone: Carboxyhemoglobin (Bld) [Mass/Vol] 0.9 % 0-1.5 [facility] Work Phone: CO2 (Bld) [Partial pressure] 44.5 mm[Hg] 35.0-45.0 [facility] Work Phone: Deoxyhemoglobin (Bld) [Mass/Vol] 5.5 % High 0.0-5 [facility] Work Phone: FiO2 32.0 % 20-101 [facility] Work Phone: Hematocrit (Bld) [Volume fraction] 40.0 % 36.0-48.0 [facility] Work Phone: Hemoglobin (Bld) [Mass/Vol] 13.7 g/dL 12.0-18.0 [facility] Work Phone: Hemoglobin (Blood Gas) 93.3 % Low 95.0-100.0 [facility] Work Phone: Methemoglobin 0.3 % 0-1.5 [facility] Work Phone: Oxygen (Bld) [Partial pressure] 71.1 mm[Hg] Low 80.0-100.0 [facility] Work Phone: Oxygen Delivery Device [facility] Work Phone: Oxygen saturation in Blood 94.4 % Low 95-100 [facility] Work Phone: Laboratory studies (set)on 0 11-28-2020 Anisocytosis Ql (Bld) [facility] Work Phone: Laboratory studies (set)on 0 11-27-2020 Estimated Average Glucose 114 [facility] Work Phone: HbA1c (Bld) [Mass/Vol] 5.6 % [facility] Work Phone: Comment on above: Interpretation of Hg b A1C results: <5.7% Normal 5.7% - 6.4% Prediabetes >6.4% Diabetes SAMPLES FROM PATIENTS WITH HEMOLYTIC ANEMIAS OR THE PRESENCE OF UNSTABLE HEMOGLOBINS LIKE HbSS OR HbSC WILL EXHIBIT DECREASED GLYCATED HGB DUE TO THE SHORTENED LIFE SPAN OF THE RED CELLS.RESULTS ARE NOT RELIABLE IN PATIENTS WITH CHRONIC BLOOD LOSS. Laboratory studies (set)on 0 11-26-2020 Lactate [Moles/Vol] 1.1 mmol/L 0.4-2.0 [facility] Work Phone: Comment on above: Specimen Slightly He molyzed Laboratory studies (set)on 0 10-06-2020 Appearance (U) CLEAR [facility] Work Phone: Bilirubin Ql (U) NEGATIVE [facility] Work Phone: Color (U) [facility] Work Phone: Glucose Ql (U) NEGATIVE [facility] Work Phone: HCG Qn (U) [facility] Work Phone: Hemoglobin Ql (U) High NEGATIVE [facility] Work Phone: Ketones Ql (U) [facility] Work Phone: Leukocyte esterase Test strip Ql (U) [facility] Work Phone: Mucus Ql (Urine sed) <1+ [facility] Work Phone: Nitrite Ql (U) NEGATIVE [facility] Work Phone: Protein Ql (U) NEGATIVE [facility] Work Phone: RBC LM.HPF (Urine sed) [#/Area] 0-2 [facility] Work Phone: Urine Bacteria <1+ [facility] Work Phone: Urine Squamous Epithelial Cells NONE-MANY [facility] Work Phone: Urine WBC 0-3 [facility] Work Phone: Urobilinogen Ql (U) 0.2 E.U./dL <=1.0 [facility] Work Phone: Microbiology studies (set)on 09-09-2020 Lactobacillus Species All [facility] Work Phone: Mixed Gram Positive Organisms [facility] Work Phone: Vital Signs Date Time Vital Sign Value Performing Clinician Facility 09-14-2024 15:24-0400 SaO2% (BldA) [Mass fraction] 96 % Rima Celis STAMP REDEMPTION CLERK-C Work Phone: [facility] 09-14-2024 14:53-0400 Body height 162.56 cm Rima Celis STAMP REDEMPTION CLERK-C Work Phone: [facility] 09-14-2024 14:53-0400 Body mass index (BMI) [Ratio] 37.9 kg/m2 Rima Celis NP-C Work Phone: [facility] 09-14-2024 14:53-0400 Body temperature 98 [degF] Rmia Celis STAMP REDEMPTION CLERK-C Work Phone: [facility] 09-14-2024 14:53-0400 Body weight 100.24 kg Rima Celis STAMP REDEMPTION CLERK-C Work Phone: [facility] 09-14-2024 14:53-0400 Diastolic blood pressure 84 mm[Hg] Rima Celis STAMP REDEMPTION CLERK-C Work Phone: [facility] 09-14-2024 14:53-0400 Heart rate 66 /min Rima Pedrazaer STAMP REDEMPTION CLERK-C Work Phone: [facility] 09-14-2024 14:53-0400 Respiratory rate 18 /min Rimaquin Pedrazaer STAMP REDEMPTION CLERK-C Work Phone: [facility] 09-14-2024 14:53-0400 Systolic blood pressure 132 mm[Hg] Rima Pedrazaer STAMP REDEMPTION CLERK-C Work Phone: [facility] 05-09-2024 15:25-0500 Body height 160.02 cm Rima Lalita STAMP REDEMPTION CLERK-C Work Phone: [facility] 05-09-2024 15:25-0500 Body temperature 97.4 [degF] Rima Pedrazaer STAMP REDEMPTION CLERK-C Work Phone: [facility] 05-09-2024 15:25-0500 Diastolic blood pressure 86 mm[Hg] Rima Pedrazaer STAMP REDEMPTION CLERK-C Work Phone: [facility] 05-09-2024 15:25-0500 Heart rate 61 /min Rima Pedrazaer STAMP REDEMPTION CLERK-C Work Phone: [facility] 05-09-2024 15:25-0500 Respiratory rate 20 /min Rima Pedrazaer STAMP REDEMPTION CLERK-C Work Phone: [facility] 05-09-2024 15:25-0500 SaO2% (BldA) [Mass fraction] 92 % Rima Lalita STAMP REDEMPTION CLERK-C Work Phone: [facility] 05-09-2024 15:25-0500 Systolic blood pressure 105 mm[Hg] Rima Pedrazaer STAMP REDEMPTION CLERK-C Work Phone: [facility] 12-17-2022 08:29-0400 Diastolic Blood Pressure Non-Invasive 46 1 ELAINE HOGAN DO [facility] 12-17-2022 08:29-0400 Heart rate 60 /min ELAINE EDISON DO [facility] 12-17-2022 08:29-0400 Respiratory rate 19 /min ELAINE EDISON DO [facility] 12-17-2022 08:29-0400 Systolic Blood Pressure Non-Invasive 92 1 ELAINE EDISON DO [facility] 12-17-2022 08:24-0400 Diastolic Blood Pressure Non-Invasive 50 1 ELAINE EDISON DO [facility] 12-17-2022 08:24-0400 Heart rate 61 /min ELAINE EDISON DO [facility] 12-17-2022 08:24-0400 Respiratory rate 20 /min ELAINE EDISON DO [facility] 12-17-2022 08:24-0400 Systolic Blood Pressure Non-Invasive 89 1 ELAINE EDISON DO [facility] 12-17-2022 08:19-0400 Diastolic Blood Pressure Non-Invasive 58 1 ELAINE EDISON DO [facility] 12-17-2022 08:19-0400 Heart rate 60 /min ELAINE EDISON DO [facility] 12-17-2022 08:19-0400 Respiratory rate 18 /min ELAINE EDISON DO [facility] 12-17-2022 08:19-0400 Systolic Blood Pressure Non-Invasive 100 1 ELAINE EDISON DO [facility] 12-17-2022 08:10-0400 Respiratory Rate - Anes 18 br/min ELAINE EDISON DO [facility] 12-17-2022 08:05-0400 Respiratory Rate - Anes 18 br/min ELAINE EDISON DO [facility] 12-17-2022 08:00-0400 Respiratory Rate - Anes 20 br/min ELAINE EDISON DO [facility] 12-17-2022 07:22-0400 Blood Pressure Cuff Size ELAINE EDISON DO [facility] 12-17-2022 07:22-0400 Blood Pressure Location ELAINE EDISON DO [facility] 12-17-2022 07:22-0400 Blood Pressure Method ELAINE EDISON DO [facility] 12-17-2022 07:22-0400 Body height 160 cm ELAINE EDISON DO [facility] 12-17-2022 07:22-0400 Body temperature 97.52 [degF] ELAINE EDISON DO [facility] 12-17-2022 07:22-0400 Body weight 118.2 kg ELAINE EDISON DO [facility] 12-17-2022 07:22-0400 Body weight 46.17 kg/m2 ELAINE EDISON DO [facility] 12-17-2022 07:22-0400 Heart rate 60 /min ELAINE EDISON DO [facility] 10-09-2022 12:15-0400 Body temperature 98.4 [degF] STAMP REDEMPTION CLERK-C Frankie David STAMP REDEMPTION CLERK Work Phone: [facility] 10-09-2022 12:15-0400 Diastolic blood pressure 60 mm[Hg] STAMP REDEMPTION CLERK-C Frankie Seffens STAMP REDEMPTION CLERK Work Phone: [facility] 10-09-2022 12:15-0400 Heart rate 70 /min STAMP REDEMPTION CLERK-C Frankie Seffens STAMP REDEMPTION CLERK Work Phone: [facility] 10-09-2022 12:15-0400 Respiratory rate 18 /min STAMP REDEMPTION CLERK-C Frankie Seffens STAMP REDEMPTION CLERK Work Phone: [facility] 10-09-2022 12:15-0400 SaO2% (BldA) [Mass fraction] 94 % STAMP REDEMPTION CLERK-C Frankie Seffens STAMP REDEMPTION CLERK Work Phone: [facility] 10-09-2022 12:15-0400 Systolic blood pressure 134 mm[Hg] STAMP REDEMPTION CLERK-C Frankie Seffens STAMP REDEMPTION CLERK Work Phone: [facility] 10-09-2022 08:07-0400 Body temperature 97.7 [degF] STAMP REDEMPTION CLERK-C Frankie Seffens STAMP REDEMPTION CLERK Work Phone: [facility] 10-09-2022 08:07-0400 Diastolic blood pressure 78 mm[Hg] STAMP REDEMPTION CLERK-C Frankie Seffens STAMP REDEMPTION CLERK Work Phone: [facility] 10-09-2022 08:07-0400 Heart rate 68 /min STAMP REDEMPTION CLERK-C Frankie Seffens STAMP REDEMPTION CLERK Work Phone: [facility] 10-09-2022 08:07-0400 Respiratory rate 18 /min STAMP REDEMPTION CLERK-C Frankie Seffens STAMP REDEMPTION CLERK Work Phone: [facility] 10-09-2022 08:07-0400 SaO2% (BldA) [Mass fraction] 93 % STAMP REDEMPTION CLERK-C Frankie Seffens STAMP REDEMPTION CLERK Work Phone: [facility] 10-09-2022 08:07-0400 Systolic blood pressure 122 mm[Hg] STAMP REDEMPTION CLERK-C Frankie Seffens STAMP REDEMPTION CLERK Work Phone: [facility] 10-08-2022 17:55-0400 Body height 160.02 cm STAMP REDEMPTION CLERK-C Frankie Seffens STAMP REDEMPTION CLERK Work Phone: [facility] 10-08-2022 17:55-0400 Body mass index (BMI) [Ratio] 45.9 kg/m2 STAMP REDEMPTION CLERK-C Frankie Nicholsonsamina STAMP REDEMPTION CLERK Work Phone: [facility] 10-08-2022 17:55-0400 Body weight 117.57 kg STAMP REDEMPTION CLERK-C Frankie Segovia STAMP REDEMPTION CLERK Work Phone: [facility] 10-08-2022 17:33-0400 Body temperature 98 [degF] [facility] 10-08-2022 17:33-0400 Diastolic blood pressure 64 mm[Hg] [facility] 10-08-2022 17:33-0400 Heart rate 60 /min [facility] 10-08-2022 17:33-0400 Respiratory rate 16 /min [facility] 10-08-2022 17:33-0400 Systolic blood pressure 124 mm[Hg] [facility] 10-08-2022 14:01-0400 Body height 160.02 cm [facility] 10-08-2022 14:01-0400 Body mass index (BMI) [Ratio] 46.2 kg/m2 [facility] 10-08-2022 14:01-0400 Body weight 118.38 kg [facility] 10-08-2022 14:01-0400 SaO2% (BldA) [Mass fraction] 96 % [facility] 08-28-2022 08:55-0400 Blood Pressure Cuff Size WILBUR TSANG MD [facility] 08-28-2022 08:55-0400 Blood Pressure Location WILBUR TSANG MD [facility] 08-28-2022 08:55-0400 Blood Pressure Method WILBUR TSANG MD [facility] 08-28-2022 08:55-0400 Body height 157.45 cm WILBUR TSANG MD [facility] 08-28-2022 08:55-0400 Body temperature 98.42 [degF] WILBUR TSANG MD [facility] 08-28-2022 08:55-0400 Body weight 121.5 kg WILBUR TSANG MD [facility] 08-28-2022 08:55-0400 Diastolic Blood Pressure Non-Invasive 85 1 WILBUR TSANG MD [facility] 08-28-2022 08:55-0400 Heart rate 61 /min WILBUR TSANG MD [facility] 08-28-2022 08:55-0400 Systolic Blood Pressure Non-Invasive 122 1 WILBUR TSANG MD [facility] 04-28-2022 13:47-0500 Body height 160.02 cm [facility] 04-28-2022 13:47-0500 Body mass index (BMI) [Ratio] 46.6 kg/m2 [facility] 04-28-2022 13:47-0500 Body temperature 98.1 [degF] [facility] 04-28-2022 13:47-0500 Body weight 119.5 kg [facility] 04-28-2022 13:47-0500 Diastolic blood pressure 77 mm[Hg] [facility] 04-28-2022 13:47-0500 Heart rate 59 /min [facility] 04-28-2022 13:47-0500 Respiratory rate 22 /min [facility] 04-28-2022 13:47-0500 SaO2% (BldA) [Mass fraction] 98 % [facility] 04-28-2022 13:47-0500 Systolic blood pressure 135 mm[Hg] [facility] 09-02-2021 17:11-0400 Diastolic blood pressure 72 mm[Hg] Shannon Vu [facility] 09-02-2021 17:11-0400 Heart rate 60 /min Shannon Vu [facility] 09-02-2021 17:11-0400 Respiratory rate 15 /min Shannon Vu [facility] 09-02-2021 17:11-0400 SaO2% (BldA) [Mass fraction] 94 % Shannon Vu [facility] 09-02-2021 17:11-0400 Systolic blood pressure 140 mm[Hg] Shannon Vu [facility] 09-02-2021 12:49-0400 Body temperature 96.4 [degF] Shannon Vu [facility] 09-02-2021 12:49-0400 Body weight 107.501 Shannon Vu [facility] 11-27-2020 19:40-0400 Body height 162.56 cm Shannon Mirella [facility] Encounters Encounter Date Encounter Type Care Provider Facility Start: 12-02-2024 End: 12-02-[address] PARAG CARLSON DO Facility:[facility] Start: 12-02-2024 End: 12-02-[address] PARAG CARLSON DO [facility] Start: 11-18-2024 End: 11-18-2024 ambulatory RAMESH GRACIA MD Facility:[facility] Start: 11-18-2024 End: 11-18-[address] PARAG CARLSON DO [facility] Start: 09-14-2024 End: 09-14-2024 Patient encounter procedure Axel Painter [facility] Work Phone: Start: 09-14-2024 End: 09-14-2024 ambulatory Rima Celis STAMP REDEMPTION CLERK-C Work Phone: [facility] Work Phone: Start: 09-14-2024 Non-patient / Non-visit Axel Joshua es PA -[facility] Start: 09-14-2024 End: 09-14-2024 ambulatory Rima Celis NP Facility:[facility] Start: 07-18-2024 Encounter for genera l adult medical examination without abnormal findings Rima Celis NP [facility] Start: 07-15-2024 ambulatory Rima Celis NP Fa cility:[facility] Start: 07-13-2024 End: 07-13-2024 ambulatory Rima Celis STAMP REDEMPTION CLERK-C Work Phone: [facility] Work Phone: Start: 07-13-2024 End: 07-13-2024 Patient encounter procedure Rima Celis NP-C -Laboratory Work Phone: Start: 07-13-2024 End: 07-13-2024 ambulatory Rima Celis NP Facility:[facility] Start: 06-29-2024 End: 06-29-2024 ambulatory RAINE MAST INTERNET SALES REPRESENTATIVE-SERVICE STATION ATTENDANT Facility:[facility] Start: 06-17-2024 End: 06-17-2024 ambulatory RAINE MAST INTERNET SALES REPRESENTATIVE-SERVICE STATION ATTENDANT Facility:[facility] Start: 06-17-2024 End: 06-17-2024 Patient encounter procedure RAINE MAST INTERNET SALES REPRESENTATIVE-SERVICE STATION ATTENDANT [facility] Start: 06-17-2024 End: 06-21-2024 ambulatory RAINE MAST INTERNET SALES REPRESENTATIVE-SERVICE STATION ATTENDANT Facility:[facility] Start: 06-17-2024 End: 06-21-2024 Outreach Lab RAINE MAST INTERNET SALES REPRESENTATIVE-SERVICE STATION ATTENDANT [facility] Start: 06-13-2024 End: 06-13-2024 ambulatory RIMA CELIS INTERNET SALES REPRESENTATIVE-SERVICE STATION ATTENDANT Facility:[facility] Start: 06-13-2024 End: 06-13-2024 Patient encounter procedure RIMA CELIS INTERNET SALES REPRESENTATIVE-SERVICE STATION ATTENDANT [facility] Start: 05-20-2024 End: 05-24-2024 ambulatory ARELY Nguyen SYLVIA INTERNET SALES REPRESENTATIVE-SERVICE STATION ATTENDANT Facility:[facility] Start: 05-20-2024 End: 05-24-2024 Outreach Lab ARELY Nguyen SYLVIA INTERNET SALES REPRESENTATIVE-SERVICE STATION ATTENDANT [facility] Start: 05-09-2024 End: 05-09-2024 Emergency department patient visit Dr. Andrew Barnes DO -Emergency Department Work Phone: Start: 03-04-2024 End: 03-04-[address] AXEL HARVEY MD Facility:[facility] Start: 03-04-2024 End: 03-04-[address] AXEL HARVEY MD [facility] Start: 02-12-2024 End: 02-16-2024 ambulatory ELOISA LOPEZ INTERNET SALES REPRESENTATIVE-SERVICE STATION ATTENDANT Facility:[facility] Start: 02-12-2024 End: 02-16-2024 Outreach Lab ELOISA JESSICA INTERNET SALES REPRESENTATIVE-SERVICE STATION ATTENDANT [facility] Start: 12-10-2023 ambulatory RIMA SKAGGS INTERNET SALES REPRESENTATIVE-SERVICE STATION ATTENDANT Facility:[facility] Start: 11-23-2023 End: 11-23-2023 ambulatory Delfino Knutson Facility:[facility] Start: 11-06-2023 End: 11-10-2023 ambulatory DELFINO KNUTSON INTERNET SALES REPRESENTATIVE - SERVICE STATION ATTENDANT Facility:[facility] Start: 11-06-2023 End: 11-10-2023 Outreach Lab DELFINO KNUTSON INTERNET SALES REPRESENTATIVE - SERVICE STATION ATTENDANT [facility] Start: 10-26-2023 End: 10-30-2023 ambulatory DELFINO KNUTSON INTERNET SALES REPRESENTATIVE - SERVICE STATION ATTENDANT Facility:[facility] Start: 10-26-2023 End: 10-30-2023 Outreach Lab DELFINO KNUTSON INTERNET SALES REPRESENTATIVE - SERVICE STATION ATTENDANT [facility] Start: 10-26-2023 End: 10-26-2023 ambulatory Delfino Knutson Facility:[facility] Start: 09-12-2023 End: 09-16-2023 ambulatory RAMESH GRACIA MD Facility:[facility] Start: 09-12-2023 End: 09-16-2023 Outreach Lab RAMESH GRACIA MD [facility] Start: 09-07-2023 End: 09-07-2023 ambulatory RAMESH GRACIA MD Facility:[facility] Start: 09-07-2023 End: 09-07-2023 Patient encounter procedure RAMESH GRACIA MD [facility] Start: 09-06-2023 End: 09-10-2023 ambulatory RAMESH GRACIA MD Facility:[facility] Start: 08-17-2023 End: 08-17-2023 ambulatory RIMA CELIS INTERNET SALES REPRESENTATIVE-SERVICE STATION ATTENDANT Facility:[facility] Start: 08-17-2023 End: 08-17-2023 Patient encounter procedure RIMA CELIS INTERNET SALES REPRESENTATIVE-SERVICE STATION ATTENDANT [facility] Start: 06-01-2023 End: 06-01-[address] AXEL HARVEY MD Facility:[facility] Start: 06-01-2023 End: 06-01-[address] AXEL HARVEY MD [facility] Start: 05-06-2023 End: 05-06-2023 ambulatory [facility] Work Phone: Start: 05-06-2023 End: 05-06-2023 Patient encounter procedure [facility]-Laboratory Work Phone: Start: 04-01-2023 End: 04-01-2023 ambulatory RIMA CELIS INTERNET SALES REPRESENTATIVE-SERVICE STATION ATTENDANT Facility:[facility] Start: 04-01-2023 End: 04-01-2023 Patient encounter procedure RIMA CELIS INTERNET SALES REPRESENTATIVE-SERVICE STATION ATTENDANT [facility] Start: 12-17-2022 End: 12-17-2022 ambulatory ELAINE Paul HOGAN DO Facility:[facility] Start: 12-17-2022 End: 12-17-2022 Minor Procedure ELAINE D EDISON DO [facility] Start: 12-10-2022 End: 12-10-2022 Patient encounter procedure RIMA CELIS INTERNET SALES REPRESENTATIVE-SERVICE STATION ATTENDANT [facility] Start: 11-28-2022 End: 11-28-2022 ambulatory STAMP REDEMPTION CLERK-C Frankie Segovia STAMP REDEMPTION CLERK Work Phone: [facility] Work Phone: Start: 11-28-2022 End: 11-28-2022 Patient encounter procedure STAMP REDEMPTION CLERK-C Frankie Segovia STAMP REDEMPTION CLERK Work Phone: [facility] Work Phone: Start: 11-19-2022 End: 11-19-2022 Patient encounter procedure RIMA CELIS INTERNET SALES REPRESENTATIVE-SERVICE STATION ATTENDANT [facility] Start: 10-09-2022 Non-patient / Non-visit STAMP REDEMPTION CLERK-C Ventura Segovia STAMP REDEMPTION CLERK Work Phone: [facility] Start: 10-09-2022 Non-patient / Non-visit STAMP REDEMPTION CLERK-C Ventura Segovia STAMP REDEMPTION CLERK Work Phone: [facility] Start: 10-08-2022 Non-patient / Non-visit STAMP REDEMPTION CLERK-C Ventura Segovia NP Work Phone: [facility] [facility] Start: 10-08-2022 End: 10-09-2022 Evaluation and management of inpatient [facility] 3 Start: 09-18-2022 End: 09-18-2022 Patient encounter procedure WILBUR TSANG MD [facility] Start: 08-28-2022 End: 08-28-2022 Admission to [facility] WILBUR TSANG MD [facility] Start: 08-14-2022 End: 08-14-2022 Patient encounter procedure WILBUR TSANG MD [facility] Start: 07-17-2022 End: 07-21-2022 Outreach Lab LALO RIDDLE MD [facility] Start: 07-07-2022 End: 07-07-2022 ambulatory [facility] Work Phone: Start: 07-07-2022 End: 07-07-2022 Patient encounter procedure [facility] Start: 07-02-2022 End: 07-06-2022 Outreach Lab FRANKIE SEGOVIA INTERNET SALES REPRESENTATIVE-SERVICE STATION ATTENDANT [facility] Start: 05-14-2022 End: 05-14-2022 ambulatory [facility] Work Phone: Start: 05-14-2022 End: 05-14-2022 Patient encounter procedure [facility] Start: 04-28-2022 End: 04-28-2022 Emergency department patient visit [facility] Start: 02-21-2022 ambulatory Shannon Vu Facil ity:[facility] Start: 09-02-2021 End: 09-02-2021 Emergency department patient visit Shannon Vu [facility] Start: 07-15-2021 ambulatory Loraine Blair Facility:[facility] Start: 07-10-2021 End: 07-11-2021 Emergency department patient visit Shannon Vu [facility] Start: 06-24-2021 End: 06-24-2021 Emergency department patient visit Shannon Vu [facility] Start: 06-11-2021 ambulatory [place] [facility] Facilit y:[facility] Start: 03-20-2021 ambulatory Shannon Vu Facil ity:[facility] Start: 03-20-2021 Patient encounter procedure Shannon Vu [facility] Start: 11-27-2020 End: 11-29-2020 Evaluation and management of inpatient Shannon Vu [facility] Start: 11-26-2020 End: 11-26-2020 Emergency department patient visit Shannon Vu [facility] Start: 11-13-2020 End: 11-13-2020 Admission to same day surgery center Shannon Vu [facility] Start: 10-31-2020 End: 10-31-2020 Admission to same day surgery center Shannon Vu [facility] Start: 10-24-2020 End: 10-24-2020 Admission to same day surgery center Shannon Vu [facility] Start: 10-17-2020 End: 10-17-2020 Admission to same day surgery center Shannon Vu [facility] Start: 10-06-2020 End: 10-06-2020 Emergency department patient visit Shannon Vu [facility] Start: 09-07-2020 Patient encounter procedure Shannon Vu [facility] Start: 02-20-2017 Ambulatory Olga Lidia Hernandez lity:[facility] Start: 10-14-2016 Ambulatory Olga Lidia Hernandez lity:[facility] Start: 05-04-2015 End: 05-04-2015 Orders Only Damon Herrera Work Phone: Respiratory Cool Comment on above: Chronic obstructive pulmonary disease, unspecified COPD type (HCC) (Primary Dx); Chronic obstructive pulmonary disease, unspecified COPD type (HCC) [J44.9] Procedures Date Procedure Procedure Detail Performing Clinician Start: 09-14-2024 X-ray of chest, PA and lateral views Rima Celis STAMP REDEMPTION CLERK-C Work Phone: Start: 07-13-2024 Vitamin D, 25-hydroxy measurement Trevon Celis STAMP REDEMPTION CLERK-C Work Phone: Comment on above: Vitamin D StatusDeficiency: <20 ng/mL (5 0nmol/L)Insufficiency: 20-30 ng/mL (50-75 nmol/L)Sufficiency: 30-100 ng/mL (75-250 nmol/L)Toxicity: >100 ng/mL (>250 nmol/L) Start: 05-09-2024 Gram stain microscopy Rima Celis STAMP REDEMPTION CLERK-C Work Phone: Start: 05-09-2024 Microbial culture, routine Rima Martin STAMP REDEMPTION CLERK-C Work Phone: Start: 05-06-2023 Urine culture Start: 10-08-2022 Computed tomography of abdomen and pelvis with intravenous contrast Start: 09-02-2022 Laparoscopic hysterectomy WILBUR TSANG MD Start: 07-07-2022 Pelvic echography Start: 04-28-2022 Plain chest X-ray Start: 04-28-2022 Computed tomography of abdomen and pelvis with intravenous contrast Start: 09-02-2021 Plain chest X-ray Shannon Vu Start: 07-10-2021 CT of chest Shannon Vu Start: 06-24-2021 Plain chest X-ray Shannon Vu Start: 12-13-2020 Implantation of cardiac pacemaker JEWEL SEGOVIA INTERNET SALES REPRESENTATIVE-SERVICE STATION ATTENDANT Comment on above: Implantation of Dual Chamber Pacemaker Dr Kirill Manzo DEVICE SPECIFICATIONS: 1. Pulse generator: eGenerationsOLADE MRI IS-1(), model L331, #[id number]. 2. RA Lead: BSci 7840, #[id number]. 3. RV Lead: BSci 7841, #[id number]. Start: 11-28-2020 Gram stain microscopy Shannon Vu Start: 11-28-2020 Lumbar puncture using fluoroscopic guidance Shannon Vu Start: 11-28-2020 Carbon dioxide content measurement Ashley a Bowling Start: 11-28-2020 Oxygen PACU Ina Bowling Start: 11-28-2020 Thermometer PACU Ina Bowling Start: 11-28-2020 Vital Signs PACU Ina Bowling Start: 11-28-2020 DO Daniel Silva Start: 11-26-2020 Computed tomography of abdomen and pelvis with contrast Shannon Vu Start: 10-06-2020 Microscopic urinalysis Shannon Vu Start: 09-07-2020 Lumbar puncture using fluoroscopic guidance Shannon Vu Start: 02-21-2019 Colonoscopy FRANKIE SEGOVIA INTERNET SALES REPRESENTATIVE-SERVICE STATION ATTENDANT Comment on above: Dr Ríos - 3 of the polyps are removed were benign/hyperplastic polyps. 2 over the polyps are removed were adenomas. One of the polyps are removed was unremarkable colonic mucosa. The nodule that I biopsied was a lipoma. Patient should have a repeat colonoscopy in 5 years for polyp surveillance.(please make note of the following especially when we go to scheduled for next colonoscopy -- Discussion with anesthesia it is recommended the patient have the next colonoscopy intubated for respiratory issues as well as may be better done at a larger facility for high risk issues) Start: 01-18-2018 Colonoscopy FRANKIE SEGOVIA INTERNET SALES REPRESENTATIVE-SERVICE STATION ATTENDANT Comment on above: Dr Ríos. Repeat 5 years. Start: 04-20-2015 Hernia of abdominal cavity (disorder) FRANKIE SEGOVIA INTERNET SALES REPRESENTATIVE-[place]erdle Comment on above: Umbilical Start: 04-20-2014 Colonoscopy FRANKIE SEGOVIA INTERNET SALES REPRESENTATIVE-SERVICE STATION ATTENDANT Start: 04-20-2014 Dilation and curettage FRANKIE SEGOVIA INTERNET SALES REPRESENTATIVE-SERVICE STATION ATTENDANT Start: 04-20-2014 Esophagogastroduodenoscopy FRANKIE KIRAN INTERNET SALES REPRESENTATIVE-[place]erdle Start: 04-20-2008 Cholecystectomy FRANKIE SEGOVIA INTERNET SALES REPRESENTATIVE-Yerdle Start: 04-20-2008 Colonoscopy FRANKIE SEGOVIA INTERNET SALES REPRESENTATIVE-SERVICE STATION ATTENDANT Start: 04-20-2008 Hernia of abdominal cavity (disorder) FRANKIE SEGOVIA INTERNET SALES REPRESENTATIVE-SERVICE STATION ATTENDANT Comment on above: X 3 Start: 04-20-2003 Hernia of abdominal cavity (disorder) FRANKIE SEGOVIA INTERNET SALES REPRESENTATIVE-SERVICE STATION ATTENDANT Start: 04-20-2001 Hernia of abdominal cavity (disorder) FRANKIE SEGOVIA INTERNET SALES REPRESENTATIVE-Yerdle Start: 04-20-1991 section FRANKIE SEGOVIA INTERNET SALES REPRESENTATIVE-SERVICE STATION ATTENDANT Start: 04-20-1991 Ligation of fallopian tube FRANKIE KIRAN INTERNET SALES REPRESENTATIVE-SERVICE STATION ATTENDANT Start: 04-20-1985 section FRANKIE SEGOVIA INTERNET SALES REPRESENTATIVE-SERVICE STATION ATTENDANT Start: 04-20-1983 section FRANKIE SEGOVIA INTERNET SALES REPRESENTATIVE-SERVICE STATION ATTENDANT Start: 04-20-1980 section FRANKIE SEGOVIA INTERNET SALES REPRESENTATIVE-SERVICE STATION ATTENDANT Abscess (disorder) FRANKIE ANTUNEZ INTERNET SALES REPRESENTATIVE-SERVICE STATION ATTENDANT Comment on above: Removed from buttock Lesion (morphologic abnormality) FRANKIE SEGOVIA INTERNET SALES REPRESENTATIVE-SERVICE STATION ATTENDANT Comment on above: 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 Plan of Treatment Date Care Activity Detail Author Start: 05-09-2024 [facility] Start: 10-09-2022 Patient discharge [facility] Start: 10-09-2022 [facility] Start: 10-09-2022 Inhalation therapy procedure [facility] Start: 10-08-2022 Following clinical pathway protocol [facility] Start: 10-08-2022 Admission procedure [facility] Start: 10-08-2022 Assessment of risk of venous thromboembolism [facility] Start: 10-08-2022 Care regimes management [facility] Start: 10-08-2022 Insertion of catheter into peripheral vein [facility] Start: 10-08-2022 Notification of physician [facility] Start: 10-08-2022 Providing care according to standard [facility] Start: 10-08-2022 [facility] Start: 10-08-2022 Ambulation without limitation [facility] Start: 10-08-2022 Measuring intake and output [facility] Start: 10-08-2022 Referral to general surgeon [facility] Start: 10-08-2022 Verification routine [facility] Start: 12-20-2019 Influenza vaccination INFLUENZA (#1) [facility] Start: 2017 SHINGRIX VACCINE (1 of 2) SHINGRIX VACCINE (1 of 2) [facility] Start: 2017 Tuberculosis screening COLORECTAL CANCER SCREENING,SEE MODIFIER [facility] Start: 02-12-2012 DIABETES SCREEN DIABETES SCREEN [facility] Start: 02-12-2012 LIPID SCREEN LIPID SCREEN [facility] Start: 2007 Mammography MAMMOGRAM [facility] Start: 1997 HPV TESTING HPV TESTING [facility] Start: 02-12-1988 PAP TESTING PAP TESTING [facility] Start: 1986 Urine microalbumin profile DTAP,TDAP,TD (1 - Tdap) [facility] Start: 1985 HEPATITIS C SCREENING HEPATITIS C SCREENING [facility] Start: 1985 HIV SCREENING HIV SCREENING [facility] Alanine aminotransfe rase [Enzymatic activity/volume] in Serum or Plasma [facility] Albumin [Mass/volume ] in Serum or Plasma [facility] Alkaline phosphatase [Enzymatic activity/volume] in Serum or Plasma [facility] Anion gap measurement [facility] Aspartate aminotrans ferase [Enzymatic activity/volume] in Serum or Plasma [facility] Bilirubin, total measurement [facility] BUN/Creatinine ratio [facility] Calcium [Mass/volume ] in Serum or Plasma [facility] Carbon dioxide, tota l [Moles/volume] in Serum or Plasma [facility] Chloride [Moles/volu me] in Serum or Plasma [facility] Creatinine [Moles/vo lume] in Serum or Plasma [facility] Glucose [Mass/volume ] in Serum or Plasma [facility] Hematocrit [Volume F raction] of Blood [facility] Hemoglobin [Mass/vol ume] in Blood [facility] Leukocytes [#/volume ] in Blood [facility] Mean corpuscular hem oglobin concentration determination [facility] Mean corpuscular hem oglobin determination [facility] Measurement of renal function [facility] Neutrophil count [facility] Neutrophil percent differential count [facility] Patient Education [facility] Patient referral [facility] Work Phone: Platelets [#/volume] in Blood [facility] Potassium [Moles/vol ume] in Serum or Plasma [facility] Red blood cell count [facility] Red cell distributio n width determination [facility] Sodium [Moles/volume ] in Serum or Plasma [facility] Total protein measurement [facility] Urea nitrogen [Mass/ volume] in Serum or Plasma [facility] Immunizations Immunization Date Immunization Notes Care Provider Fa roberto carlos 05-20-2021 SARS-CoV-2 (COVID-19 ) mRNA-1273 vaccine FRANKIE SEFFENS INTERNET SALES REPRESENTATIVE-SERVICE STATION ATTENDANT [facility] 09-05-2020 SARS-CoV-2 (COVID-19 ) mRNA-1273 vaccine FRANKIE SEFFENS INTERNET SALES REPRESENTATIVE-SERVICE STATION ATTENDANT [facility] 08-08-2020 SARS-CoV-2 (COVID-19 ) mRNA-1273 vaccine FRANKIE SEFFENS INTERNET SALES REPRESENTATIVE-SERVICE STATION ATTENDANT [facility] 08-06-2020 SARS-CoV-2 (COVID-19 ) mRNA-1273 vaccine FRANKIE SEFFENS INTERNET SALES REPRESENTATIVE-SERVICE STATION ATTENDANT [facility] 04-20-2009 diphtheria and tetan us toxoids, adsorbed for pediatric use FRANKIE SEFFENS INTERNET SALES REPRESENTATIVE-SERVICE STATION ATTENDANT [facility] 04-20-2009 tetanus toxoid, redu zoila diphtheria toxoid, and acellular pertussis vaccine, adsorbed FRANKIE SEFFENS INTERNET SALES REPRESENTATIVE-SERVICE STATION ATTENDANT [facility] 04-20-2007 pneumococcal polysaccharide vaccine, 23 valent FRANKIE SEFFENS INTERNET SALES REPRESENTATIVE-SERVICE STATION ATTENDANT [facility] Payers Date Payer Category Payer Private Health Insurance [id number] 2023 Medicaid [id number] 2023 Unknown [id number] 2023 Private Health Insurance [id number] 2022 Medicare [id number] 2022 Medicaid [id number] 2021 Private Health Insurance [id number] 2021 Medicare [id number] 2021 Self-pay 2021 Unknown [id number] 2015 [facility] [id number] 2015-Present Medicaid [id number] 2014 Unknown [id number] 1967 Unknown [id number] 2.16.840.1.225209.3.579.2. 627 1967 Unknown [id number] 2.16.840.1.997791.3.579.2. 627 1967 Unknown [id number] 2.16.840.1.467904.3.579.2. 627 1967 Unknown [id number] 2.16.840.1.323496.3.579.2. 627 1967 Unknown [id number] 2.16.840.1.538723.3.579.2. 627 1967 Unknown [id number] 2.16.840.1.608340.3.579.2. 627 1967 Unknown [id number] 2.16.840.1.047776.3.579.2. 627 1967 Unknown [id number] 2.16.840.1.769176.3.579.2. 627 1967 Unknown [id number] 2.16.840.1.490825.3.579.2. 627 1967 Unknown [id number] 2.16.840.1.472886.3.579.2. 627 1967 Unknown [id number] 2.16.840.1.826862.3.579.2. 627 1967 Unknown [id number] 2.16.840.1.293340.3.579.2. 627 1967 Unknown [id number] 2.16.840.1.201939.3.579.2. 627 1967 Unknown [id number] .840.1.364525.3.579.2. 62 1967 Unknown [id number] .840.1.211563.3.579.2. 627 1967 Unknown [id number] .840.1.132482.3.579.2. 1967 Unknown [id number] .840.1.487603.3.579.2. 1967 Unknown [id number] .840.1.611842.3.579.2. 62 1967 Unknown [id number] .840.1.795066.3.579.2. 62 1967 Unknown [id number] .840.1.996438.3.579.2. 627 Medicare [id number] Medicare UHC MEDICARE OTHER [id number] Unknown [id number] 840.1.349265.3.579.2. 630 Unknown [id number] .840.1.950080.3.579.2. 630 Unknown [id number] .16840.1.255462.3.579.2. 630 Unknown [id number] .16840.1.959913.3.579.2. 630 Unknown [id number] 2.840.1.200506.3.579.2. 630 Unknown [id number] .840.1.864956.3.579.2. 630 Unknown [id number] 2.16.840.1.184167.3.579.2. 630 Unknown [facility] .. [id number] Unknown [id number] 2.16.840.1.817679.3.579.2. 462 Unknown [id number] 2.16.840.1.156388.3.579.2. 462 Unknown [id number] 2.16.840.1.885825.3.579.2. 462 Unknown [id number] 2.16.840.1.849784.3.579.2. 462 Unknown [id number] 2.16.840.1.276008.3.579.2. 462 Unknown [id number] 2.16.840.1.223900.3.579.2. 462 Unknown [id number] 2.16.840.1.376708.3.579.2. 462 Unknown [id number] 2.16.840.1.138052.3.579.2. 462 Social History Date Type Detail Facility Tobacco smoking stat us NHIS Unknown if ever smoked [facility] Sex Assigned At Not on file [facility] Start: 04-28-2022 End: 10-08-2022 Tobacco smoking status NHIS Unknown if ever smoked [facility] Start: 1965 Sex Assigned At Female [facility] Start: 04-01-2022 End: 11-02-2024 Tobacco smoking status Light tobacco smoker (finding) [facility] [place] Comment on above: Quit 11/29/20 Tobacco smoking status Ex-smoker (finding ) [facility] [place] Comment on above: Quit 11/29/20 Sexual Orientation Vani hays [facility] Start: 04-16-2021 End: 07-18-2024 Sex Female (finding) [facility] Start: 05-09-2024 [facility] NEGATED: Highlighted row Not [facility] Medical Equipment Procedure Code Equipment Code Equipment Origin al Text Equipment Identifier Dates Accu-Chek Guide In Vitro Strip, See Instructions, USE TO CHECK BLOOD GLUCOSE DAILY , # 50 unknown unit, 0 Refill(s), Pharmacy: [id number], 162, cm, 07/02/21 11:42:00 EDT, Height, 125, kg, 07/02/21 11:42:00 EDT, Dosing Weight Start: 08-01-2021 See Instructions , use to check blood sugars daily Accu-Chek Guide In Vitro Strip, # 50 EA, 11 Refill(s), Pharmacy: [id number], 160, cm, 10/11/21 16:30:00 EDT, Height, 120.5 Start: 10-17-2021 See Instructions , 1 box of lancets for Accu- Check, # 1 EA, 11 Refill(s), Pharmacy: [facility] #30, Diabetes mellitus with hyperglycemia, 157.7, cm, 05/19/22 8:50:00 EST, Height, 118.3 Start: 05-19-2022 Accu-Chek Guide In Vitro Strip, See Instructions, USE TO CHECK BLOOD GLUCOSE DAILY , # 50 unknown unit, 0 Refill(s), Pharmacy: [id number], 162, cm, 07/02/21 11:42:00 EDT, Height, 125, kg, 07/02/21 11:42:00 EDT, Dosing Weight Start: 08-01-2021 See Instructions , use to check blood sugars daily Accu-Chek Guide In Vitro Strip, # 50 EA, 11 Refill(s), [facility]: [id number], 160, cm, 10/11/21 16:30:00 EDT, Height, 120.5 Start: 10-17-2021 See Instructions , 1 box of lancets for Accu- Check, # 1 EA, 11 Refill(s), Pharmacy: [facility] #30, Diabetes mellitus with hyperglycemia, 157.7, cm, 05/19/22 8:50:00 EST, Height, 118.3 Start: 05-19-2022 Accu-Chek Guide In Vitro Strip, See Instructions, USE TO CHECK BLOOD GLUCOSE DAILY , # 50 unknown unit, 0 Refill(s), Pharmacy: [id number], 162, cm, 07/02/21 11:42:00 EDT, Height, 125, kg, 07/02/21 11:42:00 EDT, Dosing Weight Start: 08-01-2021 See Instructions , use to check blood sugars daily Accu-Chek Guide In Vitro Strip, # 50 EA, 11 Refill(s), Pharmacy: [id number], 160, cm, 10/11/21 16:30:00 EDT, Height, 120.5 Start: 10-17-2021 See Instructions , 1 box of lancets for Accu- Check, # 1 EA, 11 Refill(s), Pharmacy: [facility]30, Diabetes mellitus with hyperglycemia, 157.7, cm, 05/19/22 8:50:00 EST, Height, 118.3 Start: 05-19-2022 Accu-Chek Guide In Vitro Strip, See Instructions, USE TO CHECK BLOOD GLUCOSE DAILY , # 50 unknown unit, 0 Refill(s), Pharmacy: [id number], 162, cm, 07/02/21 11:42:00 EDT, Height, 125, kg, 07/02/21 11:42:00 EDT, Dosing Weight Start: 08-01-2021 See Instructions , use to check blood sugars daily Accu-Chek Guide In Vitro Strip, # 50 EA, 11 Refill(s), Pharmacy: [id number], 160, cm, 10/11/21 16:30:00 EDT, Height, 120.5 Start: 10-17-2021 See Instructions , 1 box of lancets for Accu- Check, # 1 EA, 11 Refill(s), Pharmacy: [facility] #30, Diabetes mellitus with hyperglycemia, 157.7, cm, 05/19/22 8:50:00 EST, Height, 118.3 Start: 05-19-2022 Accu-Chek Guide In Vitro Strip, See Instructions, USE TO CHECK BLOOD GLUCOSE DAILY , # 50 unknown unit, 0 Refill(s), Pharmacy: [id number], 162, cm, 07/02/21 11:42:00 EDT, Height, 125, kg, 07/02/21 11:42:00 EDT, Dosing Weight Start: 08-01-2021 See Instructions , use to check blood sugars daily Accu-Chek Guide In Vitro Strip, # 50 EA, 11 Refill(s), Pharmacy: [id number], 160, cm, 10/11/21 16:30:00 EDT, Height, 120.5 Start: 10-17-2021 See Instructions , 1 box of lancets for Accu- Check, # 1 EA, 11 Refill(s), Pharmacy: [facility] #30, Diabetes mellitus with hyperglycemia, 157.7, cm, 05/19/22 8:50:00 EST, Height, 118.3 Start: 05-19-2022 Accu-Chek Guide In Vitro Strip, See Instructions, USE TO CHECK BLOOD GLUCOSE DAILY, # 50 unknown unit, 0 Refill(s), Pharmacy: [facility] #[id number], 162, cm, 07/02/21 11:42:00 EDT, Height, 125, kg, 07/02/21 11:42:00 EDT, Dosing Weight Start: 08-01-2021 See Instructions , use to check blood sugars daily Accu-Chek Guide In Vitro Strip, # 50 EA, 11 Refill(s), Pharmacy: [facility] #30, 157.5, cm, 10/29/22 16:31:00 EDT, Height, 116.2, kg, 10/29/22 16:31:00 EDT, Dosing Weight Start: 10-29-2022 See Instructions , 1 box of lancets for Accu- Check, # 1 EA, 11 Refill(s), Pharmacy: [facility] #30, Diabetes mellitus with hyperglycemia, 157.5, cm, 10/29/22 16:31:00 EDT, Height, 116.2, kg, 10/29/22 16:31:00 EDT, Dosing Weight Start: 10-29-2022 Accu-Chek Guide In Vitro Strip, See Instructions, USE TO CHECK BLOOD GLUCOSE DAILY, # 50 unknown unit, 0 Refill(s), Pharmacy: [facility] #[id number], 162, cm, 07/02/21 11:42:00 EDT, Height, 125, kg, 07/02/21 11:42:00 EDT, Dosing Weight Start: 08-01-2021 See Instructions , use to check blood sugars daily Accu-Chek Guide In Vitro Strip, # 50 EA, 11 Refill(s), Pharmacy: [facility] #30, 157.5, cm, 10/29/22 16:31:00 EDT, Height, 116.2, kg, 10/29/22 16:31:00 EDT, Dosing Weight Start: 10-29-2022 See Instructions , 1 box of lancets for Accu- Check, # 1 EA, 11 Refill(s), Pharmacy: [facility] #30, Diabetes mellitus with hyperglycemia, 157.5, cm, 10/29/22 16:31:00 EDT, Height, 116.2, kg, 10/29/22 16:31:00 EDT, Dosing Weight Start: 10-29-2022 Accu-Chek Guide In Vitro Strip, See Instructions, USE TO CHECK BLOOD GLUCOSE DAILY, # 50 unknown unit, 0 Refill(s), Pharmacy: [facility] #[id number], 162, cm, 07/02/21 11:42:00 EDT, Height, 125, kg, 07/02/21 11:42:00 EDT, Dosing Weight Start: 08-01-2021 See Instructions , use to check blood sugars daily Accu-Chek Guide In Vitro Strip, # 50 EA, 11 Refill(s), Pharmacy: [facility] #30, 157.5, cm, 10/29/22 16:31:00 EDT, Height, 116.2, kg, 10/29/22 16:31:00 EDT, Dosing Weight Start: 10-29-2022 See Instructions , 1 box of lancets for Accu- Check, # 1 EA, 11 Refill(s), Pharmacy: [facility] #30, Diabetes mellitus with hyperglycemia, 157.5, cm, 10/29/22 16:31:00 EDT, Height, 116.2, kg, 10/29/22 16:31:00 EDT, Dosing Weight Start: 10-29-2022 Accu-Chek Guide In Vitro Strip, See Instructions, USE TO CHECK BLOOD GLUCOSE DAILY, # 50 unknown unit, 0 Refill(s), Pharmacy: [facility] #[id number], 162, cm, 07/02/21 11:42:00 EDT, Height, 125, kg, 07/02/21 11:42:00 EDT, Dosing Weight Start: 08-01-2021 See Instructions , use to check blood sugars daily Accu-Chek Guide In Vitro Strip, # 50 EA, 11 Refill(s), Pharmacy: [facility] #30, 157.5, cm, 10/29/22 16:31:00 EDT, Height, 116.2, kg, 10/29/22 16:31:00 EDT, Dosing Weight Start: 10-29-2022 See Instructions , 1 box of lancets for Accu- Check, # 1 EA, 11 Refill(s), Pharmacy: [facility] #30, Diabetes mellitus with hyperglycemia, 157.5, cm, 10/29/22 16:31:00 EDT, Height, 116.2, kg, 10/29/22 16:31:00 EDT, Dosing Weight Start: 10-29-2022 Accu-Chek Guide In Vitro Strip, See Instructions, USE TO CHECK BLOOD GLUCOSE DAILY, # 50 unknown unit, 0 Refill(s), Pharmacy: [facility] #[id number], 162, cm, 07/02/21 11:42:00 EDT, Height, 125, kg, 07/02/21 11:42:00 EDT, Dosing Weight Start: 08-01-2021 See Instructions , use to check blood sugars daily Accu-Chek Guide In Vitro Strip, # 50 EA, 11 Refill(s), Pharmacy: [facility] #30, 157.5, cm, 10/29/22 16:31:00 EDT, Height, 116.2, kg, 10/29/22 16:31:00 EDT, Dosing Weight Start: 10-29-2022 See Instructions , 1 box of lancets for Accu- Check, # 1 EA, 11 Refill(s), Pharmacy: [facility] #30, Diabetes mellitus with hyperglycemia, 157.5, cm, 10/29/22 16:31:00 EDT, Height, 116.2, kg, 10/29/22 16:31:00 EDT, Dosing Weight Start: 10-29-2022 See Instructions , use to check blood sugars daily Accu-Chek Guide In Vitro Strip, # 50 EA, 11 Refill(s), Pharmacy: [facility] #[facility], 156.5, cm, 06/15/23 15:49:00 EST, Height, 126.2, kg, 06/15/23 15:49:00 EST, Dosing Weight Start: 06-15-2023 See Instructions , 1 box of lancets for Accu- Check, # 1 EA, 11 Refill(s), Pharmacy: [facility], Diabetes mellitus with hyperglycemia, 157.5, cm, 10/29/22 16:31:00 EDT, Height, 116.2, kg, 10/29/22 16:31:00 EDT, Dosing Weight Start: 10-29-2022 See Instructions , use to check blood sugars daily Accu-Chek Guide In Vitro Strip, # 50 EA, 11 Refill(s), Pharmacy: [facility] #[facility], 156.5, cm, 06/15/23 15:49:00 EST, Height, 126.2, kg, 06/15/23 15:49:00 EST, Dosing Weight Start: 06-15-2023 See Instructions , 1 box of lancets for Accu- Check, # 1 EA, 11 Refill(s), Pharmacy: [facility]30, Diabetes mellitus with hyperglycemia, 157.5, cm, 10/29/22 16:31:00 EDT, Height, 116.2, kg, 10/29/22 16:31:00 EDT, Dosing Weight Start: 10-29-2022 See Instructions , use to check blood sugars daily Accu-Chek Guide In Vitro Strip, # 50 EA, 11 Refill(s), Pharmacy: [facility], 156.5, cm, 06/15/23 15:49:00 EST, Height, 126.2, kg, 06/15/23 15:49:00 EST, Dosing Weight Start: 06-15-2023 See Instructions , 1 box of lancets for Accu- Check, # 1 EA, 11 Refill(s), Pharmacy: [facility] #30, Diabetes mellitus with hyperglycemia, 157.5, cm, 10/29/22 16:31:00 EDT, Height, 116.2, kg, 10/29/22 16:31:00 EDT, Dosing Weight Start: 10-29-2022 See Instructions , use to check blood sugars daily Accu-Chek Guide In Vitro Strip, # 50 EA, 11 Refill(s), Pharmacy: [facility], 156.5, cm, 06/15/23 15:49:00 EST, Height, 126.2, kg, 06/15/23 15:49:00 EST, Dosing Weight Start: 06-15-2023 See Instructions , 1 box of lancets for Accu- Check, # 1 EA, 11 Refill(s), Pharmacy: [facility]30, Diabetes mellitus with hyperglycemia, 157.5, cm, 10/29/22 16:31:00 EDT, Height, 116.2, kg, 10/29/22 16:31:00 EDT, Dosing Weight Start: 10-29-2022 See Instructions , use to check blood sugars daily Accu-Chek Guide In Vitro Strip, # 50 EA, 11 Refill(s), Pharmacy: [facility], 156.5, cm, 06/15/23 15:49:00 EST, Height, 126.2, kg, 06/15/23 15:49:00 EST, Dosing Weight Start: 06-15-2023 See Instructions , 1 box of lancets for Accu- Check, # 1 EA, 11 Refill(s), Pharmacy: [facility]30, Diabetes mellitus with hyperglycemia, 157.5, cm, 10/29/22 16:31:00 EDT, Height, 116.2, kg, 10/29/22 16:31:00 EDT, Dosing Weight Start: 10-29-2022 See Instructions , use to check blood sugars daily Accu-Chek Guide In Vitro Strip, # 50 EA, 11 Refill(s), Pharmacy: [facility], 156.5, cm, 06/15/23 15:49:00 EST, Height, 126.2, kg, 06/15/23 15:49:00 EST, Dosing Weight Start: 06-15-2023 See Instructions , 1 box of lancets for Accu- Check, # 1 EA, 11 Refill(s), Pharmacy: [facility]30, Diabetes mellitus with hyperglycemia, 157.5, cm, 10/29/22 16:31:00 EDT, Height, 116.2, kg, 10/29/22 16:31:00 EDT, Dosing Weight Start: 10-29-2022 See Instructions , use to check blood sugars daily Accu-Chek Guide In Vitro Strip, # 50 EA, 11 Refill(s), Pharmacy: [facility] #30, 156.5, cm, 06/15/23 15:49:00 EST, Height, 126.2, kg, 06/15/23 15:49:00 EST, Dosing Weight Start: 06-15-2023 See Instructions , 1 box of lancets for Accu- Check, # 1 EA, 11 Refill(s), Pharmacy: [facility]30, Diabetes mellitus with hyperglycemia, 157.5, cm, 10/29/22 16:31:00 EDT, Height, 116.2, kg, 10/29/22 16:31:00 EDT, Dosing Weight Start: 10-29-2022 See Instructions , use to check blood sugars daily Accu-Chek Guide In Vitro Strip, # 50 EA, 11 Refill(s), Pharmacy: [facility]30, 156.5, cm, 06/15/23 15:49:00 EST, Height, 126.2, kg, 06/15/23 15:49:00 EST, Dosing Weight Start: 06-15-2023 See Instructions , 1 box of lancets for Accu- Check, # 1 EA, 11 Refill(s), Pharmacy: [facility] #30, Diabetes mellitus with hyperglycemia, 157.5, cm, 10/29/22 16:31:00 EDT, Height, 116.2, kg, 10/29/22 16:31:00 EDT, Dosing Weight Start: 10-29-2022 See Instructions , use to check blood sugars daily Accu-Chek Guide In Vitro Strip, # 50 EA, 11 Refill(s), Pharmacy: [facility], 156.5, cm, 06/15/23 15:49:00 EST, Height, 126.2, kg, 06/15/23 15:49:00 EST, Dosing Weight Start: 06-15-2023 See Instructions , 1 box of lancets for Accu- Check, # 1 EA, 11 Refill(s), Pharmacy: [facility] #30, Diabetes mellitus with hyperglycemia, 157.5, cm, 10/29/22 16:31:00 EDT, Height, 116.2, kg, 10/29/22 16:31:00 EDT, Dosing Weight Start: 10-29-2022 See Instructions , use to check blood sugars daily Accu-Chek Guide In Vitro Strip, # 50 EA, 11 Refill(s), Pharmacy: [facility] #30, 156.5, cm, 06/15/23 15:49:00 EST, Height, 126.2, kg, 06/15/23 15:49:00 EST, Dosing Weight Start: 06-15-2023 See Instructions , 1 box of lancets for Accu- Check, # 1 EA, 11 Refill(s), Pharmacy: [facility] #30, Diabetes mellitus with hyperglycemia, 157.5, cm, 10/29/22 16:31:00 EDT, Height, 116.2, kg, 10/29/22 16:31:00 EDT, Dosing Weight Start: 10-29-2022 See Instructions , use to check blood sugars daily Accu-Chek Guide In Vitro Strip, # 50 EA, 11 Refill(s), Pharmacy: [facility] #30, 156.5, cm, 06/15/23 15:49:00 EST, Height, 126.2, kg, 06/15/23 15:49:00 EST, Dosing Weight Start: 06-15-2023 See Instructions , 1 box of lancets for Accu- Check, # 1 EA, 11 Refill(s), Pharmacy: [facility] #30, Diabetes mellitus with hyperglycemia, 157.5, cm, 10/29/22 16:31:00 EDT, Height, 116.2, kg, 10/29/22 16:31:00 EDT, Dosing Weight Start: 10-29-2022 See Instructions , use to check blood sugars daily Accu-Chek Guide In Vitro Strip, # 50 EA, 11 Refill(s), Pharmacy: [facility] #30, 156.5, cm, 02/26/24 15:49:00 EST, Height, 126.2, kg, 06/15/23 15:49:00 EST, Dosing Weight Start: 06-15-2023 See Instructions , 1 box of lancets for Accu- Check, # 1 EA, 11 Refill(s), Pharmacy: [facility]30, Diabetes mellitus with hyperglycemia, 157.5, cm, 10/29/22 16:31:00 EDT, Height, 116.2, kg, 10/29/22 16:31:00 EDT, Dosing Weight Start: 10-29-2022 Goals Date Patient Goal Desired Activity /State Functional Status Date Assessment Result Facility 12-17-2022 Functional Status Repositions self [facility] 10-09-2022 Functional status Up ad sloan;Bathroom Priv [facility] Work Phone: Mental Status Date Assessment Result Facility 10-09-2022 Cognitive function Voice/Name [facility] Work Phone: Clinical Notes 09-02-2021 to 12-02-2024 Note Date & Type Note Facility 12-02-2024 Note Exam Date Time Procedure Performing Provider Status 12/02/24 12:03 PM US Soft Tissue Mass of Abd/Mid Back OSCAR AGUAYO MD; Auth (Verified) [id number] ORIGINAL EXAMINATION: SOFT TISSUE ULTRASOUND12/02/2024 12:08 pm COMPARISON: CT 11/18/2024 HISTORY: ORDERING SYSTEM PROVIDED HISTORY: Reason for Exam: epigastric firm subcutaneous nodule, history of hernia repair FINDINGS: Scanning of the abdominal wall in the epigastric region in the area of concern shows a shadowing area within the anterior abdominal wall that seems to protrude within the muscle but not clearly into the subcutaneous fat. This does not change with increasing pressure and emelia abdominal muscle. The shadowing obscures underlying structures. No obvious bowel or fluid is seen in this abnormality that measures about 2.5 x 2.3 x 0.7 cm. IMPRESSION: Shadowing abnormality in the area of concern is favored to be artifact from patient's known mesh. Interpreted by: Oscar Aguayo MD Preliminary Report By: Oscar Aguayo MD Electronically signed By Oscar Aguayo MD Dictated Date: 12/02/2024 1:25:28 PM Prelim Date: 12/02/2024 1:28:18 PM Sign Date: 12/02/2024 1:28:18 PM Ordering Provider: PARAG [facility]05-28-2025 Progress [facility] [address], [address] [place] [address] OFFICE VISIT Date of Service: 09/14/24 MR#: [id number] Acct: [id number] Name: JANE REED Rep #: [id number] : 1965 Provider: LASHA Hawley Age/Sex: 59/F Location[place] [facility] Status: Signed Intake Vital Signs 05/09/24 15:25 09/14/24 14:53 09/14/24 15:24 Height 5 ft 3 in 5 ft 4 in Weight: 221 lb BMI 37.9 BP 132/84 H Blood Pressure Location Lt brachial Position Sitting Respiration 18 Pulse 66 Pulse Source NIBP Temp 98.0 F Temp Source Oral Pulse Oximetry (%) 93 96 Oxygen Delivery Method room air room air Comment after C&DB Intake Visit Reasons: ST/BILAT EAR/COUGH/JACINDA Chief Complaint: ST, cough, congest, ear pain Human Resources Records Clerk Required: No Is patient in pain?: Yes Allergies Sulfa (Sulfonamide Antibiotics) Allergy (Verified 09/14/24 14:54) Anaphylaxis sulfamethoxazole (From Bactrim) Allergy (Verified 09/14/24 14:54) Anaphylaxis trimethoprim (From Bactrim) Allergy (Verified 09/14/24 14:54) Anaphylaxis Opioids - Morphine Analogues Adverse Reaction (Verified 09/14/24 14:54) Other Is last menstrual period known: No Post menopausal: Yes Patient : No Have you fallen in the past year?: No Nurse's Note: ST, cough, congest, ear pain x 4 days. hx COPD, uses O2 prn. continues to smoke, concerned cough will turn into pneumonia. 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 No c/o fever, chills, LAYTON, myalgias, fatigue,nausea, and diarrhea. Patient notes no complaints of chest painor shortness of breath or dyspnea on exertion. Several close contacts recently dx?d w/ similar URI complaints. No [id number] taken to assist. Tobacco smoker. No other associated symptoms and noother alleviating/aggravating factors. PMH: COPD on O2 nasal cannula ROS Const Constitutional: No other (As above) Exam Const General: cooperative, healthy appearing and no acute distress Orientation: alert, awake and oriented x3 HENMT Head: normal to inspection Ears: hearing grossly normal bilaterally, external ears normal, TM's normal bilaterally and EAC's normal Nose: external nose normal, nares normal, septum normal and clear nasal discharge Face and sinus: normal facial exam, sinuses nontender and face symmetric Mouth: oral mucosae normal, lip normal, tongue normal and oropharynx normal Throat: posterior oropharynx normal, tonsils normal, uvula midline and no postnasal drainage Eyes General: appearance normal, both eyes and all related structures Neck Neck: normal visual inspection, full ROM, no lymphadenopathy, no meningeal signsand supple Neck mass: No Thyroid: thyroid normal Lymphatic: no lymphadenopathy noted Chest Chest palpation & inspection: normal inspection of the chest Resp Effort & Inspection: normal respiratory effort, able to speak in complete sentences and cough Quality of cough: wet (nonproductive in office today) Auscultation: Bilateral: Clear to Auscultation w/ scant wheezing and rhonchi throughout - partiallyclearing with cough Cardio Palpation: normal PMI Rate: tachycardic Rhythm: regular rhythm Heart Sounds: S1 normal, S2 normal, no gallops, no murmurs and no rubs Pulses: radial pulses present Skin General: no rashes or lesions noted Neuro General: patient alert, patient awake and patient oriented x3 Cognition: normal cognition Speech: speech normal Psych Appearance: grossly normal Mental Status: mental status grossly normal Mood: congruent mood Affect: normal affect Speech and Movement: speech and movement normal Attitude: cooperative Diagnoses Contact with or exposure to other viral diseases Z20.828 COPD with acute bronchitis J44.0 Assessment and Plan Assessment and Plan (1) Contact with or exposure to other viral diseases: Status: Acute (2) COPD w/ acute bronchitis: Status: Acute Plan: PA and lateral chest x-ray reveals no acute cardiopulmonary pathology per my review, with radiologist interpretation concurring. See POC results. Medrol and Augmentin as prescribed today. Supportive measures as instructed today. Follow-up with PCP in 5 to 7 days should symptoms not improve, ED sooner should symptoms worsen or any other concerns develop. Pt states acknowledging understanding all the above. Coding Level of Care Code Off vis,new,level 3 Assessment and Plan Assessment and Plan Orders: Orders Chest PA and Lateral Today R05.9 - Cough, unspecified POC FLU A & B Today R05.9 - Cough, unspecified POC Rapid SARS Antigen Today Medications: New methylprednisolone (Medrol (Slim)) PO PER PKG DIR 21 tabs 0RF benzonatate 200 mg PO TID PRN 20 caps 0RF cough amoxicillin-pot clavulanate 875-125 mg 1 TAB PO BID 20 tabs 0RF methylprednisolone (Medrol (Slim)) PO PER PKG DIR 21 tabs 0RF Clinical Quality Measures Falls Risk Screening/Assistive Devices Have you fallen in the past year?: No 09/14/24 1526 s PA PA> Date _ Axel Painter PA PA Cosigner Signature: Date (if applicable) CC: ~ [facility]05-28-2025 Radiology Diagnostic study note [facility] Imaging Services [address] [place], [place] [address] Chest PA and Lateral MR#: [id number] Acct: [id number] Name: JANE REED Rep #: [id number] : 1965 F 59 From: Dominik Figueroa MD PCP: KAHLIL RosarioC Status: RE G CLI Study:Chest PA and Lateral Date of Exam: 09/14/24 Exam# [id number] Ordering Dr: St randy Painter PA PROCEDURE: CHEST PA AND LATERAL 09/14/2024 REASON FOR EXAM: COUGH TECHNIQUE: Frontal and lateral views of the chest. COMPARISON: None FINDINGS: Hardware: Left-sided dual-chamber pacemaker is seen. Heart: Left-sided dual-chamber pacemaker is present. Mediastinum: The mediastinal contour is unremarkable. Lungs: Hyperinflation. Mild increased markings at the lung bases suggestive of scarring. Bones: Degenerative changes are identified within the thoracic spine. Calcific tendinitis of the right shoulder. RAD/Chest PA and Lateral IMPRESSION: Hyperinflation. Findings suggestive of bibasilar scarring. Reading Location: [place] [address] CC: STAMP REDEMPTION CLERK-C Rima Celis; LASHA Hawley ~ Pc Technician: Signed [facility]05-28-2025 Progress note Author Axel Painter [facility] Note Date/Time September 14, 2024 3:26p [facility] [address] [facility], [address] [place] [id number] OFFICE VISIT Date of Service: 09/14/24 MR#: [id number] Acct: [id number] Name: JANE REED Rep #: [id number] : 1965 Provider: LASHA Hawley Age/Sex: 59/F Location: [facility] Status: Signed Intake Vital Signs 05/09/24 15:25 09/14/24 14:53 09/14/24 15:24 Height 5 ft 3 in 5 ft 4 in Weight: 221 lb BMI 37.9 BP 132/84 H Blood Pressure Location Lt brachial Position Sitting Respiration 18 Pulse 66 Pulse Source NIBP Temp 98.0 F Temp Source Oral Pulse Oximetry (%) 93 96 Oxygen Delivery Method room air room air Comment after C&DB Intake Visit Reasons: ST/BILAT EAR/COUGH/JACINDA Chief Complaint: ST, cough, congest, ear pain Human Resources Records Clerk Required: No Is patient in pain?: Yes Allergies Sulfa (Sulfonamide Antibiotics) Allergy (Verified 09/14/24 14:54) Anaphylaxis sulfamethoxazole (From Bactrim) Allergy (Verified 09/14/24 14:54) Anaphylaxis trimethoprim (From Bactrim) Allergy (Verified 09/14/24 14:54) Anaphylaxis Opioids - Morphine Analogues Adverse Reaction (Verified 09/14/24 14:54) Other Is last menstrual period known: No Post menopausal: Yes Patient : No Have you fallen in the past year?: No Nurse's Note: ST, cough, congest, ear pain x 4 days. hx COPD, uses O2 prn. continues to smoke, concerned cough will turn into pneumonia. 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 No c/o fever, chills, LAYTON, myalgias, fatigue,nausea, and diarrhea. Patient notes no complaints of chest pain or shortness of breath or dyspnea on exertion. Several close contacts recently dx?d w/ similar URI complaints. No skfg-hpx-bzisfjo taken to assist. Tobacco smoker. No other associated symptoms and no other alleviating/aggravating factors. PMH: COPD on O2 nasal cannula ROS Const Constitutional: No other (As above) Exam Const General: cooperative, healthy appearing and no acute distress Orientation: alert, awake and oriented x3 [facility] Head: normal to inspection Ears: hearing grossly normal bilaterally, external ears normal, TM's normal bilaterally and EAC's normal Nose: external nose normal, nares normal, septum normal and clear nasal discharge Face and sinus: normal facial exam, sinuses nontender and face symmetric Mouth: oral mucosae normal, lip normal, tongue normal and oropharynx normal Throat: posterior oropharynx normal, tonsils normal, uvula midline and no postnasal drainage Eyes General: appearance normal, both eyes and all related structures Neck Neck: normal visual inspection, full ROM, no lymphadenopathy, no meningeal signsand supple Neck mass: No Thyroid: thyroid normal Lymphatic: no lymphadenopathy noted Chest Chest palpation & inspection: normal inspection of the chest Resp Effort & Inspection: normal respiratory effort, able to speak in complete sentences and cough Quality of cough: wet (nonproductive in office today) Auscultation: Bilateral: Clear to Auscultation w/ scant wheezing and rhonchi throughout - partially clearing with cough Cardio Palpation: normal PMI Rate: tachycardic Rhythm: regular rhythm Heart Sounds: S1 normal, S2 normal, no gallops, no murmurs and no rubs Pulses: radial pulses present Skin General: no rashes or lesions noted Neuro General: patient alert, patient awake and patient oriented x3 Cognition: normal cognition Speech: speech normal Psych Appearance: grossly normal Mental Status: mental status grossly normal Mood: congruent mood Affect: normal affect Speech and Movement: speech and movement normal Attitude: cooperative Diagnoses Contact with or exposure to other viral diseases Z20.828 COPD with acute bronchitis J44.0 Assessment and Plan Assessment and Plan (1) Contact with or exposure to other viral diseases: Status: Acute (2) COPD w/ acute bronchitis: Status: Acute Plan: PA and lateral chest x-ray reveals no acute cardiopulmonary pathology per my review, with radiologist interpretation concurring. See POC results. Medrol and Augmentin as prescribed today. Supportive measures as instructed today. Follow-up with PCP in 5 to 7 days should symptoms not improve, ED sooner should symptoms worsen or any other concerns develop. Pt states acknowledging understanding all the above. Coding Level of Care Code Off vis,new,level 3 Assessment and Plan Assessment and Plan Orders: Orders Chest PA and Lateral Today R05.9 - Cough, unspecified POC FLU A & B Today R05.9 - Cough, unspecified POC Rapid SARS Antigen Today Medications: New methylprednisolone (Medrol (Slim)) PO PER PKG DIR 21 tabs 0RF benzonatate 200 mg PO TID PRN 20 caps 0RF cough amoxicillin-pot clavulanate 875-125 mg 1 TAB PO BID 20 tabs 0RF methylprednisolone (Medrol (Slim)) PO PER PKG DIR 21 tabs 0RF Clinical Quality Measures Falls Risk Screening/Assistive Devices Have you fallen in the past year?: No 09/14/24 1526 <Electronically signed by Axel COLBY> Date _ Axel COLBY Cosigner Signature: Date (if applicable) CC: ~ [facility] Work Phone: 1(752) 469-856003-02-2025 Note. MICRO - Microbiology PROCEDURE: Urine Culture [*1] SOURCE: Urine BODY SITE: COLLECTED DATE/TIME: 06/17/2024 15:22 EST RECEIVED DATE/TIME: 06/17/2024 18:37 EST START DATE/TIME: 06/17/2024 18:37 EST FREE TEXT SOURCE: FINAL REPORTS Final Report [] Verified Date/Time/Personnel: 06/19/2024 07:40 EST 10,000 - 50,000 cfu/ml Mixed growth consistent with normal urogenital kimo. PRELIMINARY REPORTS Preliminary Report [] Verified Date/Time/Personnel: 06/18/2024 09:26 EST No growth to date Preliminary Report [] Verified Date/Time/Personnel: 06/17/2024 19:59 EST Specimen received in lab. Performing Locations *1: This test was performed at: [facility], [address] [place] [address], [id number] , [facility]11-15-2024 Note ORIGINAL NM MYOCARDIAL SPECT STRESS/REST CLINICAL STATEMENT: chest pain TECHNIQUE: Lexiscan dose:0.4 mg Radiopharmaceutical (stress): Tc-99m Sestamibi Dose: mCi Radiopharmaceutical (rest): Tc-99m Sestamibi Dose: mCi SPECT acquisition and processing Reconstruction and reorientation of SPECT images into short axis, vertical and horizontal long axisplanes Quantitative LVEF assessment COMPARISON:01/21/21 Rest only study REPORT:After accounting for diaphragmatic attenuation, no fixed or reversible defect. Normal wall motion and wall thickening. TID ratio 1.2. EDV 102 ml. EF 67% IMPRESSION: 1. No ischemia or scar. 2. Diaphragmatic attenuation artifact. 3. Normal systolic function. EF 67%. Interpreted By: Chanel Galo MD Preliminary Report By: Chanel Galo MD Electronically Signed By: Chanel Galo MD Dictated Date: 03/04/2024 12:41:14 PM Prelim Date: 03/04/2024 12:41:14 PM Sign Date: 03/04/2024 12:43:36 PM Ordering Provider:[facility]10-27-2024 Note. MICRO - Microbiology PROCEDURE: Urine Culture [*1] SOURCE: Urine, Clean Catch BODY SITE: COLLECTED DATE/TIME: 02/12/2024 14:19 EDT RECEIVED DATE/TIME: 02/12/2024 19:59 EDT START DATE/TIME: 02/12/2024 19:59 EDT FREE TEXT SOURCE: FINAL REPORTS Final Report [] Verified Date/Time/Personnel: 02/14/2024 07:50 EDT <10,000 cfu/ml. No Significant growth. Sensitivity not indicated. PRELIMINARY REPORTS Preliminary Report [] Verified Date/Time/Personnel: 02/13/2024 07:25 EDT No growth to date Performing Locations *1: This test was performed at: [facility], [address] [place] [address], [facility] , [facility]07-21-2024 Note. MICRO - Microbiology PROCEDURE: Urine Culture [*1] SOURCE: Urine, Clean Catch BODY SITE: COLLECTED DATE/TIME: 11/06/2023 16:30 EDT RECEIVED DATE/TIME: 11/06/2023 19:44 EDT START DATE/TIME: 11/06/2023 19:44 EDT FREE TEXT SOURCE: FINAL REPORTS Final Report [] Verified Date/Time/Personnel: 11/08/2023 08:10 EDT 10,000 - 50,000 cfu/ml Escherichia coli PRELIMINARY REPORTS Preliminary Report [] Verified Date/Time/Personnel: 11/07/2023 12:24 EDT 10,000 - 50,000 cfu/ml Escherichia coli VALENTÍN to follow SUSCEPTIBILITY RESULTS Escherichia coli Antibiotic VALENTÍN Dilut VALENTÍN Inter Ampicillin <=8 Susceptible Ampicillin/ <=4/2 Susceptible Sulbactam Aztreonam <=4 Susceptible Cefazolin <=2 Susceptible Ciprofloxacin >2 Resistant Ertapenem <=0.5 Susceptible Gentamicin >8 Resistant ID Panel Not Not Applicable Applicable Imipenem <=1 Susceptible Levofloxacin >4 Resistant Meropenem <=1 Susceptible Minocycline 8 Intermediate Nitrofurantoin <=32 Susceptible Tobramycin 8 Intermediate Trimethoprim/ >2/38 Resistant Sulfa Performing Locations *1: This test was performed at: [address] , [facility] ([place])10-28-2023 Note. MICRO - Microbiology PROCEDURE: Urine Culture [*1] SOURCE: Urine, Clean Catch BODY SITE: COLLECTED DATE/TIME: 10/26/2023 16:51 EDT RECEIVED DATE/TIME: 10/26/2023 19:40 EDT START DATE/TIME: 10/26/2023 19:40 EDT FREE TEXT SOURCE: FINAL REPORTS Final Report [] Verified Date/Time/Personnel: 10/28/2023 06:45 EDT 10,000 - 50,000 cfu/ml Klebsiella pneumoniae PRELIMINARY REPORTS Preliminary Report [] Verified Date/Time/Personnel: 10/27/2023 11:40 EDT 10,000 - 50,000 cfu/ml Klebsiella pneumoniae VALENTÍN to follow SUSCEPTIBILITY RESULTS Klebsiella pneumoniae Antibiotic VALENTÍN Dilut VALENTÍN Inter Ampicillin >16 Resistant Ampicillin/ <=4/2 Susceptible Sulbactam Aztreonam <=4 Susceptible Cefazolin <=2 Susceptible Ciprofloxacin <=0.25 Susceptible Ertapenem <=0.5 Susceptible Gentamicin <=2 Susceptible ID Panel Not Not Applicable Applicable Imipenem <=1 Susceptible Levofloxacin <=0.5 Susceptible Meropenem <=1 Susceptible Minocycline <=4 Susceptible Nitrofurantoin <=32 Susceptible Piperacillin/ <=8 Susceptible Tazobactam Trimethoprim/ >2/38 Resistant Sulfa Performing Locations *1: This test was performed at: [facility], [address] [place] [address], [facility] , [facility] ([place])08-17-2023 Note ORIGINAL EXAMINATION: CTA OF THE CHEST08/17/2023 4:56 pm CTA CHEST WITH CONTRAST TECHNIQUE: CTA of the chest was performed after the administration of intravenous contrast. Multiplanar reformatted images are provided for review. MIP images are provided for review. Automated exposure control, iterative reconstruction, and/or weight based adjustment of the mA/kV was utilized to reduce the radiation dose to as low as reasonably achievable. 3-D reformats were obtained on a separate workstation. COMPARISON: CT thorax, November 19, 2022 HISTORY: ORDERING SYSTEM PROVIDED HISTORY: Reason for Exam: hypoxia, severe shortness of breath. FINDINGS: Thoracic inlet structures are unremarkable in appearance. No pathologically enlarged hilar or mediastinal lymph nodes. The great vessels, heart and pericardium are unremarkable in size and appearance. Bilateral lower lobe atelectasis. No focal infiltrate. 7 mm nodule left lower lobe image 46. No pleural effusion or pneumothorax. The incidentally included portions of the upper abdomen are within normal limits. The CT angiogram portion of the examination shows adequate contrast enhancement of the pulmonary arteries. The main and segmental pulmonary arteries are of normal size. No intraluminal filling defects are seen through the level of the segmental pulmonary arteries and opacified subsegmental pulmonary arteries. IMPRESSION: 1. No evidence of pulmonary embolus. 2. Left solid pulmonary nodule measuring 7 mm. Per Fleischner Society Guidelines, recommend a non-contrast Chest CT at 6-12 months. If patient is high risk for malignancy, consider an additional non-contrast Chest CT at 18-24 months. If patient is low risk for malignancy, non-contrast Chest CT at 18-24 months is optional. These guidelines do not apply to immunocompromised patients and patients with cancer. Follow up in patients with significant comorbidities as clinically warranted. For lung cancer screening, adhere to Lung-RADS guidelines. Reference: Radiology. 2017; 284(1):228-43. . Interpreted by: Lalo Castelan MD Preliminary Report By: Lalo Castelan MD Electronically signed By Lalo Castelan MD Dictated Date: 08/17/2023 5:01:40 PM Prelim Date: 08/17/2023 5:11:36 PM Sign Date: 08/17/2023 5:11:36 PM Ordering Provider: [facility]02-12-2024 Note* Exam Date Time Procedure Performing Provider Status 06/01/23 12:10 PM Echocardiogram, Adult ([facility]) Auth (Verified) [facility] 12-13-2023 Note ORIGINAL EXAMINATION: CT OF THE ABDOMEN AND PELVIS WITH CORSPDDP19/13/2023 3:40 pm TECHNIQUE: CT of the abdomen and pelvis was performed with the administration of intravenous contrast. Multiplanar reformatted images are provided for review. Automated exposure control, iterative reconstruction, and/or weight based adjustment of the mA/kV was utilized to reduce the radiation dose to as low as reasonably achievable. COMPARISON: Abdomen pelvis CT 11/30/2020 HISTORY: ORDERING SYSTEM PROVIDED HISTORY: Reason for Exam: abdominal pain, small bowel obst 09/2022 FINDINGS: There has been prior cholecystectomy. The liver, kidneys, adrenals, and pancreas are unremarkable. Punctate splenic calcified granulomas are noted. There is no abdominal aortic aneurysm. There are no enlarged lymph nodes. Prior ventral hernia repair is noted. There is no bowel obstruction or evidence of wall thickening. There is no free air or free fluid. The uterus is absent. The urinary bladder is unremarkable. There is no adnexal mass. There is no acute bony abnormality. The lung bases are unremarkable. There is a stable small sliding hiatal hernia. IMPRESSION: No acute abnormality. Interpreted by: Sachin Brownlee Preliminary Report By: Sachin Brownlee Electronically signed By Sachin Brownlee Dictated Date: 04/01/2023 5:01:01 PM Prelim Date: 04/01/2023 5:06:22 PM Sign Date: 04/01/2023 5:06:22 PM Ordering Provider: [facility]08-30-2023 Evaluation + Plan noteExtracted from: Title:Clinical Document Author:ELAINE HOGAN ate:12/17/22 VANI ADMISSION HISTORY AN D PHYSICIAL CHIEF COMPLAINT: Colorectal cancer screening HISTORY OF PRESENT ILLNESS: Colorectal cancer screening, last colonoscopy 2019 REVIEW OF SYSTEMS: Constitutional: denies weight loss Cardiovascular:denies chest pain, palpitations Respiratory:denies shortness of breath Gastrointestinal:no abd pain Musculoskeletal: no arthralgias Skin: no rashes . ACTIVE PROBLEMS: (51) Advanced COPD (35489659) ANXIETY (45316510) Anxiety (51153175) Aspirin long-term use (4623194481) ATYPICAL ANGINA (4477449419) BMI 45.0-49.9, adult (2755764842) Boil (8519902960) Bradycardia (19499533) CHF (congestive heart failure) (86040721) Chronic back pain (220037833) Chronic constipation (321451088) Chronic hoarseness (6115223904) CPAP (continuous positive airway pressure) dependence (9423695076) DEPRESSION (99987570) Diabetes mellitus with hyperglycemia (052658936) DYSLIPIDEMIA (95647546) Edema (718573255) Eustachian tube dysfunction (70693174) GERD - Gastro-esophageal reflux disease (9171740894) Glasses (7306019940) Hidradenitis (197266163) History of adverse reaction to anesthesia (3104496917) History of ESBL E. coli infection (948693304) History of TIA (transient ischemic attack) (3840607413) Hyperglobulinemia (027245302) Hypocalcemia (2743669) Hypothyroid (29732747) Hypothyroidism (086324394) Long-term use of aspirin therapy (4867889525) LUPUS (188740006) Neuropathy (4122068105) Nicotine dependence (12411234) Obesity, morbid (227941875) MAICOL - Obstructive sleep apnea (1728714174) OSTEOARTHRITIS (6315288797) Panic attack (768620965) PE (PULMONARY THROMBOEMBOLISM) (641917943) PMB (postmenopausal bleeding) (752086565) Postmenopausal bleeding (559948019) Presence of permanent cardiac pacemaker (4233643421) PSORIASIS (58068125) REFUSED INFLUENZA VACCINE (890733600) REFUSED PNEUMOCOCCAL VACCINE (9409166661) SCIATICA (18222985) SOB (shortness of breath) on exertion (507401801) Thickened endometrium (6572000578) Thrombocytopenia (7617831413) Tobacco use (9549937321) Type 2 diabetes mellitus with hyperglycemia (7641197680) Vaginal lesion (560798726) Vulval hidradenitis suppurativa (0686232141) MEDICATIONS: Active Inpt Meds: None Active PRN Meds: None One Time Meds: None Active IV Meds: None ALLERGIES: (9) Anoro Ellipta Bactrim Dilaudid HYDROmorphone Latex morphine pramipexole sulfa sulfamethoxazole-trimethoprim FAMILY HISTORY: SOCIAL HISTORY: PHYSICAL EXAM: VITALS: No Data Available 24 Hr Tmax: No Data Available 36 Hr Tmax: No Data Available Vital Signs are the last 5 in the past 48 hours. Weights display the last 5 within 7 days. Initial Wt: No Data Available Current Wt: No Data Available physical exam alert and oriented, chronically ill cardio; regular without murmur pulm; clear abd; soft, nontender LABS: No 36hr Lab Data DIAGNOSTICS: IMPRESSION: Colorectal cancer screening PLAN: Proceed with colonoscopy as discussed in the office Future Appointments Appointment Date:02/02/2023 09:30:00 AM Scheduled Provider:LALO RIDDLE MD Location:[facility] Appointment Type: OV Appointment Date:02/05/2023 04:00:00 PM Scheduled Provider: Location:[facility] Appointment Type:CV Remote Procedure Future Scheduled Tests Laboratory* Thyroid Stimulating Hormone 10/29/22 * Thyroid Stimulating Hormone 11/21/22 * Thyroid Stimulating Hormone 12/05/22 * Free T4 10/29/22 * Free T4 11/21/22 * Free T4 12/05/22 * Complete Blood Count 10/29/22 * Lipid Profile 10/29/22 * Lipid Profile 12/05/22 * Albumin/Creatinine Ratio, Random Urine 10/29/22 * Vitamin D Level 10/29/22 * Complete Metabolic Panel 10/29/22 * Complete Metabolic Panel 12/05/22 Radiology* MA Mammo Screening Bilateral w/ Raghav 07/31/22 [facility] 08-30-2023 Hospital Discharge instructions Patient Education 12/17/2022 07:39:12 Colonoscopy, Adult, Care After Colonoscopy, Adult, Care After This sheet gives you information about how to care for yourself after your procedure. Your health care provider may also give you more specific instructions. If you have problems or questions, contact your health care provider. What can I expect after the procedure? After the procedure, it is common to have: A small amount of blood in your stool for 24 hours after the procedure. Some gas. Mild abdominal cramping or bloating. Follow these instructions at home: General instructions For the first 24 hours after the procedure: ?Do not drive or use machinery. ?Do not sign important documents. ?Do not drink alcohol. ?Do your regular daily activities at a slower pace than normal. ?Eat soft, epgw-vb-enafka foods. Take zzpy-llw-ddeyymw or prescription medicines only as told by your health care provider. Relieving cramping and bloating Try walking around when you have cramps or feel bloated. Apply heat to your abdomen as told by your health care provider. Use a heat source that your healthcare provider recommends, such as a moist heat pack or a heating pad. ?Place a towel between your skin and the heat source. ?Leave the heat on for 20 30 minutes. ?Remove the heat if your skin turns bright red. This is especially important if you are unable to feel pain, heat, or cold. You may have a greater risk of getting burned. Eating and drinking Drink enough fluid to keep your urine pale yellow. Resume your normal diet as instructed by your health care provider. Avoid heavy or fried foods thatare hard to digest. Avoid drinking alcohol for as long as instructed by your health care provider. Contact a health care provider if: You have blood in your stool 2 3 days after the procedure. Get help right away if: You have more than a small spotting of blood in your stool. You pass large blood clots in your stool. Your abdomen is swollen. You have nausea or vomiting. You have a fever. You have increasing abdominal pain that is not relieved with medicine. Summary After the procedure, it is common to have a small amount of blood in your stool. You may also have mild abdominal cramping and bloating. For the first 24 hours after the procedure, do not drive or use machinery, sign important documents, or drink alcohol. Contact your health care provider if you have a lot of blood in your stool, nausea or vomiting, a fever, or increased abdominal pain. This information is not intended to replace advice given to you by your health care provider. Make sure you discuss any questions you have with your health care provider. Document Released: 11/18/2004 Document Revised: 01/27/2018 Document Reviewed: 06/17/2016 [employer] Patient Education 2020 [employer]. 12/17/2022 07:39:05 Monitored Anesthesia Care, Care After Monitored Anesthesia Care, Care After These instructions provide you with information about caring for yourself after your procedure. Your health care provider may also give you more specific instructions. Your treatment has been plannedaccording to current medical practices, but problems sometimes occur. Call your health care provider if you have any problems or questions after your procedure. What can I expect after the procedure? After your procedure, you may: Feel sleepy for several hours. Feel clumsy and have poor balance for several hours. Feel forgetful about what happened after the procedure. Have poor judgment for several hours. Feel nauseous or vomit. Have a sore throat if you had a breathing tube during the procedure. Follow these instructions at home: For at least 24 hours after the procedure: Have a responsible adult stay with you. It is important to have someone help care for you until youare awake and alert. Rest as needed. Do not: ?Participate in activities in which you could fall or become injured. ?Drive. ?Use heavy machinery. ?Drink alcohol. ?Take sleeping pills or medicines that cause drowsiness. ?Make important decisions or sign legal documents. ?Take care of children on your own. Eating and drinking Follow the diet that is recommended by your health care provider. If you vomit, drink water, juice, or soup when you can drink without vomiting. Make sure you have little or no nausea before eating solid foods. General instructions Take npgg-asz-aziighn and prescription medicines only as told by your health care provider. If you have sleep apnea, surgery and certain medicines can increase your risk for breathing problems. Follow instructions from your health care provider about wearing your sleep device: ?Anytime you are sleeping, including during daytime naps. ?While taking prescription pain medicines, sleeping medicines, or medicines that make you drowsy. If you smoke, do not smoke without supervision. Keep all follow-up visits as told by your health care provider. This is important. Contact a health care provider if: You keep feeling nauseous or you keep vomiting. You feel light-headed. You develop a rash. You have a fever. Get help right away if: You have trouble breathing. Summary For several hours after your procedure, you may feel sleepy and have poor judgment. Have a responsible adult stay with you for at least 24 hours or until you are awake and alert. This information is not intended to replace advice given to you by your health care provider. Make sure you discuss any questions you have with your health care provider. Document Released: 07/27/2016 Document Revised: 07/05/2018 Document Reviewed: 07/27/2016 [employer] Patient Education [employer]. Follow Up Care 12/04/2022 08:14:43 With:RIMA CELIS Address: [address] [place] [phone] When: Unknown With:ELAINE HOGAN DO, Clinical Gastroenterology Address: [address] [place] [address] [place] [address]- [phone] When: Unknown Comments:Follow-up as needed [facility] 08-30-2023 Summary of episode note Discharge Instructions Thank you for allowing [facility] to assist you with your healthcare needs. The following is importantdischarge information regarding your hospital visit. Your Care Team RIMA CELIS Your Diagnosis Colonoscopy What to do next Scheduled Follow-Up Appointments Appointment Type When With Where Contact InformationWH OV 02/02/2023 09:30 AM JESSICA RIDDLE MD, [facility] Remote Procedure HM 02/05/2023 04:00 PM [facility] Follow Up Appointments Follow Up with RIMA CEILS When Where: [address] [place] [phone] Follow Up with ELAINE HOGAN DO, Clinical Gastroenterology When Why: Follow-up as needed Where: [address] [facility] Gastroenterology [place], [place] [phone]- [phone] The Following Activity and Diet Have Been Ordered for You Discharge Activity - Ordered -- Driving Restricted, No driving until tomorrow, 12/17/22 7:11:00 EDT Discharge Return to Work, School, or Sports (Discharge Return to status) - Ordered -- May return to: work, 12/17/22 7:11:00 EDT Discharge Diet - Ordered -- Type of Diet: Regular Diet, 12/17/22 7:11:00 EDT Allergies Anoro Ellipta (Headache) Bactrim (Anaphylaxis) Dilaudid (Headache, --) HYDROmorphone (Headache) Latex (Rash) morphine (Headache, --) pramipexole (Rash) sulfa (Anaphylaxis) sulfamethoxazole-trimethoprim (Anaphylaxis) Medications Please ask your primary doctor or pharmacist before taking any other medication not listed, including over the counter drugs, herbal medications, vitamins and or supplements as they may interact withyour home medications. What How Much When Why Instructions Last Dose Unchanged albuterol (Albuterol (Eqv-ProAir HFA) 90 mcg/ inh inhalation aerosol) 2 puff(s) by inhalation Every 6 hours as needed for as needed for wheezing Advanced COPD Duration: 90 Days Unchanged aspirin (aspirin 81 mg oral delayed release tablet) 1 tab(s) by mouth Once a day (in the morning) pt checking with surgeon to see if stop date for this med Unchanged bacillus coagulans-inulin (Probiotic Formula (Bacillus Coagulans) oral capsule) 1 cap by mouth Once a day Unchanged clindamycin topical (clindamycin 1% topical solution) 1 application Topical Two (2) times a day as needed for Skin irritation Hidradenitis Duration: 90 Days Unchanged DME (Blood Glucose Test Strips) See instructions use to check blood sugars daily Accu-Chek Guide In Vitro Strip Unchanged DME (DME MISCellaneous) See instructions Diabetes mellitus with hyperglycemia 1 box of lancets for Accu- Check Unchanged DME (DME MISCellaneous) See instructions Hypertension Dispense one automatic BP cuff. Monitor bp 2x per day. Bring numbers to next visit. Unchanged docusate (Colace 100 mg oral capsule) 1 cap by mouth Two (2) times a day as needed for as needed for constipation Duration: 30 Days Unchanged famotidine (famotidine 40 mg oral tablet) 1 tab(s) by mouth Daily at bedtime Duration: 90 Days one time refill in lieu of PCP Unchanged ibuprofen (ibuprofen 600 mg oral tablet) 1 tab(s) by mouth Every 6 hours as needed for as needed for pain Take with food or milk. Unchanged levothyroxine (levothyroxine 200 mcg (0.2 mg) oral tablet) 1 tab(s) by mouth Once a day (in the morning) Duration: 90 Days take with a 75 mcg tab for total of 275mcg daily Unchanged levothyroxine (levothyroxine 50 mcg (0.05 mg) oral tablet) 1 tab(s) by mouth Once a day Duration: 60 Days Unchanged levothyroxine (levothyroxine 75 mcg (0.075 mg) oral tablet) 1 tab(s) by mouth Once a day (in the morning) Duration: 90 Days take with 200mcg tab for total of 275mcg daily Unchanged metFORMIN (MetFORMIN (Eqv-Glucophage XR) 500 mg oral tablet, EXTENDED RELEASE) 1 tab(s) by mouth Once a day (in the morning) Duration: 90 Days Unchanged Misc Medication (Accu-Chek Guide In Vitro Strip) See instructions USE TO CHECK BLOOD GLUCOSE DAILY Unchanged multivitamin (Multivitamin) 1 tab(s) by mouth Once a day (in the morning) Unchanged pantoprazole (pantoprazole 40 mg oral enteric coated tablet) 1 tab(s) by mouth Once a day (in the morning) Duration: 90 Days Unchanged plecanatide (Trulance 3 mg oral tablet) 1 tab(s) by mouth Once a day Chronic constipation Duration: 30 Days Unchanged polyethylene glycol 3350 with electrolytes (polyethylene glycol 3350 with electrolytes oral powder for reconstitution) See instructions Colon cancer screening As directed by provider at [facility]. Unchanged pravastatin (pravastatin 40 mg oral tablet) 1 tab(s) by mouth Daily at bedtime Duration: 90 Days Unchanged sertraline (sertraline 100 mg oral tablet) 1 tab(s) by mouth Daily at bedtime Duration: 90 Days Unchanged spironolactone (spironolactone 25 mg oral tablet) 1 tab(s) by mouth Once a day as needed for Swelling Duration: 90 Days TAKE 1 TABLET BY MOUTH DAILY NEEDED FOR SWELLING Unchanged tiotropium (Spiriva Respimat 60 ACT 2.5 mcg/ inh inhalation aerosol) 2 puff(s) by inhalation Once a day (in the morning) Duration: 90 Days Unchanged TNF-Med (MiscMED Miscellaneous Medication) See instructions On 3 L of oxygen through CPAP Unchanged traZODone (traZODone 100 mg oral tablet) 1 & 1/2 TO 2 TABLETS by mouth Daily at bedtime Duration: 90 Days Please take this list to your next doctor s visit. Bring all medications you take, including over the counter medications, herbals and other supplements with you to your doctor s visit. Patients and families are reminded to discard old lists and to update any records with all medication providers or retail pharmacies. Education Materials Colonoscopy, Adult, Care After This sheet gives you information about how to care for yourself after your procedure. Your health care provider may also give you more specific instructions. If you have problems or questions, contact your health care provider. What can I expect after the procedure? After the procedure, it is common to have: A small amount of blood in your stool for 24 hours after the procedure. Some gas. Mild abdominal cramping or bloating. Follow these instructions at home: General instructions For the first 24 hours after the procedure: ? Do not drive or use machinery. ? Do not sign important documents. ? Do not drink alcohol. ? Do your regular daily activities at a slower pace than normal. ? Eat soft, ppoh-gx-caiglb foods. Take zvhy-vtn-vuqxafz or prescription medicines only as told by your health care provider. Relieving cramping and bloating Try walking around when you have cramps or feel bloated. Apply heat to your abdomen as told by your health care provider. Use a heat source that your healthcare provider recommends, such as a moist heat pack or a heating pad. ? Place a towel between your skin and the heat source. ? Leave the heat on for 20 30 minutes. ? Remove the heat if your skin turns bright red. This is especially important if you are unable to feel pain, heat, or cold. You may have a greater risk of getting burned. Eating and drinking Drink enough fluid to keep your urine pale yellow. Resume your normal diet as instructed by your health care provider. Avoid heavy or fried foods thatare hard to digest. Avoid drinking alcohol for as long as instructed by your health care provider. Contact a health care provider if: You have blood in your stool 2 3 days after the procedure. Get help right away if: You have more than a small spotting of blood in your stool. You pass large blood clots in your stool. Your abdomen is swollen. You have nausea or vomiting. You have a fever. You have increasing abdominal pain that is not relieved with medicine. Summary After the procedure, it is common to have a small amount of blood in your stool. You may also have mild abdominal cramping and bloating. For the first 24 hours after the procedure, do not drive or use machinery, sign important documents, or drink alcohol. Contact your health care provider if you have a lot of blood in your stool, nausea or vomiting, a fever, or increased abdominal pain. This information is not intended to replace advice given to you by your health care provider. Make sure you discuss any questions you have with your health care provider. Document Released: 11/18/2004 Document Revised: 01/27/2018 Document Reviewed: 06/17/2016 [employer] Patient Education 2020 [employer]. Monitored Anesthesia Care, Care After These instructions provide you with information about caring for yourself after your procedure. Your health care provider may also give you more specific instructions. Your treatment has been plannedaccording to current medical practices, but problems sometimes occur. Call your health care provider if you have any problems or questions after your procedure. What can I expect after the procedure? After your procedure, you may: Feel sleepy for several hours. Feel clumsy and have poor balance for several hours. Feel forgetful about what happened after the procedure. Have poor judgment for several hours. Feel nauseous or vomit. Have a sore throat if you had a breathing tube during the procedure. Follow these instructions at home: For at least 24 hours after the procedure: Have a responsible adult stay with you. It is important to have someone help care for you until youare awake and alert. Rest as needed. Do not: ? Participate in activities in which you could fall or become injured. ? Drive. ? Use heavy machinery. ? Drink alcohol. ? Take sleeping pills or medicines that cause drowsiness. ? Make important decisions or sign legal documents. ? Take care of children on your own. Eating and drinking Follow the diet that is recommended by your health care provider. If you vomit, drink water, juice, or soup when you can drink without vomiting. Make sure you have little or no nausea before eating solid foods. General instructions Take vutz-arm-heqvpfo and prescription medicines only as told by your health care provider. If you have sleep apnea, surgery and certain medicines can increase your risk for breathing problems. Follow instructions from your health care provider about wearing your sleep device: ? Anytime you are sleeping, including during daytime naps. ? While taking prescription pain medicines, sleeping medicines, or medicines that make you drowsy. If you smoke, do not smoke without supervision. Keep all follow-up visits as told by your health care provider. This is important. Contact a health care provider if: You keep feeling nauseous or you keep vomiting. You feel light-headed. You develop a rash. You have a fever. Get help right away if: You have trouble breathing. Summary For several hours after your procedure, you may feel sleepy and have poor judgment. Have a responsible adult stay with you for at least 24 hours or until you are awake and alert. This information is not intended to replace advice given to you by your health care provider. Make sure you discuss any questions you have with your health care provider. Document Released: 07/27/2016 Document Revised: 07/05/2018 Document Reviewed: 07/27/2016 [employer] Patient Education 2020 [employer] Additional Information VACCINATE! IT SAVES LIVES! Members of the community who have not yet received the COVID-19 vaccine and would like to receive it can visit one of [facility] vaccine clinics. There are many vaccine clinic locations within the [facility]. For locations and available times, please visit [email or web address].[email or web address] It is important to note that some COVID mobile vaccine clinics are held outdoors and may be canceled in rainy or stormy conditions. To learn more about pediatric vaccinations (ages 5-11), we invite you to visit the [facility] webpage. [email or web address]/[email or web address] [email or web address] learn more about the COVID-19 vaccine, we invite you to visit the CDC website for a list of frequently asked questions.https://www.cdc.gov/coronavirus/2019-ncov/vaccines/faq.html [facility] Patient Portal Access Instructions: Stay connected with your healthcare team and access your personal medical information anytime with the [employer] Patient Portal. Please follow the directions below to create your [employer] account: 1.Access the email account you provided upon registration to the hospital/physician office.2.Look for an invitation email from [facility].3.Open the email and access the invitation link: AcceptInvitation to [employer].4.Fill in the required cardenas to create your account. To access your account, visit [email or web address]. Click the blue button labeled Access Patient Portal and then log in with the username and password that you created in the steps above. You will be able to view your test results, lab results, a summary of your visits, upcoming appointments and more. There is also a convenient messaging option where you can send secure messages to your p rovider. In addition, you will have the ability to download any documents or summaries to your computer and/or send the information securely to a physician. Remember that your healthcare information is confidential, so carefully consider who you will allowto register on the [employer] Patient Portal for access to your information. You can also access the [employer]Chart Patient Portal on the [facility]. Simply click on Patient Portal and then log into your account. If you would like to receive a full copy of your medical records, please contact the [facility] Medical Records Department by calling [phone], Thursday through Thursday between 8 a.m. and 4:30 p.m. HOW TO SAFELY DISPOSE OF PRESCRIPTION MEDICATIONS Please use one of the following methods to safely dispose of your unused medications. 1.Use a drug disposal kit: the drug disposal pouch allows you to safely discard your old and unuseddrugs. Ask your nurse to give you one when you are discharged.2.Visit a local take-back location: Many local pharmacies and police departments have programs that collect old and unwanted prescriptiondrugs. Call your local pharmacy or go to http://bit.ly/7H6Ya9x to find one close to you.3.Make use of household items: Use cat litter or old coffee grounds to dispose medications if other options arenot available. Mix your drugs with these household products, seal them in an airtight container andthrow it into the garbage. Call [facility]: [phone] to be sure your drugs can be disposed of in this way. Some medicines may require a different approach.4.Never flush your medications down the toilet. IF YOU HAVE BEEN PRESCRIBED AN OPIOID FOR PAIN If you have been prescribed an opioid (such as hydrocodone, oxycodone or morphine), it is critical to understand the possible side effects and risks of opioid pain medications. Even when taken as directed, opioids can have several side effects including: Tolerance, meaning you might need to take more of a medication for the same pain relief. Nausea, vomiting and/or constipation. Sleepiness, dizziness, dry mouth, confusion, depression or itching. Physical dependence, meaning you have withdrawal symptoms when a medication is stopped, can develop within a few days. KNOW YOUR RESPONSIBILITIES It is important to know exactly how much and how often to take the opioid pain medications you are prescribed. Never take opioids in higher amounts or more often than prescribed. Do not combine opioids with alcohol or other drugs that cause drowsiness, such as benzodiazepines, also known as benzos, including diazepam and alprazolam, muscle relaxants or sleep aids. Never sell or share prescription opioids. This is illegal. Store opioids in a secure place and out of reach of others (including children, family, friends and visitors). The last page of this document has been signed and retained as a CHART COPY. Signatures Patient Education Materials Colonoscopy, Adult, Care After Monitored Anesthesia Care, Care After Medication Leaflets My discharge plan and instructions have been reviewed and explained to me and ITAMICA JUDY L understand my current condition and have read and understand these discharge instructions. I have received a written copy of the plan/instructions. If I have questions, I am aware that I should contact my d octor. 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 Signature: Date/Time: Relationship to Patient: Witness Name/Signature: Date/Time: [facility]08-30-2023 Anesthesiology Consult note Patient: JANE REED Age: 57 years Sex: Female : 1965 Associated Diagnoses: None Author: OLE TAI Assessment Postanesthesia assessment Vitals: Vital signs from flowsheet : Vital Signs 12/17/2022 7:55 EDT Respiratory Rate - Anes 10 br/min br/min 12/17/2022 7:22 EDT Temperature Temporal Artery 36.4 DegC Apical Heart Rate 60 bpm Respiratory Rate 18 br/min Systolic Blood Pressure Non-Invasive 113 mmHg Diastolic Blood Pressure Non-Invasive 67 mmHg Blood Pressure Method Automatic Blood Pressure Location Left arm Blood Pressure Cuff Size Large . Mental status: at preoperative baseline. Respiratory function: at baseline. CV function: Normal rate, Regular rhythm. Cardiovascular support: none. Pain: Post op control No intervention needed. Nausea status: denies nausea. Postoperative hydration status: within normal limits. Digitally Signed by OLE TAI on 12/17/2022 08:12 AM [facility]08-30-2023 Anesthesiology Consult note Patient: JANE REED Age: 57 years Sex: Female : 1965 Associated Diagnoses: None Author: OLE TAI Preoperative Information Anesthesia history Patient's history: negative. Family's history: negative. Health Status Allergies: Allergic Reactions (Selected) Severity Not Documented Anoro Ellipta- Headache. Bactrim- Anaphylaxis. Latex- Rash. Pramipexole- Rash. Sulfa- Anaphylaxis. Sulfamethoxazole-trimethoprim- Anaphylaxis. Nonallergic Reactions (Selected) Severity Not Documented Dilaudid- Headache and --. HYDROmorphone- Headache. Morphine- -- and headache., Allergies (9) ActiveReaction Anoro ElliptaHeadache BactrimAnaphylaxis DilaudidHeadache HYDROmorphoneHeadache LatexRash morphine-- pramipexoleRash sulfaAnaphylaxis sulfamethoxazole-trimethoprimAnaphylaxis Current medications: (Selected) Inpatient Medications Ordered Lactated Ringers Infusion 1,000 mL: 20 mL/hr, Intravenous Prescriptions Prescribed Accu-Chek Guide In Vitro Strip: See Instructions, USE TO CHECK BLOOD GLUCOSE DAILY, 50 unknown unit, 0 Refill(s) Albuterol (Eqv-ProAir HFA) 90 mcg/inh inhalation aerosol: 2 puff(s), Inhalation, q6hr, for 90 day(s), PRN: as needed for wheezing, 18 gram(s), 3 Refill(s) Blood Glucose Test Strips: See Instructions, use to check blood sugars daily Accu-Chek Guide In Vitro Strip, 50 EA, 11 Refill(s) Colace 100 mg oral capsule: 100 mg, 1 cap(s), Oral, BID, for 30 day(s), PRN: as needed for constipation, 60 cap(s), 1 Refill(s) DME MISCellaneous: See Instructions, 1 box of lancets for Accu- Check, 1 EA, 11 Refill(s) DME MISCellaneous: See Instructions, Dispense one automatic BP cuff. Monitor bp 2x per day. Bring numbers to next visit., 1 EA, 0 Refill(s) MetFORMIN (Eqv-Glucophage XR) 500 mg oral tablet, EXTENDED RELEASE: 500 mg, 1 tab(s), Oral, qAM, for 90 day(s), 90 tab(s), 3 Refill(s) Probiotic Formula (Bacillus Coagulans) oral capsule: 1 cap(s), Oral, qDay, 30 cap(s), 11 Refill(s) Spiriva Respimat 60 ACT 2.5 mcg/inh inhalation aerosol: 2 puff(s), Inhalation, qAM, for 90 day(s), 3 EA, 3 Refill(s) Trulance 3 mg oral tablet: 3 mg, 1 tab(s), Oral, qDay, for 30 day(s), 30 tab(s), 2 Refill(s) clindamycin 1% topical solution: 1 marleny, Topical, BID, for 90 day(s), PRN: Skin irritation, 30 mL, 3Refill(s) famotidine 40 mg oral tablet: 40 mg, 1 tab(s), Oral, qHS, for 90 day(s), one time refill in lieu ofPCP, 90 tab(s), 3 Refill(s) ibuprofen 600 mg oral tablet: 600 mg, 1 tab(s), Oral, q6h, Take with food or milk., PRN: as needed for pain, 40 tab(s), 1 Refill(s) levothyroxine 200 mcg (0.2 mg) oral tablet: 200 mcg, 1 tab(s), Oral, qAM, for 90 day(s), take with a 75 mcg tab for total of 275mcg daily, 90 tab(s), 1 Refill(s) levothyroxine 50 mcg (0.05 mg) oral tablet: 50 mcg, 1 tab(s), Oral, qDay, for 60 day(s), 60 tab(s),0 Refill(s) levothyroxine 75 mcg (0.075 mg) oral tablet: 75 mcg, 1 tab(s), Oral, qAM, for 90 day(s), take with 200mcg tab for total of 275mcg daily, 90 tab(s), 1 Refill(s) pantoprazole 40 mg oral enteric coated tablet: 40 mg, 1 tab(s), Oral, qAM, for 90 day(s), 90 tab(s), 3 Refill(s) polyethylene glycol 3350 with electrolytes oral powder for reconstitution: See Instructions, As directed by provider at [facility]., 1 EA, 0 Refill(s) pravastatin 40 mg oral tablet: 1 tab(s), Oral, qHS, for 90 day(s), 90 tab(s), 3 Refill(s) sertraline 100 mg oral tablet: 1 tab(s), Oral, qHS, for 90 day(s), 90 tab(s), 3 Refill(s) spironolactone 25 mg oral tablet: 25 mg, 1 tab(s), Oral, qDay, for 90 day(s), TAKE 1 TABLET BY MOUTH DAILY NEEDED FOR SWELLING, PRN: Swelling, 90 tab(s), 1 Refill(s) traZODone 100 mg oral tablet: 1 & 1/2 TO 2 TABLETS, Oral, qHS, for 90 day(s), 180 tab(s), 3 Refill(s) Documented Medications Documented MiscMED Miscellaneous Medication: See Instructions, On 3 L of oxygen through CPAP, 0 Refill(s) Multivitamin: 1 tab(s), Oral, qAM, 0 Refill(s) aspirin 81 mg oral delayed release tablet: 81 mg, 1 tab(s), Oral, qAM, pt checking with surgeon to see if stop date for this med, 30 tab(s), 0 Refill(s), Medications (1) Active Scheduled: (0) Continuous: (1) Lactated Ringers 1,000 mL 1,000 mL, Intravenous, 20 mL/hr PRN: (0) Problem list: Medical Hypothyroidism / SNOMED CT 961626306 / Confirmed ATYPICAL ANGINA / SNOMED CT 3952624898 / Confirmed Bradycardia / SNOMED CT 45893979 / Confirmed Presence of permanent cardiac pacemaker / SNOMED CT 8659915756 / Confirmed Chronic back pain / SNOMED CT 746376577 / Confirmed Chronic constipation / SNOMED CT 374393085 / Confirmed Chronic hoarseness / SNOMED CT 5117470180 / Confirmed DEPRESSION / SNOMED CT 30288414 / Confirmed Diabetes mellitus with hyperglycemia / SNOMED CT 800561737 / Confirmed Eustachian tube dysfunction / SNOMED CT 57008451 / Confirmed Edema / SNOMED CT 353782800 / Confirmed ANXIETY / SNOMED CT 47108880 / Confirmed GERD - Gastro-esophageal reflux disease / SNOMED CT 0839630405 / Confirmed Hidradenitis / SNOMED CT 141607535 / Confirmed History of TIA (transient ischemic attack) / SNOMED CT 9033142745 / Confirmed Hyperglobulinemia / SNOMED CT 817237547 / Confirmed Type 2 diabetes mellitus with hyperglycemia / SNOMED CT 8582915926 / Confirmed DYSLIPIDEMIA / SNOMED CT 81487440 / Confirmed Hypocalcemia / SNOMED CT 8274699 / Confirmed REFUSED INFLUENZA VACCINE / SNOMED CT 404823451 / Confirmed Aspirin long-term use / SNOMED CT 1779033522 / Confirmed LUPUS / SNOMED CT 964769918 / Confirmed Obesity, morbid / SNOMED CT 258079052 / Confirmed Neuropathy / SNOMED CT 9835577835 / Confirmed Nicotine dependence / SNOMED CT 88423674 / Confirmed MAICOL - Obstructive sleep apnea / SNOMED CT 7095406891 / Confirmed OSTEOARTHRITIS / SNOMED CT 4170931842 / Confirmed Thrombocytopenia / SNOMED CT 1688236372 / Confirmed PMB (postmenopausal bleeding) / SNOMED CT 141913188 / Confirmed PSORIASIS / SNOMED CT 05120271 / Confirmed PE (PULMONARY THROMBOEMBOLISM) / SNOMED CT 375998579 / Confirmed SCIATICA / SNOMED CT 64276973 / Confirmed REFUSED PNEUMOCOCCAL VACCINE / SNOMED CT 5235774542 / Confirmed Vaginal lesion / SNOMED CT 307029587 / Confirmed Vulval hidradenitis suppurativa / SNOMED CT 1933838021 / Confirmed, Active Problems (51) Advanced COPD ANXIETY Anxiety Aspirin long-term use ATYPICAL ANGINA BMI 45.0-49.9, adult Boil Bradycardia CHF (congestive heart failure) Chronic back pain Chronic constipation Chronic hoarseness CPAP (continuous positive airway pressure) dependence DEPRESSION Diabetes mellitus with hyperglycemia DYSLIPIDEMIA Edema Eustachian tube dysfunction GERD - Gastro-esophageal reflux disease Glasses Hidradenitis History of adverse reaction to anesthesia History of ESBL E. coli infection History of TIA (transient ischemic attack) Hyperglobulinemia Hypocalcemia Hypothyroid Hypothyroidism Long-term use of aspirin therapy LUPUS Neuropathy Nicotine dependence Obesity, morbid MAICOL - Obstructive sleep apnea OSTEOARTHRITIS Panic attack PE (PULMONARY THROMBOEMBOLISM) PMB (postmenopausal bleeding) Postmenopausal bleeding Presence of permanent cardiac pacemaker PSORIASIS REFUSED INFLUENZA VACCINE REFUSED PNEUMOCOCCAL VACCINE SCIATICA SOB (shortness of breath) on exertion Thickened endometrium Thrombocytopenia Tobacco use Type 2 diabetes mellitus with hyperglycemia Vaginal lesion Vulval hidradenitis suppurativa Histories Past Medical History: No active or resolved past medical history items have been selected or recorded. Family History: Cancer Son () Comments: 08/13/2022 9:14 CAROLT - Ros Tilley LPN Nasal Pharyngeal Chronic obstructive lung disease Mother () COPD - Chronic obstructive pulmonary disease Mother () Dementia Mother () Heart disease Father () High blood pressure Father () Sister Arthritis Mother () Heart attack Father () Congestive heart failure Mother () Diabetes Mother () Sister Procedure history: EXAMINATION UNDER ANESTHESIA, TOTAL LAPAROSCOPIC HYSTERECTOMY, BILATERAL SALPINGO-OOPHORECTOMY, ANDCYSTOURETHROSCOPY - TRINH ([id number]) on 09/02/2022 at 57 Years. Implantation of cardiac pacemaker ([id number]) on 12/13/2020 at 55 Years. Comments: 12/14/2020 10:24 JESSICA - Hiral Biswas RN Implantation of Dual Chamber Pacemaker 12/13/2020 Dr Kirill Manzo DEVICE SPECIFICATIONS: 1. Pulse generator: [employer] ACCOLADE MRI DR LARA-1(EL), model L331, #[id number]. 2. RA Lead: BSci 7840, #[id number]. 3. RV Lead: BSci 7841, #[id number]. Colonoscopy ([id number]) on 02/21/2019 at 54 Years. Comments: 08/26/2021 9:40 Enedina Ansari CMA, Dr - 3 of the polyps are removed were benign/hyperplastic polyps. 2 over the polyps are removed were adenomas. One of the polyps are removed was unremarkable colonic mucosa. The nodule that I biopsied was a lipoma. Patient should have a repeat colonoscopy in 5 years for polyp surveillance.(please make note of the following especially when we go to scheduled for next colonoscopy -- Discussion with anesthesia it is recommended the patient have the next colonoscopy intubated for respiratoryissues as well as may be better done at a larger facility for high risk issues) Colonoscopy ([id number]) on 01/18/2018 at 52 Years. Comments: 08/26/2021 9:42 Enedina Ansari CMA, Dr. Repeat 5 years. Hernia ([id number]) in 2016 at 51 Years. Comments: 08/26/2021 9:42 Enedina Ansari CMA Umbilical EGD - Esophagogastroduodenoscopy ([id number]) in 2014 at 50 Years. Colonoscopy ([id number]) in 2014 at 50 Years. Dilation and curettage (55646445) in 2014 at 50 Years. Cholecystectomy (20895155) in 2008 at 44 Years. Hernia ([id number]) in 2008 at 44 Years. Comments: 08/26/2021 9:41 Enedina Ansari CMA X 3 Colonoscopy ([id number]) in 2008 at 44 Years. Hernia ([id number]) in 2003 at 39 Years. Hernia ([id number]) in 2001 at 37 Years. delivery (3423808938) in 1991 at 27 Years. Tubal ligation (271556253) in 1991 at 27 Years. delivery (5418671906) in 1985 at 21 Years. delivery ([id number]) in 1983 at 19 Years. delivery ([id number]) in 1980 at 16 Years. Lesion (8238804263). Comments: 08/26/2021 9:42 Enedina Ansari CMA 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 Abscess ([id number]). Comments: 08/26/2021 9:41 Enedina Ansari CMA Removed from buttock Social History Social & Psychosocial Habits Alcohol 12/03/2022 Use: Current Type: Wine Frequency: 1-2 times per week Substance Abuse 12/03/2022 Use: Never Tobacco 12/03/2022 Tobacco Use: 5-9 cigarettes (between 1 Number of years: 25 Smoking Cessation Information Refused smoking cessation Comment: Quit 11/29/20 - 08/26/2021 09:37 - Enedina Boles CMA Home/Environment 12/03/2022 Living situation: Home/Independent 12/03/[address]: Yes Comment: Emergency Contact- Ashutosh Fischer ( Fiance) P: [phone], Parul Poppy (Daughter) P: [phone] - 08/13/2022 09:10 - Ros Tilley LPN Nutrition/Health 12/03/2022 Caffeine intake amount: coffee/pop 4-5 servings per day . Physical Examination Vital Signs 12/17/2022 7:22 EDT Temperature Temporal Artery 36.4 DegC Apical Heart Rate 60 bpm Respiratory Rate 18 br/min Systolic Blood Pressure Non-Invasive 113 mmHg Diastolic Blood Pressure Non-Invasive 67 mmHg Blood Pressure Method Automatic Blood Pressure Location Left arm Blood Pressure Cuff Size Large Vital Signs(last 24 hrs) Last Charted Resp Rate 18 br/min (DEC 17 07:22) WXH148 mmHg (DEC 17 07:22) DBP67 mmHg (DEC 17 07:22) BMI46.17 (DEC 17 07:22) Measurements from flowsheet : Measurements 12/17/2022 7:22 EDT Height 160.0 cm Admission Weight 118.2 kg Weight Method Stated [place] Body Weight 52.38 kg BSA Admission 2.16 Body Mass Index 46.17 kg/m2 Pain assessment: Pain Assessment 12/17/2022 7:22 EDT Primary Pain Intensity 0 Pain Scale Type 0-10 Pain scale . General: Alert and oriented. Airway: Normal temporomandibular joint mobility. Dentition Evaluation: No teeth. Respiratory: coarse and deminished throughout. Cardiovascular: Normal rate, Regular rhythm. Neurologic: Alert, Oriented. Review / Management Results review: No qualifying data available , Lab results 12/17/2022 7:43 EDT Blood Glucose, Capillary 118 mg/dL HI 12/17/2022 7:31 EDT Lactated Ringers Injection Begin Bag 1,000 mL mL 12/17/2022 7:30 EDT Continuous IV Infusions LR Forearm Right 12/17/2022 22 gauge Peripheral IV Activity: Insert new site Peripheral IV Dressing Condition: Clean, Dry, Intact Peripheral IV Dressing Activity: Applied, Transparent dressing Peripheral IV Line Status/Patency: Flushes easily, Continuous infusion Peripheral IV Site Condition: No complications Peripheral IV Equipment: Extension set 12/17/2022 7:22 EDT Designated Person #1 We May Share PHI Ashutosh Fischer [phone] Designated Person #1 Relationship Significant other Designated Person #2 We May Share PHI Parul Wade [phone] Designated Person #2 Relationship Daughter Height 160.0 cm Admission Weight 118.2 kg Weight Method Stated [place] Body Weight 52.38 kg BSA Admission 2.16 Body Mass Index 46.17 kg/m2 Temperature Temporal Artery 36.4 DegC Apical Heart Rate 60 bpm Respiratory Rate 18 br/min Systolic Blood Pressure Non-Invasive 113 mmHg Diastolic Blood Pressure Non-Invasive 67 mmHg Blood Pressure Method Automatic Blood Pressure Location Left arm Blood Pressure Cuff Size Large Primary Pain Intensity 0 Pain Scale Type 0-10 Pain scale Oxygen Therapy Room air Oxygen Saturation 95 % Status No, per patient Sensory Deficits None Ambulation Ambulation in Room Infectious Disease Symptoms Patient states no symptoms Infectious Disease Recent Exposure No Alcohol and Drug Use No Employee of Institutional Living No Health Care Employee No History of Exposure to TB No History of Positive Chest X-Ray for TB No History of Positive TB Skin Test No Homeless No Known Immunosuppression No Recent Immigrant No Resident of Institutional Living No Bloody Sputum No Fatigue No Fever No Loss of Appetite No Night Sweats No Persistent Cough > 3 Weeks No Weight Loss No Arrival Mode Ambulatory GI Prep Polyethylene Glycol GI Prep Completed Yes GI Prep Results Yellow, Clear Barriers to Learning None evident Teaching Method Explanation, Printed materials Preferred Spoken Language [place] Preferred Written Language [place] Information Given by Patient Patient's Current Physicians Patient's Current Physicians Discharge To, Anticipated Home independently Standard Safety ID band on, Allergy Band on, Call device within reach, Bed in low position, Wheels locked, Upper/Half-Length side-rails up, Safety level maintained Prev Test Positive/Diagnosis w/COVID-19 No Current Quarantine/Isolated any Illness No Any Contact with Sick Animals/Birds No Traveled Anywhere in Last 30 Days No No Personal Devices, Patient Valuables Glasses Admission Note-Nursing Procedure/Therapy Intake 12/17/2022 7:07 [facility] History and Physical . Assessment and Plan [place] [employer]esthesi[employer] (ASA) physical status classification: Class IV. Anesthetic Preoperative Plan Anesthetic technique: MAC. Postoperative pain management: Per surgeon. Risks discussed: nausea, vomiting, hypotension, allergic reaction, serious complications. Informed consent: signed by patient. Digitally Signed by OLE TAI on 12/17/2022 07:52 AM [facility]08-30-2023 Note [place] ADMISSION HISTORY AND PHYSICIAL CHIEF COMPLAINT: Colorectal cancer screening HISTORY OF PRESENT ILLNESS: Colorectal cancer screening, last colonoscopy 2018 REVIEW OF SYSTEMS: Constitutional: denies weight loss Cardiovascular:denies chest pain, palpitations Respiratory:denies shortness of breath Gastrointestinal:no abd pain Musculoskeletal: no arthralgias Skin: no rashes . ACTIVE PROBLEMS: (51) Advanced COPD (34283875) ANXIETY (74683109) Anxiety (18482413) Aspirin long-term use (6369461979) ATYPICAL ANGINA (0256043617) BMI 45.0-49.9, adult (8543246868) Boil (7601667370) Bradycardia (42762794) CHF (congestive heart failure) (28474023) Chronic back pain (746213858) Chronic constipation (477684124) Chronic hoarseness (3530405090) CPAP (continuous positive airway pressure) dependence (8315432969) DEPRESSION (27232870) Diabetes mellitus with hyperglycemia (621786377) DYSLIPIDEMIA (46550426) Edema (777544172) Eustachian tube dysfunction (00149094) GERD - Gastro-esophageal reflux disease (5934294970) Glasses (7318054360) Hidradenitis (561762448) History of adverse reaction to anesthesia (2843133864) History of ESBL E. coli infection (961610277) History of TIA (transient ischemic attack) (7326883590) Hyperglobulinemia (110874180) Hypocalcemia (4552945) Hypothyroid (33865549) Hypothyroidism (883497772) Long-term use of aspirin therapy (9200094506) LUPUS (655327003) Neuropathy (0518484557) Nicotine dependence (28592194) Obesity, morbid (737961716) MAICOL - Obstructive sleep apnea (3283473960) OSTEOARTHRITIS (7564834005) Panic attack (024111477) PE (PULMONARY THROMBOEMBOLISM) (966738436) PMB (postmenopausal bleeding) (304539455) Postmenopausal bleeding (590889014) Presence of permanent cardiac pacemaker (5506967912) PSORIASIS (84763042) REFUSED INFLUENZA VACCINE (474529613) REFUSED PNEUMOCOCCAL VACCINE (3315340467) SCIATICA (77528553) SOB (shortness of breath) on exertion (180356155) Thickened endometrium (4043415462) Thrombocytopenia (0382694429) Tobacco use (2374717699) Type 2 diabetes mellitus with hyperglycemia (0541995236) Vaginal lesion (214339070) Vulval hidradenitis suppurativa (0715056348) MEDICATIONS: Active Inpt Meds: None Active PRN Meds: None One Time Meds: None Active IV Meds: None ALLERGIES: (9) Anoro Ellipta Bactrim Dilaudid HYDROmorphone Latex morphine pramipexole sulfa sulfamethoxazole-trimethoprim FAMILY HISTORY: SOCIAL HISTORY: PHYSICAL EXAM: VITALS: No Data Available 24 Hr Tmax: No Data Available 36 Hr Tmax: No Data Available Vital Signs are the last 5 in the past 48 hours. Weights display the last 5 within 7 days. Initial Wt: No Data Available Current Wt: No Data Available physical exam alert and oriented, chronically ill cardio; regular without murmur pulm; clear abd; soft, nontender LABS: No 36hr Lab Data DIAGNOSTICS: IMPRESSION: Colorectal cancer screening PLAN: Proceed with colonoscopy as discussed in the office Digitally Signed by ELAINE HOGAN DO on 12/17/2022 07:08 AM [facility]06-22-[address] Calabretta [facility] October 09, 2022 7:46am Note Date/Time October 09, 2022 7:46 am [facility] Medical Records Department [address] [place] [id number] Consultation - Surgical 10/09/22 0742 MR#: [id number] Acct: [id number] Name: JANE REED Rep #:[id number] : 1965 57 From: Florin decker MD PCP: Frankie Segovia NP Status:ADM IN Location: [facility] UV198-2 Assessment & Plan Assessment/Plan (1) Small bowel obstruction: PLAN: The patient was admitted with abdominal pain last night. CT scan showed possible small bowel obstruction due to adhesions to the mesh. This morning thepatient reports she has had several bowel movements and she is having no abdominal pain. I will try her on a diet. She would like to go home if possible today since she is feeling better. If she tolerates a diet she can be discharged home. Florin Naik MD Pager: [facility] [address] [place] [address], [address] [place] [address] Office: HPI Consult Data Date of Consult: 10/09/22 HPI Narrative HPI Narrative: JANE REED, is a 57 F who presented with abdominal pain. Patient was having left upper quadrant abdominal pain yesterday. He says the that it was severe and did not go away. She denied nausea or vomiting. She said she was not having bowel movements. Patient reports this morning that she is not having anyabdominal pain or nausea. She reports she had several bowel movements overnight. [facility] Medical History (Updated 10/08/22 @ 18:[address] Kamila Hernandez MD) Depression Hypothyroid IBS (irritable bowel syndrome) Insomnia Pacemaker Pre-diabetes Sleep apnea with use of continuous positive airway pressure (CPAP) Home Medications budesonide-formoterol HFA 160 mcg-4.5 mcg/actuation aerosol inhaler (Symbicort) 160 puff inhalation DAILY 10/08/22 [History Last Taken Unknown] famotidine 40 mg tablet 40 mg PO DAILY 10/08/22 [History Last Taken Unknown] ibuprofen 600 mg tablet 600 mg PO PRN PRN Pain 10/08/22 [History Last Taken Unknown] levothyroxine 200 mcg tablet 200 mcg PO DAILY 10/08/22 [History Last Taken Unknown] linaclotide 290 mcg capsule (Linzess) 290 mcg PO DAILY 10/08/22 [History Last Taken Unknown] metformin 500 mg tablet,extended release 24 hr 500 mg PO DAILY 10/08/22 [History Last Taken Unknown] pantoprazole 40 mg tablet,delayed release 40 mg PO DAILY 10/08/22 [History Last Taken Unknown] pravastatin 40 mg tablet 40 mg PO DAILY 10/08/22 [History Last Taken Unknown] prednisone 10 mg tablet 10 mg PO PRN PRN other 10/08/22 [History Last Taken Unknown] sertraline 100 mg tablet 100 mg PO DAILY 10/08/22 [History Last Taken Unknown] spironolactone 25 mg tablet 25 mg PO DAILY 10/08/22 [History Last Taken Unknown] trazodone 100 mg tablet 100 mg PO DAILY 10/08/22 [History Last Taken Unknown] Allergy/AdvReac Type Severity Reaction Status Date / Time Sulfa (Sulfonamide Allergy Anaphylaxis Verified 10/08/22 14:02 Antibiotics) sulfamethoxazole Allergy Anaphylaxis Verified 10/08/22 14:02 [From Bactrim] trimethoprim [From Bactrim] Allergy Anaphylaxis Verified 10/08/22 14:02 Opioids - Morphine Analogues AdvReac Other Verified 10/08/22 14:02 Surgical History (Updated 10/08/22 @ 14:08 by Debra Baeza) H/O: hysterectomy Social History (Updated 10/08/22 @ 18:[address] 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 Smoking Status: Current every day smoker tobacco type: cigarettes ROS Constitutional Constitutional: Denies anorexia, chills or fatigue Eyes Eyes: Denies blurry vision ENT HEENT: Denies abnormal hearing Cardiovascular Cardiovascular: Denies chest pain Respiratory/Chest Respiratory/Chest: Denies cough or dyspnea Gastrointestinal Gastrointestinal: Reports abdominal pain, constipation and nausea; Denies diarrhea or vomiting Musculoskeletal Musculoskeletal: Denies abnormal gait Integumentary Integumentary: Denies jaundice Neurologic Neurologic: Denies abnormal gait Psychiatric Psychiatric: Denies anxiety Endocrine Endocrinology: Denies heat intolerance Physical Exam Const alert and oriented x3 HEENT normocephalic Eyes PERRL Resp normal respiratory effort and normal air movement Cardio regular rate and regular rhythm GI soft to palpation, non-tender and non-distended Extremity normal to inspection Neuro CN's II-XII intact bilaterally Lab / Micro Data Result Diagrams: 10/09/22 06:03 10/09/22 06:03 Labs: Laboratory Results - last 24 hr 10/08/22 15:04: Sodium 138, Potassium 3.9, Chloride 106, Carbon Dioxide 29.0, Anion Gap 3 L, BUN 10, Creatinine 0.75, Estim Creat Clear Calc 70.11, Est GFR (MDRD) Af Amer 102, Est GFR (MDRD) Non-Af 85, BUN/Creatinine Ratio 13.3, [id number] H, Calcium 9.3, Total Bilirubin 0.50, AST 18, ALT 30, Alkaline Phosphatase 60, Total Protein 7.9, Albumin 3.7, Globulin 4.2, Albumin/Globulin Ratio 0.9, Lipase 70 10/08/22 15:04: Urine Color Yellow, Urine Clarity Sl. Cloudy, Urine pH 5.0, Ur Specific [place] 1.025, Urine Protein 30 H, Urine Glucose (UA) Normal, Urine Ketones Negative, Urine Occult Blood 50 H, Urine Nitrite Negative, Urine Bilirubin Negative, Urine Urobilinogen Normal, Ur Leukocyte Esterase 500 H, Urine RBC 0-5 SEEN, Urine WBC 10-25 SEEN, Ur Squamous Epith Cells 0-5 SEEN, Urine Bacteria 1+, Urine Mucus 0 SEEN 10/08/22 15:15: WBC 6.8, RBC 5.30, Hgb 15.8 H, Hct 48.1 H, MCV 90.8, MCH 29.8, MCHC 32.8, RDW Std Deviation 43.7, RDW Coeff of Alexandrea 13.2, Plt Count 173, MPV 11.5, Immature Gran % (Auto) 0.400, Neut % (Auto) 72.3 H, Lymph % (Auto) 19.0, Cook % (Auto) 7.0, Eos % (Auto) 0.9, Baso % (Auto) 0.4, Absolute Neuts (auto) 4.9, Absolute Lymphs (auto) 1.30, Nucleated RBC % 0 10/08/22 18:41: POC Glucose 99 10/08/22 22:29: POC Glucose 116 H 10/09/22 05:01: POC Glucose 130 H 10/09/22 06:03: WBC 4.8, RBC 4.94, Hgb 14.5, Hct 45.3, MCV 91.7, MCH 29.4, MCHC 32.0, RDW Std Deviation 44.4 H, RDW Coeff of Alexandrea 13.1, Plt Count 147 L, MPV 11.2, Immature Gran % (Auto) 0.600, Neut % (Auto) 64.5, Lymph % (Auto) 23.6, Cook % (Auto) 9.2, Eos % (Auto) 1.5, Baso % (Auto) 0.6, Absolute Neuts (auto) 3.1, Absolute Lymphs (auto) 1.13, Nucleated RBC % 0 10/09/22 06:03: Sodium 142, Potassium 3.9, Chloride 111 H, Carbon Dioxide 26.0, Anion Gap 5, BUN 7, Creatinine 0.56, Estim Creat Clear Calc 93.90, Est GFR (MDRD) Af Amer 145, Est GFR (MDRD) Non-Af 119, BUN/Creatinine Ratio 12.5, Glucose 118 H, Calcium 8.7, Total Bilirubin 0.50, AST 21, ALT 29, Alkaline Phosphatase 53, Total Protein 6.8, Albumin 3.2, Globulin 3.6, Albumin/Globulin Ratio 0.9 Radiology Impression Abdomen/Pelvis CT 10/08/22 15:31 IMPRESSION: (NOT LISTED IN ORDER OF SIGNIFICANCE) There is a small bowel obstruction. The transition point is noted in the abdomen along the anterior abdominal wall. This may be related to adhesion formation.. Gastritis. Urinary bladder wall has wall thickening. This can be related to a partially contractile state. However, a cystitis is not excluded. Urinalysis should be performed in an effort to exclude cystitis. There is liquid stool in the colon. This can suggest a gastroenteritis /diarrhea. Clinical correlation is recommended. Other findings as above. Electronically Signed: Gordon Alvarado MD at 16:40 EDT , 10/09/22 0746 <Electronically signed by Florin Naik MD> Cosigner Signature (if applicable): CC: STAMP REDEMPTION CLERK Frankie Segovia; Dr. Florin Naik MD; Dr. Kamila Hernandez MD~ Signed [facility] Work Phone: 1(656) 656-955706-21-2023 History and physical note Author Dr. Hernandez [facility] October 08, 2022 7:06pm Note Date/Time October 08, 2022 6:59 pm [facility] Medical Records Department [address] [place] [address] History & Physical Exam 10/08/22 1848 MR#: [id number] Acct: [id number] Name: JANE REED Rep #:[id number] : 1965 57 From: Kamila Miller PCP: Frankie Segovia NP Status:ADM IN [id number] - General General Date of Admission: 10/08/22 Date of Service: 10/08/22 Chief Complaint: Abdominal pain and constipation HPI Narrative JANE REED, is a 57 F with a history of morbid obesity, irritable bowel syndromefor which she is on Linzess, type 2 diabetes, ventral hernia with multiple surgeries with mesh and who also recently had a hysterectomy. Patient presents to the hospital with 3 days history of constipation and 1 day history of severe periumbilical abdominal pain. Patient states that when she arrived to the emergency department pain was extremely severe however currently it is much improved. Denies any nausea or vomiting or abdominal distention. CT of the abdomen pelvis shows small bowel obstruction with transition point adjacent to anterior-abdominal wall mesh. General surgery has been notified. Patient denies any fever or chills. [facility] Medical History (Updated 10/08/22 @ 18:[address] Kamila Hernandez MD) Depression Hypothyroid IBS (irritable bowel syndrome) Insomnia Pacemaker Pre-diabetes Sleep apnea with use of continuous positive airway pressure (CPAP) Home Medications budesonide-formoterol HFA 160 mcg-4.5 mcg/actuation aerosol inhaler (Symbicort) 160 puff inhalation DAILY 10/08/22 [History Last Taken Unknown] famotidine 40 mg tablet 40 mg PO DAILY 10/08/22 [History Last Taken Unknown] ibuprofen 600 mg tablet 600 mg PO PRN PRN Pain 10/08/22 [History Last Taken Unknown] levothyroxine 200 mcg tablet 200 mcg PO DAILY 10/08/22 [History Last Taken Unknown] linaclotide 290 mcg capsule (Linzess) 290 mcg PO DAILY 10/08/22 [History Last Taken Unknown] metformin 500 mg tablet,extended release 24 hr 500 mg PO DAILY 10/08/22 [History Last Taken Unknown] pantoprazole 40 mg tablet,delayed release 40 mg PO DAILY 10/08/22 [History Last Taken Unknown] pravastatin 40 mg tablet 40 mg PO DAILY 10/08/22 [History Last Taken Unknown] prednisone 10 mg tablet 10 mg PO PRN PRN other 10/08/22 [History Last Taken Unknown] sertraline 100 mg tablet 100 mg PO DAILY 10/08/22 [History Last Taken Unknown] spironolactone 25 mg tablet 25 mg PO DAILY 10/08/22 [History Last Taken Unknown] trazodone 100 mg tablet 100 mg PO DAILY 10/08/22 [History Last Taken Unknown] Allergy/AdvReac Type Severity Reaction Status Date / Time Sulfa (Sulfonamide Allergy Anaphylaxis Verified 10/08/22 14:02 Antibiotics) sulfamethoxazole Allergy Anaphylaxis Verified 10/08/22 14:02 [From Bactrim] trimethoprim [From Bactrim] Allergy Anaphylaxis Verified 10/08/22 14:02 Opioids - Morphine Analogues AdvReac Other Verified 10/08/22 14:02 Surgical History (Updated 10/08/22 @ 14:08 by Debra Baeza) H/O: hysterectomy Social History (Updated 10/08/22 @ 18:[address] 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 All other systems reviewed and essentially negative as above in the body of the history. Vital Signs Vital Signs Vital Signs: 10/08/22 14:01 10/08/22 14:14 10/08/22 17:33 Temperature 36.4 C L 36.6 C Temperature Source Temporal Temporal Pulse Rate 65 60 Respiratory Rate 16 16 Blood Pressure 130/81 H 131/72 H 124/64 H Blood Pressure Mean 97 91 84 Blood Pressure Source Blood Pressure Position Blood Pressure Location Pulse Ox 96 Oxygen Delivery Method Room Air 10/08/22 18:02 Temperature 37.2 C Temperature Source Oral Pulse Rate 78 Respiratory Rate 18 Blood Pressure 139/81 H Blood Pressure Mean 100 Blood Pressure Source Monitor Blood Pressure Position Semi-Fowlers Blood Pressure Location Right Arm Pulse Ox 97 Oxygen Delivery Method Room Air Weight Weight: 117.571 kg Body Mass Index (BMI) 45.9 Physical Exam Narrative General exam. Middle-aged lady appears older than stated age, morbidly obese, in some painful distress HEENT. Conjunctival injection, oral mucosa slightly dry, no cyanosis or jaundice. Neck. Neck is supple Heart. First and second heart sounds heard no murmurs. Lungs. Clear to auscultation but with prolonged expiratory phase Abdomen. Obese. Ventral scar. No visible peristalsis, bowel sounds hyperactive, tenderness in the periumbilical/lower epigastric region. Visible and distended and encouraged superficial veins. Extremities. 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 Conscious alert and oriented x3. Cranial 2-12 grossly intact. Results Lab / Micro Data Result Diagrams: 10/08/22 15:15 10/08/22 15:04 Labs: Laboratory Results - last 24 hr 10/08/22 15:04: Sodium 138, Potassium 3.9, Chloride 106, Carbon Dioxide 29.0, Anion Gap 3 L, BUN 10, Creatinine 0.75, Estim Creat Clear Calc 70.11, Est GFR (MDRD) Af Amer 102, Est GFR (MDRD) Non-Af 85, BUN/Creatinine Ratio 13.3, [id number] H, Calcium 9.3, Total Bilirubin 0.50, AST 18, ALT 30, Alkaline Phosphatase 60, Total Protein 7.9, Albumin 3.7, Globulin 4.2, Albumin/Globulin Ratio 0.9, Lipase 70 10/08/22 15:04: Urine Color Yellow, Urine Clarity Sl. Cloudy, Urine pH 5.0, Ur Specific [place] 1.025, Urine Protein 30 H, Urine Glucose (UA) Normal, Urine Ketones Negative, Urine Occult Blood 50 H, Urine Nitrite Negative, Urine Bilirubin Negative, Urine Urobilinogen Normal, Ur Leukocyte Esterase 500 H, Urine RBC 0-5 SEEN, Urine WBC 10-25 SEEN, Ur Squamous Epith Cells 0-5 SEEN, Urine Bacteria 1+, Urine Mucus 0 SEEN 10/08/22 15:15: WBC 6.8, RBC 5.30, Hgb 15.8 H, Hct 48.1 H, MCV 90.8, MCH 29.8, MCHC 32.8, RDW Std Deviation 43.7, RDW Coeff of Alexandrea 13.2, Plt Count 173, MPV 11.5, Immature Gran % (Auto) 0.400, Neut % (Auto) 72.3 H, Lymph % (Auto) 19.0, Cook % (Auto) 7.0, Eos % (Auto) 0.9, Baso % (Auto) 0.4, Absolute Neuts (auto) 4.9, Absolute Lymphs (auto) 1.30, Nucleated RBC % 0 Radiology Impression Abdomen/Pelvis CT 10/08/22 15:31 IMPRESSION: (NOT LISTED IN ORDER OF SIGNIFICANCE) There is a small bowel obstruction. The transition point is noted in the abdomen along the anterior abdominal wall. This may be related to adhesion formation.. Gastritis. Urinary bladder wall has wall thickening. This can be related to a partially contractile state. However, a cystitis is not excluded. Urinalysis should be performed in an effort to exclude cystitis. There is liquid stool in the colon. This can suggest a gastroenteritis /diarrhea. Clinical correlation is recommended. Other findings as above. Electronically Signed: Gordon Alvarado MD at 16:40 EDT Reading Location ID and State: [facility] / [place] , Service support , Assessment & Plan Assessment/Plan (1) Small bowel obstruction: PLAN: Plan Assessment and plan 1. Small bowel obstruction. Most likely secondary to adhesions. Consult general surgery. Keep patient NPO. Analgesics. Supportive care. IV fluids. 2. Morbid obesity. Lifestyle modifications as able. 3. Type 2 diabetes. Hold metformin. Insulin sliding scale. Charges/Coding Visit Charges Inpatient E&M: 35315 Init Hosp L3 10/08/22 1906 <Electronically signed by Kamila Hernandez MD> Cosigner Signature (if applicable): CC: JAQUAN Segovia; Dr. Kamila Hernandez MD~ Signed [facility] Work Phone: 1(350) 168-296506-21-[address] Antunez [facility] October 08, 2022 5:04pm Note Date/Time October 08, 2022 3:33 pm [facility] Medical Records Department [address] [place] [address] Emergency Department Summary 10/08/22 MR#: [id number] Acct: [id number] Name: JANE REED Rep #:[id number] : 1965 57 From: Kevin Antunez DO PCP: Frankie Segovia, STAMP REDEMPTION CLERK Status:REG ER Location: ED HPI HPI - GI History of Present Illness Chief Complaint: Abd Pain Narrative Narrative: 57-year-old female presenting with epigastric pain. This started just before coming into the ER. She states she was straining to have a bowel movement when she noted the pain in the epigastric region. The pain is very mild and is resolving. Patient states that she has not had a bowel movement in a couple of days. She is on Linzess and she is taking it. She took 2 Dulcolax yesterday. Patient reports that she recently had a hysterectomy this last month. She is not had a fever, chills. PFSH PFS Medical History Depression Hypothyroid IBS (irritable bowel syndrome) Insomnia Pacemaker Pre-diabetes Sleep apnea with use of continuous positive airway pressure (CPAP) Home Medications budesonide-formoterol HFA 160 mcg-4.5 mcg/actuation aerosol inhaler (Symbicort) 160 puff inhalation DAILY 10/08/22 [History Last Taken Unknown] famotidine 40 mg tablet 40 mg PO DAILY 10/08/22 [History Last Taken Unknown] ibuprofen 600 mg tablet 600 mg PO PRN PRN Pain 10/08/22 [History Last Taken Unknown] levothyroxine 200 mcg tablet 200 mcg PO DAILY 10/08/22 [History Last Taken Unknown] linaclotide 290 mcg capsule (Linzess) 290 mcg PO DAILY 10/08/22 [History Last Taken Unknown] metformin 500 mg tablet,extended release 24 hr 500 mg PO DAILY 10/08/22 [History Last Taken Unknown] pantoprazole 40 mg tablet,delayed release 40 mg PO DAILY 10/08/22 [History Last Taken Unknown] pravastatin 40 mg tablet 40 mg PO DAILY 10/08/22 [History Last Taken Unknown] prednisone 10 mg tablet 10 mg PO PRN PRN other 10/08/22 [History Last Taken Unknown] sertraline 100 mg tablet 100 mg PO DAILY 10/08/22 [History Last Taken Unknown] spironolactone 25 mg tablet 25 mg PO DAILY 10/08/22 [History Last Taken Unknown] trazodone 100 mg tablet 100 mg PO DAILY 10/08/22 [History Last Taken Unknown] Allergy/AdvReac Type Severity Reaction Status Date / Time Sulfa (Sulfonamide Allergy Anaphylaxis Verified 10/08/22 14:02 Antibiotics) sulfamethoxazole Allergy Anaphylaxis Verified 10/08/22 14:02 [From Bactrim] trimethoprim [From Bactrim] Allergy Anaphylaxis Verified 10/08/22 14:02 Opioids - Morphine Analogues AdvReac Other Verified 10/08/22 14:02 Surgical History (Updated 10/08/22 @ 14:08 by Debra Baeza) H/O: hysterectomy Social History Smoking Status: Current every day smoker tobacco type: cigarettes EXAM Physical Exam Const Vital Signs: 10/08/22 14:01 10/08/22 14:14 Temperature 97.5 F L Temperature Source Temporal Pulse Rate 65 Respiratory Rate 16 Blood Pressure 130/81 H 131/72 H Blood Pressure Mean 97 91 Pulse Ox 96 Oxygen Delivery Method Room Air MDM MDM MDM Narrative Medical decision making narrative: Presenting with epigastric pain which started just prior to arrival. She statesshe was straining to defecate and that with this started to hurt. She does not want anything for pain because she does not help make her more constipated. Shetakes Linzess that she took a couple of Dulcolax hoping to have a bowel movement. She is concerned because she had a hysterectomy a month ago and she is still straining to have bowel movements. Differential includes small bowel obstruction, constipation, bowel perforation, postop infection, diverticulitis, pancreatitis, pyelonephritis, UTI, GERD. CBC to assess white blood cell count, hemoglobin, platelets. CMP to assess liver function, renal function, electrolytes. Lipase to assess for pancreatitis. Urinalysis to assess for UTI. Patient treated with Reglan to help her nausea which could potentially help herbowel movement as well. CBC shows a normal white blood cell count 6.8. Hemoglobin 15.8 and somewhat hemoconcentrated. Liver function, renal function, lipase all unremarkable. Urinalysis with no evidence of infection. We will obtain a CT of the abdomen pelvis with IV contrast. CT of the abdomen pelvis shows small bowel obstruction which may be due to adhesions. Discussed the casewith Harley Bearden who recommended admission to medicine, n.p.o., IV fluids and antiemetics. Discussed this with Dr. Hernandez who will accept the patient. Impression: 1. Small bowel obstruction 2. abdominal pain Lab Data Attestation: I reviewed the patient's lab results. Labs: Laboratory Results - last 24 hr 10/08/22 10/08/22 10/08/22 15:04 15:04 15:15 WBC 6.8 RBC 5.30 Hgb 15.8 H Hct 48.1 H MCV 90.8 MCH 29.8 MCHC 32.8 RDW Std Deviation 43.7 RDW Coeff of Alexandrea 13.2 Plt Count 173 MPV 11.5 Immature Gran % (Auto) 0.400 Neut % (Auto) 72.3 H Lymph % (Auto) 19.0 Cook % (Auto) 7.0 Eos % (Auto) 0.9 Baso % (Auto) 0.4 Absolute Neuts (auto) 4.9 Absolute Lymphs (auto) 1.30 Nucleated RBC % 0 Sodium 138 Potassium 3.9 Chloride 106 Carbon Dioxide 29.0 Anion Gap 3 L BUN 10 Creatinine 0.75 Estim Creat Clear Calc 70.11 Est GFR (MDRD) Af Amer 102 Est GFR (MDRD) Non-Af 85 BUN/Creatinine Ratio 13.3 Glucose 122 H Calcium 9.3 Total Bilirubin 0.50 AST 18 ALT 30 Alkaline Phosphatase 60 Total Protein 7.9 Albumin 3.7 Globulin 4.2 Albumin/Globulin Ratio 0.9 Lipase 70 Urine Color Yellow Urine Clarity Sl. Cloudy Urine pH 5.0 Ur Specific [place] 1.025 Urine Protein 30 H Urine Glucose (UA) Normal Urine Ketones Negative Urine Occult Blood 50 H Urine Nitrite Negative Urine Bilirubin Negative Urine Urobilinogen Normal Ur Leukocyte Esterase 500 H Urine RBC 0-5 SEEN Urine WBC 10-25 SEEN Ur Squamous Epith Cells 0-5 SEEN Urine Bacteria 1+ Urine Mucus 0 SEEN Radiography Diagnostic Testing: Clinical Impression(s) from Imaging Studies Abdomen/Pelvis CT 10/08/22 15:31 IMPRESSION: (NOT LISTED IN ORDER OF SIGNIFICANCE) There is a small bowel obstruction. The transition point is noted in the abdomen along the anterior abdominal wall. This may be related to adhesion formation.. Gastritis. Urinary bladder wall has wall thickening. This can be related to a partially contractile state. However, a cystitis is not excluded. Urinalysis should be performed in an effort to exclude cystitis. There is liquid stool in the colon. This can suggest a gastroenteritis /diarrhea. Clinical correlation is recommended. Other findings as above. Electronically Signed: Gordon Alvarado MD at 16:40 EDT , Discharge Plan Triage Chief Complaint: Abd Pain ED Provider: Kevin Antunez Dx/Rx/DC Orders Prescriptions: No Action prednisone 10 mg tablet 10 mg PO PRN PRN (Reason: other) Label Comments: TAKE TABLET(S) BY MOUTH EVERY MORNING FOR 8 DAYS UNTIL GONE PER TAPER DAY 1 4 TABLETS DAY 2 3 & 1/2 TABLETS DAY 3 3 TABLETS DAY 4 2 pravastatin 40 mg tablet 40 mg PO DAILY famotidine 40 mg tablet 40 mg PO DAILY Label Comments: TAKE 1 TABLET BY MOUTH EVERY NIGHT AT BEDTIME sertraline 100 mg tablet 100 mg PO DAILY Label Comments: TAKE 1 TABLET BY MOUTH DAILY spironolactone 25 mg tablet 25 mg PO DAILY Label Comments: TAKE 1 TABLET BY MOUTH DAILY NEEDED FOR SWELLING trazodone 100 mg tablet 100 mg PO DAILY Label Comments: TAKE 1 (ONE) & ONE-HALF TO 2 (TWO) TABLETS BY MOUTH DAILY AT BEDTIME pantoprazole 40 mg tablet,delayed release (DR/EC) 40 mg PO DAILY levothyroxine 200 mcg tablet 200 mcg PO DAILY Label Comments: TAKE 1 TABLET BY MOUTH DAILY EVERY MORNING ibuprofen 600 mg tablet 600 mg PO PRN PRN (Reason: Pain) Label Comments: TAKE 1 TABLET BY MOUTH EVERY 6 HOURS NEEDED FOR PAIN, take WITH FOOD or milk metformin 500 mg tablet extended release 24 hr 500 mg PO DAILY Label Comments: TAKE 1 TABLET BY MOUTH DAILY budesonide-formoterol [Symbicort] 160-4.5 mcg/actuation HFA aerosol inhaler 160 puff INHALATION DAILY Label Comments: INHALE TWO PUFFS BY MOUTH TWICE DAILY. RINSE MOUTH AND THROAT AFTER USE Linzess 290 mcg capsule 290 mcg PO DAILY Label Comments: TAKE 1 CAPSULE EVERY DAY BY MOUTH FOR 90 DAYS Primary Care Provider: Frankie Segovia NP Referrals: Frankie Segovia NP, ST[facility] REDEMPTION CLERK-C [Primary Care Provider] - What to do if you have Problems For any increased pain, shortness of breath, bleeding, nausea or vomiting, chestpain, or any unexpected problems, contact your Primary Care Provider. Call [facility] ([phone]) or report to the closest Emergency Room. Call 911 if necessary. 10/08/22 1704 <Electronically signed by Kevin Antunez DO> Cosigner Signature (if applicable): CC: JAQUAN Segovia ~ Signed [facility] Work Phone: [phone] 121-590406-21-[address] Antunez [facility] October 08, 2022 5:04pm Note Date/Time October 08, 2022 3:33 pm [facility] Medical Records Department [address] [place] [address] Emergency Department Summary 10/08/22 MR#: [id number] Acct: [id number] Name: JANE REED Rep #:[id number] : [id number] From: Kevin Antunez DO PCP: Frankie Segovia NP Status:REG ER Location: ED HPI HPI - GI History of Present Illness Chief Complaint: Abd Pain Narrative Narrative: 57-year-old female presenting with epigastric pain. This started just before coming into the ER. She states she was straining to have a bowel movement when she noted the pain in the epigastric region. The pain is very mild and is resolving. Patient states that she has not had a bowel movement in a couple of days. She is on Linzess and she is taking it. She took 2 Dulcolax yesterday. Patient reports that she recently had a hysterectomy this last month. She is not had a fever, chills. PFSH [facility] Medical History Depression Hypothyroid IBS (irritable bowel syndrome) Insomnia Pacemaker Pre-diabetes Sleep apnea with use of continuous positive airway pressure (CPAP) Home Medications budesonide-formoterol HFA 160 mcg-4.5 mcg/actuation aerosol inhaler (Symbicort) 160 puff inhalation DAILY 10/08/22 [History Last Taken Unknown] famotidine 40 mg tablet 40 mg PO DAILY 10/08/22 [History Last Taken Unknown] ibuprofen 600 mg tablet 600 mg PO PRN PRN Pain 10/08/22 [History Last Taken Unknown] levothyroxine 200 mcg tablet 200 mcg PO DAILY 10/08/22 [History Last Taken Unknown] linaclotide 290 mcg capsule (Linzess) 290 mcg PO DAILY 10/08/22 [History Last Taken Unknown] metformin 500 mg tablet,extended release 24 hr 500 mg PO DAILY 10/08/22 [History Last Taken Unknown] pantoprazole 40 mg tablet,delayed release 40 mg PO DAILY 10/08/22 [History Last Taken Unknown] pravastatin 40 mg tablet 40 mg PO DAILY 10/08/22 [History Last Taken Unknown] prednisone 10 mg tablet 10 mg PO PRN PRN other 10/08/22 [History Last Taken Unknown] sertraline 100 mg tablet 100 mg PO DAILY 10/08/22 [History Last Taken Unknown] spironolactone 25 mg tablet 25 mg PO DAILY 10/08/22 [History Last Taken Unknown] trazodone 100 mg tablet 100 mg PO DAILY 10/08/22 [History Last Taken Unknown] Allergy/AdvReac Type Severity Reaction Status Date / Time Sulfa (Sulfonamide Allergy Anaphylaxis Verified 10/08/22 14:02 Antibiotics) sulfamethoxazole Allergy Anaphylaxis Verified 10/08/22 14:02 [From Bactrim] trimethoprim [From Bactrim] Allergy Anaphylaxis Verified 10/08/22 14:02 Opioids - Morphine Analogues AdvReac Other Verified 10/08/22 14:02 Surgical History (Updated 10/08/22 @ 14:08 by Debra Baeza) H/O: hysterectomy Social History Smoking Status: Current every day smoker tobacco type: cigarettes EXAM Physical Exam Const Vital Signs: 10/08/22 14:01 10/08/22 14:14 Temperature 97.5 F L Temperature Source Temporal Pulse Rate 65 Respiratory Rate 16 Blood Pressure 130/81 H 131/72 H Blood Pressure Mean 97 91 Pulse Ox 96 Oxygen Delivery Method Room Air MDM MDM MDM Narrative Medical decision making narrative: Presenting with epigastric pain which started just prior to arrival. She statesshe was straining to defecate and that with this started to hurt. She does not want anything for pain because she does not help make her more constipated. Shetakes Linzess that she took a couple of Dulcolax hoping to have a bowel movement. She is concerned because she had a hysterectomy a month ago and she is still straining to have bowel movements. Differential includes small bowel obstruction, constipation, bowel perforation, postop infection, diverticulitis, pancreatitis, pyelonephritis, UTI, GERD. CBC to assess white blood cell count, hemoglobin, platelets. CMP to assess liver function, renal function, electrolytes. Lipase to assess for pancreatitis. Urinalysis to assess for UTI. Patient treated with Reglan to help her nausea which could potentially help herbowel movement as well. CBC shows a normal white blood cell count 6.8. Hemoglobin 15.8 and somewhat hemoconcentrated. Liver function, renal function, lipase all unremarkable. Urinalysis with no evidence of infection. We will obtain a CT of the abdomen pelvis with IV contrast. CT of the abdomen pelvis shows small bowel obstruction which may be due to adhesions. Discussed the casewith Harley Bearden who recommended admission to medicine, n.p.o., IV fluids and antiemetics. Discussed this with Dr. Hernandez who will accept the patient. Impression: 1. Small bowel obstruction 2. abdominal pain Lab Data Attestation: I reviewed the patient's lab results. Labs: Laboratory Results - last 24 hr 10/08/22 10/08/22 10/08/22 15:04 15:04 15:15 WBC 6.8 RBC 5.30 Hgb 15.8 H Hct 48.1 H MCV 90.8 MCH 29.8 MCHC 32.8 RDW Std Deviation 43.7 RDW Coeff of Alexandrea 13.2 Plt Count 173 MPV 11.5 Immature Gran % (Auto) 0.400 Neut % (Auto) 72.3 H Lymph % (Auto) 19.0 Cook % (Auto) 7.0 Eos % (Auto) 0.9 Baso % (Auto) 0.4 Absolute Neuts (auto) 4.9 Absolute Lymphs (auto) 1.30 Nucleated RBC % 0 Sodium 138 Potassium 3.9 Chloride 106 Carbon Dioxide 29.0 Anion Gap 3 L BUN 10 Creatinine 0.75 Estim Creat Clear Calc 70.11 Est GFR (MDRD) Af Amer 102 Est GFR (MDRD) Non-Af 85 BUN/Creatinine Ratio 13.3 Glucose 122 H Calcium 9.3 Total Bilirubin 0.50 AST 18 ALT 30 Alkaline Phosphatase 60 Total Protein 7.9 Albumin 3.7 Globulin 4.2 Albumin/Globulin Ratio 0.9 Lipase 70 Urine Color Yellow Urine Clarity Sl. Cloudy Urine pH 5.0 Ur Specific [place] 1.025 Urine Protein 30 H Urine Glucose (UA) Normal Urine Ketones Negative Urine Occult Blood 50 H Urine Nitrite Negative Urine Bilirubin Negative Urine Urobilinogen Normal Ur Leukocyte Esterase 500 H Urine RBC 0-5 SEEN Urine WBC 10-25 SEEN Ur Squamous Epith Cells 0-5 SEEN Urine Bacteria 1+ Urine Mucus 0 SEEN Radiography Diagnostic Testing: Clinical Impression(s) from Imaging Studies Abdomen/Pelvis CT 10/08/22 15:31 IMPRESSION: (NOT LISTED IN ORDER OF SIGNIFICANCE) There is a small bowel obstruction. The transition point is noted in the abdomen along the anterior abdominal wall. This may be related to adhesion formation.. Gastritis. Urinary bladder wall has wall thickening. This can be related to a partially contractile state. However, a cystitis is not excluded. Urinalysis should be performed in an effort to exclude cystitis. There is liquid stool in the colon. This can suggest a gastroenteritis /diarrhea. Clinical correlation is recommended. Other findings as above. Electronically Signed: Gordon Alvarado MD at 16:40 EDT , Discharge Plan Triage Chief Complaint: Abd Pain ED Provider: Kevin Antunez Dx/Rx/DC Orders Prescriptions: No Action prednisone 10 mg tablet 10 mg PO PRN PRN (Reason: other) Label Comments: TAKE TABLET(S) BY MOUTH EVERY MORNING FOR 8 DAYS UNTIL GONE PER TAPER DAY 1 4 TABLETS DAY 2 3 & 1/2 TABLETS DAY 3 3 TABLETS DAY 4 2 pravastatin 40 mg tablet 40 mg PO DAILY famotidine 40 mg tablet 40 mg PO DAILY Label Comments: TAKE 1 TABLET BY MOUTH EVERY NIGHT AT BEDTIME sertraline 100 mg tablet 100 mg PO DAILY Label Comments: TAKE 1 TABLET BY MOUTH DAILY spironolactone 25 mg tablet 25 mg PO DAILY Label Comments: TAKE 1 TABLET BY MOUTH DAILY NEEDED FOR SWELLING trazodone 100 mg tablet 100 mg PO DAILY Label Comments: TAKE 1 (ONE) & ONE-HALF TO 2 (TWO) TABLETS BY MOUTH DAILY AT BEDTIME pantoprazole 40 mg tablet,delayed release (DR/EC) 40 mg PO DAILY levothyroxine 200 mcg tablet 200 mcg PO DAILY Label Comments: TAKE 1 TABLET BY MOUTH DAILY EVERY MORNING ibuprofen 600 mg tablet 600 mg PO PRN PRN (Reason: Pain) Label Comments: TAKE 1 TABLET BY MOUTH EVERY 6 HOURS NEEDED FOR PAIN, take WITH FOOD or milk metformin 500 mg tablet extended release 24 hr 500 mg PO DAILY Label Comments: TAKE 1 TABLET BY MOUTH DAILY budesonide-formoterol [Symbicort] 160-4.5 mcg/actuation HFA aerosol inhaler 160 puff INHALATION DAILY Label Comments: INHALE TWO PUFFS BY MOUTH TWICE DAILY. RINSE MOUTH AND THROAT AFTER USE Linzess 290 mcg capsule 290 mcg PO DAILY Label Comments: TAKE 1 CAPSULE EVERY DAY BY MOUTH FOR 90 DAYS Primary Care Provider: Frankie Segovia NP Referrals: Frankie Segovia NP, STAMP REDEMPTION CLERK-C [Primary Care Provider] - What to do if you have Problems For any increased pain, shortness of breath, bleeding, nausea or vomiting, chestpain, or any unexpected problems, contact your Primary Care Provider. Call [facility] ([phone]) or report to the closest Emergency Room. Call 911 if necessary. 10/08/22 1704 <Electronically signed by Kevin Antunez DO> Cosigner Signature (if applicable): CC: JAQUAN Segovia ~ Signed [facility] Work Phone: 1(284) 710-481405-11-2023 Note ORIGINAL EXAMINATION: TWO XRAY VIEWS OF THE CHEST08/28/2022 10:06 am COMPARISON: 12/14/2020 09/02/2021 HISTORY: ORDERING SYSTEM PROVIDED HISTORY: Reason for Exam: cough, history of smoking FINDINGS: Stable heart and mediastinum with left-sided pacemaker leads as previously. No vascular congestion or pleural effusion. There is moderate interstitial and ground-glass opacity in the lower lungs that has increased. Otherwise clear lungs. Likely hyperexpansion on the lateral view. Dorsal spondylosis. IMPRESSION: Background of COPD. Bibasilar infiltrates of uncertain etiology, consider pneumonia or other pneumonitis. Interpreted by: Oscar Aguayo MD Preliminary Report By: Oscar Aguayo MD Electronically signed By Oscar Aguayo MD Dictated Date: 08/28/2022 9:56:12 PM Prelim Date: 08/28/2022 9:58:19 PM Sign Date: 08/28/2022 9:58:19 PM [facility]ing [id number] Note ORIGINAL EXAMINATION: TWO XRAY VIEWS OF THE CHEST08/28/2022 10:06 am COMPARISON: 12/14/2020 09/02/2021 HISTORY: ORDERING SYSTEM PROVIDED HISTORY: Reason for Exam: cough, history of smoking FINDINGS: Stable heart and mediastinum with left-sided pacemaker leads as previously. No vascular congestion or pleural effusion. There is moderate interstitial and ground-glass opacity in the lower lungs that has increased. Otherwise clear lungs. Likely hyperexpansion on the lateral view. Dorsal spondylosis. IMPRESSION: Background of COPD. Bibasilar infiltrates of uncertain etiology, consider pneumonia or other pneumonitis. Interpreted by: Oscar Aguayo MD Preliminary Report By: Oscar Aguayo MD Electronically signed By Oscar Aguayo MD Dictated Date: 08/28/2022 9:56:12 PM Prelim Date: 08/28/2022 9:58:19 PM Sign Date: 08/28/2022 9:58:19 PM Ordering Provider: [id number] Note Pathology Report verified by [facility] DELFINO TORIBIO MD Sign out Date: 07/21/2022 09:34 Performing Lab: [address] Pathology Dept [facility] 04-03-2023 Note Pathology Report verified by [facility] DELFINO TORIBIO MD Sign out Date: 07/21/2022 09:34 Performing Lab: [place] [id number] [facility] Pathology Dept [facility] 03-31-2023 Note Pathology Report verified by [facility] DELFINO TORIBIO MD Sign out Date: 07/21/2022 09:34 Performing Lab: [facility], [address] [place] [address] Pathology Dept [facility] 03-31-2023 Note Pathology Report verified by [facility] DELFINO TORIBIO MD Sign out Date: 07/21/2022 09:34 Performing Lab: [address] Pathology Dept [facility] 03-31-2023 Note Pathology Report verified by [facility] DELFINO TORIBIO MD Sign out Date: 07/21/2022 09:34 Performing Lab: [address] [place] Pathology Dept [facility] 03-31-2023 Note Pathology Report verified by [facility] DELFINO TORIBIO MD Sign out Date: 07/21/2022 09:34 Performing Lab: [address] Pathology Dept [facility] 03-31-2023 Note Pathology Report verified by [facility] DELFINO TORIBIO MD Sign out Date: 07/21/2022 09:34 Performing Lab: [address] Pathology Dept [facility] 05-16-2022 Hospital Discharge instructions* Additional Discharge Instructions Please take your medication as prescribed and follow up closely with your primary care doctor. Please monitor your glucose closely at home. If the symptoms worsen or new symptoms develop return to the Emergency Department (ED) immediately. Call your doctor for additional questions. ED . Instruction/Education Provided DI for [facility] Obstructive Pulmonary Disease [place] [facility] Discharge summary Author Dr. Nava [facility] October 09, 2022 11:20am Note Date/Time October 09, 2022 11:1 9am [facility] Medical Records Department [address] [place] [address] Discharge Summary 10/09/22 1113 MR#: [id number] Acct: [id number] Name: JANE REED Rep #:[id number] : 1965 [id number] From: Esha Nava DO PCP: Frankie Segovia NP Status:ADM IN [id number] Prov[facility] Date of Admission: 10/08/22 Date of Discharge: 10/09/22 Primary Care Physician: Frankie Segovia NP Consultations 10/08/22 17:15 Consult: General Surgery Routine Consulting Provider: Florin Naik Reason for Consult: SBO EMERGENT Consult: No MD Notified: Yes Date Notified: 10/08/22 Time Notified: 21:32 Method of Notification: Text Reason For Visit: SMALL BOWEL OBSTRUCTION Diagnosis Discharge Diagnosis (1) Small bowel obstruction: Status: Acute Code(s): K56.609 - Unspecified intestinal obstruction, unspecified as to partial versus complete obstruction Medications at Discharge Home Medications budesonide-formoterol HFA 160 mcg-4.5 mcg/actuation aerosol inhaler (Symbicort) 160 puff inhalation DAILY 10/08/22 famotidine 40 mg tablet 40 mg PO DAILY 10/08/22 ibuprofen 600 mg tablet 600 mg PO PRN PRN Pain 10/08/22 levothyroxine 200 mcg tablet 200 mcg PO DAILY 10/08/22 linaclotide 290 mcg capsule (Linzess) 290 mcg PO DAILY 10/08/22 metformin 500 mg tablet,extended release 24 hr 500 mg PO DAILY 10/08/22 pantoprazole 40 mg tablet,delayed release 40 mg PO DAILY 10/08/22 pravastatin 40 mg tablet 40 mg PO DAILY 10/08/22 prednisone 10 mg tablet 10 mg PO PRN PRN other 10/08/22 sertraline 100 mg tablet 100 mg PO DAILY 10/08/22 spironolactone 25 mg tablet 25 mg PO DAILY 10/08/22 trazodone 100 mg tablet 100 mg PO DAILY 10/08/22 Hospital Course Operations None Procedures - (CT abdomen and pelvis) Summary of Care Provided Minutes Spent on Discharge: 25 Hospital Course: Mrs. Reed is a 57-year-old morbidly obese white female who presented to the emergency department at [facility] on 10/08/2022 complaining of abdominal pain and constipation. Patient has a history of irritable bowel syndrome for which she takes Linzess and multiple abdominal surgeries with mesh and previous hysterectomy. Upon presentation, she had been having about 3 days of constipation and a 1 day history of severe periumbilical abdominal pain. When she arrived to the emergency department she reported the pain was extremelysevere however it was much improved by the time of admission. She denied any nausea/vomiting or abdominal distention. CT of the abdomen pelvis was performedand showed small bowel obstruction with transition point adjacent to the anterior abdominal wall mesh. This morning it was noted that the patient had several bowel movements through the night and no abdominal pain. General surgeryevaluated the patient and with her improvement they feel that she can trial dietand go home later today as long as she remains improved and tolerates p.o. without any difficulty. The patient ate a regular diet for breakfast and tolerated well with no worsening abdominal pain, nausea, or vomiting. I did discuss with the patient with her extensive history of abdominal surgery that she was increased risk for bowel obstructions recurrently she voiced understanding. She was anxious to go home and was able to be discharged home instable condition on 10/09/2022. Discharge diagnoses: Small bowel obstruction-resolved IBS Ventral hernia Insomnia Obstructive sleep apnea DM-2 Hypothyroidism GERD History of pacemaker Hyperlipidemia Tobacco abuse Morbid obesity History of ventral hernia Physical Exam Const alert, oriented x3, no apparent distress, no limitations and well nourished; Negative for average body habitus Constitutional Narrative: Morbidly obese, middle-aged, white female, appears older than stated age, sitting up in a chair at the bedside watching television and on her phone, appears comfortable and nontoxic General Appearance: cooperative, comfortable, well kempt and well developed Orientation / Consciousness: awake, oriented to person, oriented to place and oriented to time Exam Limitations: no limitations Nutritional Appearance: morbidly obese HEENT normocephalic, head/scalp atraumatic, hearing grossly normal bilaterally and moist oral mucous membranes HEENT Narrative: Mallampati is 3, no thrush Resp normal respiratory effort, no retractions, no use of accessory muscles and No clear to auscultation bilaterally Resp Narrative: Diffusely diminished with few scattered end expiratory wheeze Auscultation: wheezes; Negative for rales or rhonchi Cardio regular rate, regular rhythm, S1 normal heart sound, S2 normal heart sound, no murmurs, no rub, no gallops and no clicks GI normal to inspection, nondistended, normoactive bowel sounds, soft to palpation and non-tender GI Narrative: Multiple old surgical incisions that are well-healed noted on anterior abdomen-predominantly midline Extremity no clubbing, cyanosis or edema Extremity Narrative: 2+ pedal pulses Neuro oriented x3, moves all extremities and no focal motor deficits Speech: speech normal Psych affect normal Psych Narrative: Pleasant, appropriately interactive Weight / BMI Weight Weight: 117.571 kg Body Mass Index (BMI) 45.9 ABG / Lab / Microbiology Data Result Diagrams: 10/09/22 06:03 10/09/22 06:03 Laboratory: Laboratory Results - last 24 hr 10/08/22 15:04: Sodium 138, Potassium 3.9, Chloride 106, Carbon Dioxide 29.0, Anion Gap 3 L, BUN 10, Creatinine 0.75, Estim Creat Clear Calc 70.11, Est GFR (MDRD) Af Amer 102, Est GFR (MDRD) Non-Af 85, BUN/Creatinine Ratio 13.3, [id number] H, Calcium 9.3, Total Bilirubin 0.50, AST 18, ALT 30, Alkaline Phosphatase 60, Total Protein 7.9, Albumin 3.7, Globulin 4.2, Albumin/Globulin Ratio 0.9, Lipase 70 10/08/22 15:04: Urine Color Yellow, Urine Clarity Sl. Cloudy, Urine pH 5.0, Ur Specific [place] 1.025, Urine Protein 30 H, Urine Glucose (UA) Normal, Urine Ketones Negative, Urine Occult Blood 50 H, Urine Nitrite Negative, Urine Bilirubin Negative, Urine Urobilinogen Normal, Ur Leukocyte Esterase 500 H, Urine RBC 0-5 SEEN, Urine WBC 10-25 SEEN, Ur Squamous Epith Cells 0-5 SEEN, Urine Bacteria 1+, Urine Mucus 0 SEEN 10/08/22 15:15: WBC 6.8, RBC 5.30, Hgb 15.8 H, Hct 48.1 H, MCV 90.8, MCH 29.8, MCHC 32.8, RDW Std Deviation 43.7, RDW Coeff of Alexandrea 13.2, Plt Count 173, MPV 11.5, Immature Gran % (Auto) 0.400, Neut % (Auto) 72.3 H, Lymph % (Auto) 19.0, Cook % (Auto) 7.0, Eos % (Auto) 0.9, Baso % (Auto) 0.4, Absolute Neuts (auto) 4.9, Absolute Lymphs (auto) 1.30, Nucleated RBC % 0 10/08/22 18:41: POC Glucose 99 10/08/22 22:29: POC Glucose 116 H 10/09/22 05:01: POC Glucose 130 H 10/09/22 06:03: WBC 4.8, RBC 4.94, Hgb 14.5, Hct 45.3, MCV 91.7, MCH 29.4, MCHC 32.0, RDW Std Deviation 44.4 H, RDW Coeff of Alexandrea 13.1, Plt Count 147 L, MPV 11.2, Immature Gran % (Auto) 0.600, Neut % (Auto) 64.5, Lymph % (Auto) 23.6, Cook % (Auto) 9.2, Eos % (Auto) 1.5, Baso % (Auto) 0.6, Absolute Neuts (auto) 3.1, Absolute Lymphs (auto) 1.13, Nucleated RBC % 0 10/09/22 06:03: Sodium 142, Potassium 3.9, Chloride 111 H, Carbon Dioxide 26.0, Anion Gap 5, BUN 7, Creatinine 0.56, Estim Creat Clear Calc 93.90, Est GFR (MDRD) Af Amer 145, Est GFR (MDRD) Non-Af 119, BUN/Creatinine Ratio 12.5, Glucose 118 H, Calcium 8.7, Total Bilirubin 0.50, AST 21, ALT 29, Alkaline Phosphatase 53, Total Protein 6.8, Albumin 3.2, Globulin 3.6, Albumin/Globulin Ratio 0.9 Radiography Diagnostic Testing: Radiology Impression Abdomen/Pelvis CT 10/08/22 15:31 IMPRESSION: (NOT LISTED IN ORDER OF SIGNIFICANCE) There is a small bowel obstruction. The transition point is noted in the abdomen along the anterior abdominal wall. This may be related to adhesion formation.. Gastritis. Urinary bladder wall has wall thickening. This can be related to a partially contractile state. However, a cystitis is not excluded. Urinalysis should be performed in an effort to exclude cystitis. There is liquid stool in the colon. This can suggest a gastroenteritis /diarrhea. Clinical correlation is recommended. Other findings as above. Electronically Signed: Gordon Alvarado MD at 16:40 EDT , D/C Instructions Discharge Diet: Low fat / Low cholesterol and 1800 Calorie Control Diet Discharge Activity: Return to Normal Activity Meaningful Use Info Meaningful Use Diagnoses (Choose all that apply): None applicable Discharge Plan Admission Admit Date/Time: 10/08/22 17:17 Primary Reason for Your Visit: Abdominal pain Attending Provider: Esha Nava Primary Care Provider: Frankie Segovia NP Consulting Providers: Florin Naik ; Kamila Hernandez Discharge Orders/Prescriptions Prescriptions: Continued prednisone 10 mg tablet 10 mg PO PRN PRN (Reason: other) Label Comments: TAKE TABLET(S) BY MOUTH EVERY MORNING FOR 8 DAYS UNTIL GONE PER TAPER DAY 1 4 TABLETS DAY 2 3 & 1/2 TABLETS DAY 3 3 TABLETS DAY 4 2 pravastatin 40 mg tablet 40 mg PO DAILY famotidine 40 mg tablet 40 mg PO DAILY Label Comments: TAKE 1 TABLET BY MOUTH EVERY NIGHT AT BEDTIME sertraline 100 mg tablet 100 mg PO DAILY Label Comments: TAKE 1 TABLET BY MOUTH DAILY spironolactone 25 mg tablet 25 mg PO DAILY Label Comments: TAKE 1 TABLET BY MOUTH DAILY NEEDED FOR SWELLING trazodone 100 mg tablet 100 mg PO DAILY Label Comments: TAKE 1 (ONE) & ONE-HALF TO 2 (TWO) TABLETS BY MOUTH DAILY AT BEDTIME pantoprazole 40 mg tablet,delayed release (DR/EC) 40 mg PO DAILY levothyroxine 200 mcg tablet 200 mcg PO DAILY Label Comments: TAKE 1 TABLET BY MOUTH DAILY EVERY MORNING ibuprofen 600 mg tablet 600 mg PO PRN PRN (Reason: Pain) Label Comments: TAKE 1 TABLET BY MOUTH EVERY 6 HOURS NEEDED FOR PAIN, take WITH FOOD or milk metformin 500 mg tablet extended release 24 hr 500 mg PO DAILY Label Comments: TAKE 1 TABLET BY MOUTH DAILY budesonide-formoterol [Symbicort] 160-4.5 mcg/actuation HFA aerosol inhaler 160 puff INHALATION DAILY Label Comments: INHALE TWO PUFFS BY MOUTH TWICE DAILY. RINSE MOUTH AND THROAT AFTER USE Linzess 290 mcg capsule 290 mcg PO DAILY Label Comments: TAKE 1 CAPSULE EVERY DAY BY MOUTH FOR 90 DAYS Referrals / Follow Up: Frankie Segovia NP, STAMP REDEMPTION CLERK-C [Primary Care Provider] - Within 2 Weeks Disposition Disposition (needs filled in before D/C Order can be placed): Home, Self Care Charges/Coding Visit Charges Inpatient E&M: 12344 Disch Hosp 10/09/22 1120 <Electronically signed by Esha Nava DO> Cosigner Signature (if applicable): CC: JAQUAN Segovia; Dr. Esha Nava DO~ Signed [facility] Work Phone: Evaluation + Plan note Future Appointments Appointment Date:07/14/2022 08:30:00 AM Scheduled Provider:FRANKIE SEGOVIA Location:[facility] Appointment Type:PC OV Appointment Date:08/15/2022 11:00:00 AM Scheduled Provider: Location:[facility] Appointment Type:CV Office Procedure PPM Appointment Date:11/06/2022 03:30:00 PM Scheduled Provider: Location:[facility] Appointment Type:CV Remote Procedure HM Appointment Date:02/05/2023 04:00:00 PM Scheduled Provider: Location:[facility] Appointment Type:CV Remote Procedure Future Scheduled Tests Laboratory* Thyroid Stimulating Hormone 06/30/22 * Free T4 06/30/22 * A1C Hemoglobin 06/30/22 * Lipid Profile 06/30/22 Radiology* US Pelvis Non-OB Complete 07/02/22 [facility] Evaluation + Plan note Future Appointments Appointment Date:07/31/2022 09:00:00 AM Scheduled Provider:LALO RIDDLE MD Location:[facility] Appointment Type: OV Appointment Date:08/15/2022 11:00:00 AM Scheduled Provider: Location:[facility] Appointment Type:CV Office Procedure PPM Appointment Date:11/06/2022 03:30:00 PM Scheduled Provider: Location:[facility] Appointment Type:CV Remote Procedure HM Appointment Date:02/05/2023 04:00:00 PM Scheduled Provider: Location:[facility] Appointment Type:CV Remote Procedure HM Future Scheduled Tests Laboratory* Thyroid Stimulating Hormone 06/30/22 * Free T4 06/30/22 * A1C Hemoglobin 06/30/22 * Lipid Profile 06/30/22 [facility] Evaluation + Plan note Future Appointments Appointment Date:08/15/2022 11:00:00 AM Scheduled Provider: Location:[facility] Appointment Type:CV Office Procedure PPM Appointment Date:09/18/2022 03:00:00 PM Scheduled Provider:WILBUR TSANG MD Location:[facility] Appointment Type:SO OV Post Op Appointment Date:11/06/2022 03:30:00 PM Scheduled Provider: Location:[facility] Appointment Type:CV Remote Procedure HM Appointment Date:02/02/2023 09:30:00 AM Scheduled Provider:LALO RIDDLE MD Location: [place] Appointment Type: OV Appointment Date:02/05/2023 04:00:00 PM Scheduled Provider: Location:[facility] Appointment Type:CV Remote Procedure HM Future Scheduled Tests Laboratory* Thyroid Stimulating Hormone 06/30/22 * Free T4 06/30/22 * A1C Hemoglobin 06/30/22 * Lipid Profile 06/30/22 Radiology* MA Mammo Screening Bilateral w/ Raghav 07/31/22 [facility] Evaluation + Plan note Future Appointments Appointment Date:09/18/2022 03:00:00 PM Scheduled Provider:WILBUR TSANG MD Location:[facility] Appointment Type:SO OV Post Op Appointment Date:11/24/2022 11:45:00 AM Scheduled Provider: Location:[facility] Appointment Type:CV Remote Procedure HM Appointment Date:02/02/2023 09:30:00 AM Scheduled Provider:LALO RIDDLE MD Location: [place] Appointment Type: OV Appointment Date:02/05/2023 04:00:00 PM Scheduled Provider: Location:[facility] Appointment Type:CV Remote Procedure HM Future Scheduled Tests Laboratory* Thyroid Stimulating Hormone 06/30/22 * Free T4 06/30/22 * A1C Hemoglobin 06/30/22 * Lipid Profile 06/30/22 Radiology* MA Mammo Screening Bilateral w/ Raghav 07/31/22 [facility] evaluation + Plan note Future Appointments Appointment Date:10/17/2022 09:40:00 AM Scheduled Provider:ERICA ALMARAZ Location:[facility] Appointment Type:SO OV Post Op Appointment Date:11/24/2022 11:45:00 AM Scheduled Provider: Location:[facility] Appointment Type:CV Remote Procedure HM Appointment Date:02/02/2023 09:30:00 AM Scheduled Provider:LALO RIDDLE MD Location: [place] Appointment Type: OV Appointment Date:02/05/2023 04:00:00 PM Scheduled Provider: Location:[facility] Appointment Type:CV Remote Procedure HM Future Scheduled Tests Laboratory* Thyroid Stimulating Hormone 06/30/22 * Free T4 06/30/22 * A1C Hemoglobin 06/30/22 * Lipid Profile 06/30/22 Radiology* MA Mammo Screening Bilateral w/ Raghav 07/31/22 [facility] evaluation + Plan note Future Appointments Appointment Date:11/24/2022 11:45:00 AM Scheduled Provider: Location:[facility] Appointment Type:CV Remote Procedure HM Appointment Date:12/03/2022 03:00:00 PM Scheduled Provider: Location:[facility] [place] Appointment Type:GI OV Consult Appointment Date:02/02/2023 09:30:00 AM Scheduled Provider:LALO RIDDLE MD Location: [place] Appointment Type: OV Appointment Date:02/05/2023 04:00:00 PM Scheduled Provider: Location:[facility] Appointment Type:CV Remote Procedure Future Scheduled Tests Laboratory* Thyroid Stimulating Hormone 10/29/22 * Thyroid Stimulating Hormone 06/30/22 * Free T4 10/29/22 * Free T4 06/30/22 * A1C Hemoglobin 06/30/22 * Complete Blood Count 10/29/22 * Lipid Profile 10/29/22 * Lipid Profile 06/30/22 * Albumin/Creatinine Ratio, Random Urine 10/29/22 * Vitamin D Level 10/29/22 * Complete Metabolic Panel 10/29/22 Radiology* MA Mammo Screening Bilateral w/ Raghav 07/31/22 [facility] Evaluation + Plan note Future Appointments Appointment Date:02/02/2023 09:30:00 AM Scheduled Provider:LALO RIDDLE MD Location: [place] Appointment Type:WH OV Appointment Date:02/05/2023 04:00:00 PM Scheduled Provider: Location:[facility] Appointment Type:CV Remote Procedure HM Future Scheduled Tests Laboratory* Thyroid Stimulating Hormone 10/29/22 * Thyroid Stimulating Hormone 11/21/22 * Thyroid Stimulating Hormone 12/05/22 * Free T4 10/29/22 * Free T4 11/21/22 * Free T4 12/05/22 * Complete Blood Count 10/29/22 * Lipid Profile 10/29/22 * Lipid Profile 12/05/22 * Albumin/Creatinine Ratio, Random Urine 10/29/22 * Vitamin D Level 10/29/22 * Complete Metabolic Panel 10/29/22 * Complete Metabolic Panel 12/05/22 Radiology* MA Mammo Screening Bilateral w/ Raghav 07/31/22 [facility] Evaluation + Plan note Future Appointments Appointment Date:07/28/2023 01:45:00 PM Scheduled Provider: Location:[facility] Appointment Type:CV Remote Procedure HM Future Scheduled Tests Laboratory* Thyroid Stimulating Hormone 10/29/22 * Thyroid Stimulating Hormone 11/21/22 * Thyroid Stimulating Hormone 12/05/22 * Free T4 10/29/22 * Free T4 11/21/22 * Free T4 12/05/22 * Complete Blood Count 10/29/22 * Lipid Profile 10/29/22 * Lipid Profile 12/05/22 * Albumin/Creatinine Ratio, Random Urine 10/29/22 * Vitamin D Level 10/29/22 * Complete Metabolic Panel 10/29/22 * Complete Metabolic Panel 12/05/22 Radiology* MA Mammo Screening Bilateral w/ Raghav 07/31/22 [facility] Evaluation + Plan note Future Appointments Appointment Date:06/02/2023 09:45:00 AM Scheduled Provider: Location:[facility] Appointment Type:CV OV Appointment Date:07/28/2023 01:45:00 PM Scheduled Provider: Location:[facility] Appointment Type:CV Remote Procedure HM Future Scheduled Tests Laboratory* Thyroid Stimulating Hormone 10/29/22 * Thyroid Stimulating Hormone 11/21/22 * Thyroid Stimulating Hormone 12/05/22 * Free T4 10/29/22 * Free T4 11/21/22 * Free T4 12/05/22 * Complete Blood Count 10/29/22 * Lipid Profile 10/29/22 * Lipid Profile 12/05/22 * Albumin/Creatinine Ratio, Random Urine 10/29/22 * Vitamin D Level 10/29/22 * Complete Metabolic Panel 10/29/22 * Complete Metabolic Panel 12/05/22 Radiology* MA Mammo Screening Bilateral w/ Raghav 07/31/22 [facility] Evaluation + Plan note Future Appointments Appointment Date:08/24/2023 03:30:00 PM Scheduled Provider:RIMA CELIS Location:[facility] [place] Appointment Type:PC OV Appointment Date:09/03/2023 09:00:00 AM Scheduled Provider:RAMESH GRACIA MD Location:[facility] [place] Appointment Type:ENDO STAMP REDEMPTION CLERK Appointment Date:11/04/2023 09:00:00 AM Scheduled Provider: Location:[facility] Appointment Type:CV Office Procedure PPM Appointment Date:02/04/2024 02:15:00 PM Scheduled Provider: Location:[facility] Appointment Type:CV Remote Procedure HM Appointment Date:05/17/2024 01:15:00 PM Scheduled Provider: Location:[facility] Appointment Type:CV Remote Procedure Appointment Date:08/16/2024 03:00:00 PM Scheduled Provider: Location:[facility] Appointment Type:CV Remote Procedure Future Scheduled Tests Laboratory* Thyroid Stimulating Hormone 10/29/22 * Thyroid Stimulating Hormone 11/21/22 * Thyroid Stimulating Hormone 12/05/22 * Free T4 10/29/22 * Free T4 11/21/22 * Free T4 12/05/22 * Complete Blood Count 10/29/22 * Lipid Profile 10/29/22 * Lipid Profile 12/05/22 * Albumin/Creatinine Ratio, Random Urine 10/29/22 * Vitamin D Level 10/29/22 * Complete Metabolic Panel 10/29/22 * Complete Metabolic Panel 12/05/22 [facility] Evaluation + Plan note Future Appointments Appointment Date:09/15/2023 08:00:00 AM Scheduled Provider:RAMESH GRACIA MD Location:[facility] [place] Appointment Type:ENDO OV Appointment Date:11/04/2023 09:00:00 AM Scheduled Provider: Location:[facility] Appointment Type:CV Office Procedure PPM Appointment Date:02/04/2024 02:15:00 PM Scheduled Provider: Location:[facility] Appointment Type:CV Remote Procedure HM Appointment Date:05/17/2024 01:15:00 PM Scheduled Provider: Location:[facility] Appointment Type:CV Remote Procedure HM Appointment Date:08/16/2024 03:00:00 PM Scheduled Provider: Location:[facility] Appointment Type:CV Remote Procedure HM Future Scheduled Tests Laboratory* Thyroid Stimulating Hormone 10/29/22 * Thyroid Stimulating Hormone 11/21/22 * Thyroid Stimulating Hormone 12/05/22 * Free T4 10/29/22 * Free T4 11/21/22 * Free T4 12/05/22 * Complete Blood Count 10/29/22 * Lipid Profile 10/29/22 * Lipid Profile 12/05/22 * Albumin/Creatinine Ratio, Random Urine 10/29/22 * Vitamin D Level 10/29/22 * Complete Metabolic Panel 10/29/22 * Complete Metabolic Panel 12/05/22 [facility] Evaluation + Plan note Future Appointments Appointment Date:10/01/2023 09:30:00 AM Scheduled Provider:RAMESH GRACIA MD Location:[facility] [place] Appointment Type:ENDO OV Appointment Date:11/04/2023 09:00:00 AM Scheduled Provider: Location:[facility] Appointment Type:CV Office Procedure PPM Appointment Date:02/04/2024 02:15:00 PM Scheduled Provider: Location:[facility] Appointment Type:CV Remote Procedure HM Appointment Date:05/17/2024 01:15:00 PM Scheduled Provider: Location:[facility] Appointment Type:CV Remote Procedure HM Appointment Date:08/16/2024 03:00:00 PM Scheduled Provider: Location:[facility] Appointment Type:CV Remote Procedure HM Diagnostic Tests Pending * Salivary Cortisol,MS 09/12/23 Future Scheduled Tests Laboratory* Thyroid Stimulating Hormone 10/29/22 * Thyroid Stimulating Hormone 11/21/22 * Thyroid Stimulating Hormone 12/05/22 * Free T4 10/29/22 * Free T4 11/21/22 * Free T4 12/05/22 * Complete Blood Count 10/29/22 * Lipid Profile 10/29/22 * Lipid Profile 12/05/22 * Albumin/Creatinine Ratio, Random Urine 10/29/22 * Vitamin D Level 10/29/22 * Complete Metabolic Panel 10/29/22 * Complete Metabolic Panel 12/05/22 [facility] Evaluation + Plan note Future Appointments Appointment Date:11/04/2023 09:00:00 AM Scheduled Provider: Location:[facility] Appointment Type:CV Office Procedure PPM Appointment Date:12/03/2023 11:30:00 AM Scheduled Provider:RAMESH GRACIA MD Location:[facility] [place] Appointment Type:ENDO OV Appointment Date:02/04/2024 02:15:00 PM Scheduled Provider: Location:[facility] Appointment Type:CV Remote Procedure Appointment Date:05/17/2024 01:15:00 PM Scheduled Provider: Location:[facility] Appointment Type:CV Remote Procedure Appointment Date:08/16/2024 03:00:00 PM Scheduled Provider: Location:[facility] Appointment Type:CV Remote Procedure Future Scheduled Tests Laboratory* Thyroid Stimulating Hormone 11/21/22 * Thyroid Stimulating Hormone 12/05/22 * Free T4 11/21/22 * Free T4 12/05/22 * Complete Blood Count 10/26/23 * Lipid Profile 12/05/22 * Complete Metabolic Panel 10/26/23 * Complete Metabolic Panel 12/05/22 Radiology* CT Abdomen and Pelvis w/ contrast 10/26/23 [facility] Evaluation + Plan note Future Appointments Appointment Date:12/03/2023 11:30:00 AM Scheduled Provider:RAMESH GRACIA MD Location:[facility] [place] Appointment Type:ENDO OV Appointment Date:01/19/2024 10:00:00 AM Scheduled Provider: Location:[facility] [place] Appointment Type:CV OV Appointment Date:02/04/2024 02:15:00 PM Scheduled Provider: Location:[facility] Appointment Type:CV Remote Procedure HM Appointment Date:05/17/2024 01:15:00 PM Scheduled Provider: Location:[facility] Appointment Type:CV Remote Procedure HM Appointment Date:08/16/2024 03:00:00 PM Scheduled Provider: Location:[facility] Appointment Type:CV Remote Procedure HM Future Scheduled Tests Laboratory* Thyroid Stimulating Hormone 11/21/22 * Thyroid Stimulating Hormone 12/05/22 * Free T4 11/21/22 * Free T4 12/05/22 * Complete Blood Count 10/26/23 * Lipid Profile 12/05/22 * Complete Metabolic Panel 10/26/23 * Complete Metabolic Panel 12/05/22 Radiology* CT Abdomen and Pelvis w/ contrast 10/26/23 [facility] Evaluation + Plan note Future Appointments Appointment Date:02/19/2024 08:45:00 AM Scheduled Provider:EMILY HARVEY Location:[facility] [place] Appointment Type:CV OV Appointment Date:03/02/2024 03:00:00 PM Scheduled Provider:RIMA CELIS Location:[facility] [place] Appointment Type:PC OV Appointment Date:03/09/2024 09:30:00 AM Scheduled Provider:RAFFY MARS MD Location:[facility] [place] Appointment Type:WH OV Annual Exam Appointment Date:04/28/2024 01:15:00 PM Scheduled Provider:RAMESH GRACIA MD Location:[facility] [place] Appointment Type:ENDO OV Appointment Date:05/17/2024 01:15:00 PM Scheduled Provider: Location:[facility] Appointment Type:CV Remote Procedure HM Appointment Date:08/16/2024 03:00:00 PM Scheduled Provider: Location:[facility] Appointment Type:CV Remote Procedure HM Future Scheduled Tests Laboratory* Thyroid Stimulating Hormone 04/03/24 * Free T4 04/03/24 * A1C Hemoglobin 04/03/24 * Complete Blood Count 10/26/23 * Free T3 04/03/24 * Lipid Profile 04/03/24 * Vitamin D Level 04/03/24 * Complete Metabolic Panel 10/26/23 * Complete Metabolic Panel 04/03/24 [facility] Evaluation + Plan note Future Appointments Appointment Date:03/09/2024 09:30:00 AM Scheduled Provider:RAFFY MARS MD Location: [place] Appointment Type: OV Annual Exam Appointment Date:04/28/2024 01:15:00 PM Scheduled Provider:RAMESH GRACIA MD Location:[facility] [place] Appointment Type:ENDO OV Appointment Date:05/17/2024 01:15:00 PM Scheduled Provider: Location:[facility] Appointment Type:CV Remote Procedure Appointment Date:08/16/2024 03:00:00 PM Scheduled Provider: Location:[facility] Appointment Type:CV Remote Procedure Future Scheduled Tests Laboratory* Thyroid Stimulating Hormone 04/03/24 * Free T4 04/03/24 * A1C Hemoglobin 04/03/24 * Complete Blood Count 10/26/23 * Free T3 04/03/24 * Lipid Profile 04/03/24 * Vitamin D Level 04/03/24 * Complete Metabolic Panel 10/26/23 * Complete Metabolic Panel 04/03/24 [facility] Evaluation + Plan note Future Appointments Appointment Date:06/08/2024 11:00:00 AM Scheduled Provider:RAFFY MARS MD Location: [place] Appointment Type: OV Appointment Date:06/13/2024 04:20:00 PM Scheduled Provider: Location:[facility] Appointment Type:CT Thorax Screening w/o Contrast Appointment Date:08/16/2024 03:00:00 PM Scheduled Provider: Location:[facility] Appointment Type:CV Remote Procedure Appointment Date:11/17/2024 08:30:00 AM Scheduled Provider:RAMESH GRACIA MD Location:[facility] [place] Appointment Type:ENDO OV Future Scheduled Tests Laboratory* Thyroid Stimulating Hormone 11/16/24 * Thyroid Stimulating Hormone 04/03/24 * Free T4 11/16/24 * Free T4 04/03/24 * A1C Hemoglobin 11/16/24 * A1C Hemoglobin 04/03/24 * Complete Blood Count 10/26/23 * Free T3 11/16/24 * Free T3 04/03/24 * Lipid Profile 11/16/24 * Lipid Profile 04/03/24 * Albumin/Creatinine Ratio, Random Urine 11/16/24 * Vitamin D Level 11/16/24 * Vitamin D Level 04/03/24 * Complete Metabolic Panel 10/26/23 * Complete Metabolic Panel 11/16/24 * Complete Metabolic Panel 04/03/24 Radiology* CT Low Dose Lung Cancer Screening (LDCT) 06/13/24 * MA Mammo Screening Bilateral w/ Raghav 03/09/24 [facility] Evaluation + Plan note Future Appointments Appointment Date:06/16/2024 10:45:00 AM Scheduled Provider:LALO RIDDLE MD Location: [place] Appointment Type:WH OV Appointment Date:08/16/2024 03:00:00 PM Scheduled Provider: Location:[facility] Appointment Type:CV Remote Procedure HM Appointment Date:11/17/2024 08:30:00 AM Scheduled Provider:RAMESH GRACIA MD Location:[facility] [place] Appointment Type:ENDO OV Future Scheduled Tests Laboratory* Thyroid Stimulating Hormone 11/16/24 * Thyroid Stimulating Hormone 04/03/24 * Free T4 11/16/24 * Free T4 04/03/24 * A1C Hemoglobin 11/16/24 * A1C Hemoglobin 04/03/24 * Complete Blood Count 10/26/23 * Free T3 11/16/24 * Free T3 04/03/24 * Lipid Profile 11/16/24 * Lipid Profile 04/03/24 * Albumin/Creatinine Ratio, Random Urine 11/16/24 * Vitamin D Level 11/16/24 * Vitamin D Level 04/03/24 * Complete Metabolic Panel 10/26/23 * Complete Metabolic Panel 11/16/24 * Complete Metabolic Panel 04/03/24 Radiology* MA Mammo Screening Bilateral w/ Raghav 03/09/24 [facility] Evaluation + Plan note Future Appointments Appointment Date:07/06/2024 01:30:00 PM Scheduled Provider:RIMA CELIS Location:[facility] [place] Appointment Type:PC OV Appointment Date:08/04/2024 08:30:00 AM Scheduled Provider:LALO RIDDLE MD Location: [place] Appointment Type:WH OV Appointment Date:08/16/2024 03:00:00 PM Scheduled Provider: Location:[facility] Appointment Type:CV Remote Procedure HM Appointment Date:11/17/2024 08:30:00 AM Scheduled Provider:RAMESH GRACIA MD Location:[facility] [place] Appointment Type:ENDO OV Future Scheduled Tests Laboratory* Thyroid Stimulating Hormone 11/16/24 * Thyroid Stimulating Hormone 04/03/24 * Free T4 11/16/24 * Free T4 04/03/24 * A1C Hemoglobin 11/16/24 * A1C Hemoglobin 04/03/24 * Complete Blood Count 10/26/23 * Free T3 11/16/24 * Free T3 04/03/24 * Lipid Profile 11/16/24 * Lipid Profile 04/03/24 * Albumin/Creatinine Ratio, Random Urine 11/16/24 * Vitamin D Level 11/16/24 * Vitamin D Level 04/03/24 * Complete Metabolic Panel 10/26/23 * Complete Metabolic Panel 11/16/24 * Complete Metabolic Panel 04/03/24 Radiology* MA Mammo Screening Bilateral w/ Raghav 03/09/24 * US Abdomen and Renal 06/17/24 [facility] Evaluation + Plan note Future Appointments Appointment Date:11/23/2024 09:00:00 AM Scheduled Provider: Location:[facility] Appointment Type:CV Office Procedure PPM Appointment Date:11/23/2024 11:30:00 AM Scheduled Provider:PARAG CARLSON DO Location:[facility] [place] Appointment Type:PC OV Appointment Date:02/22/2025 05:00:00 PM Scheduled Provider: Location:[facility] Appointment Type:CV Remote Procedure Appointment Date:05/25/2025 08:30:00 AM Scheduled Provider:RAMESH GRACIA MD Location:[facility] [place] Appointment Type:ENDO OV Future Scheduled Tests Laboratory* Thyroid Stimulating Hormone 07/06/24 * Thyroid Stimulating Hormone 07/13/24 * Thyroid Stimulating Hormone 05/20/25 * Free T4 07/06/24 * Free T4 07/13/24 * Free T4 05/20/25 * A1C Hemoglobin 07/06/24 * A1C Hemoglobin 05/20/25 * Complete Blood Count 07/06/24 * Complete Blood Count 07/13/24 * Free T3 05/20/25 * Lipid Profile 07/06/24 * Lipid Profile 05/20/25 * Albumin/Creatinine Ratio, Random Urine 11/16/24 * Vitamin D Level 07/06/24 * Vitamin D Level 05/20/25 * Complete Metabolic Panel 07/06/24 Radiology* MA Mammo Screening Bilateral w/ Raghav 03/09/24 [facility] Evaluation + Plan note Future Appointments Appointment Date:12/23/2024 02:15:00 PM Scheduled Provider: Location:[facility] Appointment Type:CV Office Procedure PPM Appointment Date:01/06/2025 11:30:00 AM Scheduled Provider:RIMA CELIS Location:[facility] [place] Appointment Type:PC OV Follow Up Appointment Date:02/22/2025 05:00:00 PM Scheduled Provider: Location:[facility] Appointment Type:CV Remote Procedure HM Appointment Date:05/25/2025 08:30:00 AM Scheduled Provider:RAMESH GRACIA MD Location:[facility] [place] Appointment Type:ENDO OV Future Scheduled Tests Laboratory* Thyroid Stimulating Hormone 07/06/24 * Thyroid Stimulating Hormone 07/13/24 * Thyroid Stimulating Hormone 05/20/25 * Free T4 07/06/24 * Free T4 07/13/24 * Free T4 05/20/25 * A1C Hemoglobin 07/06/24 * A1C Hemoglobin 05/20/25 * Complete Blood Count 07/06/24 * Complete Blood Count 07/13/24 * Free T3 05/20/25 * Lipid Profile 07/06/24 * Lipid Profile 05/20/25 * Albumin/Creatinine Ratio, Random Urine 11/16/24 * Vitamin D Level 07/06/24 * Vitamin D Level 05/20/25 * Complete Metabolic Panel 07/06/24 Radiology* MA Mammo Screening Bilateral w/ Raghav 03/09/24 [facility] Evaluation noteNo assessment information available [facility] Work Phone: Evaluation note* Diagnosis Onset Date Resolution Status Small bowel obstruction acut e [facility] Work Phone: Evaluation note* Diagnosis Onset Date Resolution Status Small bowel obstruction reso lved [facility] Work Phone: Hospital course Narrative No data available for this section [facility] Hospital Discharge instructions No data available for this section [facility] Progress note No data available for this section [facility] Reason for referral (narrative)No [facility] for [facility] Summary Purpose Family History No Family History Records FoundNo Family History Records Found No data available for this section No data available for this section No data available for this section No data available for this section No data available for this section No data available for this section No data available for this section No data available for this section No data available for this section No data available for this section No Family History Records Found No data available for this section No data available for this section No data available for this section No data available for this section No data available for this section No data available for this section No Family History Records Found No data available for this section No data available for this section No data available for this section No Family History Records Found Advance Directives No Advanced Directives Records Found Advance Directive Response Recorded Date/ Time Declaration for Mental Health Treatment No July 10, 2021 8:18pm Advance Directive Response Recorded Date/ Time Living Will No April 28 3 2:47pm Power of Impersonator Character No April 28 023 2:47pm Advance Directive Response Recorded Date/ Time Living Will No April 28 3 3:47pm Power of Impersonator Character No April 28 2 023 3:47pm Advance Directive Response Recorded Date/ Time Living Will No October 08, 2022 2:08pm Power of Impersonator Character No October 08 3 2:08pm Advance Directive Response Recorded Date/ Time Living Will No October 08, 2022 5:55pm Power of Impersonator Character No October 08 3 5:55pm Advance Directive Response Recorded Date/ Time Living Will No October 08, 2022 4:55pm Power of Impersonator Character No October 08 3 4:55pm Advance Directive Response Recorded Date/ Time Living Will No May 09 4:52pm Do you have a Healthcare Power of Impersonator Character? No May 09, 2024 4:52pm Assessments Diagnosis Chronic obstructive pulmonary disease, unspecified COPD type ([facility]) [J44.9]- Primary Chief Complaint and Reason for Visit Chief Complaint ABD PAIN Chief Complaint ABD PAIN POSTMENOPAUSAL BLEEDING Chief Complaint POSTMENOPAUSAL BLEED ING SMALL BOWEL OBSTRUCTION Chief Complaint POSTMENOPAUSAL BLEED ING SMALL BOWEL OBSTRUCTION SMALL BOWEL OBSTRUCTION SMALL BOWEL OBSTRUCTION SMALL BOWEL OBSTRUCTION Reason for Visit Small bowel obstruct ion Chief Complaint SMALL BOWEL OBSTRUCT ION SMALL BOWEL OBSTRUCTION SMALL BOWEL OBSTRUCTION SMALL BOWEL OBSTRUCTION Reason for Visit Small bowel obstruct ion Chief Complaint URINE SAMPLE Chief Complaint Admit Date /FEMALE May 09, 2024 3 :24pm Chief Complaint Admit Date cough September 14, 2024 3:00p m ST/BILAT EAR/COUGH/JACINDA September 14, 2024 3 :27pm Additional Source Comments INFORMATION SOURCE (unrecogn ized section and content) DATE CREATED AUTHOR 10/13/2017 [facility] DATE CREATED AUTHOR AUTHOR'S ORGANIZ ATION 03/03/2022 [facility] DATE CREATED AUTHOR AUTHOR'S ORGANIZ ATION 12/11/2023 [facility] ([place]) DATE CREATED AUTHOR AUTHOR'S ORGANIZ ATION 10/09/2024 [facility] DATE CREATED AUTHOR AUTHOR'S ORGANIZ ATION 12/04/2024 [facility] Source Comments (unrecognize d section and content) In the event this informatio n is protected by the Federal Confidentiality of Alcohol and Drug Abuse Patient Records regulations: The Federal rules restrict any use of the information to criminally investigate or prosecute any alcohol or drug abuse patient.[facility] Goals (unrecognized section and content) Goals may be documented in a n alternate sectionGoals may be documented in an alternate section No data available for this sectionGoals may be documented in an alternate section No data available for this section No data available for this section No data available for this section No data available for this sectionGoals may be documented in an alternate section No data available for this section No data available for this section No data available for this section No data available for this sectionGoals may be documented in an alternate section No data available for this section No data available for this section No data available for this section No data available for this section No data available for this section No data available for this section No data available for this section No data available for this section No data available for this section No data available for this section No data available for this section No data available for this sectionGoals may be documented in an alternate sectionGoals may be documented in an alternate sectionGoals may be documented in an alternate section No data available for this section No data available for this section No data available for this section Care Teams (unrecognized sec tion and content) Team Status: Active Member Role Status Dates Frankie Segovia STAMP REDEMPTION CLERK, STAMP REDEMPTION CLERK-C Primary Care Provider Active Team Status: Inactive Member Role Status Dates Frankie Segovia STAMP REDEMPTION CLERK, STAMP REDEMPTION CLERK-C Primary Care Provider Active CHANNING BLANTON STAMP REDEMPTION CLERK-C Attending Provider, Referring P honey Active Team Status: Active Member Role Status Dates Frankie Segovia NP, STAMP REDEMPTION CLERK-C Primary Care Provider Active Dr. Kevin Antunez DO Emergency Provider Active Dr. Kamila Hernandez MD Admit Provider, A ttending Provider, Other Provider Active Team Status: Active Member Role Status Dates Frankie Segovia NP, STAMP REDEMPTION CLERK-C Primary Care Provider Active Dr. Kevin Antunez DO Emergency Provider Active Dr. Kamila Hernandez MD Admit Provider, Other Provider Active Dr. Florin Naik MD Attending Provider, Other Provider Active Dr. Esha Nava , Other Provider Active Team Status: Active Member Role Status Dates Frankie Segovia NP, STAMP REDEMPTION CLERK-C Primary Care Provider Active Dr. Kevin Antunez DO Emergency Provider Active Dr. Kamila Hernandez MD Admit Provider, Other Provider Active Dr. Florin Naik MD Other Provider Active Dr. Esha Nava DO Attending Provider, Other Provide r Active Team Status: Inactive Member Role Status Dates Frankie Segovia NP, STAMP REDEMPTION CLERK-C Primary Care Pr ovider, Attending Provider, Referring Provider Active Team Status: Inactive Member Role Status Dates Frankie Segovia NP, STAMP REDEMPTION CLERK-C Primary Care Provider Active Dr. Kevin Antunez DO Emergency Provider Active Dr. Kamila Hernandez MD Admit Provider, Other Provider Active Dr. Florin Naik MD Other Provider Active Dr. Esha Nava DO Attending Provider Active Team Status: Inactive Member Role Status Dates Dr. Kevin Antunez , Attending Provider, Emergency Provider Active Dr. Jennie King DO Primary Care Provider Active Team Status: Active Member Role Status Dates Frankie Segovia NP, STAMP REDEMPTION CLERK-C Primary Care Provider Active Dr. Kevin Antunez DO Emergency Provider Active Dr. Kamila Hernandez MD Admit Provider, Attending Provi иван Active Team Status: Active Member Role Status Dates Frankie Segovia NP, STAMP REDEMPTION CLERK-C Primary Care Provider Active Dr. Kevin Antunez DO Emergency Provider Active Dr. Kamila Hernandez MD Admit Provider, Other Provider Active Dr. Florin Naik MD Attending Provider, Other Provider Active Dr. Esha Nava DO Referring Provider, Other Provide r Active Team Status: Inactive Member Role Status Dates Frankie Segovia STAMP REDEMPTION CLERK, STAMP REDEMPTION CLERK-C Primary Care Provider, Attend ing Provider Active Team Status: Active Member Role Status Dates Rima Celis STAMP REDEMPTION CLERK, STAMP REDEMPTION CLERK-C Primary Care Provider Activ e Team Status: Inactive Member Role Status Dates Rima Celis NP, STAMP REDEMPTION CLERK-C Primary Care Provider Activ e Start: May 09, 2024 End: May 09, 2024 Dr. Andrew Barnes DO Attending Provider Active Start: May 09, 2024 End: May 09, 2024 Dr. Andrew Barnes DO Emergency Provider Active Start: May 09, 2024 End: May 09, 2024 Team Status: Inactive Member Role Status Dates Rima Celis STAMP REDEMPTION CLERK, STAMP REDEMPTION CLERK-C Primary Care Provider Activ e Start: July 13, 2024 End: July 13, 2024 Rima Celis NP, STAMP REDEMPTION CLERK-C Attending Provider Active Start: July 13, 2024 End: July 13, 2024 Rima Celis STAMP REDEMPTION CLERK, STAMP REDEMPTION CLERK-C Referring Provider Active Start: July 13, 2024 End: July 13, 2024 Team Status: Active Member Role Status Dates Rima Celis NP, STAMP REDEMPTION CLERK-C Primary Care Provider Activ e Start: September 14, 2024 Axel Painter PA, PA Attending Provider Active Start: September 14, 2024 Team Status: Active Member Role Status Dates Rima Celis NP, STAMP REDEMPTION CLERK-C Primary Care Provider Activ e Start: September 14, 2024 LASHA Hurley Attending Provider Active Start: September 14, 2024 LASHA Hurley Referring Provider Active Start: September 14, 2024 Team Status: Inactive Member Role Status Dates Rima Celis NP, STAMP REDEMPTION CLERK-C Primary Care Provider Activ e Start: September 14, 2024 End: September 14, 2024 Rima Celis NP, STAMP REDEMPTION CLERK-C Referring Provider Active Start: September 14, 2024 End: September 14, 2024 LASHA Hurley Attending Provider Active Start: September 14, 2024 End: September 14, 2024 Team Status: Inactive Member Role Status Dates Rima Celis NP, STAMP REDEMPTION CLERK-C Primary Care Provider Activ e Start: September 14, 2024 End: September 14, 2024 LASHA Hurley Attending Provider Active Start: September 14, 2024 End: September 14, 2024 LASHA Hurley Referring Provider Active Start: September 14, 2024 End: September 14, 2024 FOR RECORDS PERTAINING TO PATIENTS WHO ARE OR HAVE BEEN ENROLLED IN A CHEMICAL DEPENDENCY/SUBSTANCEABUSE PROGRAM, SOME INFORMATION MAY BE OMITTED. This clinical summary was aggregated from multiple sources. Caution should be exercised in using it in the provision of clinical care. This summary normalizes information from multiple sources, and as a consequence, information in this document may materially change the coding, format and clinical context of patient data. In addition, data may be omitted in some cases. CLINICAL DECISIONS SHOULD BE BASED ON THE PRIMARY CLINICAL RECORDS. [employer] provides no warranty or guarantee of the accuracy or completeness of information in this document.
[2024-12-31 14:05] LABS: CRP < 3.00 mg/L (0.0-3.0)
[2025-01-03 19:08] LABS: Immunoglobulin A 418 mg/dL (87-352)
== END | disposition home or self-care (01) ==
PROVIDERS: PCP Registered Nurse
DX: K21.9 Gastro-esophageal reflux disease without esophagitis (principal); R10.13 Epigastric pain; K58.1 Irritable bowel syndrome with constipation
CPT/HCPCS: 36415; 82784; 83516; 85652; 86140; 86255

== ENCOUNTER 2025-01-30 15:54 | Emergency (ER) | payer MEDICARE, MEDICAID, SELFPAY ==
[2025-01-30 15:54] VITALS: BP 95/65; PULSE 61; RESP 18; TEMP 36.8; O2SAT 98; BMI 36.6
[2025-01-30 17:13] LABS: Hematocrit 43.6 % (37-47); Hemoglobin 14.8 g/dL (12.0-15.0); Immature Granulocytes Count 0.030 X10^3/uL (0.0-0.0); Mean Corp Hgb Conc 33.9 g/dL (32-36); Mean Corpuscular Volume 91.0 fL (81-99); Mean Platelet Vol. 11.3 fl (6.2-12.0); NRBC Flagged by Analyzer 0 % (0-5); Platelet Count 140 K/mm3 (150-450); RBC Distribution Width CV 13.1 % (11.6-14.6); RBC Distribution Width SD 43.9 fl (35.1-43.9); Red Blood Count 4.79 M/mm3 (4.2-5.4); White Blood Count 5.0 K/mm3 (4.4-11.0)
[2025-01-30] MEDS: 0.9% Normal Saline (1000mL) 1,000 ML 999 ML IV (17:20)
--- NOTE | 2025-01-30 17:30 | CT_ITS ---
PROCEDURE: ABDOMEN/PELVIS W IV CONT ONLY 01/30/2025 REASON FOR EXAM: HX OF HERNIA TECHNIQUE: Procedure Code: [id number] Modality: CT Procedure: ABDOMEN/PELVIS W IV CONT ONLY Coronal and Sagittal reconstruction series were provided. CONTRAST: 100 mL of Isovue 370 One or more dose reduction techniques were used (e.g., Automated exposure control, adjustment of the mA and/or kV according to patient size, use of iterative reconstruction technique. RADIATION DOSE SUMMARY: DLP: 1261 mGycm COMPARISON: None FINDINGS: Limited sections of the lung bases demonstrate no focal pulmonary mass or consolidations. Bibasilar subsegmental atelectasis. The liver, spleen, pancreas, and both adrenal glands demonstrate no acute findings. Hepatomegaly to 20.5 cm. Scattered tiny calcifications throughout the spleen likely prior granulomatous changes. The gallbladder is surgically removed. The stomach is unremarkable. Scattered mild thickening of the small bowel loops may reflect enteritis. The appendix is not clearly identified, although there are no secondary signs of appendicitis. No colonic obstruction. There is no free air or significant free fluid. The kidneys are unremarkable. Mildly thickened urinary bladder wall which may reflect cystitis vs nondistention; consider correlation with urinalysis. The pelvic structures are intact. Uterus is absent. No significant lymphadenopathy. The aorta and IVC demonstrate no acute findings. Mild atherosclerosis of the abdominal vasculature. Visualized osseous structures demonstrate no acute abnormality. Broad-based small fat and bowel containing ventral abdominal hernia without evidence of strangulation. CT/Abdomen/Pelvis W IV Cont ONLY IMPRESSION: Scattered mild thickening of the small bowel loops may reflect enteritis. No b owel obstruction. Mildly thickened urinary bladder wall which may reflect cystitis vs nondistenti on; consider correlation with urinalysis. Reading Location: [id number]
[2025-01-30 17:54] VITALS: BP 108/79; PULSE 77; RESP 14; O2SAT 99
[2025-01-30 18:08] LABS: AST(SGOT) 26 U/L (<=31); Alanine Aminotransfer ALT/SGPT 40 U/L (<=34); Albumin, Serum 4.1 g/dL (3.5-5.0); Alkaline Phosphatase 60 U/L (35-104); Anion Gap 9 (5-15); BUN 9 mg/dL (4-19); BUN/Creat Ratio 12.5 RATIO (10-20); Calcium,Total 9.0 mg/dL (7.6-11.0); Carbon Dioxide 27.4 mmol/L (21.0-32.0); Chloride 101 mmol/L (98-108); Estimated Creatinine Clearance 98.63 ml/min (50-250); Globulin 2.9 g/dL (2.2-4.2); Glucose 86 mg/dL (70-99); Lipase 145 U/L (13-75); Potassium 4.0 mmol/L (3.3-5.1)
--- NOTE | 2025-01-30 18:30 | EDS_ITS ---
HPI History of Present Illness Chief Complaint: Abd Pain Narrative Narrative: Patient is a 59-year-old female with past medical history of CHF, prediabetic, depression, IBS, hypothyroidism who presents to the emergency department the chief complaint of abdominal pain. Patient states that she has had multiple hernia repairs with the most recent one being 2014. States that the other day she developed abdominal pain on Thursday and it has been progressively worsening prompting her to come here for further evaluation management she states that she is having bowel movements and passing gas. She is concerned that she may have recurrence of her hernia therefore she came here to be further evaluated. [facility] Medical History CHF (congestive heart failure) Sleep apnea with use of continuous positive airway pressure (CPAP) Insomnia Pre-diabetes Depression Hypothyroid IBS (irritable bowel syndrome) Pacemaker Home Medications ?Medication ?Instructions ?Recorded ?Last Taken ?Type famotidine 40 mg tablet 40 mg PO DAILY GERD 10/08/22 01/29/25 History ibuprofen 600 mg tablet 600 mg PO PRN PRN Pain 10/0801/30/25 History levothyroxine 200 mcg tablet 200 mcg PO DAILY THYROID 10/08/22 01/30/25 History pantoprazole 40 mg tablet,delayed 40 mg PO DAILY GERD 10/08/22 01/30/25 History release pravastatin 40 mg tablet 40 mg PO DAILY CHOLESTEROL 0 10/08/22 01/29/25 History sertraline 100 mg tablet 100 mg PO DAILY MOOD 3 01/29/25 History spironolactone 25 mg tablet 25 mg PO DAILY PRN edema 0 10/08/22 Unknown History trazodone 100 mg tablet 100 mg PO DAILY SLEEP 01/29/25 History acetaminophen 500 mg capsule 500 mg PO Q4H PRN fever o r pain 01/30/25 01/29/25 History aspirin 81 mg tablet 81 mg PO DAILY HEART HEALTH 01/30/25 01/30/25 History dicyclomine 10 mg capsule 10 mg PO TID PRN pain 01/30/25 History levothyroxine 25 mcg tablet 25 mcg PO DAILY THYROID 01/30/25 History multivitamin 1 tab PO DAILY SUPPLEMENT 01/30/25 History plecanatide 3 mg tablet (Trulance) 3 mg PO DAILY IBS 1 01/30/25 History tiotropium bromide 2.5 2 puff inhalation BID COPD 1 01/30/25 History mcg/actuation mist for inhalation (Spiriva Respimat) tirzepatide 15 mg/0.5 mL 15 mg subcut QWEEK DM 01/29/25 History subcutaneous pen injector (Rell)
--- NOTE | 2025-01-30 18:30 | EX.ED.DYSGE1 ---
HPI History of Present Illness Chief Complaint: Abd Pain Narrative Narrative: Patient is a 59-year-old female with past medical history of CHF, prediabetic, depression, IBS, hypothyroidism who presents to the emergency department the chief complaint of abdominal pain. Patient states that she has had multiple hernia repairs with the most recent one being 2014. States that the other day she developed abdominal pain on Thursday and it has been progressively worsening prompting her to come here for further evaluation management she states that she is having bowel movements and passing gas. She is concerned that she may have recurrence of her hernia therefore she came here to be further evaluated. [facility] Medical History CHF (congestive heart failure) Sleep apnea with use of continuous positive airway pressure (CPAP) Insomnia Pre-diabetes Depression Hypothyroid IBS (irritable bowel syndrome) Pacemaker Home Medications ?Medication ?Instructions ?Recorded ?Last Taken ?Type famotidine 40 mg tablet 40 mg PO DAILY GERD 10/08/22 01/29/25 History ibuprofen 600 mg tablet 600 mg PO PRN PRN Pain 10/08/22 01/30/25 History levothyroxine 200 mcg tablet 200 mcg PO DAILY THYROID 10/08/22 01/30/25 History pantoprazole 40 mg tablet,delayed 40 mg PO DAILY GERD 10/08/22 01/30/25 History release pravastatin 40 mg tablet 40 mg PO DAILY CHOLESTEROL 10/08/22 01/29/25 History sertraline 100 mg tablet 100 mg PO DAILY MOOD 10/08/22 01/29/25 History spironolactone 25 mg tablet 25 mg PO DAILY PRN edema 10/08/22 Unknown History trazodone 100 mg tablet 100 mg PO DAILY SLEEP 10/08/22 01/29/25 History acetaminophen 500 mg capsule 500 mg PO Q4H PRN fever or pain 01/30/25 01/29/25 History aspirin 81 mg tablet 81 mg PO DAILY HEART HEALTH 01/30/25 01/30/25 History dicyclomine 10 mg capsule 10 mg PO TID PRN pain 01/30/25 01/30/25 History levothyroxine 25 mcg tablet 25 mcg PO DAILY THYROID 01/30/25 01/30/25 History multivitamin 1 tab PO DAILY SUPPLEMENT 01/30/25 01/30/25 History plecanatide 3 mg tablet (Trulance) 3 mg PO DAILY IBS 01/30/25 01/30/25 History tiotropium bromide 2.5 2 puff inhalation BID COPD 01/30/25 01/30/25 History mcg/actuation mist for inhalation (Spiriva Respimat) tirzepatide 15 mg/0.5 mL 15 mg subcut QWEEK DM 01/30/25 01/29/25 History subcutaneous pen injector (Mounjaro) Allergy/AdvReac Type Severity Reaction Status Date / Time Sulfa (Sulfonamide Allergy Anaphylaxis Verified 01/30/25 15:55 Antibiotics) sulfamethoxazole (From Allergy Anaphylaxis Verified 01/30/25 15:55 Bactrim) trimethoprim (From Bactrim) Allergy Anaphylaxis Verified 01/30/25 15:55 Opioids - Morphine Analogues AdvReac Other Verified 01/30/25 15:55 Surgical History H/O umbilical hernia repair H/O: hysterectomy Social History 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 Smoking Status: Light Smoker (<10/day) ROS ROS ED ROS Narrative Constitutional: Denies any fevers or chills Cardiovascular: Denies chest pain Respiratory: No shortness of breath Abdomen: Complains of abdominal pain as noted above denies nausea vomit diarrhea : Denies urinary symptoms Neurological: Denies any numbness, weeks, tingling Musculoskeletal: Denies back pain Skin: Denies any rashes or lesions EXAM Physical Exam Narrative Exam Narrative: General: Patient is lying in bed resting comfortably did not appear to be in acute distress Head: Atraumatic, normocephalic Eyes: PERRL bilaterally, EOMI bilateral, no conjunctival injection noted Neck: Soft, supple, trachea midline Cardiovascular: Regular rate and rhythm Respiratory: Clear to auscultation bilaterally Abdomen: Soft, mild tenderness to palpation in the umbilical region and no rebound or guarding on exam Extremities: +5/5 strength noted in the bilateral lower extremities Neurological: Patient follow commands that she was at [facility] 2024 Skin: Warm, dry, intact no rashes or lesions noted no overlying skin changes noted to her abdomen anteriorly Const Vital Signs: 01/30/25 15:54 01/30/25 17:54 01/30/25 18:35 Temperature 98.2 F Temperature Source Oral Pulse Rate 61 77 58 L Respiratory Rate 18 14 18 Blood Pressure 95/65 108/79 110/67 Blood Pressure Mean 75 88 81 Pulse Ox 98 99 96 Oxygen Delivery Method Room Air Room Air Room Air MDM MDM MDM Narrative Medical decision making narrative: Patient is a 59-year-old female who presented to the emergency department chief complaint of abdominal pain concern for recurrence of her ventral hernia. On the differential diagnose includes but not limited to incarcerated hernia, bowel obstruction, viral gastroenteritis, constipation. Once workup is obtained reviewed she will be reevaluated. Patient CBC reviewed and showed a white blood count is normal at 5, he was 14.8, plate count of 140. Patient sodium 137, potassium normal 4, creatinine normal at 0.71. Patient AST and ALT are 26 and 40 respectively. Patient lipase elevated 145 urinalysis pending. Patient does not have any urinary symptoms therefore I have low suspicion that this will be positive. Patient CT on pelvis IV contrast reviewed which showed evidence of enteritis no bowel obstruction noted. Discussed the results with the patient she would like to go home at this point time. She is advised to continue supportive care use bland diet advance as tolerated. She is vies return with worsening symptoms or concerns she is agreeable to plan all question concerns answered she was discharged home in stable condition. Lab Data Labs: Laboratory Results - last 24 hr 01/30/25 16:58 WBC 5.0 RBC 4.79 Hgb 14.8 Hct 43.6 MCV 91.0 MCH 30.9 MCHC 33.9 RDW Std Deviation 43.9 RDW Coeff of Alexandrea 13.1 Plt Count 140 L MPV 11.3 Immature Gran % (Auto) 0.600 Neut % (Auto) 57.4 Lymph % (Auto) 30.9 [place] % (Auto) 8.9 Eos % (Auto) 1.6 Baso % (Auto) 0.6 Absolute Neuts (auto) 2.8 Absolute Lymphs (auto) 1.53 Nucleated RBC % 0 Sodium 137 Potassium 4.0 Chloride 101 Carbon Dioxide 27.4 Anion Gap 9 BUN 9 Creatinine 0.71 Estim Creat Clear Calc 98.63 Est GFR (MDRD) Non-Af 99 BUN/Creatinine Ratio 12.5 Glucose 86 Calcium 9.0 Total Bilirubin 0.31 AST 26 ALT 40 H Alkaline Phosphatase 60 Total Protein 6.9 Albumin 4.1 Globulin 2.9 Albumin/Globulin Ratio 1.4 Lipase 145 H Radiography Diagnostic Testing: Clinical Impression(s) from Imaging Studies Abdomen/Pelvis CT 01/30/25 17:30 IMPRESSION: Scattered mild thickening of the small bowel loops may reflect enteritis. No bowel obstruction. Mildly thickened urinary bladder wall which may reflect cystitis vs nondistention; consider correlation with urinalysis. Reading Location: [facility] Discharge Plan Triage Chief Complaint: Abd Pain ED Provider: Jc Briscoe Dx/Rx/DC Orders Clinical Impression: Abdominal pain, History of ventral hernia, Pre-diabetes, History of IBS Prescriptions: No Action pravastatin 40 mg tablet 40 mg PO DAILY Patient Comments: PT STATES PCP DECREASED TO 1/2 TABLET DAILY famotidine 40 mg tablet 40 mg PO DAILY sertraline 100 mg tablet 100 mg PO DAILY Patient Comments: PT STATES WAS TOLD TO TAKE 1/2 TABLET BY PCP spironolactone 25 mg tablet 25 mg PO DAILY PRN (Reason: edema) trazodone 100 mg tablet 100 mg PO DAILY Patient Comments: TAKE 1 (ONE) & ONE-HALF TO 2 (TWO) TABLETS BY MOUTH DAILY AT BEDTIME pantoprazole 40 mg tablet,delayed release (DR/EC) 40 mg PO DAILY levothyroxine 200 mcg tablet 200 mcg PO DAILY Patient Comments: TAKES WITH 25MCG DAILY ibuprofen 600 mg tablet 600 mg PO PRN PRN (Reason: Pain) Patient Comments: TAKE 1 TABLET BY MOUTH EVERY 6 HOURS NEEDED FOR PAIN, take WITH FOOD or milk levothyroxine 25 mcg tablet 25 mcg PO DAILY Patient Comments: TAKES WITH 200MCG DAILY dicyclomine 10 mg capsule 10 mg PO TID PRN (Reason: pain) Spiriva Respimat 2.5 mcg/actuation mist 2 puff inhalation BID Trulance 3 mg tablet 3 mg PO DAILY Mounjaro 15 mg/0.5 mL pen injector 15 mg subcut QWEEK acetaminophen 500 mg capsule 500 mg PO Q4H PRN (Reason: fever or pain) aspirin 81 mg tablet 81 mg PO DAILY multivitamin Tablet 1 tab PO DAILY Primary Care Provider: Rima Fam NP Referrals: Rima Fam NP, [facility] [Primary Care Provider, Family Practice] Activity Restrictions/Additional Instructions: Your CT and blood work did not show any acute findings here in the emergency department. That likely you have a viral illness causing your symptoms. Continue supportive care start with a clear liquid diet and advance as tolerated. Return with worsening symptoms or any other concerns follow-up your doctors in outpatient setting Print Language: [place] Disposition Disposition: Home, Self Care
[2025-01-30 18:35] VITALS: BP 110/67; PULSE 58; RESP 18; O2SAT 96
[2025-01-30 19:05] LABS: Mucous, Urine 0 SEEN /hpf (<or=2+)
[2025-01-30 19:23] LABS: Color, Urine Straw (Yellow); Glucose, Dipstick Normal (Normal); Ketone-Dipstick Negative (Negative); Leukocyte Esterase-Dipstick Negative /ul (Negative); Nitrite-Dipstick Negative (Negative); Occult Blood-Urine Negative /ul (Negative); Protein-Dipstick 15 mg/dl (Negative); Specific Gravity, Urine 1.005 (1.002-1.030); Urine Bilirubin Dipstick Negative (Negative)
[2025-01-30 19:33] VITALS: BP 110/67; PULSE 58; RESP 18; TEMP 37; O2SAT 96
[2025-01-30 20:58] LABS: Red Blood Cells-Urine 0-5 SEEN /hpf (0-5); Squamous Epithelial Cells - UA 0-5 SEEN /hpf (5-10)
== END 2025-01-30 19:34 | disposition home or self-care (01) ==
PROVIDERS: Emergency Provider Emergency Medicine; PCP Registered Nurse; Visit Provider Emergency Medicine
DX: R10.9 Unspecified abdominal pain (principal); I50.9 Heart failure, unspecified; F32.A Depression, unspecified; K58.9 Irritable bowel syndrome, unspecified; E03.9 Hypothyroidism, unspecified; G47.30 Sleep apnea, unspecified; R73.03 Prediabetes; Z95.0 Presence of cardiac pacemaker; Z79.85 Long-term (current) use of injectable non-insulin antidiabetic drugs; Z79.890 Hormone replacement therapy; Z79.899 Other long term (current) drug therapy; Z87.19 Personal history of other diseases of the digestive system
CPT/HCPCS: 74177; 80053; 81001; 83690; 85025; 96360; 96361; 99283; Q9967; A4216